=== PATIENT | male | born 1935 | race Caucasian/White ===

== ENCOUNTER 2018-11-30 14:11 | Inpatient (IN) | payer MEDICAID, MEDICARE ==
[~2018-11-30] VITALS: Ht 170.2 cm; Wt 89.4 kg
--- NOTE | 2018-11-30 14:19 | NUR ---
Patient ambulated to bed 4
[2018-11-30 14:20] VITALS: BP 156/69
[2018-11-30] MEDS ORDERED: MORPHINE SULFATE 4 MG/ML SYR IVP ONE (14:30)
[2018-11-30] MEDS ORDERED: ASPIRIN 325 MG TAB PO ONE (14:30)
--- NOTE | 2018-11-30 14:30 | NUR ---
BIB FAMILY MEMBERS C/O PRESSURE-LIKE CP RADIATING TO THE BACK, SOB, X2 WEEKS, WORSENING SINCE 399; EXACERBATED BY DEEP INSPIRATION. ALSO C/O PRODUCTIVE COUGH W/ YELLOWISH/WHITE PHLEGM X2 MONTHS. SPO2 95% ON 3L NC. PATIENT STATES PAIN OF 10/10 AT THIS TIME; VSS; PATIENT POSITIONED FOR COMFORT; HOB ELEVATED; BEDRAILS UP X2; BED DOWN. ER MD MADE AWARE OF PT STATUS. FAMILY MEMBER IS AT BEDSIDE.
--- NOTE | 2018-11-30 15:00 | NUR ---
PT STATES FEELING BETTER AND THE CP HAS BEEN IMPROVED TO 8/10 AT THIS TIME.
[2018-11-30] MEDS ORDERED: ALBUTEROL SULFATE/IPRATROPIU 3 ML SOL IH ONE (15:10)
[2018-11-30 15:11] LABS: BASOPHILS # (AUTO) 0.1 K/uL (0.00-0.22); BASOPHILS % (AUTO) 0.7 % (0.0-2.0); EOSINOPHILS # (AUTO) 0.3 K/uL (0-0.4); HEMATOCRIT 37.5 % (36-52); HEMOGLOBIN 12.5 g/dL (12.0-18.0); LYMPHOCYTES # (AUTO) 1.5 K/uL (2.0-11.5); LYMPHOCYTES % (AUTO) 17.6 % (20.5-51.1); MEAN CORPUSCULAR HEMOGLOBIN 29 pg (27-31); MEAN CORPUSCULAR HGB CONC 33 g/dL (33-37); MEAN CORPUSCULAR VOLUME 88.2 fL (80-94); MONOCYTES # (AUTO) 0.6 K/uL (0.8-1.0); MONOCYTES % (AUTO) 6.5 % (1.7-9.3); NEUTROPHILS # (AUTO) 6.2 K/uL (1.8-7.7); NEUTROPHILS % (AUTO) 72.2 % (42.2-75.2); PLATELET COUNT (AUTO) 210 K/uL (140-450); RED BLOOD CELL COUNT(AUTO) 4.25 MIL/uL (4.20-6.10); RED CELL DISTRIBUTION WIDTH 13.6 % (11.6-13.7); WHITE BLOOD COUNT (AUTO) 8.6 K/uL (4.8-10.8)
--- NOTE | 2018-11-30 15:40 | NUR ---
[place] [facility] - 11/30/18 at 1624 by VIMAL RT IS AT BEDSIDE AND IMPLEMENTING BREATHING TREATMENT.
--- NOTE | 2018-11-30 15:40 | NUR ---
CALLED RT FOR PT'S BREATHING TREATMENT.
--- NOTE | 2018-11-30 15:43 | NUR ---
RT IS AT BEDSIDE AND IMPLEMENTING BREATHING TREATMENT.
[2018-11-30 16:03] LABS: ALBUMIN 4.2 g/dL (3.4-5.0); ANION GAP 13.6 (8-16); ASPARTATE AMINOTRANSFERASE 21 U/L (15-37); CARBON DIOXIDE 32.9 mmol/L (21-32); CHLORIDE 101 mmol/L (98-107); CREATININE 1.6 mg/dL (0.7-1.3); GLUCOSE 139 mg/dL (74-106); POTASSIUM 3.5 mmol/L (3.5-5.1); SODIUM SERUM 144 mmol/L (136-145); TOTAL BILIRUBIN 0.4 mg/dL (0.0-1.0); UREA NITROGEN, BLOOD 47 mg/dL (7-18)
[2018-11-30] MEDS ORDERED: NACL 0.9% 1,000 ML IV ONE (16:20)
[2018-11-30] MEDS ORDERED: TORS20TA3 PO (16:25)
[2018-11-30] MEDS ORDERED: HYDROcodone/APAP 5/325 MG 1 TAB TAB PO PRN (16:25)
[2018-11-30] MEDS ORDERED: ACETAMINOPHEN 325 MG TAB PO PRN (16:25)
[2018-11-30] MEDS ORDERED: MECL-322 PO (16:25)
[2018-11-30] MEDS ORDERED: ALBU-118 IH (16:25)
[2018-11-30] MEDS ORDERED: ISOS5TAB10 PO (16:25)
[2018-11-30] MEDS ORDERED: ONDANSETRON 4 MG/2 ML VIAL IM/IVP PRN (16:25)
[2018-11-30] MEDS ORDERED: HYDR1TAB73 PO (16:25)
[2018-11-30 16:26] LABS: APPEARANCE,URINE CLEAR (CLEAR); BILIRUBIN,URINE NEGATIVE (NEGATIVE); BLOOD, URINE NEGATIVE (NEGATIVE); COLOR,URINE YELLOW (YELLOW); LEUKOCYTE ESTERASE ,URINE NEGATIVE (NEGATIVE); NITRITE, URINE NEGATIVE (NEGATIVE); PH,URINE 5.5 (5.0-9.0); UGLUCOSE NEGATIVE (NEGATIVE)
--- NOTE | 2018-11-30 16:45 | NUR ---
PT IS ON TELE HOLD AT THIS TIME. PT WILL BE TRANSFERRED TO TELE CHANGE OF SHIFT. SAFETY EQUIPMENT TESTER HERON MARTINEZ ALONG WITH CHARGE NURSE BOBBY MARTINEZ.
--- NOTE | 2018-11-30 16:53 | NUR ---
FROM THE FLOOR IS EVALUATING PT AT BEDSIDE AT THIS TIME.
[2018-11-30] MEDS ORDERED: NACL 0.9% 1,000 ML IV SCH (17:14)
[2018-11-30] MEDS ORDERED: NITROGLYCERIN 0.4 MG TAB SL PRN (17:15)
[2018-11-30] MEDS ORDERED: HEPARIN PER PHARMACY MC PRN (17:15)
[2018-11-30] MEDS ORDERED: MECLIZINE 25 MG TAB PO PRN (17:25)
--- NOTE | 2018-11-30 17:38 | NUR ---
PT IS EATING CARDIC DIET WITH ASSISTANCE OF HIS SON AT BEDSIDE AT THIS TIME.
[2018-11-30] MEDS: NACL 0.9% 1,000 ML IV SCH (17:41)
[2018-11-30 18:16] LABS: PROTHROMBIN TIME 10.3 secs (10.8-13.4)
[2018-11-30] MEDS ORDERED: ALBUTEROL SULFATE/IPRATROPIU 3 ML SOL IH PRN ×2 (18:25)
--- NOTE | 2018-11-30 18:51 | NUR ---
GETTING READY TO ADMIT PT TO TELEMETRY. PATIENT EDUCATION PROVIDED TO SON.
--- NOTE | 2018-11-30 18:54 | NUR ---
PT TAKEN TO TELE. PER HERON PATIENT CAN BE TRANSFERRED NOW TO THE FLOOR.
--- NOTE | 2018-11-30 19:09 | NUR ---
Patient will be admitted to care of elevated Troponin 0.191 and NON-ESTEMI. Admited to telemetry. Will go to room 124B. Belongings list completed. Report to ANNA Harris.
[2018-11-30 19:10] VITALS: BP 144/58
--- NOTE | 2018-11-30 19:10 | NUR ---
RECEIVED BEDSIDE REPORT FROM YOLI CASTILLO. PT IS AAOX4. NC 3L O2 ORDER MAINTAIN O2>90%. PT SPEAKS LUXEMBOURGISH SON AT BEDSIDE SPEAKS INDONESIAN. C/C CP. STATES PAIN 3/10 WILL MEDICATE. IV ON RAC 20G NS AT 60M/H. PT DX NSTEMI. TROP PER RN IS 0.191 NEXT DRAW IS AT 2300. SKIN INTACT. PT DENIES O2 USE AT HOME. LIVES WITH SON. USES CANE AT HOME. WILL PUT ON FALL PRECAUTIONS. MRSA SWAB OBTAINED. ADMIT VS: 144/58 HR 57 95% 3L, 18 97.7 3/10 EPIGASTRIC PAIN. POC DISCUSSED WITH PT AND SON. ALL QUESTIONS AND CONCERNS ANSWERED. ORIENTED PT TO ROOM,STAFF,VISITING HOURS, AND CALL LIGHT. WILL CONTINUE TO MONITOR.
[2018-11-30 19:45] LABS: MAGNESIUM 2.4 mg/dL (1.8-2.4); PHOSPHORUS 2.9 mg/dL (2.5-4.9); THYROID STIMULATING HORMONE 1.68 uIU/mL (0.34-3.74)
[2018-11-30] MEDS: SIMVASTATIN 20 MG TAB PO SCH (20:10)
[2018-11-30] MEDS: ISOSORBIDE DINITRATE 10 MG TAB PO SCH (20:10)
--- NOTE | 2018-11-30 20:15 | NUR ---
HEPARIN ALEXIA GIVEN 4500U AND HEPARIN DRIP AT 900U/H PTS PTT 25.6 PLT 210. PTT ORDER FOR 0215. [facility] MEDICATIONS GIVEN. EDUCATED PT ON REASON AND S/E OF MEDICATIONS. ALL NEEDS MET. WILL CONTINUE TO MONITOR.
[2018-11-30] MEDS: hePARIN / DEXT 5% PREMIX 250 ML IV SCH (20:17)
--- NOTE | 2018-11-30 22:00 | NUR ---
PATIENT LAYING COMFORTABLY IN BED WATCHING TV. DENIES ANY PAIN. ALL NEEDS MET AT THIS TIME. CALL LIGHT IS WITHIN REACH. WILL CONTINUE TO MONITOR.
--- NOTE | 2018-11-30 23:00 | NUR ---
TROPONIN WAS DRAWN AT THIS TIME. ASSISTED PT TO BATHROOM PT WITH STEADY GAIT SOB WITH ACTIVITY. ASSISTED PT BACK TO BED REAPPLIED NC AT 2L O2. PT TOLERATED WELL. ALL NEEDS MET. CALL LIGHT IS WITHIN REACH. WILL CONTINUE TO MONITOR.
--- NOTE | 2018-11-30 23:50 | NUR ---
PAGED DOCTOR REGARDING PTS FIRST TROP- 0.191 AND SECOND WAS DRAWN AT 2300 IS NEGATIVE PER DOCTOR HE SPOKE WITH DR BARRON DISASTER OR DAMAGE CONTROL SPECIALIST ON THE CASE TO CONTINUE CURRENT TREATMENT. WILL CONTINUE PATIENT ON HEPARIN DRIP AND F/U AFTER THE THIRD TROPONIN 12/01 AT 0700. WILL CONTINUE TO MONITOR.
[2018-12-01] VITALS: BP 129/63
--- NOTE | 2018-12-01 00:07 | NUR ---
VITAL SIGNS ARE WITHIN NORMAL LIMITS. DENIES ANY PAIN. ALL NEEDS MET AT THIS TIME. CALL LIGHT IS WITHIN REACH. WILL CONTINUE TO MONITOR.
--- NOTE | 2018-12-01 02:10 | NUR ---
PATIENT IS SLEEPING COMFORTABLY IN BED. CHEST RISE AND FALL. SAFETY MEASURES ARE IN PLACE. CALL LIGHT IS WITHIN REACH.
--- NOTE | 2018-12-01 03:33 | NUR ---
PTT CAME BACK 44.1 PER PHARMACY PROTOCOL ADMINISTERED 2300U BOLUS AND INCREASE DRIP 150U/H RATE NOW IS 1050U/H. PT TOLERATED WELL. WILL ORDER PTT FOR 929. ALL NEEDS MET AT THIS TIME. WILL CONTINUE TO MONITOR.
[2018-12-01] MEDS: hePARIN / DEXT 5% PREMIX 250 ML IV SCH ×2 (03:35→10:50)
[2018-12-01 04:00] VITALS: BP 100/61
--- NOTE | 2018-12-01 05:00 | NUR ---
PT IS RESTING COMFORTABLY IN BED. CALL LIGHT IS WITHIN REACH. WILL CONTINUE TO MONITOR
[2018-12-01] MEDS ORDERED: ALBUTEROL SULFATE/IPRATROPIU 3 ML SOL IH SCH ×2 (06:00→19:00)
[2018-12-01] MEDS: ALBUTEROL SULFATE/IPRATROPIU 3 ML SOL IH SCH ×3 (06:33→19:41)
--- NOTE | 2018-12-01 07:13 | NUR ---
GAVE BEDSIDE REPORT. PT ENDORSED IN STABLE CONDITION.
--- NOTE | 2018-12-01 07:15 | NUR ---
RECEIVED REPORT FROM MEDICAL DRIVER NURSE. PT IS ABLE TO MAKE NEEDS KNOWN, AAOX4, NO C/O PAIN AT THIS TIME. RESPIRATIONS EVEN AND UNLABORED ON O2 2L VIA N/C, AUDIBLE CRACKLES THROUGHOUT UPON AUSCULTATION. PT HAS INTERMITTENT PRODUCTIVE COUGH WITH SMALL AMOUNT. +1 PITTING EDEMA TO BLE. IV ON RT AC 20 GA RUNNING IVF PER ORDER. LBM 11/30, ACTIVE BS, SOFT ABD. SKIN IS INTACT, WARM TO TOUCH. PT IS ON FALL RISK PRECAUTIONS, SAFETY MEASURES IN PLACE, CALL LIGHT WITHIN REACH. REVIEWED POC WITH PT, PT VERBALIZED UNDERSTANDING.
[2018-12-01 07:27] LABS: BASOPHILS # (AUTO) 0.1 K/uL (0.00-0.22); BASOPHILS % (AUTO) 0.7 % (0.0-2.0); EOSINOPHILS # (AUTO) 0.3 K/uL (0-0.4); EOSINOPHILS % (AUTO) 3.6 % (0.0-4.0); HEMATOCRIT 34.6 % (36-52); HEMOGLOBIN 11.7 g/dL (12.0-18.0); LYMPHOCYTES # (AUTO) 2.1 K/uL (2.0-11.5); LYMPHOCYTES % (AUTO) 26.7 % (20.5-51.1); MEAN CORPUSCULAR HEMOGLOBIN 30 pg (27-31); MEAN CORPUSCULAR HGB CONC 34 g/dL (33-37); MEAN CORPUSCULAR VOLUME 89.7 fL (80-94); MONOCYTES # (AUTO) 0.6 K/uL (0.8-1.0); MONOCYTES % (AUTO) 8.2 % (1.7-9.3); NEUTROPHILS # (AUTO) 4.8 K/uL (1.8-7.7); NEUTROPHILS % (AUTO) 60.8 % (42.2-75.2); PLATELET COUNT (AUTO) 180 K/uL (140-450); RED BLOOD CELL COUNT(AUTO) 3.86 MIL/uL (4.20-6.10); RED CELL DISTRIBUTION WIDTH 13.7 % (11.6-13.7)
[2018-12-01 07:51] LABS: ANION GAP 9.8 (8-16); CARBON DIOXIDE 33.3 mmol/L (21-32); CHLORIDE 107 mmol/L (98-107); CREATININE 1.3 mg/dL (0.7-1.3); GLUCOSE 108 mg/dL (74-106); POTASSIUM 4.1 mmol/L (3.5-5.1); SODIUM SERUM 146 mmol/L (136-145); UREA NITROGEN, BLOOD 40 mg/dL (7-18)
[2018-12-01 07:53] LABS: MAGNESIUM 2.4 mg/dL (1.8-2.4); PHOSPHORUS 3.4 mg/dL (2.5-4.9)
[2018-12-01 08:00] VITALS: BP 133/69
[2018-12-01 08:10] LABS: CHOL/HDL RATIO 6.4 (1-4.5)
[2018-12-01] MEDS: ISOSORBIDE DINITRATE 10 MG TAB PO SCH ×2 (08:23→20:22)
--- NOTE | 2018-12-01 08:23 | NUR ---
BLUEPHONE/DAMAGE APPRAISER HECTOR #[id number] EXPLAINED INDICATIONS AND POTENTIAL SIDE EFFECTS OF MEDICATIONS, PT'S QUESTIONS ANSWERED. PT IS REQUESTING TO CONTACT SON, WILL FOLLOW-UP. O2 TITRATED TO 3L VIA N/C D/T DIFFICULTY BREATHING.
[2018-12-01] MEDS: VALSARTAN 80 MG TAB PO SCH (08:24)
[2018-12-01] MEDS: HYDROCHLOROTHIAZIDE 25 MG TAB PO SCH (08:24)
[2018-12-01] MEDS: FUROSEMIDE 40 MG TAB PO SCH (08:24)
[2018-12-01] MEDS: ASPIRIN 81 MG TAB.CHEW PO SCH (08:24)
--- NOTE | 2018-12-01 08:35 | NUR ---
SON/LEESA AT BEDSIDE, EXPLAINED THAT FATHER IS MI'KMAQ. PT IS TEARFUL. STATES HE WILL BE FED BREAKFAST BY SON AT THIS TIME.
--- NOTE | 2018-12-01 09:11 | NUR ---
PATIENT HAS BEEN SCREENED AND CATEGORIZED MODERATE NUTRITION RISK. PATIENT WILL BE SEEN WITHIN 3-5 DAYS OF ADMISSION. 12/04/18-12/06/[address]
[2018-12-01] MEDS: NACL 0.9% 1,000 ML IV SCH (10:25)
[2018-12-01] MEDS: PIPERACILLIN/TAZOBACTAM 3.375 GM in DEXTROSE 5% 50 ML IV SCH ×2 (10:29→17:28)
[2018-12-01] MEDS ORDERED: ACETYLCYSTEINE 10% (100 MG/ML) 100 MG/ML VIAL INH SCH ×2 (11:00→19:00)
[2018-12-01 12:00] VITALS: BP 119/54
--- NOTE | 2018-12-01 13:46 | NUR ---
TALKED TO DR LUIS MANUEL MAY NEEDS SCHEDULE CORRECTION
--- NOTE | 2018-12-01 15:10 | NUR ---
SON AT BEDSIDE. PER LUCY/SON, STAFF MAY CONTACT HIM AT OR LEESA/SON WHENEVER PT NEEDS SOMETHING DURING VISITING HOURS.
[2018-12-01 16:00] VITALS: BP 126/46
--- NOTE | 2018-12-01 17:40 | NUR ---
SON/LEESA GIVEN UPDATE REGARDING PT'S CONDITION, ALL QUESTIONS ANSWERED.
--- NOTE | 2018-12-01 19:10 | NUR ---
ENDORSED PT TO RADAR TECHNICIAN NURSE. PT HAS NO SIGNS OF DISTRESS AT THIS TIME.
--- NOTE | 2018-12-01 19:11 | NUR ---
RECEIVED BEDSIDE REPORT FROM DAY RN. PT IS AAOX4 ON NC 4L O2. HAS BREATHING TREATMENT WILL SPEAK WITH RT TO KUSUM DOWN O2. PT IS SAMI SPEAKING ONLY. SON AND ARE AT BEDSIDE. SON SPEAKS GUAMANIAN. SKIN IS INTACT. IV ON RAC 20G NS INFUSING AT 60M/H. PER DR BARRON PT CLEARED TROP NEG X2 HEPARIN DRIP D/C. PT CURRENTLY ON ZOSYN Q8/H. SON ASKING IF PT WILL BE D/C WILL F/U WITH DOCTOR. POC DISCUSSED WITH FAMILY. CALL LIGHT IS WITHIN REACH. WILL CONTINUE TO MONITOR.
--- NOTE | 2018-12-01 19:30 | NUR ---
RT IS AT BEDSIDE. SPOKE WITH DOCTOR NO ORDER TO D/C TONIGHT EXPLAINED TO FAMILY THEY ARE AGREEABLE. NO FURTHER QUESTIONS OR CONCERNS AT THIS TIME. CALL LIGHT IS WITHIN REACH.
[2018-12-01] MEDS: ACETYLCYSTEINE 10% (100 MG/ML) 100 MG/ML VIAL INH SCH (19:42)
[2018-12-01 20:00] VITALS: BP 100/55
[2018-12-01] MEDS: SIMVASTATIN 20 MG TAB PO SCH (20:22)
--- NOTE | 2018-12-01 20:22 | NUR ---
VITAL SIGNS ARE WITHIN NORMAL LIMITS. HEENA MEDICATIONS GIVEN. PT TOLERATED WELL. CALL LIGHT IS WITHIN REACH. ALL NEEDS MET AT THIS TIME.
--- NOTE | 2018-12-01 22:15 | NUR ---
PT IS AWAKE CURRENTLY LAYING COMFORTABLY IN BED. CALL LIGHT IS WITHIN REACH. WILL CONTINUE TO MONITOR.
[2018-12-02] VITALS: BP 148/55
[2018-12-02] MEDS: PIPERACILLIN/TAZOBACTAM 3.375 GM in DEXTROSE 5% 50 ML IV SCH ×3 (00:41→17:15)
--- NOTE | 2018-12-02 00:53 | NUR ---
VITAL SIGNS ARE WITHIN NORMAL LIMITS. ZOSYN NOW INFUSING PER ORDERS. ALL NEEDS MET AT THIS TIME. CALL LIGHT IS WITHIN REACH.
[2018-12-02] MEDS: ACETYLCYSTEINE 10% (100 MG/ML) 100 MG/ML VIAL INH SCH ×4 (01:06→19:09)
[2018-12-02] MEDS: ALBUTEROL SULFATE/IPRATROPIU 3 ML SOL IH SCH ×4 (01:06→19:09)
[2018-12-02] MEDS: NACL 0.9% 1,000 ML IV SCH ×2 (01:24→18:33)
--- NOTE | 2018-12-02 02:05 | NUR ---
PATIENT IS SLEEPING COMFORTABLY IN BED. CHEST RISE AND FALL. ALL NEEDS MET AT THIS TIME. CALL LIGHT IS WITHIN REACH.
[2018-12-02 04:00] VITALS: BP 104/62
--- NOTE | 2018-12-02 04:00 | NUR ---
VITAL SIGNS ARE WITHIN NORMAL LIMITS. PT DENIES ANY PAIN AT THIS TIME. SAFETY MEASURES ARE IN PLACE.
[2018-12-02 06:03] LABS: BASOPHILS # (AUTO) 0.1 K/uL (0.00-0.22); BASOPHILS % (AUTO) 0.8 % (0.0-2.0); EOSINOPHILS # (AUTO) 0.2 K/uL (0-0.4); EOSINOPHILS % (AUTO) 2.9 % (0.0-4.0); HEMATOCRIT 34.5 % (36-52); HEMOGLOBIN 11.5 g/dL (12.0-18.0); LYMPHOCYTES # (AUTO) 1.3 K/uL (2.0-11.5); LYMPHOCYTES % (AUTO) 15.3 % (20.5-51.1); MEAN CORPUSCULAR HEMOGLOBIN 30 pg (27-31); MEAN CORPUSCULAR HGB CONC 33 g/dL (33-37); MONOCYTES # (AUTO) 0.6 K/uL (0.8-1.0); MONOCYTES % (AUTO) 7.3 % (1.7-9.3); NEUTROPHILS # (AUTO) 6.3 K/uL (1.8-7.7); NEUTROPHILS % (AUTO) 73.7 % (42.2-75.2); PLATELET COUNT (AUTO) 189 K/uL (140-450); RED BLOOD CELL COUNT(AUTO) 3.87 MIL/uL (4.20-6.10); RED CELL DISTRIBUTION WIDTH 13.8 % (11.6-13.7); WHITE BLOOD COUNT (AUTO) 8.5 K/uL (4.8-10.8)
[2018-12-02 06:33] LABS: ANION GAP 12.2 (8-16); CARBON DIOXIDE 30.3 mmol/L (21-32); CHLORIDE 108 mmol/L (98-107); CREATININE 1.4 mg/dL (0.7-1.3); GLUCOSE 97 mg/dL (74-106); POTASSIUM 3.5 mmol/L (3.5-5.1); SODIUM SERUM 147 mmol/L (136-145); UREA NITROGEN, BLOOD 33 mg/dL (7-18)
[2018-12-02 06:40] LABS: MAGNESIUM 2.1 mg/dL (1.8-2.4); PHOSPHORUS 3.5 mg/dL (2.5-4.9)
--- NOTE | 2018-12-02 07:23 | NUR ---
GAVE BEDSIDE REPORT TO DAY RN. PT ENDORSED IN STABLE CONDITION.
--- NOTE | 2018-12-02 07:24 | NUR ---
RECEIVED BEDSIDE REPORT FROM SHOELACE TIPPING MACHINE OPERATOR NURSE. PATIENT IS AWAKE, ALERT AND ORIENTEDX4. PERSIAN SPEAKER. SKIN IS INTACT, FALL RISK PROTOCOL IN PLACE. AMBULATES W CANE. CONTINENT. NO SIGNS OF DISTRESS ON 2L NC. R AC 20G SL. L AC 20G INFUSING NS AT 60. CLEAN, DRY AND INTACT. BED IN LOW POSITION. CALL LIGHT WITHIN REACH. WILL CONTINUE TO MONITOR THE PATIENT. TELE IN PLACE
[2018-12-02 08:00] VITALS: BP 152/66
[2018-12-02] MEDS: ASPIRIN 81 MG TAB.CHEW PO SCH (08:52)
[2018-12-02] MEDS: ISOSORBIDE DINITRATE 10 MG TAB PO SCH ×2 (08:52→21:27)
[2018-12-02] MEDS: FUROSEMIDE 40 MG TAB PO SCH (08:53)
[2018-12-02] MEDS: VALSARTAN 80 MG TAB PO SCH (08:54)
[2018-12-02] MEDS: HYDROCHLOROTHIAZIDE 25 MG TAB PO SCH (08:55)
--- NOTE | 2018-12-02 09:04 | NUR ---
SON AT PT'S BEDSIDE, HE INSTRUCTED PT ON THE IMPORTANCE OF COUGHING TO GET SPUTUM OUT.
--- NOTE | 2018-12-02 09:11 | NUR ---
ADMINISTERED MEDS. SON AT BEDSIDE. EXPLAINED ALL THE SIDE EFFECTS. PATIENT TOLERATED WELL. WILL CONTINUE TO MONITOR
--- NOTE | 2018-12-02 10:41 | NUR ---
SON AT BEDSIDE. PATIENT HAS NO SIGNS OF DISTRESS. WILL CONTINUE TO MONITOR
[2018-12-02 12:00] VITALS: BP 127/82
--- NOTE | 2018-12-02 12:51 | NUR ---
*S.T. Bedside swallow eval completed* Pt presents with moderate-severe pharyngeal phase dysphagia c/b consistent wet voice and intermittent coughing after swallows of thin and nectar thick liquids. Pt w/ poor endurance for mastication of solids due to SOB. Pt benefitted from sitting fully upright w/ back support from son. Recommend: 1) Downgrade diet textures to mechanical soft ground, HONEY THICK LIQUIDS ONLY; No straws; cup or spoon sips only 2) Pt to sit fully upright at 90 degree angle, ideally in chair. Nsg to assist transfer to chair. 3) P.O. meds crushed and mixed w/ puree. 4) S.T. to f/u 2x/1 week to ensure tolerance of recommended diet and possibly advance diet if pt's swallow ability improves. 5) 1:1 feeder w/ aspiration precautions. Pt and son educated re: results/recommendations. Endorsed to ANNA Walsh. Time [id number]
--- NOTE | 2018-12-02 13:38 | NUR ---
PATIENT IN NO DISTRESS. WILL CONTINUE TO MONITOR THE PATIENT
--- NOTE | 2018-12-02 14:28 | NUR ---
PATIENT IS SLEEPING. NO SIGNS OF DISTRESS. WILL CONTINUE TO MONITOR THE PATIENT
[2018-12-02 16:00] VITALS: BP 153/61
--- NOTE | 2018-12-02 16:00 | NUR ---
PATIENT SITTING IN BED. NO DISTRESS
--- NOTE | 2018-12-02 18:45 | NUR ---
PATIENT PICKED UP BY RADIOLOGIST
--- NOTE | 2018-12-02 19:05 | NUR ---
RECIEVED PT AAOX4 , NID - O2 SAT 96% , ON BREATING TREATMENT , PT'S SON ON BEDSIDE .ON CORE CUTTER AND REAMER , USES URINAL -URINAL AT BEDSIDE PROVIDED , ON SAFETY / FALL PREACAUTION PROTOCOL - USES CANE - BED ALARM ON - REMINDS PT USE CALL LIGHT FOR ASSISTANCE -FALL RISK PRECAUTION -CALL LIGHT WITH REACH , PLAN OF CARE DISCUSSED BUT POOR UNDERSTANDING DUE TO LANGUAGE BARRIERS . PT REQUESTING SLEEPING PILL - HIS REQUEST TRANSLATED BY HIS SON ( HIS HUMAN RESOURCES COORDINATOR ) WILL CONT. TO MONITOR AND WILL REFER TO TAMIE REGARDING PT'S REQUEST.
--- NOTE | 2018-12-02 19:05 | NUR ---
GAVE BEDSIDE REPORT TO LUMBER DRIVER NURSE. PATIENT ENDORSED IN STABLE CONDITION
[2018-12-02 20:00] VITALS: BP 157/67
[2018-12-02] MEDS ORDERED: MELATONIN 3 MG TAB PO PRN (21:20)
[2018-12-02] MEDS ORDERED: MELATONIN 3 MG TAB ONE (21:24)
[2018-12-02] MEDS: SIMVASTATIN 20 MG TAB PO SCH (21:26)
--- NOTE | 2018-12-02 22:00 | NUR ---
MADE ROUNDS , RESP. EVEN AND UNLABORED , O2 SAT 95% , NO COMPLAIN AT THIS TIME , CALL LIGHT WITHIN REACH ,BED ALARM ON .
[2018-12-03] VITALS: BP 152/57
--- NOTE | 2018-12-03 | NUR ---
MADE ROUNDS, NO SIGNS OF DISTRESS NOTED.
[2018-12-03] MEDS: ACETYLCYSTEINE 10% (100 MG/ML) 100 MG/ML VIAL INH SCH ×3 (01:27→19:41)
[2018-12-03] MEDS: ALBUTEROL SULFATE/IPRATROPIU 3 ML SOL IH SCH ×4 (01:27→19:41)
[2018-12-03] MEDS: PIPERACILLIN/TAZOBACTAM 3.375 GM in DEXTROSE 5% 50 ML IV SCH ×3 (02:09→17:10)
[2018-12-03 04:00] VITALS: BP 150/79
--- NOTE | 2018-12-03 06:00 | NUR ---
MADE ROUNDS NO SIGNS OF DISTRESS NOTED.
--- NOTE | 2018-12-03 07:20 | NUR ---
ENDORSED TO AM SHIFT WITH STABLE CONDITION , NO C/O CHEST PAIN FOR THE WHOLE SHIFT.
--- NOTE | 2018-12-03 07:21 | NUR ---
RECEIVED BEDSIDE REPORT FROM POST COMMANDER NURSE. PATIENT IS AWAKE, ALERT AND ORIENTEDX4. PORTUGUESE SPEAKER. SKIN IS INTACT. NO SIGNS OF DISTRESS ON 2L NC. IV ON R AC 20G. CLEAN, DRY AND INTACT. TELE MONITOR IN PLACE. AMBULATE W ASSIST AND CANE, FALL RISK PROTOCOL IN PLACE. CONTINENT. BED IN LOW POSITION. CALL LIGHT WITHIN REACH. WILL CONTINUE TO MONITOR THE PATIENT
[2018-12-03 08:00] VITALS: BP 159/51
[2018-12-03] MEDS ORDERED: BUDESONIDE 0.5 MG/2 ML NEBU INH SCH (08:09)
[2018-12-03] MEDS ORDERED: ALBUTEROL SULFATE/IPRATROPIU 3 ML SOL IH PRN (08:10)
--- NOTE | 2018-12-03 09:00 | NUR ---
PATIENT IN NO DISTRESS. WILL CONTINUE TO MONITOR THE PATIENT.
[2018-12-03 09:56] LABS: BASOPHILS % (AUTO) 0.4 % (0.0-2.0); EOSINOPHILS # (AUTO) 0.2 K/uL (0-0.4); EOSINOPHILS % (AUTO) 2.9 % (0.0-4.0); HEMATOCRIT 35.4 % (36-52); HEMOGLOBIN 11.6 g/dL (12.0-18.0); LYMPHOCYTES # (AUTO) 1.4 K/uL (2.0-11.5); LYMPHOCYTES % (AUTO) 17.4 % (20.5-51.1); MEAN CORPUSCULAR HEMOGLOBIN 30 pg (27-31); MEAN CORPUSCULAR HGB CONC 33 g/dL (33-37); MEAN CORPUSCULAR VOLUME 89.8 fL (80-94); MONOCYTES # (AUTO) 0.4 K/uL (0.8-1.0); MONOCYTES % (AUTO) 5.6 % (1.7-9.3); NEUTROPHILS # (AUTO) 5.9 K/uL (1.8-7.7); NEUTROPHILS % (AUTO) 73.7 % (42.2-75.2); PLATELET COUNT (AUTO) 201 K/uL (140-450); RED BLOOD CELL COUNT(AUTO) 3.94 MIL/uL (4.20-6.10); RED CELL DISTRIBUTION WIDTH 13.6 % (11.6-13.7); WHITE BLOOD COUNT (AUTO) 8.1 K/uL (4.8-10.8)
[2018-12-03] MEDS: HYDROCHLOROTHIAZIDE 25 MG TAB PO SCH (10:24)
[2018-12-03] MEDS: VALSARTAN 80 MG TAB PO SCH (10:25)
[2018-12-03] MEDS: FUROSEMIDE 40 MG TAB PO SCH (10:25)
[2018-12-03] MEDS: ASPIRIN 81 MG TAB.CHEW PO SCH (10:25)
[2018-12-03] MEDS: ISOSORBIDE DINITRATE 10 MG TAB PO SCH ×2 (10:27→20:31)
[2018-12-03] MEDS: methylPREDNISolone SS 40 MG/ML VIAL IVP SCH ×2 (10:28→20:31)
[2018-12-03] MEDS: MORPHINE SULFATE 2 MG/ML SYR IVP PRN (10:46)
[2018-12-03] MEDS: DEXT 5% / NACL 0.45% 1,000 ML IV SCH (10:46)
--- NOTE | 2018-12-03 11:03 | NUR ---
PATIENT BEING CHANGED BY FAMILY. WILL CONTINUE TO MONITOR
[2018-12-03] MEDS ORDERED: DOCUSATE SODIUM 100 MG GELCAP PO SCH (11:20)
[2018-12-03 12:00] VITALS: BP 134/61
[2018-12-03 12:04] LABS: CARBON DIOXIDE 34.7 mmol/L (21-32); CHLORIDE 107 mmol/L (98-107); CREATININE 1.4 mg/dL (0.7-1.3); GLUCOSE 183 mg/dL (74-106); POTASSIUM 3.7 mmol/L (3.5-5.1); SODIUM SERUM 148 mmol/L (136-145); UREA NITROGEN, BLOOD 25 mg/dL (7-18)
--- NOTE | 2018-12-03 13:48 | NUR ---
PATIENT IN NO DISTRESS. BED IN LOW POSITION. CALL LIGHT WITHIN REACH. WILL CONTINUE TO MONITOR
--- NOTE | 2018-12-03 14:50 | NUR ---
PATIENT IS SLEEPING. WILL CONTINUE TO MONITOR
--- NOTE | 2018-12-03 15:54 | NUR ---
PATIENT IS AWAKE, NO SIGNS OF DISTRESS. WILL CONTINUE TO MONITOR THE PATIENT
[2018-12-03 16:00] VITALS: BP 107/62
--- NOTE | 2018-12-03 16:00 | NUR ---
Medical Instrument Technician Note: Assessment/Discharge Plan: I called and spoke with patient's son Nasim Rhodes to conduct assessment. Patient lives at home with his son Venancio Rhoeds. Patient and patient's family does not want patient to be transfer to snf (short term) if recommended by MD. Venancio assist patient with ADLs. Patient does not use any DME at home. Patient's pcp is Brady Stoner. Nasim takes patient to pcp's appointment. Prior to hospital admission patient was not receiving home health services. Nasim is in agreement with home health for physical therapy if recommended by MD. Patient is not receiving [facility]. I offered to provide Nasim with information on community resources for home care, including [facility]. I explained to him I will leave resources and my contact information in patient's room. Nasim stated he is planning to visit patient tomorrow morning and would like to meet with me. I requested Nasim to contact me once he arrives. He verbalized understanding. I left resources and my contact information in patient's room.
--- NOTE | 2018-12-03 17:17 | NUR ---
ADMINISTERED MEDS. PATIENT TOLERATED WELL. WILL CONTINUE TO MONITOR
--- NOTE | 2018-12-03 18:54 | NUR ---
FAMILY AT BEDSIDE. PATIENT IN NO DISTRESS
--- NOTE | 2018-12-03 19:02 | NUR ---
GAVE BEDSIDE REPORT TO MOTORCYCLE BUILDER NURSE. PATIENT ENDORSED IN STABLE CONDITION
--- NOTE | 2018-12-03 19:05 | NUR ---
RECEIVED PT ON BED, AAOX4, FAROESE SPEAKING, VITAL SIGNS TAKEN, BP SLIGHTLY ELEVATED, ASYMPTOMATIC, O2 SAT AT 90% ON 1L NC O2, INCREASED O2 AT 2L, NO SOB NOTED, IVF INFUSING WELL, PLAN OF CARE DISCUSSED WITH PT AND FAMILY MEMBERS AT BEDSIDE, SAFETY MEASURES IN PLACE, PT ABLE TO SUCTION HIMSELF WITH SAAD, CALL LIGHT WITHIN REACH.
[2018-12-03] MEDS: BUDESONIDE 0.5 MG/2 ML NEBU INH SCH (19:41)
[2018-12-03 20:00] VITALS: BP 159/63
[2018-12-03] MEDS: SIMVASTATIN 20 MG TAB PO SCH (20:31)
--- NOTE | 2018-12-03 20:40 | NUR ---
DUE MEDS ADMINISTERED, ENCOURAGE TO USE CALL LIGHT FOR ASSISTANCE, CALL LIGHT WITHIN REACH.
--- NOTE | 2018-12-03 22:35 | NUR ---
ALARM TRIGGERED, PT SEEN SITTING ON SIDE OF BED TO USE URINAL, VOIDED FREELY WITH CLEAR YELLOW OUTPUT, PT ENCOURAGE TO USE CALL LIGHT FOR ASSISTANCE, FREQUENT ROUNDS MADE.
--- NOTE | 2018-12-03 23:40 | NUR ---
PT SLEEPING, EASILY AROUSABLE, VITAL SIGNS TAKEN, BP SLIGHTLY ELEVATED, ASYMPTOMATIC, SAT-96% ON O2 2L, IVF INFUSING WELL, CONTINUE TO MONITOR CLOSELY.
[2018-12-04] VITALS: BP 145/55
[2018-12-04] MEDS: PIPERACILLIN/TAZOBACTAM 3.375 GM in DEXTROSE 5% 50 ML IV SCH ×3 (01:18→16:29)
[2018-12-04] MEDS: ALBUTEROL SULFATE/IPRATROPIU 3 ML SOL IH SCH ×4 (01:21→19:59)
[2018-12-04] MEDS: ACETYLCYSTEINE 10% (100 MG/ML) 100 MG/ML VIAL INH SCH ×2 (01:21→07:47)
[2018-12-04] MEDS: DEXT 5% / NACL 0.45% 1,000 ML IV SCH ×3 (01:22→17:00)
[2018-12-04 04:00] VITALS: BP 162/69
[2018-12-04] MEDS: MORPHINE SULFATE 2 MG/ML SYR IVP PRN (04:24)
--- NOTE | 2018-12-04 04:25 | NUR ---
PT EASILY AROUSABLE, VITAL SIGNS TAKEN, SAT-87-88% ON O2 AT 2L, SOB NOTED, PUT ON HIGH FOWLERS POSITION AND O2 INCREASED TO 4L, RT MICHAEL PAGED FOR BREATHING TX, PT VERBALIZING IN ROMANIAN, [employer] PHONE USED WITH KAROLINAWinnie ID#[id number] SUPERVISOR [employer], PT STATED THAT HE IS HAVING THROAT AND CHEST PAIN, PT UNABLE TO EXPECTORATE SECRETIONS FROM HIS THROAT, MORPHINE IVP GIVEN PRN, AWAITING MICHAEL RT FOR DEEP SUCTIONING, MONITORED CLOSELY.
--- NOTE | 2018-12-04 04:45 | NUR ---
RT MICHAEL GAVE BREATHING TX, TOLERATED WELL, PT WITH GURGLING SOUND FROM THE THROAT, RT TRIED TO DO DEEP NASAL SUCTIONING BUT TUBING JUST WENT FROM THE MOUTH, NOTED THICK CREAMY SECRETION, SAT WENT UP TO 93-95%, STILL WITH GURGLING SOUNDS, MAINTAINED ON HIGH FOWLERS POSITION.
--- NOTE | 2018-12-04 05:00 | NUR ---
RT MICHAEL USED A NASOPHARYNGEAL AND OROPHARYNGEAL AIRWAY TO DO DEEP SUCTION, PT TOLERATED WELL, SAT AT 93-96%, LESS GURGLING SOUND NOTED, PER RT MAINTAINED ON O2 AT 4 L FOR NOW, PT APPEARS COMFORTABLE, NO SOB NOTED, MONITORED CLOSELY.
[2018-12-04 06:00] VITALS: BP 147/61
--- NOTE | 2018-12-04 06:00 | NUR ---
[place] SLEEPING, EASILY AROUSABLE, VITAL SIGNS RECHECKED:BP-147/61, HR-60, RR-20, SAT-94%, STILL WITH GURGLING SOUND ON THE THROAT, NO SOB NOTED, BED ALARM ON.
--- NOTE | 2018-12-04 06:20 | NUR ---
DR LINDSAY HERE AND SEEN THE PT, MADE AWARE OF PT'S GURGLING THROAT SOUND, NO NEW ORDER.
[2018-12-04 06:47] LABS: BASOPHILS % (AUTO) 0.1 % (0.0-2.0); EOSINOPHILS % (AUTO) 0.1 % (0.0-4.0); HEMATOCRIT 33.7 % (36-52); HEMOGLOBIN 11.4 g/dL (12.0-18.0); LYMPHOCYTES # (AUTO) 1.5 K/uL (2.0-11.5); LYMPHOCYTES % (AUTO) 14.4 % (20.5-51.1); MEAN CORPUSCULAR HEMOGLOBIN 30 pg (27-31); MEAN CORPUSCULAR HGB CONC 34 g/dL (33-37); MEAN CORPUSCULAR VOLUME 89.1 fL (80-94); MONOCYTES # (AUTO) 0.4 K/uL (0.8-1.0); MONOCYTES % (AUTO) 4.3 % (1.7-9.3); NEUTROPHILS # (AUTO) 8.3 K/uL (1.8-7.7); NEUTROPHILS % (AUTO) 81.1 % (42.2-75.2); PLATELET COUNT (AUTO) 219 K/uL (140-450); RED BLOOD CELL COUNT(AUTO) 3.78 MIL/uL (4.20-6.10); RED CELL DISTRIBUTION WIDTH 13.6 % (11.6-13.7); WHITE BLOOD COUNT (AUTO) 10.3 K/uL (4.8-10.8)
--- NOTE | 2018-12-04 07:19 | NUR ---
PT AWAKE, STILL WITH GURGLING SOUND, ON FOWLERS POSITION, BEDSIDE REPORT GIVEN TO ANNA AREVALO FOR CONTINUITY OF CARE.
--- NOTE | 2018-12-04 07:39 | NUR ---
RECEIVED PT FROM NIGHT NURSE. AAOX4. PATIENT IN BED IN LOW POSITION. ON 4L NC O2, NO SOB NOTED, IVF IN PLACE R AC 20G. PLAN OF CARE REVIEWED WITH PT. PATIENT ABLE TO SUCTION HIMSELF WITH YAUNKER. SAFETY MEASURES IN PLACE. CALL LIGHT WITHIN REACH. WILL CONTINUE TO MONITOR.
[2018-12-04] MEDS: BUDESONIDE 0.5 MG/2 ML NEBU INH SCH ×2 (07:47→19:59)
--- NOTE | 2018-12-04 07:47 | NUR ---
SATURATION 98% ON SUPPLEMENTAL OXYGEN AT 5 LPM VIA NC POST [facility] THERAPY TITRATED FIO2 TO 3 LPM IRINA/ANNA NOTIFIED
[2018-12-04 07:58] LABS: MAGNESIUM 2.3 mg/dL (1.8-2.4); PHOSPHORUS 2.8 mg/dL (2.5-4.9)
[2018-12-04 08:10] LABS: ANION GAP 12.4 (8-16); CARBON DIOXIDE 31.8 mmol/L (21-32); CHLORIDE 107 mmol/L (98-107); GLUCOSE 174 mg/dL (74-106); POTASSIUM 4.2 mmol/L (3.5-5.1); SODIUM SERUM 147 mmol/L (136-145); UREA NITROGEN, BLOOD 33 mg/dL (7-18)
[2018-12-04 08:11] LABS: CREATININE 1.6 mg/dL (0.7-1.3)
[2018-12-04] MEDS: ISOSORBIDE DINITRATE 10 MG TAB PO SCH ×2 (08:28→21:09)
[2018-12-04] MEDS: HYDROCHLOROTHIAZIDE 25 MG TAB PO SCH (08:29)
[2018-12-04] MEDS: ASPIRIN 81 MG TAB.CHEW PO SCH (08:29)
[2018-12-04] MEDS: FUROSEMIDE 40 MG TAB PO SCH (08:29)
[2018-12-04] MEDS: VALSARTAN 80 MG TAB PO SCH (08:30)
[2018-12-04] MEDS: methylPREDNISolone SS 40 MG/ML VIAL IVP SCH ×2 (08:38→21:09)
--- NOTE | 2018-12-04 09:00 | NUR ---
MEDICATIONS ADMINISTERED PER ORDER. PATIENT TOLERATED WELL. WILL CONTINUE TO MONITOR.
[2018-12-04] MEDS: DOCUSATE SODIUM 100 MG GELCAP PO SCH (09:28)
--- NOTE | 2018-12-04 10:20 | NUR ---
IRINA/RN NOTIFIED OF EDUCATION PROVIDED TO LEESA/SON ON BILATERAL CHEST PHYSIOTHERAPY
[2018-12-04] MEDS ORDERED: LORazepam 2 MG/ML VIAL IM/IVP PRN (11:05)
--- NOTE | 2018-12-04 11:38 | NUR ---
PT IN BED, PAYNE POSITION IN COMPANY OF FAMILY. NO DIFFICULTY BREATHING NOTED. SAFETY MEASURES IN PLACE. WILL CONTINUE TO MONITOR.
[2018-12-04 12:00] VITALS: BP 127/57
--- NOTE | 2018-12-04 12:08 | NUR ---
CONTACTED CONRAD JACOBS OF [facility] AT [phone] REGARDING HOME O2 ORDER. HE STATED TO FAX ORDER TO [phone]. HE ALSO STATED THAT PATIENT NEED TO HAVE A CURRENT ABG. DR. LINDSAY MADE AWARE.
--- NOTE | 2018-12-04 12:15 | NUR ---
CALLED DR. SHAHAB LINDSAY [phone] TO REVIEW ABG ORDER OBTAIN SAMPLE ON ROOM AIR STATUS ROUTINE
[2018-12-04] MEDS ORDERED: LORATADINE 10 MG TAB PO SCH (12:54)
[2018-12-04] MEDS ORDERED: LIDOCAINE VISCOUS 2% 20 ML UDC PO SCH (13:00)
[2018-12-04] MEDS ORDERED: ALUMINUM HYD/MAG/SIMETHICONE 30 ML UDC PO SCH (13:00)
[2018-12-04] MEDS ORDERED: DICYCLOMINE HCL LIQUID 10 MG/5 ML UDC PO SCH (13:00)
--- NOTE | 2018-12-04 13:30 | NUR ---
REMOVED 3L O2 VIA NC, PATIENT DESATURATED TO 86% WHILE SITTING IN BED AT REST. WILL CONTINUE TO MONITOR.
--- NOTE | 2018-12-04 13:40 | NUR ---
12/04/18 RD INITIAL ASSESSMENT COMPLETED PLEASE REFER TO NUTRITION ASSESSMENT UNDER CARE ACTIVITY FOR ESTIMATED NUTRITIONAL NEEDS. 1. CONTINUE CARDIAC MECHANICAL SOFT DIET WITH HONEY THICK LIQUIDS TOLERATED 2. PROVIDE FEEDING ASSISTANCE FOR MEALS 3. RD TO FOLLOW-UP 3-5 DAYS, MODERATE RISK ASHWIN ALBERTO RD
--- NOTE | 2018-12-04 14:03 | NUR ---
OFF SUPPLEMENTAL OXYGEN AT THIS TIME FOR ABG ON ROOM AIR PORTABLE PULSE OXIMETER ON RIGHT INDEX FINGER DIRECT CARE STAFFER TO MONITOR SATURATION
--- NOTE | 2018-12-04 14:18 | NUR ---
ABG PUNCTURE COMPLETED TOLERATED WELL WITHOUT ADVERSE REACTIONS NOTED POST PUNCTURE PLACED ON SUPPLEMENTAL OXYGENT AT 3 LPM VIA NC FOLLOWED BY [facility] THERAPY
--- NOTE | 2018-12-04 14:30 | NUR ---
CALLED DR. SHAHAB LINDSAY [phone] TO REVIEW ABG SAMPLE REPORT NO ANSWER CHEMICAL APPLICATOR TO ATTEMPT INTERMITTENT PHONE CALLS FOR FOREMENTIONED
--- NOTE | 2018-12-04 14:38 | NUR ---
CALLED DR. SHAHAB LINDSAY [phone] TO REVIEW ABG SAMPLE REPORT MD WINTER IN AREA GAVE RESULTS TO DR. EDDA LIZAMA
[2018-12-04] MEDS ORDERED: POTASSIUM CHLORIDE 10 MEQ TABER PO ONE (14:40)
--- NOTE | 2018-12-04 14:53 | NUR ---
PATIENT RESTING PER MEDICAL REQUEST. NO SIGNS OF DISTRESS OR ANXIETY. SAFETY MEASURES IN PLACE. WILL CONTINUE TO MONITOR.
[2018-12-04] MEDS ORDERED: MAGNESIUM OXIDE 400 MG TAB PO SCH (15:00)
--- NOTE | 2018-12-04 15:57 | NUR ---
CALL MADE TO [employer] SPOKE WITH LAURO REGARDING THE HOME O2 PER LAURO , JAZZMINE IS ASSIGNED WITH THE CASE AND SHE WILL CALL US BACK . CM TO FOLLOW
--- NOTE | 2018-12-04 16:36 | NUR ---
MEDICATION ADMINISTERED PER ORDER. PATIENT TOLERATED WELL. NO SIGNS OF DISTRESS. SAFETY MEASURES IN PLACE. WILL CONTINUE TO MONITOR.
--- NOTE | 2018-12-04 17:03 | NUR ---
STILL WAITING FOR [facility] [phone] LEFT A MESSAGE FOR JAZZMINE
--- NOTE | 2018-12-04 17:07 | NUR ---
SPOKE WITH THE AFTER HR CARE WAS TOLD TO CALL [facility] [phone] NOTIFIED OLVIN CHARGE NURSE TO FOLLOW
--- NOTE | 2018-12-04 18:00 | NUR ---
VICKY FROM [employer] CALLED AND REQUESTS OXYGEN QUALIFIER. FAXED OVER THE OXYGEN ORDER FROM AND ABG RESULTS TO VICKY AT [phone].
--- NOTE | 2018-12-04 18:38 | NUR ---
* ST NOTE * Pt seen sitting up at EOB during dinner meal w/son present. Pt consenting to son being present during session. Pt alert, cooperative and engaged throughout session, reporting no c/o pain at this time. Pt tolerating 5/5 alternating PO trials of mechanical soft ground dinner meal as well as 4/4 alternating PO trials of honey-thickened milk via a cup, all w/o s/s of aspiration. Pt also reporting no difficulty masticating or swallowing current PO diet consistency. As per RT's reports, pt requiring deep suctioning as well as exhibiting gargly respirations at times. Thus, it appears pt is stable on current PO diet consistency at this time. Recommendations: - continue on mechanical soft-ground textures w/honey thickened liquids for all meals - maintain aspiration precautions during pt's PO intake - NO use of straws during PO intake of thickened liquids - NO PO intake of thin liquids at this time Pt may benefit from a diet upgrade to nectar-thickened liquids or mechanical soft-chopped textures. Thus ST ff 2x/week for 1 more week recommended at this time. NOMS Level 4
--- NOTE | 2018-12-04 19:15 | NUR ---
RECEIVED BEDSIDE REPORT FROM DAY SHIFT NURSE. PATIENT IS AWAKE, ALERT, AND COOPERATIVE. RESPIRATION EVEN UNLABORED ON 2L NC O2. NO DISTRESS NOTED. SKINIS WARM AND DRY. IV PATENT AND INTACT. DENIES PAIN. FAMILY MEMBER AT BEDSIDE. PLAN OF CARE WAS DISCUSSED. ALL SAFETY MEASURES IN PLACE. BED IS AT LOW POSITION. CALL LIGHT WITHIN REACH. WILL CONTINUE TO MONITOR.
--- NOTE | 2018-12-04 19:16 | NUR ---
BEDSIDE REPORT GIVEN TO NIGHT NURSE FOR CONTINUITY OF CARE. PT IN NO DISTRESS.
--- NOTE | 2018-12-04 20:00 | NUR ---
I RE FAXED ABG RESULT TO JAZZMINE FAX #[phone] AND CALLED HER TELE.#[phone] TO LET HER KNOW THAT I DID NOT RECEIVE MEDICAL NECESSITY FORM FOR OXYGEN.DIDN'T ANSWER .LEFT MESSAGE.
--- NOTE | 2018-12-04 20:00 | NUR ---
INITIAL ASSESSMENT DONE. VITALS WERE TAKEN. PATIENT IN STABLE CONDITION. WILL CONTINUE TO MONITOR.
--- NOTE | 2018-12-04 21:00 | NUR ---
ALL SCHEDULED MEDS GIVEN PER ORDER. NO ASE NOTED. WILL CONTINUE TO MONITOR.
[2018-12-04] MEDS: SIMVASTATIN 20 MG TAB PO SCH (21:09)
[2018-12-04] MEDS ORDERED: MELATONIN 3 MG TAB PO SCH (21:45)
--- NOTE | 2018-12-04 22:23 | NUR ---
MELATONIN NOT GIVEN DUE TO PATIENT IS SLEEPING. WILL CONTINUE TO MONITOR.
--- NOTE | 2018-12-04 22:45 | NUR ---
ENDORSE PATIENT TO PAUL HAYDEN FOR CONTINUITY OF CARE. PATIENT IN STABLE CONDITION.
--- NOTE | 2018-12-04 22:46 | NUR ---
RECD. RESTING IN BED, AWAKE, A/OX4. RESPIRATION EVEN AND UNLABORED. ON 02 AT 4 LITERS N/C, 02 SAT -95%. WITH OCCASIONAL COUGHING NOTED BUT UNABLE TO COUGH OUT ENOUGH AMOUNT FOR SPUTUM TEST. IV OF D5 1/2 NS AT 60 ML/HR INFUSING RIGHT AC G20. USES THE URINAL. SAFETY MEASURES ENFORCED, BED ON LOWEST POSITION. CALL LIGHT IN REACH. INSTRUCTED TO CALL NURSE WHEN NEEDING HELP, VERBALIZED UNDERSTANDING. DENIES PAIN 0/10.
--- NOTE | 2018-12-04 23:30 | NUR ---
TAKEN TO RADIOLOGY VIA W/C ACCOMPANIED BY X-RAY TECH FOR CT OF CHEST WITHOUT CONTRAST.
--- NOTE | 2018-12-04 23:55 | NUR ---
BACK TO BED FROM RADIOLOGY. MADE COMFORTABLE IN BED WITH PILLOWS.
[2018-12-05] VITALS: BP 139/64
--- NOTE | 2018-12-05 01:00 | NUR ---
SLEEPING COMFORTABLY IN BED.
--- NOTE | 2018-12-05 01:00 | NUR ---
Patient's Plan of Care was discussed and reviewed with [employer] MECHANIC: CATRACHO MILLER
[2018-12-05] MEDS: PIPERACILLIN/TAZOBACTAM 3.375 GM in DEXTROSE 5% 50 ML IV SCH ×2 (01:33→08:48)
[2018-12-05] MEDS: ALBUTEROL SULFATE/IPRATROPIU 3 ML SOL IH SCH ×3 (01:38→13:43)
--- NOTE | 2018-12-05 04:00 | NUR ---
AWAKE IN BED, REQUESTED FOR WATER, PUT SOME THICKENER, NO /S OF ASPIRATION NOTED.
--- NOTE | 2018-12-05 06:17 | NUR ---
RESPIRATORY STATUS REMAIN STABLE. WILL ENDORSE TO AM NURSE FOR CONTINUITY OF CARE.
--- NOTE | 2018-12-05 07:10 | NUR ---
ENDORSED TO AM SHIFT NURSE FOR CONTINUITY OF CARE.
--- NOTE | 2018-12-05 07:15 | NUR ---
RECEIVED PT FROM [employer]PER[employer] NURSE, Juan HAYDEN[T IS AWAKE AND UP ON THE BED, ASSISTED TO THE BATHROOM AND BACK TO BED, IV LINE ON THE RT AC G. 20 WITH D51/2 NS INFUSING AT 60ML/HR, PT DENIES PAIN, ON O2 2L NC, RESPIRATION IS EVEN AND NO SIGN OF DISTRESS NOTED. WILL MONITOR PT.
[2018-12-05] MEDS: BUDESONIDE 0.5 MG/2 ML NEBU INH SCH (07:24)
--- NOTE | 2018-12-05 07:31 | NUR ---
RT GIVING TREATMENT TO PT NOW.
[2018-12-05 08:00] VITALS: BP 140/56
[2018-12-05] MEDS: methylPREDNISolone SS 40 MG/ML VIAL IVP SCH (08:46)
[2018-12-05] MEDS: HYDROCHLOROTHIAZIDE 25 MG TAB PO SCH (08:47)
[2018-12-05] MEDS: DOCUSATE SODIUM 100 MG GELCAP PO SCH (08:47)
[2018-12-05] MEDS: ASPIRIN 81 MG TAB.CHEW PO SCH (08:47)
[2018-12-05] MEDS: ISOSORBIDE DINITRATE 10 MG TAB PO SCH (08:48)
--- NOTE | 2018-12-05 08:48 | NUR ---
PT IS AWAKE AND PARAMETER CHECKED, ORAL, IV PUSH AND IVPB MEDICATIONS WERE GIVEN TO PT NOW AND TOLERATED IT. WILL MONITOR PT.
[2018-12-05] MEDS ORDERED: LORATADINE 10 MG TAB PO SCH (09:00)
[2018-12-05] MEDS: VALSARTAN 80 MG TAB PO SCH (09:06)
[2018-12-05] MEDS: DEXT 5% / NACL 0.45% 1,000 ML IV SCH (09:20)
--- NOTE | 2018-12-05 09:23 | NUR ---
O2 TANK WAS DELIVERED NOW AND SON RECEIVED IT NOW AND INSTRUCTIONS WAS BEING GIVEN TO SON ON HOW TO OPERATE THE O2 TANK BY THE BOWLING ALLEY MANAGER FROM [facility] AND SON VERBALIZED UNDERSTANDING, O2 TANK WAS ON THE PT'S BEDSIDE NOW
[2018-12-05] MEDS ORDERED: LORA10TA19 PO (10:12)
[2018-12-05] MEDS ORDERED: METH4TAB3 PO (10:12)
[2018-12-05 11:15] LABS: BASOPHILS % (AUTO) 0.4 % (0.0-2.0); EOSINOPHILS % (AUTO) 0.2 % (0.0-4.0); HEMATOCRIT 33.3 % (36-52); HEMOGLOBIN 10.8 g/dL (12.0-18.0); LYMPHOCYTES # (AUTO) 1.1 K/uL (2.0-11.5); LYMPHOCYTES % (AUTO) 11.5 % (20.5-51.1); MEAN CORPUSCULAR HEMOGLOBIN 29 pg (27-31); MEAN CORPUSCULAR HGB CONC 32 g/dL (33-37); MONOCYTES # (AUTO) 0.4 K/uL (0.8-1.0); MONOCYTES % (AUTO) 4.2 % (1.7-9.3); NEUTROPHILS % (AUTO) 83.7 % (42.2-75.2); PLATELET COUNT (AUTO) 228 K/uL (140-450); RED BLOOD CELL COUNT(AUTO) 3.66 MIL/uL (4.20-6.10); RED CELL DISTRIBUTION WIDTH 13.6 % (11.6-13.7); WHITE BLOOD COUNT (AUTO) 9.6 K/uL (4.8-10.8)
[2018-12-05 11:24] LABS: CARBON DIOXIDE 34.1 mmol/L (21-32); CHLORIDE 105 mmol/L (98-107); CREATININE 1.5 mg/dL (0.7-1.3); GLUCOSE 167 mg/dL (74-106); POTASSIUM 4.1 mmol/L (3.5-5.1); SODIUM SERUM 147 mmol/L (136-145); UREA NITROGEN, BLOOD 38 mg/dL (7-18)
[2018-12-05] MEDS ORDERED: ORE25 PO (11:28)
[2018-12-05] MEDS ORDERED: LOSA100T1 PO (11:28)
--- NOTE | 2018-12-05 13:27 | NUR ---
Records Coordinator Note: Per patient's son Nasim Rhodes , he is in agreement with home health services for physical therapy, he does not have a home health company preference.
--- NOTE | 2018-12-05 13:31 | NUR ---
Medical Or Surgical Instrument Maker Note: I faxed inquiry to [facility]. Per Debo from [facility] , they will send a nurse to patient's home tomorrow or Sunday12/07/18.
--- NOTE | 2018-12-05 14:05 | NUR ---
DISCHARGED PT TO HOME WITH [facility], DISCHARGED INSTRUCTIONS GIVEN TO PT VIA MARKING CLERK #[id number], WITH SON ON THE BEDSIDE AND VERBALIZED UNDERSTANDING, IV LINE AND ARM BAND REMOVED, PT IS STABLE AT THIS TIME.
== END 2018-12-05 14:05 | disposition home health service (06) | DRG 347 ==
LOC: MED 14:11 → MTU 16:29
PROVIDERS: ADMIT General Practice; ATTEND General Practice
DX: M50.10 Cervical disc disorder with radiculopathy, unspecified cervical region (principal); J69.0 Pneumonitis due to inhalation of food and vomit; N17.0 Acute kidney failure with tubular necrosis; E87.0 Hyperosmolality and hypernatremia; E66.9 Obesity, unspecified; Z68.30 Body mass index [BMI] 30.0-30.9, adult; E87.8 Other disorders of electrolyte and fluid balance, not elsewhere classified; M19.90 Unspecified osteoarthritis, unspecified site; I11.9 Hypertensive heart disease without heart failure; E78.5 Hyperlipidemia, unspecified; J45.909 Unspecified asthma, uncomplicated; F41.1 Generalized anxiety disorder; G47.00 Insomnia, unspecified; Z79.899 Other long term (current) drug therapy
CPT/HCPCS: 36415; 36600; 71045; 71250; 72050; 80048; 80053; 81003; 82150; 82803; 83036; 83605; 83690; 83735; 83880; 84100; 84443; 84484; 85025; 85610; 85730; 87040; 87081; 87086; 87205; 89220; 92526; 92610; 93005; 93970; 94640; 96361; 96374; 97110; 97116; 97161-GP; 97530; 99285; J1644; J2270; J2543; J2920; J7030; J7060; J7620; J7626; Q0092

== ENCOUNTER 2018-12-16 10:21 | Emergency (ER) | payer MEDICARE, MEDICAID ==
[~2018-12-16] VITALS: Ht 170.2 cm; Wt 113.4 kg
[~2018-12-16 10:21] MED LIST: ALBU-118 IH; ISOS5TAB10 PO; LORA10TA19 PO; LOSA100T1 PO; MECL-322 PO; METH4TAB3 PO; ORE25 PO
[2018-12-16 10:40] VITALS: BP 173/77
[2018-12-16] MEDS ORDERED: KETOROLAC 60 MG/2 ML VIAL IM ONE (11:20)
[2018-12-16] MEDS ORDERED: HYDROcodone/APAP 5/325 MG 1 TAB TAB PO ONE (11:20)
[2018-12-16] MEDS ORDERED: LOSA100T1 PO (11:35)
[2018-12-16] MEDS ORDERED: TAMS0.4C96 PO (11:35)
[2018-12-16] MEDS ORDERED: ESOM40EC PO (11:35)
[2018-12-16] MEDS ORDERED: FURO-572 PO (11:35)
[2018-12-16] MEDS ORDERED: KETOROLAC 30 MG/ML VIAL IM ONE (11:45)
[2018-12-16] MEDS ORDERED: KETOROLAC 30 MG/ML VIAL ONE (11:46)
[2018-12-16 12:46] VITALS: BP 173/77
== END 2018-12-16 12:47 | disposition home or self-care (01) ==
LOC: MED 10:21
DX: M10.062 Idiopathic gout, left knee (principal); J44.9 Chronic obstructive pulmonary disease, unspecified; I10 Essential (primary) hypertension; Z79.899 Other long term (current) drug therapy
CPT/HCPCS: 29505; 73562; 96372; 99283; J1885

== ENCOUNTER 2018-12-27 08:21 | Inpatient (IN) | payer OTHER, MEDICARE ==
[~2018-12-27] VITALS: Ht 162.6 cm; Wt 81.2 kg
[~2018-12-27 08:21] MED LIST changes: -ALBU-118 IH; +ESOM40EC PO; +FURO-572 PO; -METH4TAB3 PO; -ORE25 PO; +TAMS0.4C96 PO
--- NOTE | 2018-12-27 08:25 | NUR ---
PATIENT AMBULATED WITH ASSISTANCE TO BED 7.
[2018-12-27] MEDS ORDERED: NACL 0.9% 500 ML IV SCH (08:27)
[2018-12-27 08:28] VITALS: BP 162/71
--- NOTE | 2018-12-27 08:41 | NUR ---
PT ARRIVED TO ED C/O CHEST PAIN AND SOB X 4-5 DAYS. PTS SON SATES, "HES BEEN GETTING WORSE THESE PAST FEW DAYS." LUNG SOUNDS ARE WHEEZING, RONCHI HANSONOUT WITH A MOIST, PRODUCTIVE COUGH. PT VS STABLE. NKA. Addendum: 12/27/18 at 0927 by [facility] PATIENT POSITIONED FOR COMFORT; HOB ELEVATED; BEDRAILS UP X2; BED DOWN. ER MADE AWARE OF PT STATUS.
--- NOTE | 2018-12-27 08:45 | NUR ---
DRAWED UP LABS AND BLOOD CULTURE
[2018-12-27 09:03] LABS: BASOPHILS # (AUTO) 0.1 K/uL (0.00-0.22); BASOPHILS % (AUTO) 0.9 % (0.0-2.0); EOSINOPHILS # (AUTO) 0.1 K/uL (0-0.4); EOSINOPHILS % (AUTO) 2.1 % (0.0-4.0); HEMATOCRIT 34.3 % (36-52); HEMOGLOBIN 11.4 g/dL (12.0-18.0); LYMPHOCYTES # (AUTO) 1.1 K/uL (2.0-11.5); LYMPHOCYTES % (AUTO) 16.7 % (20.5-51.1); MEAN CORPUSCULAR HEMOGLOBIN 29 pg (27-31); MEAN CORPUSCULAR HGB CONC 33 g/dL (33-37); MEAN CORPUSCULAR VOLUME 88.3 fL (80-94); MONOCYTES # (AUTO) 0.5 K/uL (0.8-1.0); MONOCYTES % (AUTO) 8.2 % (1.7-9.3); NEUTROPHILS # (AUTO) 4.8 K/uL (1.8-7.7); NEUTROPHILS % (AUTO) 72.1 % (42.2-75.2); PLATELET COUNT (AUTO) 257 K/uL (140-450); RED BLOOD CELL COUNT(AUTO) 3.89 MIL/uL (4.20-6.10); RED CELL DISTRIBUTION WIDTH 14.2 % (11.6-13.7); WHITE BLOOD COUNT (AUTO) 6.6 K/uL (4.8-10.8)
[2018-12-27] MEDS ORDERED: NITROGLYCERIN 2% 1 GM PKT TP ONE (09:05)
[2018-12-27 09:19] LABS: ANION GAP 11.7 (8-16); CARBON DIOXIDE 29.8 mmol/L (21-32); CHLORIDE 106 mmol/L (98-107); CREATININE 1.3 mg/dL (0.7-1.3); GLUCOSE 117 mg/dL (74-106); POTASSIUM 3.5 mmol/L (3.5-5.1); SODIUM SERUM 144 mmol/L (136-145); UREA NITROGEN, BLOOD 20 mg/dL (7-18)
[2018-12-27 09:22] LABS: PROTHROMBIN TIME 10.8 secs (10.8-13.4)
[2018-12-27 09:25] LABS: ALBUMIN 3.5 g/dL (3.4-5.0); ASPARTATE AMINOTRANSFERASE 23 U/L (15-37); TOTAL BILIRUBIN 0.5 mg/dL (0.0-1.0)
[2018-12-27 09:27] LABS: APPEARANCE,URINE CLEAR (CLEAR); BILIRUBIN,URINE NEGATIVE (NEGATIVE); BLOOD, URINE TRACE-I (NEGATIVE); COLOR,URINE YELLOW (YELLOW); LEUKOCYTE ESTERASE ,URINE NEGATIVE (NEGATIVE); NITRITE, URINE NEGATIVE (NEGATIVE); UGLUCOSE NEGATIVE (NEGATIVE)
--- NOTE | 2018-12-27 09:30 | NUR ---
RT AT BEDSIDE FOR SPUTUM CULTURE. PT A &O X4. SON AT BEDSIDE.
[2018-12-27 09:36] LABS: TRICHOMONAS,URINE None Seen /HPF (None Seen); WBC,URINE 0 /HPF (0-5); YEAST,URINE None Seen /HPF (None Seen)
[2018-12-27 09:37] LABS: HYALINE CASTS, URINE 0-10 /LPF (None Seen)
[2018-12-27] MEDS ORDERED: FUROSEMIDE 40 MG/4 ML VIAL IVP ONE (09:55)
[2018-12-27] MEDS ORDERED: ASPIRIN 81 MG TAB.CHEW PO ONE (09:55)
--- NOTE | 2018-12-27 09:56 | NUR ---
Patient being reevaluated by DR RANGEL at bedside.
--- NOTE | 2018-12-27 11:08 | NUR ---
PT SON AT [facility]. PT IS RELAXING AND RESTING. VS STABLE.
[2018-12-27 11:30] VITALS: BP 126/83
--- NOTE | 2018-12-27 11:30 | NUR ---
RECEIVED REPORT FROM ED NURSES TASHA AND WALKER. PT AAOX4, NO C/O PAIN AT THIS TIME. ON O2 4L VIA N/C, RESPIRATIONS EVEN AND UNLABORED. ON ADMINISTRATIVE ASSISTANT RECEPTIONIST, VSS. ABD SOFT, ACTIVE BS. SKIN IS INTACT, WARM TO TOUCH. REVIEWED POC WITH PT AND SON/LEESA, VERBALIZED UNDERSTANDING.
--- NOTE | 2018-12-27 11:36 | NUR ---
Patient will be admitted to care of DR. GIL . Admited to TELE . Will go to [facility]. Belongings list completed. Report to ANNA OLEARY.
--- NOTE | 2018-12-27 13:50 | NUR ---
DR. MCFARLANE AT BEDSIDE. PT AND SON'S QUESTIONS ANSWERED AND CLARIFIED.
[2018-12-27] MEDS ORDERED: ACETAMINOPHEN 650 MG SUPP RC PRN (14:00)
[2018-12-27] MEDS ORDERED: diphenhydrAMINE 50 MG/ML VIAL IVP PRN (14:00)
[2018-12-27] MEDS ORDERED: MAGNESIUM OXIDE 400 MG TAB PO PRN (14:00)
[2018-12-27] MEDS ORDERED: POTASSIUM CHLORIDE 10 MEQ TABER PO PRN (14:00)
[2018-12-27] MEDS ORDERED: SODIUM PHOSPHATE 118 ML ENEM RC PRN (14:00)
[2018-12-27] MEDS ORDERED: cloNIDine 0.1 MG TAB PO PRN (14:00)
[2018-12-27] MEDS ORDERED: ONDANSETRON 4 MG/2 ML VIAL IVP PRN (14:00)
[2018-12-27] MEDS ORDERED: HYDROcodone/APAP 5/325 MG 1 TAB TAB PO PRN (14:00)
[2018-12-27] MEDS ORDERED: MAG SULF 2000 MG/WATER PREMIX 50 ML IV PRN (14:00)
[2018-12-27] MEDS ORDERED: ALBUTEROL SULFATE/IPRATROPIU 3 ML SOL IH SCH (14:30)
--- NOTE | 2018-12-27 15:45 | NUR ---
PATIENT HAS BEEN SCREENED AND CATEGORIZED MODERATE NUTRITION RISK. PATIENT WILL BE SEEN WITHIN 3-5 DAYS OF ADMISSION. 12/29/18 12/31/[address]
[2018-12-27 16:00] VITALS: BP 150/68
--- NOTE | 2018-12-27 17:30 | NUR ---
ASSISTED PT WITH VOIDING IN URINAL. VOIDED 300 ML, YELLOW AND CLEAR URINE.
--- NOTE | 2018-12-27 19:10 | NUR ---
RECEIVED REPORT FROM ANIRUDH RN DAYSHIFT NURSE AT BEDSIDE FOR CONTINUITY OF CARE, PT IN STABLE CONDITION.
--- NOTE | 2018-12-27 19:10 | NUR ---
ENDORSED PT TO SENIOR DIRECTOR CREATIVE SERVICES NURSE. PT HAS NO SIGNS OF DISTRESS AT THIS TIME.
[2018-12-27] MEDS: ALBUTEROL SULFATE/IPRATROPIU 3 ML SOL IH SCH (19:37)
[2018-12-27 20:00] VITALS: BP 159/66
--- NOTE | 2018-12-27 20:00 | NUR ---
PT IN BED ALL FALLS PRECAUTIONS IN PLACE PT IS SLEEPING BUT AROUSABLE TO NAME AND LIGHT TOUCH. V/S FOLLOWS T T 97.8 P 70 R 18 B/P 159/66 02 95 WITH 4 LITERS VIA N/C. CALL KUNZ IN REACH AND TRAY TABLE AT BEDSIDE. LUNG SOUNS DIMINISHED WITH RHONCI.
--- NOTE | 2018-12-27 21:00 | NUR ---
[facility] ERP PROGRAMMER SERVICE USED, PT IS AOX2, HE IS AWARE THAT HE IS IN A HOSPITAL, BUT IS NOT AWARE OF THE LOCATION DATE ECT. PT IS COOPERATIVE . MEDICATIONS EXPLAINED THRU ERP PROGRAMMER, PT UNABLE TO VERBALIZE UNDERSTANDING. PT GIVEN LASIX, AND FLOMAX WELL ISORDIL. WILL MONITOR FOR EFFECT.
[2018-12-28] VITALS: BP 146/69
--- NOTE | 2018-12-28 | NUR ---
PT IN BED NO S/S OF PAIN OR DISTRESS NOTED. V/S FOLLOWS T 97.3 P 71 R 18 B/P 146/69 02 93% WITH 4 LITERS VIA N/C. ALL NEEDS ATTENDED BY STAFF CALL JOAQUINA IN REACH AND ALL FALLS PRECAUTIONS IN PLACE.
[2018-12-28] MEDS: FUROSEMIDE 20 MG/2 ML VIAL IVP SCH ×3 (00:01→22:26)
[2018-12-28] MEDS: TAMSULOSIN 0.4 MG CAP PO SCH ×2 (00:02→22:27)
[2018-12-28] MEDS: ISOSORBIDE DINITRATE 10 MG TAB PO SCH ×3 (00:03→22:29)
[2018-12-28] MEDS: ALBUTEROL SULFATE/IPRATROPIU 3 ML SOL IH SCH ×4 (01:34→20:08)
[2018-12-28 04:00] VITALS: BP 160/77
[2018-12-28 04:37] LABS: BASOPHILS # (AUTO) 0.1 K/uL (0.00-0.22); BASOPHILS % (AUTO) 0.8 % (0.0-2.0); EOSINOPHILS # (AUTO) 0.1 K/uL (0-0.4); EOSINOPHILS % (AUTO) 2.2 % (0.0-4.0); HEMOGLOBIN 11.6 g/dL (12.0-18.0); LYMPHOCYTES # (AUTO) 1.5 K/uL (2.0-11.5); LYMPHOCYTES % (AUTO) 22.3 % (20.5-51.1); MEAN CORPUSCULAR HEMOGLOBIN 29 pg (27-31); MEAN CORPUSCULAR HGB CONC 32 g/dL (33-37); MEAN CORPUSCULAR VOLUME 89.1 fL (80-94); MONOCYTES # (AUTO) 0.5 K/uL (0.8-1.0); MONOCYTES % (AUTO) 7.7 % (1.7-9.3); NEUTROPHILS # (AUTO) 4.4 K/uL (1.8-7.7); PLATELET COUNT (AUTO) 271 K/uL (140-450); RED BLOOD CELL COUNT(AUTO) 4.04 MIL/uL (4.20-6.10); RED CELL DISTRIBUTION WIDTH 14.2 % (11.6-13.7); WHITE BLOOD COUNT (AUTO) 6.5 K/uL (4.8-10.8)
[2018-12-28 04:49] LABS: ANION GAP 8.8 (8-16); CARBON DIOXIDE 36.4 mmol/L (21-32); CHLORIDE 105 mmol/L (98-107); CREATININE 1.4 mg/dL (0.7-1.3); GLUCOSE 115 mg/dL (74-106); POTASSIUM 3.2 mmol/L (3.5-5.1); SODIUM SERUM 147 mmol/L (136-145); UREA NITROGEN, BLOOD 22 mg/dL (7-18)
--- NOTE | 2018-12-28 05:15 | NUR ---
CRITICAL LAB REPORTED TROPONIN 0.934. SPICE CLEANER SERVE CALLED TO REPORT TO SPICE CLEANER MD.
--- NOTE | 2018-12-28 05:45 | NUR ---
MD. ALEXANDER POULTRY HATCHERY LABORER PHYSICIAN MADE AWARE OF CRITICAL LAB, TROPONIN. NO NEW ORDERS NOTED.
--- NOTE | 2018-12-28 07:15 | NUR ---
RECEIVED REPORT FROM TIRE SERVICER NURSE AT BEDSIDE FOR CONTINUITY OF CARE. PATIENT AWAKE AND ALERT, TAJIK SPEAKING. RESPIRATIONS EVEN AND UNLABORED ON O2 VIA NC. IV SITE INTACT, ASYMPTOMATIC, SL. UPDATED BOARD. FLACC-0. SAFETY PRECAUTIONS IN PLACE, CALL LIGHT WITHIN REACH, WILL CONTINUE TO MONITOR PATIENT.
[2018-12-28 08:00] VITALS: BP 153/58
[2018-12-28] MEDS: PANTOPRAZOLE 40 MG TABEC PO SCH (09:21)
[2018-12-28] MEDS: LOSARTAN 50 MG TAB PO SCH (09:21)
--- NOTE | 2018-12-28 09:22 | NUR ---
ORDERED MEDICATIONS GIVEN. PATIENT TOLERATED IT WELL. SON LEESA AT BEDSIDE. UPDATED HIM ON PATIENT'S STATUS AND CONDITION. HE VERBALIZED UNDERSTANDING. WILL CONTINUE TO MONITOR PATIENT.
[2018-12-28] MEDS: ENOXAPARIN 40 MG/0.4 ML SYR SUBQ SCH (09:26)
[2018-12-28 12:00] VITALS: BP 139/63
--- NOTE | 2018-12-28 13:28 | NUR ---
INFORMED PATIENT AND FAMILY MEMBERS ABOUT PRN LAURENSEN. PATIENT AGREED TO TRY MEDICATION FOR COUGH. PRN MED GIVEN. PATIENT TOLERATED IT. FAMILY MEMBERS AT BEDSIDE. SAFETY PRECAUTIONS IN PLACE, CALL LIGHT WITHIN REACH, WILL CONTINUE TO MONITOR PATIENT.
[2018-12-28] MEDS: guaiFENesin DM 200/20 MG-10 ML 10 ML UDC PO PRN ×3 (13:29→22:35)
[2018-12-28 16:00] VITALS: BP 160/73
--- NOTE | 2018-12-28 17:17 | NUR ---
CRITICAL LAB TROPONIN 0.559. DR. BARRON ON FLOOR AND AWARE. NO NEW ORDERS AT THIS TIME. WILL CONTINUE TO MONITOR PATIENT.
--- NOTE | 2018-12-28 17:48 | NUR ---
PRN COUGH MEDICATION GIVEN PER PATIENT'S REQUEST. PATIENT TOLERATED IT. FAMILY MEMBERS AT BEDSIDE. SAFETY PRECAUTIONS IN PLACE, CALL LIGHT WITHIN REACH, WILL CONTINUE TO MONITOR PATIENT.
--- NOTE | 2018-12-28 19:24 | NUR ---
REPORT GIVEN TO OIL PRODUCER NURSE AT BEDSIDE FOR CONTINUITY OF CARE. PATIENT IN STABLE CONDITION.
--- NOTE | 2018-12-28 19:24 | NUR ---
RECEIVED REPORT FORM [place] RN DAYSHIFT NURSE AT BEDSIDE FOR CONTINUITY OF CARE, PT IN STABLE CONDITION.
[2018-12-28 20:00] VITALS: BP 167/75
--- NOTE | 2018-12-28 20:00 | NUR ---
PT IN BED ALL FALLS PRECAUTIONS IN PLACE AND CALL KUNZ IN REACH. PT IS RESTING WITH EYES CLOSED BUT AROUSABLE TO NAME AND LIGHT TOUCH. IV SITE ON 20G ON RAC INTACT AND FLUSHED PATENT. PT HAS 4 LITERS VIA N/C . PT STATING 02 AT 95%. HE DENIES ANY PAIN AND OTHER EDIS SIGNS FOLLOWS T 97.1 P 71 R 20 B/P 167/75. WILL MEDICATE PRN FOR HTN.
--- NOTE | 2018-12-28 22:30 | NUR ---
PT GIVEN ALL DUE MEDS OF LASIX, FLOMAX AND ISORDIL. SON LEESA CALLED TO TRANSLATE TO DAD THE MEDICATION HE IS RECEIVING AND WHAT THE MEDICATION IS FOR. PT ALSO GIVEN PRN COLACE FOR CONSTIPATION (NO BMX2 DAYS), WELL PRN ROBITUSSIN FOR COUGH. PT GIVEN PRN CATAPRES FOR HTN. RT CALLED FOR PT BECAUSE HE REQUEST A NEBULIZER TREATMENT. WILL MONITOR FOR EFFECT OF PRN MEDICATION WELL SAFETY AND PAIN. ALL FALLS PRECAUTIONS IN PLACE AND TRAY TABLE AND CALL KUNZ IN REACH.
[2018-12-28] MEDS: DOCUSATE SODIUM 250 MG GELCAP PO PRN (22:32)
[2018-12-28] MEDS: ALBUTEROL 0.083% 2.5 MG/3 ML NEBU INH PRN (22:49)
[2018-12-29] VITALS: BP 161/77
--- NOTE | 2018-12-29 00:30 | NUR ---
PT ASSISTED TO TOILET AND BACK. IV SITE ON RIGHT AC INTACT , PT HAS 4 LITERS SUPPLEMENTAL 02 RUNNING AT 4 LITERS. V/S FOLLOWS T 97.0 P 73 R 18 B/P 161/77 02 95% WITH 4 LITERS N/C. NO S/S OF PAIN OR DISTRESS NOTED AND ALL FALLS PRECAUTIONS IN PLACE.
[2018-12-29] MEDS: ALBUTEROL SULFATE/IPRATROPIU 3 ML SOL IH SCH ×4 (00:54→20:05)
[2018-12-29 04:00] VITALS: BP 139/67
--- NOTE | 2018-12-29 04:00 | NUR ---
PT IN BED ASLEEP NO S/S OF PAIN OR DISTRESS NOTED. PT CONTINUES ON 4 LITERS VIA N/C V/S FOLLOWS T 98.1 P 63 R 18 B/P 139/62 02 95%. ALL FALLS PRECAUTIONS IN PLACE.
[2018-12-29 06:57] LABS: HEMATOCRIT 35.8 % (36-52); HEMOGLOBIN 11.4 g/dL (12.0-18.0); MEAN CORPUSCULAR HEMOGLOBIN 29 pg (27-31); MEAN CORPUSCULAR HGB CONC 32 g/dL (33-37); PLATELET COUNT (AUTO) 310 K/uL (140-450); RED BLOOD CELL COUNT(AUTO) 4.02 MIL/uL (4.20-6.10); RED CELL DISTRIBUTION WIDTH 14.3 % (11.6-13.7)
--- NOTE | 2018-12-29 07:10 | NUR ---
REPORT RECEIVED FROM SUPERVISOR GAS METER REPAIR NURSE AT BEDSIDE FOR CONTINUITY OF CARE. PATIENT ASLEEP, RESPIRATIONS EVEN AND UNLABORED ON O2 VIA NC. FLACC-0. IV INTACT ASYMPTOMATIC, SALINE LOCKED. UPDATED BOARD. SAFETY PRECAUTIONS IN PLACE, CALL LIGHT WITHIN REACH, WILL CONTINUE TO MONITOR PATIENT.
[2018-12-29 07:20] LABS: MAGNESIUM 1.8 mg/dL (1.8-2.4); PHOSPHORUS 3.3 mg/dL (2.5-4.9)
[2018-12-29 08:00] VITALS: BP 138/65
--- NOTE | 2018-12-29 08:05 | NUR ---
PATIENT SITTING UP IN BED EATING BREAKFAST, EMAIL SPECIALIST ASSISTING. NO COMPLAINTS AT THIS TIME. SAFETY PRECAUTIONS IN PLACE, CALL LIGHT WITHIN REACH, WILL CONTINUE TO MONITOR PATIENT.
[2018-12-29 08:17] LABS: BASOPHILS % (MANUAL) 0 % (0-2); EOSINOPHILS % (MANUAL) 1 % (0-4); LYMPHOCYTES % (MANUAL) 21 % (20-46); MONOCYTES % (MANUAL) 10 % (5-12)
[2018-12-29] MEDS: PANTOPRAZOLE 40 MG TABEC PO SCH (09:36)
[2018-12-29] MEDS: ISOSORBIDE DINITRATE 10 MG TAB PO SCH ×2 (09:38→20:23)
[2018-12-29] MEDS: LOSARTAN 50 MG TAB PO SCH (09:39)
[2018-12-29] MEDS: guaiFENesin DM 200/20 MG-10 ML 10 ML UDC PO PRN (09:40)
[2018-12-29] MEDS: FUROSEMIDE 20 MG/2 ML VIAL IVP SCH ×2 (09:42→20:22)
--- NOTE | 2018-12-29 09:50 | NUR ---
ORDERED MEDICATIONS GIVEN. PRN ROBITUSSIN GIVEN PER PATIENT'S REQUEST FOR COUGH. SON LEESA AT BEDSIDE. NO COMPLAINTS AT THIS TIME. SAFETY PRECAUTION IN PLACE, CALL LIGHT WITHIN REACH, WILL CONTINUE TO MONITOR PATIENT.
[2018-12-29] MEDS: ENOXAPARIN 40 MG/0.4 ML SYR SUBQ SCH (09:54)
[2018-12-29 10:30] LABS: ANION GAP 13.1 (8-16); CARBON DIOXIDE 33.4 mmol/L (21-32); CHLORIDE 105 mmol/L (98-107); CREATININE 1.3 mg/dL (0.7-1.3); GLUCOSE 112 mg/dL (74-106); POTASSIUM 3.5 mmol/L (3.5-5.1); SODIUM SERUM 148 mmol/L (136-145); UREA NITROGEN, BLOOD 26 mg/dL (7-18)
[2018-12-29] MEDS ORDERED: acetaZOLAMIDE 250 MG TAB PO SCH (11:11)
[2018-12-29] MEDS ORDERED: POTASSIUM CHLORIDE 10 MEQ TABER PO SCH (11:12)
[2018-12-29] MEDS ORDERED: MAG SULF 2000 MG/WATER PREMIX 50 ML IV SCH (11:30)
--- NOTE | 2018-12-29 11:45 | NUR ---
ORDERED MEDICATIONS GIVEN. CALLED PATIENT'S SON LEESA AND UPDATED HIM ON MEDICATIONS, LEESA INFORMED PATIENT ABOUT NEW MEDICATIONS. PATIENT TOLERATED THEM WELL. NO COMPLAINTS AT THIS TIME. SAFETY PRECAUTIONS IN PLACE, CALL LIGHT WITHIN REACH, WILL CONTINUE TO MONITOR PATIENT.
[2018-12-29 12:00] VITALS: BP 143/71
--- NOTE | 2018-12-29 15:50 | NUR ---
SON AND AT BEDSIDE. UPDATED THEM ON PLAN OF CARE. THEY VERBALIZED UNDERSTANDING. PATIENT RESTING COMFORTABLY IN BED, RESPIRATIONS EVEN AND UNLABORED ON O2 VIA NC. WILL CONTINUE TO MONITOR PATIENT.
[2018-12-29 16:15] VITALS: BP 133/52
--- NOTE | 2018-12-29 16:20 | NUR ---
called to pts room by floridalma due to pt having low o2 sat of 85% placed pt on 7l oxymizer and pts o2 came up to 92% pt is was lethargic and abg was drawn and pt was then placed on bipap with settings of 14/5 rr 14 fio2 50% was called and given results and said to order abg in one hour and keep o2 sat 88%-and above sade celestin notified of all changes made
--- NOTE | 2018-12-29 16:20 | NUR ---
PATIENT ALOC. BP 133/52 HR 76 O2 88% ON 3L O2 VIA NC, RR 16. CALLED RT JEFFERY.
--- NOTE | 2018-12-29 16:30 | NUR ---
PAGED DR. MONTESINOS TO UPDATED HIM ABOUT PATIENT'S CONDITION. DR. MONTESINOS CALLED BACK. NEW ORDERS IN FOR STAT ABG AND TO START ZOSYN 3.375 GM Q8HR. ORDERS NOTED AND WILL BE CARRIED OUT.
--- NOTE | 2018-12-29 17:05 | NUR ---
ABG RESULTS CAME BACK. CALLED DR. MONTESINOS TO UPDATED HIM WITH INFORMATION. DR. SHAVER LAWN CARE PROFESSIONAL. DR. SHAVER CALLED BACK. RT JEFFERY UPDATED DR. SHAVER WITH PATIENT'S CONDITION AND RECEIVED ORDERS FOR BIBAP. ORDERS NOTED AND WILL BE CARRIED OUT.
--- NOTE | 2018-12-29 17:18 | NUR ---
DR MONTESINOS CALLED. UPDATED HIM ON PATIENT'S CONDITION AND BIBAP STATUS. RT JEFFERY ALSO SPOKE TO DR. MONTESINOS. WILL CONTINUE TO MONITOR PATIENT.
[2018-12-29] MEDS ORDERED: PIPERACILLIN/TAZOBACTAM 3.375 GM VIAL IV ONE (17:47)
[2018-12-29] MEDS ORDERED: PIPERACILLIN/TAZOBACTAM 3.375 GM in DEXTROSE 5% 50 ML IV SCH (18:00)
--- NOTE | 2018-12-29 18:13 | NUR ---
PATIENT STATED HE WANTED TO GO TO BATHROOM. BSC PROVIDED. PATIENT NOW BACK IN BED. ORDERED ANTIBIOTICS GIVEN TO PATIENT. NO S/S OF REACTION NOTED. FAMILY MEMBERS AT BEDSIDE. PATIENT TOLERATING IT WELL.
--- NOTE | 2018-12-29 19:00 | NUR ---
RECEIVED REPORT FORM [place] RN DAYSHIFT NURSE AT BEDSIDE FOR CONTINUITY OF CARE, PT IN STABLE CONDITION.
--- NOTE | 2018-12-29 19:00 | NUR ---
REPORT GIVEN TO PREMIX OPERATOR CONCENTRATE NURSE AT BEDSIDE FOR CONTINUITY OF CARE. PATIENT IN STABLE CONDITION, FAMILY AT BEDSIDE.
--- NOTE | 2018-12-29 19:30 | NUR ---
PT IN BED ALL FALLS PRECAUTIONS IN PLACE PT AOX2-3 HE HAS A BIPAP MASK ON AT THIS TIME AND FAMILY AT BEDSIDE. V/S FOLLOWS T 97.8 P 91 R 24 B/P 139/67 02 98% ON BIPAP. PT SAID THAT HE WAS HUNGRY AND C/O MODERATE HEAD ACHE. WILL MEDICATE WITH PRN PAIN MEDS. SPOKE WITH RT ABG TO BE DRAWN FIRST, IF NOT A CRITICAL LEVEL, RT OK WITH PLACING PT ON OXYMIZER TO CONSUME A MEAL AND TAKE MEDS. FAMILY MADE AWARE.
[2018-12-29 20:00] VITALS: BP 139/67
--- NOTE | 2018-12-29 20:09 | NUR ---
PATIENTS FAMILY IN ROOM, REQUESTED TO ALLOW PATIENT TO EAT WITH THEIR ASSISTANCE. HELD OFF ON TREATMENT AND CPT PATIENT HAS BEEN ON BIPAP FOR SEVERAL HOURS AND FAMILY IS AVAILABLE TO ASSIST. PATIENT IS AWAKE, ALERT AND SHOWS NO SOB OR DISTRESS.
[2018-12-29] MEDS: acetaZOLAMIDE 250 MG TAB PO SCH (20:22)
[2018-12-29] MEDS: TAMSULOSIN 0.4 MG CAP PO SCH (20:22)
[2018-12-29] MEDS: HYDROcodone/APAP 5/325 MG 1 TAB TAB PO PRN (20:24)
--- NOTE | 2018-12-29 21:46 | NUR ---
RECEIVED PATIENT ON BIPAP STABLE ALERT NO RESP DISTRESS. ABG DONE ON PATIENT 1937 HOURS. PATIENT WANTED TO EAT AND FAMILY WANTED PATIENT TAKEN OFF BIPAP TO EAT. PATIENT WAS PLACED ON OXYMIZER 9L AND TAKEN OFF BIPAP FOR ONE HOUR TO EAT. PATIENT WAS STABLE AND NO RESP DISTRESS NOTED. PATIENT SPO2 98 HEART RATE 86. PATIENT WAS THEN PLACED BACK ON BIPAP WHILE THEY WERE SLEEPING. NO CHANGE IN RESP STATUS AT THIS TIME.
--- NOTE | 2018-12-29 21:50 | NUR ---
PT OFF BIPAP MACHINE , MEAL HEATED AND PT BEING FEED AT BEDSIDE WITH 9 LITERS VIA OXYMIZER. PT GIVEN 1 TAB NORCO FOR MODERATE PAIN WELL LASIX THRU RAC 20GUAGE WHICH IS RUNNING AT 5MLS/HR TO KVO. PT ALSO RECEIVED ORDERED MEDICATION OF DIAMOX, FLOMAX AND ISORDIL, MEDICATION EDUCATION WELL EDUCATION REGARDING DX OF CHF TO FAMILY AND PT AT BEDSIDE. FAMILY VERBALIZED UNDERSTANDING AND TRANSLATED IT TO PT.
--- NOTE | 2018-12-29 22:00 | NUR ---
PT TAKING OF MASK AND FAMILY WAS ASSISTING TO BEDSIDE COMMODE. FAMILY REMINDED THAT PT NEEDS TO KEEP BIPAP MASK ON WHICH IS WHY PT HAS URINALS AND BEDSIDE COMMODE IN REACH.ALL REQUESTED NEEDS ATTENDED AND ALL FALLS PRECAUTIONS IN PLACE. PT ATE ABOUT 50% OF DINNER. MASK REPOSITIONED AD RT ALERTED TO DOUBLE CHECK PLACEMENT OF BIPAP MASK.
[2018-12-30] VITALS (11 sets, daily range): BP systolic 109–157; BP diastolic 42–72
--- NOTE | 2018-12-30 | NUR ---
PT IN BED MASK INTACT AND ON PT NO S/S OF RESPIRATORY DISTRESS NOTED AND PT DENIES PAIN. V/S FOLLOWS T 97.7 P 73 R 22 B/P 131/72 02 99% WITH ALL CURRENT BIPAP SETTINGS. FAMILY AT BEDSIDE.
[2018-12-30] MEDS ORDERED: PIPERACILLIN/TAZOBACTAM 2.25 GM VIAL IV ONE (01:38)
[2018-12-30] MEDS: ALBUTEROL SULFATE/IPRATROPIU 3 ML SOL IH SCH ×4 (01:42→19:17)
--- NOTE | 2018-12-30 02:00 | NUR ---
IV SITE ON RAC INTACT AND RUNNING 5MLS/HR. ZOSYN HUNG AND RUNNING AT 100MLS/HR ORDERED.
[2018-12-30] MEDS: PIPERACILLIN/TAZOBACTAM 2.25 GM in DEXTROSE 5% 50 ML IV SCH ×3 (02:40→18:09)
--- NOTE | 2018-12-30 04:00 | NUR ---
PT IN BED ALL FALLS PRECAUTIONS IN PLACE AND V/SS FOLLOWS : T 97 P 77 R 20 B/P /
--- NOTE | 2018-12-30 04:28 | NUR ---
TRANSPORTED PATIENT FROM ROOM 111 TO 105 ON OXYMIZER 7L/M WITH NO INCIDENT. PATIENT WAS ON BIPAP BEFORE ROOM CHANGE, AND IS NOW ON OXYMIZER AT 7L/M. PATIENT IS AWAKE AND ALERT COMMUNICATING WITH SON AT BEDSIDE. SPO2 94 HEART RATE 90.
--- NOTE | 2018-12-30 06:35 | NUR ---
CHEST X RAY AT BEDSIDE.
--- NOTE | 2018-12-30 06:50 | NUR ---
NEB TREATMENT AT BEDSIDE
--- NOTE | 2018-12-30 07:15 | NUR ---
RECEIVED BEDSIDE REPORT FROM SUPERVISOR BACKFILLING NURSE FOR CONTINUITY OF CARE. PATIENT IS AWAKE AND TALKING TO SON BY BEDSIDE. PATIENT SPEAKS PERSIAN ONLY AND UNDERSTAND MINIMAL LUXEMBOURGISH. RESPIRATION EVEN AND UNLABORED ON 7LPM VIA OXYMIZER, SPO2 MONITOR BY BEDSIDE, SPO2 AT 97% AT THIS TIME. DENIED PAIN, SOB, AND DIZZINESS. NO SIGNS OF DISTRESS NOTED. IV ON RAC #20G, CLEAN AND INTACT. PATIENT IS CONTINENT AND BEDSIDE COMMODE IN PLACE. FALL RISK PROTOCOL IN PLACE. INSTRUCTED AND DEMONSTRATED TO PATIENT AND SON ON HOW TO USE THE CALL LIGHT FOR ASSISTANCE AND BOTH ARE AWARE. TELE MONITOR IN PLACE. BED IN LOW POSITION AND CALL LIGHT WITHIN REACH.
[2018-12-30] MEDS ORDERED: CHLORHEXADINE GLUC 2% CLOTH TP SCH (09:00)
[2018-12-30] MEDS ORDERED: MUPIROCIN CA NASAL 2% 1GM TUBE NS SCH (09:00)
[2018-12-30] MEDS: FUROSEMIDE 20 MG/2 ML VIAL IVP SCH (09:26)
[2018-12-30] MEDS: ISOSORBIDE DINITRATE 10 MG TAB PO SCH ×2 (09:27→20:41)
[2018-12-30] MEDS: LOSARTAN 50 MG TAB PO SCH (09:27)
[2018-12-30] MEDS: acetaZOLAMIDE 250 MG TAB PO SCH ×2 (09:29→20:46)
[2018-12-30] MEDS: PANTOPRAZOLE 40 MG TABEC PO SCH (09:30)
[2018-12-30] MEDS: ENOXAPARIN 40 MG/0.4 ML SYR SUBQ SCH (09:33)
--- NOTE | 2018-12-30 09:35 | NUR ---
USED Kormeli PLY[employer]OD FACTORY WORKER SERVICE AWACEL #[id number] FOR MEDS ADMINISTRATION. ADMINISTERED MEDS PER MD ORDER, EDUCATED PATIENT AND PATIENT'S SON REYMUNDO AT BEDSIDE. REYMUNDO VERBALIZED UNDERSTANDING AND DUE TO PATIENT'S MENTAL STATUS AT THIS TIME, PATIENT IS AAOX2, REINFORCEMENT NEEDED. HOLD MUPIROCIN OINTMENT AND CHLOXIDINE CLOTH DUE TO MASA NEGATIVE. PATIENT IS ABLE TO SWALLOW MEDS WELL. SPO2 IS AT 93% ON 7LPM VIA OXIMIZER. NO SIGNS OF DISTRESS NOTED. SAFETY MEASURES IN PLACE. BED IN LOW POSITION AND CALL LIGHT WITHIN REACH. BED ALARM ACTIVATED. INSTRUCTED PATIENT AND SON REYMUNDO TO USE THE CALL LIGHT FOR ANY ASSISTANCE AND BOTH ARE AWARE.
--- NOTE | 2018-12-30 10:17 | NUR ---
ADMINISTERED ZOSYN VIA IVPB PER MD ORDER, PATIENT TOLERATED WELL. MED EDUCATION PROVIDED TO FAVIOLA SANDERS AT BEDSIDE. RT CHANGED PATIENT FROM OXYMIZER TO BIPAP DUE TO DESATURATING. SPO2 AT 96% WITH BIPAP AT THIS TIME. NO SIGNS OF DISTRESS NOTED. TELE MONITOR ATTACHED. SAFETY MEASURES IN PLACE. BED IN LOW POSITION AND CALL LIGHT WITHIN REACH. BED ALARM ACTIVATED. INSTRUCTED PATIENT AND MARILYN TO USE THE CALL LIGHT FOR ANY ASSISTANCE AND BOTH WAS AWARE.
[2018-12-30 10:37] LABS: HEMATOCRIT 40.3 % (36-52); HEMOGLOBIN 12.7 g/dL (12.0-18.0); MEAN CORPUSCULAR HEMOGLOBIN 29 pg (27-31); MEAN CORPUSCULAR HGB CONC 32 g/dL (33-37); MEAN CORPUSCULAR VOLUME 90.6 fL (80-94); PLATELET COUNT (AUTO) 359 K/uL (140-450); RED BLOOD CELL COUNT(AUTO) 4.45 MIL/uL (4.20-6.10); RED CELL DISTRIBUTION WIDTH 14.8 % (11.6-13.7); WHITE BLOOD COUNT (AUTO) 6.8 K/uL (4.8-10.8)
[2018-12-30 10:54] LABS: LYMPHOCYTES % (MANUAL) 15 % (20-46); MONOCYTES % (MANUAL) 7 % (5-12)
[2018-12-30 10:55] LABS: EOSINOPHILS % (MANUAL) 3 % (0-4)
[2018-12-30 11:01] LABS: ANION GAP 9.9 (8-16); CARBON DIOXIDE 36.5 mmol/L (21-32); CHLORIDE 104 mmol/L (98-107); CREATININE 1.8 mg/dL (0.7-1.3); GLUCOSE 130 mg/dL (74-106); POTASSIUM 4.4 mmol/L (3.5-5.1); SODIUM SERUM 146 mmol/L (136-145); UREA NITROGEN, BLOOD 33 mg/dL (7-18)
[2018-12-30 11:11] LABS: MAGNESIUM 2.6 mg/dL (1.8-2.4); PHOSPHORUS 4.3 mg/dL (2.5-4.9)
--- NOTE | 2018-12-30 11:26 | NUR ---
BED ALARM WENT OFF. STOCK AND STATION AGENT FOUND THAT PATIENT ATTEMPTED TO GET OUT OF BED AND PULLED OUT BIPAP. ARRIVED AT BEDSIDE, POSITIONED PATIENT ON BED WITH HELP FROM HOME HEALTH CAREGIVER AND CONNECTED PATIENT ON BIPAP AND SPO2 AT 95%. EDUCATED PATIENT AND SON JAYCE THAT DUE TO PATIENT'S CONDITION, HE HAS TO BE REMAIN ON BED FOR SAFETY AND BE ON BIPAP FOR ADEQUATE OXYGEN, VISHAL EDUARDO WAS AWARE AND EXPLAINED TO PATIENT IN THEIR LANGUAGE. RT AT BEDSIDE AND ADJUSTING BIPAP. TELE MONITOR ATTACHED. BED IN LOW POSITION AND CALL LIGHT WITHIN REACH. BED ALARM ACTIVATED. INSTRUCTED PATIENT AND VISHAL EDUARDO TO USE THE CALL LIGHT FOR ANY ASSISTANCE AND BOTH ARE AWARE.
--- NOTE | 2018-12-30 11:55 | NUR ---
PT IS WORKING WITH PATIENT AT THIS TIME. PATIENT'S , SON JAYCE AND SON MILLY ARE BY BEDSIDE. EXPLAINED TO FAMILY MEMBERS THAT PATIENT IS DESATURATING ON OXIMIZER THIS AM, AND RT CHANGED PATIENT INTO BIPAP TO HELP PATIENT BREATHS BETTER AND MAINTAINS ADEQUATE SPO2, ALL VERBALIZED UNDERSTANDING. SAFETY MEASURES IN PLACE. BED IN LOW POSITION AND CALL LIGHT WITHIN REACH. BED ALARM ACTIVATED. TELE MONITOR ATTACHED.
--- NOTE | 2018-12-30 13:40 | NUR ---
PATIENT PULLED OUT HIS IV. CHECKED CANNULA INTACT AND COMPLETED. MINIMAL BLEEDING ON IV SITE. EDUCATED PATIENT AND PATIENT'S SON MILLY AT BEDSIDE THE IMPORTANCE OF HAVING IV ACCESS DURING THE STAY IN THE HOSPITAL MILLY VERBALIZED UNDERSTANDING. WILL ESTABLISH IV ACCESS SHORTLY. PATIENT IS AWAKE AND RESTING ON BED. NO SIGNS OF DISTRESS NOTED. SAFETY MEASURES IN PLACE. TELE MONITOR ATTACHED. BED IN LOW POSITION AND CALL LIGHT WITHIN REACH. BED ALARM ACTIVATED.
--- NOTE | 2018-12-30 13:50 | NUR ---
DR TOMPKINS IS TALKING TO PATIENT AND PATIENT'S SON MILLY AT BEDSIDE. TELE MONITOR ATTACHED. SAFETY MEASURES IN PLACE.
--- NOTE | 2018-12-30 14:30 | NUR ---
TRANSFERRED PATIENT TO ICU ACCOMPANIED BY VISHAL CRISTINACY. FULL REPORT PROVIDED TO RN IN ICU FOR CONTINUITY OF CARE. PATIENT IS IN STABLE CONDITION.
--- NOTE | 2018-12-30 14:30 | NUR ---
RECEIVED PATIENT FROM [facility] VIA BED. RECEIVED REPORT FROM ANNA SWANSON. PATIENT IS AAOX2, ABLE TO FOLLOW SIMPLE COMMANDS AND MAKE SOME NEEDS KNOWN. PATIENT SKIN IS WARM, DRY, INTACT. HE IS ON BIPAP, BREATHING IS EVEN AND UNLABORED, VITALS STABLE, DENIES PAIN. PATIENT HAS PERIPHERAL IV SITE TO LEFT HAND, 22 GAUGE. HOB IS 35 DEGREES, SIDE RAILS UP 3X, BED LOCKED IN LOW POSITION. NO SIGNS OF DISTRESS NOTED. WILL CONTINUE TO MONITOR
--- NOTE | 2018-12-30 15:13 | NUR ---
PATIENT FAMILY AT BEDSIDE, OFFERED PATIENT WATER, PATIENT TOLERATED 75MLS.
--- NOTE | 2018-12-30 16:00 | NUR ---
CALLED DR. MONTESINOS REGARDING ORDER FOR VQ SCAN AND CT OF CHEST, STATES OK TO BE PUT ON HOLD UNTIL PATIENT IS MORE STABLE.
--- NOTE | 2018-12-30 19:07 | NUR ---
RECEIVED PATIENT ON BIPAP SETTINGS: 30/07 RATE 14 FIO2 35%. PATIENTS MASK WOULD STAY IN PROPER PLACEMENT, CHANGED THE STRAPS FROM LARGE TO MEDIUM WITH NO INCIDENT. CURAPLEX IN PLACE TO PROTECT FROM SKIN BREAKDOWN. TREATMENT GIVEN INLINE AND TOLERATED WELL. NO CPT PERFORMED PATIENT IS VERY IRRITABLE AND TRYING TO PULL THINGS OUT. WILL CONTINUE TO MONITOR. SPO2 92 HEART RATE 74 RR 15.
--- NOTE | 2018-12-30 19:18 | NUR ---
ENDORSED CONTINUITY OF CARE TO KRISTAN BOTTLE AND GLASS INSPECTOR ANNA.
--- NOTE | 2018-12-30 19:30 | NUR ---
ASSUMED CARE OF PT.INITIAL ASSESSMENT COMPLETED.PT AWAKE, SPEAKS DIVEHI.SR ON MONITOR.ON BIPAP 14/ RATE 14 FIO2 35%.SATURATING ABOVE 90%.W/PERIPHERAL IV TO LT HAND G22 INTACT.SALINE LOCK.PT ON CARDIAC DIET.ABLE TO VOID FREELY.MOVES ALL EXTREMITIES .DENIES PAIN.SKIN INTACT.
--- NOTE | 2018-12-30 20:30 | NUR ---
INTERMITTENT COUGHING NOTED.EDUCATED PT ON HOW TO USE SUCTION.PT ABLE TO FOLLOW COMMANDS. ORAL CARE DONE.ABLE TO SUCTION SMALL AMT OF CREAMY SECRETIONS.WILL CONTINUE TO MONITOR PT
[2018-12-30] MEDS ORDERED: acetaZOLAMIDE 250 MG TAB ONE (20:40)
[2018-12-30] MEDS: TAMSULOSIN 0.4 MG CAP PO SCH (20:41)
--- NOTE | 2018-12-30 21:00 | NUR ---
SEEN AND EXAMINED BY DR SHARMA, DRAFTSPERSON.UPDATED ON PTS PRESENT CONDITION.QUESTIONS ANSWERED. MD SPOKE WITH PTS SON EVA WHO IS ALSO AT BEDSIDE
--- NOTE | 2018-12-30 21:10 | NUR ---
PATIENT PLACED ON 5 L/M OXYMIZER TO ALLOW FAMILY TO FEED HIM PER FAMILIES REQUEST AND RNKRISTAN AT BEDSIDE. PATIENT IS RESPONDING TO COMMUNICATIONS. SPO2 IS MAINTAINING 90-92. HEART RATE 81. PATIENT GIVEN YANKEUR TO SUCTION THE BACK OF THROAT HE HAS A STRONG COUGH.
--- NOTE | 2018-12-30 21:49 | NUR ---
FAMILY AT BEDSIDE.UPDATED ON PTS PRESENT CONDITION.QUESTIONS ANSWERED. PT STILL ON OXYMIZER.02SAT 92%.STILL WITH INTERMITTENT PRODUCTIVE COUGHING NOTED.PT SUCTIONED SELF.DENIES PAIN
--- NOTE | 2018-12-30 22:30 | NUR ---
PATIENT PLACED BACK ONTO BIPAP BY RNKRISTAN.
[2018-12-31] VITALS (83 sets, daily range): BP systolic 72–150; BP diastolic 31–87
--- NOTE | 2018-12-31 00:25 | NUR ---
PTS EYES CLOSED.SR ON MONITOR.ON BIPAP FIO2 35%.
[2018-12-31] MEDS: PIPERACILLIN/TAZOBACTAM 2.25 GM in DEXTROSE 5% 50 ML IV SCH ×3 (01:26→18:54)
[2018-12-31] MEDS: ALBUTEROL SULFATE/IPRATROPIU 3 ML SOL IH SCH ×4 (01:27→19:00)
--- NOTE | 2018-12-31 01:39 | NUR ---
INCREASED FIO2 FROM 35% TO 40% POST HHN TREATMENT TO MAINTAIN SPO2 FROM 88-92%
--- NOTE | 2018-12-31 03:03 | NUR ---
PTS CONDITION REMAINS UNCHANGED; STILL ON BIPAP FIO2 40%.REPOSITIONED.NO S/SX OF PAIN NOTED.
--- NOTE | 2018-12-31 03:15 | NUR ---
ROUTINE BIPAP CHECK. PATIENT SLEEPING AND APPEARS COMFORTABLE WITH NO DISTRESS OR SOB. OBSERVED NO SKIN BREAKDOWN FROM MASK.
--- NOTE | 2018-12-31 04:42 | NUR ---
PTS EYES CLOSED.EASILY AROUSABLE.FOLLOWS COMMANDS.DENIES PAIN.
--- NOTE | 2018-12-31 05:25 | NUR ---
NOTED V TACH ON MONITOR; PHONE CALL TO DR ANDERSON KingDRYWALL SANDER; ORDERED AMIODARONE DRIP
--- NOTE | 2018-12-31 05:30 | NUR ---
MORNING CARE DONE; PT APPEARS NON RESPONSIVE AND DIAPHORETIC. BS CHECKED 287
[2018-12-31] MEDS ORDERED: AMIODARONE 150 MG/3 ML VIAL IV ONE (05:39)
[2018-12-31] MEDS ORDERED: AMIODARONE 450 MG/9 ML VIAL IV ONE (05:40)
[2018-12-31] MEDS ORDERED: AMIODARONE 150 MG in DEXTROSE 5% 100 ML IV SCH (05:40)
[2018-12-31] MEDS: AMIODARONE 450 MG in DEXTROSE 5% 250 ML IV SCH ×2 (05:53→16:54)
--- NOTE | 2018-12-31 06:25 | NUR ---
PT TINTUBATED BY DR JUNG SIZE 7.5 ETT SECURED AT 21 CM CXR ORDERED
[2018-12-31 06:31] LABS: BASOPHILS % (AUTO) 0.4 % (0.0-2.0); EOSINOPHILS % (AUTO) 0.5 % (0.0-4.0); HEMATOCRIT 38.3 % (36-52); HEMOGLOBIN 11.8 g/dL (12.0-18.0); LYMPHOCYTES # (AUTO) 0.7 K/uL (2.0-11.5); LYMPHOCYTES % (AUTO) 11.9 % (20.5-51.1); MEAN CORPUSCULAR HEMOGLOBIN 28 pg (27-31); MEAN CORPUSCULAR HGB CONC 31 g/dL (33-37); MEAN CORPUSCULAR VOLUME 92.4 fL (80-94); MONOCYTES # (AUTO) 0.5 K/uL (0.8-1.0); NEUTROPHILS % (AUTO) 79.2 % (42.2-75.2); PLATELET COUNT (AUTO) 371 K/uL (140-450); RED BLOOD CELL COUNT(AUTO) 4.15 MIL/uL (4.20-6.10); WHITE BLOOD COUNT (AUTO) 6.3 K/uL (4.8-10.8)
[2018-12-31] MEDS ORDERED: SUCCINYLCHOLINE CHLORIDE 200 MG/10 ML VIAL IVP ONE ×3 (06:35→07:08)
[2018-12-31] MEDS ORDERED: ETOMIDATE 20 MG/10 ML VIAL IVP ONE ×2 (06:35→07:05)
--- NOTE | 2018-12-31 06:35 | NUR ---
PT PLACED ON CARESCAPE ON DOCUMENTED SETTINGS, ALARMS ARE ON AND AUDIBLE, PTS ETT IS SECURE 21 CM ANCH[address] FAST IN PLACE, BS INSP WHEEZING , HHN GVIEN I\L WITH 3 MG DUONEB, PT IN HF QUIET, BMV HOB, VENT PLUGGED INTO RED OUTLET
[2018-12-31 06:36] LABS: ANION GAP 9.4 (8-16); CARBON DIOXIDE 35.7 mmol/L (21-32); CHLORIDE 103 mmol/L (98-107); CREATININE 1.9 mg/dL (0.7-1.3); GLUCOSE 196 mg/dL (74-106); POTASSIUM 4.1 mmol/L (3.5-5.1); SODIUM SERUM 144 mmol/L (136-145); UREA NITROGEN, BLOOD 38 mg/dL (7-18)
[2018-12-31 06:47] LABS: MAGNESIUM 2.6 mg/dL (1.8-2.4); PHOSPHORUS 5.5 mg/dL (2.5-4.9)
[2018-12-31] MEDS ORDERED: MIDAZOLAM 2 MG/2 ML VIAL ONE (07:08)
--- NOTE | 2018-12-31 07:11 | NUR ---
PT REINTUBATED WITH 7.[address] JACOBSEN CXR ORDERED
--- NOTE | 2018-12-31 07:15 | NUR ---
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
--- NOTE | 2018-12-31 07:25 | NUR ---
RECEIVED CHANGE OF SHIFT REPORT FROM PM NURSE AT PATIENT'S BEDSIDE. PATIENT'S DRY WEIGHT IS 81.2 KG. PATIENT IS DROWSY AND VENTILATED. ETT 7.5 (24 AT LIP) TO VENT WITH SETTINGS ACVC: AC 18, FI02: 35%, VT 350, FLOW 80, AND PEEP 5. FLACC 0. LUNG SOUNDS AUSCULTATED AND HAVE FINE CRACKLES THROUGHOUT ALL LUNG MEDINA. S1S2 AUSCULTATED WITH AFIB ON REGIONAL PROJECT MANAGER. BILATERAL UPPER AND LOWER EXTREMITIES 2+ IN STRENGTH. SKIN IS WARM, DRY AND INTACT WITH NO EDEMA. ABDOMEN IS FIRM ROUND AND NONTENDER. PATIENT HAS NOT URINATED AT THIS TIME AND DOES NOT HAVE A FIERRO INSERTED YET. NO BOWEL MOVEMENT AT THIS TIME, BUT ACTIVE BOWEL SOUNDS AUSCULTATED IN ALL QUADRANTS. LEFT HAND 22 GAUGE PATENT PERIPHERAL IV - DRESSING/SITE DRY AND INTACT AND SALINE LOCKED. RIGHT AC 20 GAUGE PATENT PERIPHERAL IV - DRESSING/SITE DRY AND INTACT AND INFUSING 1 MG/MIN AMIODARONE. SIDERAILS UP, BED IN LOW POSITION. WILL CONTINUE TO MONITOR.
--- NOTE | 2018-12-31 07:30 | NUR ---
REPORT GIVEN TO ESTRELLA RN AND KRISTEN RN; PT ORALLY INTUBATED.A FIB NOTED ON MONITOR.ORALLY INTUBATED FIO2 100% TV 500 AC 20 PEEP 5.AMIODARONE DRIP AT 1MG/MIN PER PROTOCOL
--- NOTE | 2018-12-31 07:44 | NUR ---
FAMILY AT BEDSIDE; UPDATED ON PTS PRESENT CONDITION.QUESTIONS ANSWERED
--- NOTE | 2018-12-31 08:15 | NUR ---
CXR AT [facility] TO CONFIRM ETT TUBE PLACEMENT.
--- NOTE | 2018-12-31 08:30 | NUR ---
OGT HAS BEEN ORDERED. ATTEMPTED OGT AND NGT INSERTION WITH NURSE ESTRELLA, HOWEVER WE WERE BOTH UNABLE TO ACCOMPLISH INSERTION AT THIS TIME DUE TO ENCOUNTERED RESISTANCE IN THE THROAT. WILL ATTEMPT LATER WHEN POSSIBLE SWELLING FROM INTUBATION HAS SUBSIDED
[2018-12-31] MEDS ORDERED: FUROSEMIDE 20 MG/2 ML VIAL IVP SCH (09:00)
[2018-12-31] MEDS: ISOSORBIDE DINITRATE 10 MG TAB PO SCH ×2 (09:00→20:30)
[2018-12-31] MEDS: LOSARTAN 50 MG TAB PO SCH (09:00)
--- NOTE | 2018-12-31 09:00 | NUR ---
FIERRO CATHETER INSERTED PER ORDERS. PATIENT TOLERATED PROCEDURE WELL. WILL CONTINUE TO MONITOR.
--- NOTE | 2018-12-31 09:23 | NUR ---
INCREASE VT TO 550
--- NOTE | 2018-12-31 09:25 | NUR ---
DR. MONTESINOS MADE AWARE OF PT'S S/P INTUBATION VENT SETTINGS, ABG RESULTS AND UPDATED ON PT'S CONDITION. ORDERS RECEIVED.
[2018-12-31] MEDS ORDERED: PANTOPRAZOLE 40 MG INJ VIAL IVP SCH (09:29)
[2018-12-31] MEDS: ENOXAPARIN 40 MG/0.4 ML SYR SUBQ SCH (09:39)
--- NOTE | 2018-12-31 10:00 | NUR ---
PATIENT PULLED OUT LEFT HAND 22 GAUGE. CATHETER IS INTACT AND THERE IS NO TRAUMA AT SITE. SITE WAS CLEANED, AND NEW IV SITE STARTED IN RIGHT UPPER ARM 22 GAUGE. PATIENT TOLERATED PROCEDURE WELL. WILL CONTINUE TO MONITOR.
[2018-12-31] MEDS: PROPOFOL 1000 MG/100 ML PREMIX 100 ML IV PRN (10:16)
--- NOTE | 2018-12-31 10:16 | NUR ---
PATIENT STARTED ON PROPOFOL PER ORDERS. PRESCRIBED RASS OF -1 AND DRY WEIGHT IS 81.2 KG. WILL CONTINUE TO MONITOR AND TITRATE PER PROTOCOLS.
[2018-12-31] MEDS: MORPHINE SULFATE 2 MG/ML SYR IVP PRN (10:23)
--- NOTE | 2018-12-31 10:30 | NUR ---
OGT HAS BEEN INSERTED SUCCESSFULLY, AND AUSCULTATED/ASPIRATED FOR POSITIVE PLACEMENT. PATIENT WAS GIVEN MORPHINE PRN BEFORE PROCEDURE. PATIENT TOLERATED PROCEDURE WELL. WILL CONTINUE TO MONITOR
--- NOTE | 2018-12-31 10:50 | NUR ---
PICC LINE NURSE NOTIFIED OF NEED FOR PICC LINE.
--- NOTE | 2018-12-31 11:00 | NUR ---
VAP ORAL CARE PERFORMED PER PROTOCOL. PATIENT TOLERATED CARE WELL. WILL CONTINUE TO MONITOR.
[2018-12-31] MEDS ORDERED: INFLUENZA VACCINE QUAD 0.5 ML SYR IMVAC PRN (11:05)
[2018-12-31] MEDS ORDERED: PNEUMOCOCCAL VACCINE 23 MCG/0.5 ML VIAL IMVAC SCH (11:05)
--- NOTE | 2018-12-31 11:09 | NUR ---
12/31/18 RD INITIAL ASSESSMENT COMPLETED PLEASE REFER TO NUTRITION ASSESSMENT UNDER CARE ACTIVITY FOR ESTIMATED NUTRITIONAL NEEDS. 1. RECOMMEND TUBE FEEDING WITH TWO VIKTORIYA HN @ 40 ML/HR X 24 HR WITH PROSOURCE BID -THIS WILL PROVIDE 2040 KCAL AND 110 GM OF PROTEIN WHICH MEETS 100% OF ESTIMATED NEEDS 2. RECOMMEND FREE WATER FLUSH OF [address] TO FOLLOW-UP 2-3 DAYS, HIGH RISK ASHWIN ALBERTO RD
[2018-12-31] MEDS: acetaZOLAMIDE 250 MG TAB PO SCH (11:18)
--- NOTE | 2018-12-31 12:00 | NUR ---
DR. BARRON AT BEDSIDE.
--- NOTE | 2018-12-31 12:45 | NUR ---
CT CAME TO CHECK IF PATIENT IS STABLE ENOUGH TO GET A CT IN THE OUTSIDE TRAILER. I INFORMED THEM TO HOLD OFF ON AN HOUR OR SO DUE TO LOW BP 15 MINUTES AGO.
--- NOTE | 2018-12-31 13:35 | NUR ---
CALLED DR. MONTESINOS, DUE TO PATIENTS INTERMITTENT LOW SBP BELOW 90. EXPOSURE MACHINE OPERATOR SAID SHE WILL PAGE HIM.
--- NOTE | 2018-12-31 13:40 | NUR ---
DR. MONTESINOS CALLED BACK AND GAVE ORDERS FOR DOPAMINE TO KEEP SBP ABOVE 90. WILL CARRY OUT ORDERS PRESCRIBED.
[2018-12-31] MEDS ORDERED: DOPamine 400 MG/D5W PREMIX 250 ML IV PRN (13:45)
--- NOTE | 2018-12-31 14:15 | NUR ---
RECEIVED CALL FROM [facility], PICC LINE NURSE. INFO ON PT'S PERTINENT MEDICAL HX GIVEN. PER [facility], NO ETA YET AND WILL CALL BACK.
--- NOTE | 2018-12-31 14:20 | NUR ---
1455 PT TAKEN TO AND FROM [facility] WITHOUT INCIDENT
--- NOTE | 2018-12-31 14:20 | NUR ---
PATIENT TAKEN TO CT SCAN PER ORDERS.
--- NOTE | 2018-12-31 14:55 | NUR ---
PATIENT RETURNED FROM CT SCAN AND TOLERATED PROCEDURE WELL. TRANSFERED BACK TO ICU BED, WITH EVERYTHING HOOKED BACK UP. WILL CONTINUE TO MONITOR.
--- NOTE | 2018-12-31 15:00 | NUR ---
DR. WEATHERS AT BEDSIDE. NOTIFIED US TO HOLD LASIX, LOSARTAN, AND DIAMOX. i NOTIFIED DR. WEATHERS THAT PATIENT HAS HAD NO URINE OUTPUT FOR AN EXTENDED PERIOD AFTER FIERRO CATHETER INSERTION. HE INSTRUCTED ME AND NURSE ESTRELLA TO CHECK FOR CATHETER MALPOSITION, AND REPOSITION IF NECESSARY. CATHETER WAS INSPECTED AND BLOODY DISCHARGE NOTED FROM URETHRA. CATHETER BALLOON WAS DEFLATED, REPOSITIONED AND REINFLATED. PATIENT CLEANED AND CLEAR CAT URINE IS NOW FLOWING FREELY. CATHETER WAS ALSO FLUSHED WITH 20ML OF NS. PATIENT TOLERATED PROCEDURE WELL. WILL CONTINUE TO MONITOR.
--- NOTE | 2018-12-31 15:15 | NUR ---
VAP ORAL CARE PERFORMED PER PROTOCOL. PATIENT TOLERATED CARE WELL. PATIENT WAS ALSO CLEANED AND LINENS WERE CHANGED. WILL CONTINUE TO MONITOR.
--- NOTE | 2018-12-31 17:24 | NUR ---
CALLED DR. WEATHERS AND HE GAVE CLEARANCE FOR THE PICC LINE NURSE TO INSERT A PICC LINE DESPITE PATIENTS CURRENT ELEVATED BUN AND CREATININE. I CALLED SHALOM THE PICC LINE NURSE OF THE CLEARANCE, AND NOTIFIED HIM THAT HE WILL BE CALLED TO COME ONCE THE PATIENT FINISHES THE VQ PROCEDURE..
--- NOTE | 2018-12-31 18:00 | NUR ---
NM PULMONARY VQ SCAN BEING PERFORMED AT BEDSIDE NOW
[2018-12-31] MEDS: IPRATROPIUM 0.02% 0.5 MG/2.5 ML NEBU INH PRN (19:18)
[2018-12-31] MEDS: ALBUTEROL 0.083% 2.5 MG/3 ML NEBU INH PRN (19:18)
--- NOTE | 2018-12-31 19:25 | NUR ---
RECEIVED REPORT FROM AM NURSE, PT AT BED EYES CLOSED, PERRL 3MM, BRISK, SEDATED AT RASS -1, BREATHING REGULARLY, ETT TO VENT, SIZE 7.5, TAPED 24 AT THE LIP, AC VC FIO2 35%, TV 550, RR 20, PEEP 5, LUNG SOUNDS, SLIGHT CRACKLES, ON BILATERAL UPPER LOBES, DIMINISHED AT BASES. HEART RATE REGULAR S1S2 PRESENT, CAP REFILL <3S, PULSES 2+ BILATERAL UPPER AND LOWER EXTREMITIES, ABDOMEN, SOFT, ROUND, NONDISTENDED, NONTENDER, PT HAS OGT IN PLACE, RUNNING OSMOLITE 1.5 AT 10 ML/HR, WATER FLUSH AT 60 ML/HR, Q4H. ABDOMEN, SOFT, ROUND, NONDISTENDED, NONTENDER, FC IN PLACE, DRAINING CLEAR, YELLOW URINE, PT HAS RIGHT UPPER ARM PICC LINE, RUNNING, NS AT 5 ML/HR, AMIODARONE AT 0.5 MG/MIN, PROPOFOL AT 5 MCG/KG/MIN. HOB 30 DEGREES, SIDE RAILS UP X2, BED AT LOWEST POSITION. Addendum: 01/01/19 at 0158 by Sherman Lozada RN DRY WEIGHT 81.2 KG
--- NOTE | 2018-12-31 20:00 | NUR ---
OGT IN PLACE VERIFIED WITH RN JEANETH.OGT FEEDING STARTED AT 10ML/HR WITH WATER FLUSH ORDERED
[2018-12-31] MEDS: TAMSULOSIN 0.4 MG CAP PO SCH (20:29)
--- NOTE | 2018-12-31 21:14 | NUR ---
PHONE CALL TO DR ANDERSON Hanley, TO ADMINISTER AMIODARONE P.O/OGT ONE HOUR PRIOR TO STOPPING AMIODARONE DRIP AT 0600
--- NOTE | 2018-12-31 23:00 | NUR ---
OGT FEEDING TOLERATED AT 10ML/HR; NO RESIDUALS NOTED.FEEDING INCREASED TO 20ML AT THIS TIME.WILL RECHECK FOR RESIDUALS. PT SEDATED ON PROPOFOL DRIP RASS -1; ETT TO VENT FIO2 STILL AT 35%.SECRETIONS SUCTIONED ORDERED,STILL WITH MODERATE AMT OF CLEAR SECRETIONS NOTED.FLACC 0
[2019-01-01] VITALS (104 sets, daily range): BP systolic 89–134; BP diastolic 50–91
--- NOTE | 2019-01-01 | NUR ---
FIERRO CATHETER IRRIGATED ORDERED BY DR MONTESINOS DUE TO CLOTS; SLIGHT PINKISH OUTPUT NOTED; NO CLOTS.NO RESISTANCE.
--- NOTE | 2019-01-01 00:30 | NUR ---
FAMILY AT BEDSIDE,UPDATE GIVEN.QUESTIONS ANSWERED
--- NOTE | 2019-01-01 00:46 | NUR ---
ORAL CARE USING VAP KIT RENDERED.SECRETIONS SUCTIONED.REPOSITIONED.FLACC 0
[2019-01-01] MEDS: PIPERACILLIN/TAZOBACTAM 2.25 GM in DEXTROSE 5% 50 ML IV SCH ×3 (01:40→17:21)
--- NOTE | 2019-01-01 01:57 | NUR ---
SPUTUM SPECIMEN SENT TO LAB BY RT ANGELA
[2019-01-01] MEDS: ALBUTEROL SULFATE/IPRATROPIU 3 ML SOL IH SCH ×4 (02:05→18:41)
--- NOTE | 2019-01-01 02:13 | NUR ---
0157 SXNED PATIENT FOR 2ND SPUTUM SAMPLE AND SENT TO LAB
--- NOTE | 2019-01-01 04:00 | NUR ---
pt tolerating ogt feeding at this time; no residuals noted; feeding increased to 30ml/hr.will continue to monitor. vap oral care given.
[2019-01-01] MEDS ORDERED: AMIODARONE 200 MG TAB GT SCH (05:00)
--- NOTE | 2019-01-01 05:00 | NUR ---
amiodarone tablet given as ordered one hour prior to stopping the amiodarone drip. pt sedated with propofol, RASS -1; sr on monitor ,orally intubated to vent fio2 35%.repositioned.flacc 0
--- NOTE | 2019-01-01 06:00 | NUR ---
amiodarone drip dc'd as per dr Mcneal rn.sr on monitor.still orally intubated fio2 35%.
--- NOTE | 2019-01-01 06:40 | NUR ---
RECIVED PT ON VENT WITH SETTINGS CHARTED BREATH SOUNDS PRESENT BILAT CLEAR SXN PT WITH MIN AMT OFF WHITE SECS ETT SECURE AMBU BAG AT BEDSIDE VENT PLUGGED INTO RED OUTLET WILL CONTINUE TO MONITOR PT ON VENT
[2019-01-01 06:49] LABS: BASOPHILS % (AUTO) 0.5 % (0.0-2.0); EOSINOPHILS # (AUTO) 0.1 K/uL (0-0.4); EOSINOPHILS % (AUTO) 0.7 % (0.0-4.0); HEMATOCRIT 34.4 % (36-52); LYMPHOCYTES # (AUTO) 1.4 K/uL (2.0-11.5); LYMPHOCYTES % (AUTO) 15.4 % (20.5-51.1); MEAN CORPUSCULAR HEMOGLOBIN 29 pg (27-31); MEAN CORPUSCULAR HGB CONC 32 g/dL (33-37); MEAN CORPUSCULAR VOLUME 88.8 fL (80-94); MONOCYTES # (AUTO) 0.9 K/uL (0.8-1.0); MONOCYTES % (AUTO) 9.8 % (1.7-9.3); NEUTROPHILS # (AUTO) 6.5 K/uL (1.8-7.7); NEUTROPHILS % (AUTO) 73.6 % (42.2-75.2); PLATELET COUNT (AUTO) 318 K/uL (140-450); RED BLOOD CELL COUNT(AUTO) 3.87 MIL/uL (4.20-6.10); RED CELL DISTRIBUTION WIDTH 14.8 % (11.6-13.7); WHITE BLOOD COUNT (AUTO) 8.8 K/uL (4.8-10.8)
[2019-01-01 06:50] LABS: ANION GAP 13.3 (8-16); CARBON DIOXIDE 30.1 mmol/L (21-32); CHLORIDE 102 mmol/L (98-107); CREATININE 2.9 mg/dL (0.7-1.3); GLUCOSE 127 mg/dL (74-106); POTASSIUM 3.4 mmol/L (3.5-5.1); SODIUM SERUM 142 mmol/L (136-145); UREA NITROGEN, BLOOD 58 mg/dL (7-18)
--- NOTE | 2019-01-01 07:10 | NUR ---
RECEIVED REPORT FROM NIGHT RN KRISTAN. PT IN BED, OPENS EYES TO VOICE, PERRL 3MM, BRISK, SEDATED AT RASS -1. NO RESPIRATORY DISTRESS, ETT TO VENT, SIZE 7.5, TEETH 24CM. LUNG SOUNDS CLEAR, BREATHING EVEN AND UNLABORED. AC/VC FIO2 35%, TV 550, RR 20, PEEP 5. HEART RATE SR. S1S2 PRESENT. CAP REFILL <3S, PULSES 2+ BILATERAL UPPER AND LOWER EXTREMITIES. ABDOMEN, SOFT, ROUND, NONDISTENDED, OGT RUNNING OSMOLITE 40 ML/HR, WATER FLUSH AT 60 ML/HR, Q4H. FIERRO CATH IN PLACE, DRAINING CLEAR, YELLOW URINE WITH VERY SMALL CLOTS. RIGHT UPPER ARM PICC LINE RUNNING PROPOFOL AT 5 MCG/KG/MIN. DRY WEIGHT 81.2KG. HOB 30 DEGREES, SIDE RAILS UP X2, BED AT LOWEST POSITION.
--- NOTE | 2019-01-01 07:50 | NUR ---
CALLED DR BARRON FOR CRITICAL VALUE.
--- NOTE | 2019-01-01 07:55 | NUR ---
DR ANDERSON VIDES SOLAR SYSTEMS DESIGNER CALLED BACK, REPORTED TROP 2.043, WAS 0.[address] BARRON ORDER STOP LOVENOX AND START HEPARIN DRIP PER PHARMACY. COREG 6.25MG BID ORDERED.
[2019-01-01] MEDS ORDERED: HEPARIN PER PHARMACY MC PRN (08:00)
[2019-01-01] MEDS: ISOSORBIDE DINITRATE 10 MG TAB PO SCH ×2 (08:18→21:08)
[2019-01-01] MEDS: CARVEDILOL 6.25 MG TAB PO SCH ×2 (08:18→20:40)
[2019-01-01] MEDS: PANTOPRAZOLE 40 MG INJ VIAL IVP SCH (08:18)
--- NOTE | 2019-01-01 08:25 | NUR ---
ORAL CARE DONE, FIERRO CARE DONE. PT WAS CLEANED, NO BM, SKIN INTACT. Addendum: 01/01/19 at 1512 by López Loomis RN SOME DRY BLOOD NOTED ON TIP OF THE PENIS.
[2019-01-01 08:38] LABS: PROTHROMBIN TIME 11.8 secs (10.8-13.4)
--- NOTE | 2019-01-01 08:55 | NUR ---
SCREEN FOR LOW ZOE SCALE AT RISK, CONTINUE TO FOLLOW PRESSURE ULCER PREVENTION INTERVENTIONS. -TURN AND REPOSITION PATIENT Q 2H -ASSESS AND MONITOR SKIN CONDITION DURING POSITION CHANGE -OFFLOAD BILATERAL HEELS BY PLACING PILLOWS UNDER CALVES AT ALL TIMES, UNLESS OTHERWISE CONTRAINDICATED -PRESSURE REDISTRIBUTION BY PLACING PILLOWS AND OFFLOADING SACRALCOCCYX -KEEP SKIN CLEAN AND DRY AT ALL TIMES.
--- NOTE | 2019-01-01 09:25 | NUR ---
decreased rr to 16 and decreased vt to [address] quinones rn aware
[2019-01-01] MEDS: hePARIN / DEXT 5% PREMIX 250 ML IV SCH (09:44)
[2019-01-01] MEDS ORDERED: POTASSIUM CHLORIDE 20% 40 MEQ/15 ML UDC GT ONE (10:10)
[2019-01-01] MEDS ORDERED: POTASSIUM CHLORIDE 20% 40 MEQ/15 ML UDC GT SCH (10:30)
[2019-01-01] MEDS: DOCUSATE SODIUM 250 MG GELCAP PO PRN (11:00)
[2019-01-01 11:05] LABS: MAGNESIUM 2.6 mg/dL (1.8-2.4); PHOSPHORUS 1.8 mg/dL (2.5-4.9)
[2019-01-01] MEDS: PROPOFOL 1000 MG/100 ML PREMIX 100 ML IV PRN (11:09)
--- NOTE | 2019-01-01 12:30 | NUR ---
DR FARIAS SEQUINS STRINGER CAME AND EVALUATED PT. DR FARIAS ORDERED UA, RAMDOM SODIUM AND LASIX 40MG IVP ONCE
--- NOTE | 2019-01-01 13:04 | NUR ---
RECEIVED REPORT FROM NIGHT ANNA RUSHING. PT IN BED, OPENS EYES TO VOICE, PERRL 3MM, BRISK, SEDATED AT RASS -1. NO RESPIRATORY DISTRESS, ETT TO VENT, SIZE 7.5, TEETH 24CM. LUNG SOUNDS CLEAR, BREATHING EVEN AND UNLABORED. AC/VC FIO2 35%, TV 550, RR 20, PEEP 5. HEART RATE SR. S1S2 PRESENT. CAP REFILL <3S, PULSES 2+ BILATERAL UPPER AND LOWER EXTREMITIES. ABDOMEN, SOFT, ROUND, NONDISTENDED, OGT RUNNING OSMOLITE 40 ML/HR, WATER FLUSH AT 60 ML/HR, Q4H. FIERRO CATH IN PLACE, DRAINING CLEAR, YELLOW URINE WITH VERY SMALL CLOTS. RIGHT UPPER ARM PICC LINE RUNNING PROPOFOL AT 5 MCG/KG/MIN. DRY WEIGHT 81.2KG. HOB 30 DEGREES, SIDE RAILS UP X2, BED AT LOWEST POSITION. Addendum: 01/01/19 at 1328 by López Loomis RN PLEASE DISCARD, WRONG TIME.
[2019-01-01] MEDS ORDERED: FUROSEMIDE 40 MG/4 ML VIAL IVP SCH (13:15)
[2019-01-01 14:21] LABS: APPEARANCE,URINE CLEAR (CLEAR); BILIRUBIN,URINE NEGATIVE (NEGATIVE); BLOOD, URINE 3+ (NEGATIVE); COLOR,URINE YELLOW (YELLOW); LEUKOCYTE ESTERASE ,URINE NEGATIVE (NEGATIVE); NITRITE, URINE NEGATIVE (NEGATIVE); UGLUCOSE NEGATIVE (NEGATIVE)
[2019-01-01 14:40] LABS: RBC,URINE 20-50 /HPF (0-5); WBC,URINE 0-5 /HPF (0-5)
--- NOTE | 2019-01-01 14:58 | NUR ---
RD RECOMMENDATIONS FOR TUBE FEEDING WERE GIVEN TO NURSE. TUBE FEEDING RECOMMENDATIONS WERE NEPRO @ 35 ML/HR X 24 HR WHICH PROVIDES 840 ML OF VOLUME, 1512 KCAL, AND 68 GM OF PROTEIN PER DAY.
--- NOTE | 2019-01-01 15:12 | NUR ---
DR MONTESINOS CAME AND SEEN PT. MADE YAMEL AWARE OF URINE OUTPUT AND DRY BLOOD NOTED ON TIP OF THE PENIS, POSSIBLY FROM INSERTION TRAUMA.
--- NOTE | 2019-01-01 16:00 | NUR ---
PTT 46.2, NO CHANGE TO HEPARIN DRIP, STILL RUNNING AT 1000UNITS/HR
--- NOTE | 2019-01-01 17:30 | NUR ---
FAMILY IS HERE TO VISIT, TALKING TO PT. PT C/O EPIGASTRIC PAIN, FLACC 06/26, NORCO WILL GIVEN.
[2019-01-01] MEDS: HYDROcodone/APAP 5/325 MG 1 TAB TAB PO PRN (17:31)
--- NOTE | 2019-01-01 18:30 | NUR ---
PT RESTING IN BED, EYES CLOSED. NO S/S OF DISTRESS AND NO FACIAL GRIMACING.
[2019-01-01] MEDS ORDERED: DOPamine 400 MG/D5W PREMIX 250 ML IV PRN (18:31)
--- NOTE | 2019-01-01 19:15 | NUR ---
REPORT GIVEN BY JAVIER CASTILLO AM SHIFT. PT ON ETT TO VENT WITH VENT SETTING AC RATE 16,FIO2 35%,TIDAL VOLUME 500 AND PEEP 5 TOLERATED WELL. BILATERAL LUING SOUND CAMPOS, PT NOTED INTERMITTENT COUGH WITH CLEAR SMALL SECRETION. SR ON CARDIAC MONITORING. PT IS ON SEDATION PROPOFOL AT 5 MCG/HR TO KEPT RASS -1. IV LINE TO PICC LINE RIGHT UPPER ARM DOUBLE LUMENS.LFA PERIPHERAL NO 22 GAUGE. CONT ON HEPARIN DRIPS AT 1000 UNITS/HR ,NO S/S OF ACTIVE BLEEDING NOTED.NS AT TKO.. OGT IN PLACE ,PLACEMENT CONFIRM, 20 CC RESIDUAL NOTED. SKIN WARM TO TOUCH. ABD SOFT NON DISTENDED, BUE WITH MULTIPLE DISCOLORATIONS, RIGHT KNEE REDNESS NOTED.F/C IN PLACE WITH YELLOW WITH SMALL BLOOD TINGE AND SEDIMENT NOTED.REPOSITION FOR COMFORT. KEPT CLEAN AND DRY.CALL LIGHT IN REACH. Addendum: 01/01/19 at 2330 by Oliva Correa RN DRY WEIGHT 81.2KG
--- NOTE | 2019-01-01 19:29 | NUR ---
PT SEDATED ON VENT IN NO APPARENT RESPIRATORY DISTRESS. ETT SECURED, VENT ALARMS AND PARAMETERS VERIFIED AND CHANGED NEEDED. AMBU BAG AND MASK BEDSIDE. WHEELS ON VENT LOCKED, VENT PLUGGED INTO RED OUTLET. WILL CONTINUE TO MONITOR.
[2019-01-01] MEDS: TAMSULOSIN 0.4 MG CAP PO SCH (20:40)
[2019-01-01] MEDS: BISACODYL 10 MG SUPP RC PRN (20:43)
--- NOTE | 2019-01-01 20:45 | NUR ---
NIGHT MEDS GIVEN , DULCOLAX SUPP GIVEN D/T TO DAY 3RD DAY NO BM. REPOSITION PT FOR COMFORT.
[2019-01-01] MEDS: AMIODARONE 200 MG TAB GT SCH (21:08)
--- NOTE | 2019-01-01 21:30 | NUR ---
LAB TROPONIN RESULT 1.049 TRENDING DOWN AND APTT 42.8, NO NEED TO CHANGE OF HEPARIN DOSE PER ORDER/PROTOCOL. CONTINUE TO MONITOR.
--- NOTE | 2019-01-01 21:45 | NUR ---
PT HAS EPISODE PULLING TUBES AND AGGRESSIVE RASS +3. PROPOFOL DRIPS WAS INCREASING FROM 5 MCG TO 10 MCG AND THEN 15 MCG AND PT RASS -1 WITH 15 MCG/MIN. CONT TO MONITOR PT CLOSELY.
--- NOTE | 2019-01-01 22:00 | NUR ---
PT SLEEP RASS -1
[2019-01-02] VITALS (107 sets, daily range): BP systolic 86–129; BP diastolic 15–100
--- NOTE | 2019-01-02 | NUR ---
PT SLEEP WELL, REPOSITION FOR COMFORT.
[2019-01-02] MEDS: ALBUTEROL SULFATE/IPRATROPIU 3 ML SOL IH SCH ×4 (00:49→19:38)
[2019-01-02] MEDS: PIPERACILLIN/TAZOBACTAM 2.25 GM in DEXTROSE 5% 50 ML IV SCH ×3 (02:06→17:21)
[2019-01-02] MEDS: PROPOFOL 1000 MG/100 ML PREMIX 100 ML IV PRN ×2 (03:33→17:21)
--- NOTE | 2019-01-02 04:00 | NUR ---
RASS -3 DECREASE PROPOFOL DRIPS TO 10 MCG/MIN AND TOLERATED WELL RASS -1
--- NOTE | 2019-01-02 05:00 | NUR ---
AM CARE ,SPONGE BATH ,F/C CARE AND ORAL CARE GIVEN IQRA WELL.
[2019-01-02 06:15] LABS: BASOPHILS # (AUTO) 0.1 K/uL (0.00-0.22); BASOPHILS % (AUTO) 0.7 % (0.0-2.0); EOSINOPHILS # (AUTO) 0.1 K/uL (0-0.4); EOSINOPHILS % (AUTO) 1.3 % (0.0-4.0); HEMATOCRIT 33.6 % (36-52); HEMOGLOBIN 10.9 g/dL (12.0-18.0); LYMPHOCYTES % (AUTO) 11.5 % (20.5-51.1); MEAN CORPUSCULAR HEMOGLOBIN 28 pg (27-31); MEAN CORPUSCULAR HGB CONC 32 g/dL (33-37); MEAN CORPUSCULAR VOLUME 87.7 fL (80-94); MONOCYTES # (AUTO) 0.8 K/uL (0.8-1.0); MONOCYTES % (AUTO) 8.7 % (1.7-9.3); NEUTROPHILS # (AUTO) 6.9 K/uL (1.8-7.7); NEUTROPHILS % (AUTO) 77.8 % (42.2-75.2); PLATELET COUNT (AUTO) 318 K/uL (140-450); RED BLOOD CELL COUNT(AUTO) 3.83 MIL/uL (4.20-6.10); RED CELL DISTRIBUTION WIDTH 14.9 % (11.6-13.7); WHITE BLOOD COUNT (AUTO) 8.9 K/uL (4.8-10.8)
[2019-01-02 06:39] LABS: ANION GAP 13.2 (8-16); CHLORIDE 102 mmol/L (98-107); CREATININE 3.1 mg/dL (0.7-1.3); GLUCOSE 138 mg/dL (74-106); POTASSIUM 3.2 mmol/L (3.5-5.1); SODIUM SERUM 142 mmol/L (136-145)
[2019-01-02 06:40] LABS: MAGNESIUM 2.6 mg/dL (1.8-2.4); PHOSPHORUS 3.5 mg/dL (2.5-4.9)
[2019-01-02 06:45] LABS: UREA NITROGEN, BLOOD 77 mg/dL (7-18)
--- NOTE | 2019-01-02 06:46 | NUR ---
PT HAS X1 MEDIUM BM ,LOOSE FROM DULCOLAX SUPP.GOOD PERINEAL CARE GIVEN.
--- NOTE | 2019-01-02 07:10 | NUR ---
PAGED DR JARRETT EARLY TO REPORT CRITICAL BUN 77 , CREAT 3.1 AND POTASSIUM 3.2 NO CALL BACK YET.
--- NOTE | 2019-01-02 07:15 | NUR ---
RECEIVED CHANGE OF SHIFT REPORT FROM PM NURSE AT PATIENT'S BEDSIDE. PATIENT'S DRY WEIGHT IS 81.2 KG. PATIENT IS SEDATED AND VENTILATED WITH RASS OF -1. ETT 7.5 (24 AT LIP) TO VENT WITH SETTINGS ACVC: AC 16, FI02: 35%, VT 500, FLOW 60, AND PEEP 5. FLACC 0. LUNG SOUNDS AUSCULTATED AND ARE CLEAR THROUGHOUT ALL LUNG MEDINA. S1S2 AUSCULTATED WITH NSR ON BALL TRUING MACHINE OPERATOR. BILATERAL UPPER AND LOWER EXTREMITIES 2+ IN STRENGTH. SKIN IS WARM, DRY AND INTACT WITH 1+ PITTING EDEMA ONLY BILATERALY IN THE LOWER EXTREMITIES. ABDOMEN IS FIRM ROUND AND NONTENDER. PATIENT HAS FIERRO AT THIS TIME WITH DARK YELLOW CLEAR URINE. NO BOWEL MOVEMENT AT THIS TIME, BUT HYPERACTIVE BOWEL SOUNDS AUSCULTATED IN ALL QUADRANTS. LEFT FOREARM 22 GAUGE PATENT PERIPHERAL IV - DRESSING/SITE DRY AND INTACT. LEFT UPPER ARM PATENT DOUBLE LUMEN PICC LINE - DRESSING/SITE DRY AND INTACT. PROPOFOL INFUSING 10 MCG/KG/MIN, HEPARIN INFUSING 1000 UNIT/H, AND NS KVO INFUSING AT 5 ML/H. BED IN LOW POSITION. WILL CONTINUE TO MONITOR. Addendum: 01/02/19 at 0806 by Roman Reyna RN PERRL PRESENT WITH PUPILS 2MM BILATERAL. 15 ML GASTRIC RESIDUALS ASPIRATED, AND POSITIVE PLACEMENT OF OGT TUBE. OGT TUBE FEEDING NEPHRO RUNNING AT 35ML/H WITH 60ML WATER FLUSH Q4H.
--- NOTE | 2019-01-02 07:26 | NUR ---
REPORT GIVEN TO ESTRELAL RN AND KRISTEN RN. MADE AWARE PT HAS CRITICAL LAB BUN 77 AND CREAT 3.1, K 2,3. MADE AWARE THAT DR.SAREANI EARLY PAGED THE ONCALL DR.SALOMON LACY STILL WAITING FOR CALL BACK.
[2019-01-02 07:34] LABS: PROTHROMBIN TIME 11.5 secs (10.8-13.4)
--- NOTE | 2019-01-02 08:00 | NUR ---
VAP ORAL CARE PERFORMED PER PROTOCOL. ADJUSTED PATIENT'S PILLOW. PATIENT TOLERATED CARE WELL. WILL CONTINUE TO MONITOR.
--- NOTE | 2019-01-02 08:55 | NUR ---
DR. MONTESINOS IN TO SEE AND EXAMINE PT, AWARE OF BUN 77, CR 3.1. PER DR. MONTESINOS, IT USUALLY TAKES 7-10 DAYS FOR KIDNEYS TO RECOVER FROM BERNIE. NO NEW ORDER AT THIS TIME.
[2019-01-02] MEDS: PANTOPRAZOLE 40 MG INJ VIAL IVP SCH (09:18)
[2019-01-02] MEDS: CARVEDILOL 6.25 MG TAB PO SCH ×2 (09:18→21:19)
[2019-01-02] MEDS: AMIODARONE 200 MG TAB GT SCH ×2 (09:18→20:53)
[2019-01-02] MEDS: ISOSORBIDE DINITRATE 10 MG TAB PO SCH ×2 (09:19→21:19)
--- NOTE | 2019-01-02 09:30 | NUR ---
PT SEEN AND EXAMINED BY DR. BARRON. NO NEW ORDER RECEIVED AT THIS TIME.
--- NOTE | 2019-01-02 10:10 | NUR ---
DR. MONTESINOS MADE AWARE OF ABG RESULTS AND CURRENT VENT SETTINGS. NO NEW ORDER AT THIS TIME.
[2019-01-02] MEDS: POTASSIUM CHLORIDE 20% 40 MEQ/15 ML UDC GT PRN (10:19)
[2019-01-02] MEDS: hePARIN / DEXT 5% PREMIX 250 ML IV SCH (11:03)
--- NOTE | 2019-01-02 12:00 | NUR ---
VAP ORAL CARE PERFORMED PER PROTOCOL. PATIENT TOLERATED CARE WELL. WILL CONTINUE TO MONITOR.
--- NOTE | 2019-01-02 12:35 | NUR ---
CPAP WEANING ENDED AT 1235 AND VENTILATOR AUTOMATICALLY SWITCHED BACK TO ACVC MODE. PATIENT TOLERATED WEANING WELL. WILL CONTINUE TO MONITOR. PROPOFOL RESTARTED AT PREVIOUS RATE OF 25MCH/KG/MIN. Addendum: 01/02/19 at 1246 by Roman Reyna RN WRONG PATIENT. DISREGARD NOTE
--- NOTE | 2019-01-02 13:25 | NUR ---
RT AT BEDSIDE SUCTIONING AND PERFORMING SCHEDULED BREATHING TREATMENTS. PATIENT'S RASS IS 1+. PROPOFOL INCREASED TO 15 MCG/KG/MIN.
--- NOTE | 2019-01-02 16:00 | NUR ---
THERE IS CLARIFICATION OF CHARTING ON PROBLEM: RESTRAINTS.
--- NOTE | 2019-01-02 16:15 | NUR ---
DR. FARIAS AT BEDSIDE AND SPOKE WITH FAMILY FOR 45 MINUTES ABOUT PATIENT'S CURRENT STATUS AND FUTURE PLAN OF CARE. WILL CONTINUE TO MONITOR PATIENT'S CONDITION.
--- NOTE | 2019-01-02 17:58 | NUR ---
THERE IS CLARIFICATION OF CHARTING ON PROBLEM: RESTRAINTS.
--- NOTE | 2019-01-02 18:00 | NUR ---
CLEANED PATIENT, PERFORMED ORAL CARE, AND CHANGED PATIENT'S LINENS. PATIENT TOLERATED CARE WELL. WILL CONTINUE TO MONITOR.
--- NOTE | 2019-01-02 19:20 | NUR ---
CHANGE OF SHIFT REPORT GIVEN BY DAY NURSE KRISTEN/ESTRELLA AT BEDSIDE. PATIENT SEDATED. RASS -1. DRY WEIGHT 81.2 KG. ETT TO VENT AC V/C. FIO2 [id number] 60-PEEP 5. 7.5 SIZE ET TUBE 24 AT LIP. TEMP [id number]%-[id number]/57. OG TUBE TO TUBE FEEDING NEPRO 35ML WITH 60ML Q4H. PICC LINE RIGHT UPPER ARM PATENT, ASYMP OF INFECTION, NO SWELLING OR BRUISING NOTED. OLD BRUISE BELOW PICC LINE NOTED. PICC LINE DOUBLE LUMEN RUNNING HEPARIN 1200 UNITS/HOUR (12ML/HR) AND PROPOFOL 10 MCG (4.87 ML/HR). PERIPHERAL LEFT FA 22G NOTED WHICH IS ASYMPT. NO SWELLING AND FREE OF INFECTION NOTED. BREATH SOUNDS CLEAR BILATERALLY. RESPIRATIONS SYMMETRICAL. HR REGULAR. BOWEL SOUNDS ACTIVE IN ALL 4 QUAD. FIERRO PRESENT, INTACT AND HAS YELLOW URINE. PATIENT BED IN LOWEST POSITION. SIDE RAILS UP. RESTRAINTS IN PLACE SOFT WRIST RESTRAINTS AND SKIN INTACT. NO OPEN WOUNDS NOTED. WILL CONTINUE TO MONITOR.
--- NOTE | 2019-01-02 19:45 | NUR ---
RT AT PATIENT BEDSIDE FOR BREATHING TREATMENT. VSS. TOLERATING WELL. WILL CONTINUE TO MONITOR.
--- NOTE | 2019-01-02 19:50 | NUR ---
CHANGED POSITIONED OF PATIENT. TOLERATED WELL. VSS.
--- NOTE | 2019-01-02 20:46 | NUR ---
RT AT PATIENT BEDSIDE.
[2019-01-02] MEDS: TAMSULOSIN 0.4 MG CAP PO SCH (20:53)
--- NOTE | 2019-01-02 21:08 | NUR ---
FAMILY (SON AND ) AT PATIENT BEDSIDE. SPEAKING WITH RT IN [place]. WILL CONTINUE TO MONITOR.
[2019-01-02] MEDS: IPRATROPIUM 0.02% 0.5 MG/2.5 ML NEBU INH PRN (21:15)
[2019-01-02] MEDS: ALBUTEROL 0.083% 2.5 MG/3 ML NEBU INH PRN (21:15)
--- NOTE | 2019-01-02 21:17 | NUR ---
BREATHING TX GIVEN BY RT AT PATIENT BEDSIDE. PATIENT GRIMACE ON FACE. GIVEN MORPHINE PER MD ORDER FOR COMFORT. FAMILY AT PATIENT BEDSIDE.
[2019-01-02] MEDS: MORPHINE SULFATE 2 MG/ML SYR IVP PRN (21:18)
--- NOTE | 2019-01-02 21:25 | NUR ---
CHANGED POSITIONED OF PATIENT. TOLERATED WELL. VSS.
--- NOTE | 2019-01-02 21:35 | NUR ---
RT CHANGED TUBINGS. ALARMS STOPPED BEEPING.
--- NOTE | 2019-01-02 22:12 | NUR ---
PATIENT DROWSY BUT EYES OPENED. EYE CONTACT WITH NURSE. NURSE INTRODUCED SELF. NOTIFIED PATIENT FAMILY WAS HERE. ASKED PATIENT IF HE WAS OK. PATIENT NODDED HEAD UP AND DOWN. TOLD PATIENT GIVEN MORPHINE FOR COMFORT. ASKED PATIENT IF ANY PAIN IN NEPALI BY RT PAO, PATIENT DENIES PAIN. VSS. NO SOB OR DISTRESS NOTED. WILL CONTINUE TO MONITOR.
--- NOTE | 2019-01-02 22:49 | NUR ---
RT AT PATIENT BEDSIDE. PATIENT SLEEPING IN BED. NO SOB OR DISTRESS NOTED. WILL CONTINUE TO MONITOR. VSS. SKIN INTACT UNDER RESTRAINTS. REPOSITIONED PATIENT.
--- NOTE | 2019-01-02 23:53 | NUR ---
VAP ORAL CARE PERFORMED. REPOSITIONED PATIENT. 96.8 TEMPERATURE. VSS. NO DISTRESS NOTED. FLACC 0. NO SKIN BREAKDOWN ON OR AROUND MOUTH. WILL CONTINUE TO MONITOR.
[2019-01-03] VITALS (105 sets, daily range): BP systolic 89–127; BP diastolic 34–63
--- NOTE | 2019-01-03 00:13 | NUR ---
SON AT PATIENTS BEDSIDE. NOTIFIED FAMILY IF THEY HAVE ANY QUESTIONS TO LET US KNOW. SON VERBAL UNDERSTANDING.
[2019-01-03] MEDS: ALBUTEROL SULFATE/IPRATROPIU 3 ML SOL IH SCH ×4 (01:00→19:39)
[2019-01-03] MEDS: PIPERACILLIN/TAZOBACTAM 2.25 GM in DEXTROSE 5% 50 ML IV SCH ×3 (02:20→20:57)
--- NOTE | 2019-01-03 02:50 | NUR ---
RT CHECKING PATIENT AT BEDSIDE.
--- NOTE | 2019-01-03 04:38 | NUR ---
RT AT PATIENT BEDSIDE. NO SOB NOTED OR DISTRESS. WILL CONTINUE TO MONITOR. MORNING CARE PERFORMED. VAP ORAL CARE PERFORMED. CATHETER CARE PREFORMED. PATIENT REPOSITIONED AND BED CHANGED. HAIR WASHED. SMALL AMOUNT OF BM NOTED. SOFT BROWN. LAB DRAW AT BEDSIDE. PATIENT TOLERATED WELL. NO SOB NOTED. SUCTIONED. TOLERATED WELL. PATIENT HAD MILD BLOOD NOTED ON FIERRO CATHETER PRIOR TO CATHETER CARE. DAY SHIFT STATED MDs AWARE OF SCANT AMOUNT OF BLOOD NOTED SINCE FIERRO INSERTION. WILL CONTINUE TO MONITOR. SKIN INTACT. NO REDNESS OR PRESSURE SPOTS NOTED. SKIN COLOR WNL.
[2019-01-03] MEDS: hePARIN / DEXT 5% PREMIX 250 ML IV SCH (04:47)
--- NOTE | 2019-01-03 06:23 | NUR ---
PATIENT LYING IN BED. NO S/S OF DISTRESS NOTED. NO SOB NOTED. PATIENT OUTPUT TOTAL 514 OF CLEAR YELLOW URINE. VSS. WILL CONTINUE TO MONITOR. COLOR WNL. SAFTY MEASURES IN PLACE. CLEAR AREA AROUND PATIENT. FLACC 0
[2019-01-03 06:43] LABS: ANION GAP 15.3 (8-16); CARBON DIOXIDE 28.7 mmol/L (21-32); CHLORIDE 104 mmol/L (98-107); CREATININE 3.2 mg/dL (0.7-1.3); GLUCOSE 139 mg/dL (74-106); SODIUM SERUM 145 mmol/L (136-145)
--- NOTE | 2019-01-03 06:43 | NUR ---
PER BINA IN LAB, BUN 82. YAMEL CALLED [phone]. YAMEL CALLED BACK [phone]. ENDORSED TO DAY SHIFT WHO STATES HE WILL NOTIFY NEPHRO MD CRUMP ABOUT CRITICAL VALUE.
[2019-01-03 06:49] LABS: UREA NITROGEN, BLOOD 82 mg/dL (7-18)
[2019-01-03 06:51] LABS: MAGNESIUM 2.9 mg/dL (1.8-2.4); PHOSPHORUS 4.5 mg/dL (2.5-4.9)
--- NOTE | 2019-01-03 07:10 | NUR ---
RECEIVED REPORT FROM NIGHT ANNA RAMOS. PT IN BED, OPENS EYES TO VOICE, PERRL 3MM, BRISK, SEDATED AT RASS -1. NO RESPIRATORY DISTRESS, ETT TO VENT, SIZE 7.5, TEETH 24CM. LUNG SOUNDS CLEAR, BREATHING EVEN AND UNLABORED. AC/VC FIO2 35%, TV 500, RR 16, PEEP 5. HEART RATE SR. S1S2 PRESENT. CAP REFILL <3S, PULSES 2+ BILATERAL UPPER AND LOWER EXTREMITIES. ABDOMEN, SOFT, ROUND, NONDISTENDED, OGT RUNNING NEPRO 35 ML/HR, WATER FLUSH AT 60 ML/HR, Q4H. FIERRO CATH IN PLACE, DRAINING CLEAR YELLOW URINE. RIGHT UPPER ARM PICC LINE RUNNING PROPOFOL AT 10 MCG/KG/MIN AND HEPARIN DRIP AT 1200UNITS/HR. DRY WEIGHT 81.2KG. HOB 30 DEGREES, SIDE RAILS UP X2, BED AT LOWEST POSITION.
--- NOTE | 2019-01-03 07:10 | NUR ---
PATIENT SHOWING NO S/S OF DISTRESS OR SOB NOTED. VSS. RT AT BEDSIDE. REPORT GIVEN TO DAY SHIFT JAVIER. SAFETY MEASURES IN PLACE
--- NOTE | 2019-01-03 07:25 | NUR ---
RECEIVED ON A [employer]APE R860 VENTILATOR PLUGGED INTO RED OUTLET TOLERATING WELL WITHOUT INCIDENT TO AN ENDOTRACHEAL TUBE #7.5 SECURED AT 24cm TEETH/GUM LINE WITH AN ANCHOR FAST CUFF PRESSURE CHECKED NOTED AMBU BAG AT BEDSIDE LOC SEDATED PROPOFOL 1mcq RESPONSIVE TO PHYSICAL STIMULATION EQUAL BILATERAL CHEST RISE BREATH SOUNDS CLEAR APEX TO MID RALES BILATERAL BASES ENDOTRACHEAL SUCTION FOR SMALL THIN YELLOW SECRETIONS AIRWAY PATENT SATURATION 98% ON FIO2 OF 35% TITRATED FIO2 TO 30% JAVIER/RN NOTIFIED
[2019-01-03 07:28] LABS: PROTHROMBIN TIME 11.5 secs (10.8-13.4)
[2019-01-03 07:45] LABS: BASOPHILS # (AUTO) 0.1 K/uL (0.00-0.22); BASOPHILS % (AUTO) 0.6 % (0.0-2.0); EOSINOPHILS # (AUTO) 0.2 K/uL (0-0.4); EOSINOPHILS % (AUTO) 1.7 % (0.0-4.0); HEMATOCRIT 31.8 % (36-52); HEMOGLOBIN 10.4 g/dL (12.0-18.0); LYMPHOCYTES # (AUTO) 1.3 K/uL (2.0-11.5); LYMPHOCYTES % (AUTO) 13.8 % (20.5-51.1); MEAN CORPUSCULAR HEMOGLOBIN 29 pg (27-31); MEAN CORPUSCULAR HGB CONC 33 g/dL (33-37); MEAN CORPUSCULAR VOLUME 87.4 fL (80-94); MONOCYTES # (AUTO) 0.8 K/uL (0.8-1.0); MONOCYTES % (AUTO) 7.8 % (1.7-9.3); NEUTROPHILS # (AUTO) 7.4 K/uL (1.8-7.7); NEUTROPHILS % (AUTO) 76.1 % (42.2-75.2); PLATELET COUNT (AUTO) 315 K/uL (140-450); RED BLOOD CELL COUNT(AUTO) 3.64 MIL/uL (4.20-6.10); RED CELL DISTRIBUTION WIDTH 14.8 % (11.6-13.7); WHITE BLOOD COUNT (AUTO) 9.7 K/uL (4.8-10.8)
[2019-01-03] MEDS: AMIODARONE 200 MG TAB GT SCH ×2 (08:54→20:54)
[2019-01-03] MEDS: ISOSORBIDE DINITRATE 10 MG TAB PO SCH ×2 (08:54→20:56)
[2019-01-03] MEDS: PANTOPRAZOLE 40 MG INJ VIAL IVP SCH (08:55)
[2019-01-03] MEDS: CARVEDILOL 6.25 MG TAB PO SCH ×2 (08:55→20:55)
--- NOTE | 2019-01-03 09:00 | NUR ---
SCHEDULED MEDS HAS BEEN GIVEN. PT TOLERATING FEEDING WELL. ORAL CARE DONE, FIERRO CARE DONE. PT HAS TINY AMOUNT OF DRY BLOOD NOTED ON THE TOP OF THE PENIS.
[2019-01-03] MEDS: POTASSIUM CHLORIDE 20% 40 MEQ/15 ML UDC GT PRN (09:01)
--- NOTE | 2019-01-03 09:20 | NUR ---
RESTING COMFORTABLY WITHOUT RESPIRATORY DISTRESS NOTED EQUAL CHEST RISE DEEP TRACHEAL SUCTION FOR SMALL THIN YELLOW SECRETIONS AIRWAY PATENT
[2019-01-03] MEDS: PROPOFOL 1000 MG/100 ML PREMIX 100 ML IV PRN (10:12)
--- NOTE | 2019-01-03 11:03 | NUR ---
SEDATED NO EVIDENCE OF PULMONARY DISTRESS NOTED GOOD BILATERAL CHEST RISE ENDOTRACHEAL SUCTION FOR MODERATE THIN YELLOW SECRETIONS AIRWAY PATENT
[2019-01-03] MEDS: DOCUSATE SODIUM 250 MG GELCAP PO PRN (11:18)
--- NOTE | 2019-01-03 12:00 | NUR ---
PT'S SONS ARE HERE, QUESTIONS AND CONCERNS WERE ADDRESSED. PT SONS WERE TALKING PT AND COMMUNICATING WITH WRITING.
--- NOTE | 2019-01-03 12:40 | NUR ---
DR MONTESINOS CAME AND DISCUSSED POC WITH PT AND HIS FAMILY. SEDATION VACATION PROVIDED FOR 5MIN.
--- NOTE | 2019-01-03 12:45 | NUR ---
MADE DR MONTESINOS AWARE THAT K IS 3.0 TODAY, 40MEQ OF POTASSIUM WAS GIVEN VIA OGT. ASKED IF ANY ADDITIONAL POTASSIUM IS NEEDED, DR MONTESINOS SAID NO, NOT AT THIS TIME.
--- NOTE | 2019-01-03 12:45 | NUR ---
ASKED IF NEED TO START CPAP TRIAL TO WEAN PT OFF THE VENT AT THIS TIME. DR MONTESINOS SAID NO, NOT RIGHT NOW.
[2019-01-03] MEDS ORDERED: HYDROcodone/APAP 5/325 MG 1 TAB TAB PO PRN (12:50)
--- NOTE | 2019-01-03 13:41 | NUR ---
SEDATED NO SOB NOTED GOOD CHEST RISE DEEP TRACHEAL SUCTION FOR MODERATE THIN PALE YELLOW SECRETIONS AIRWAY PATENT Addendum: 01/03/19 at 1358 by Owen Kwok RT SATURATION 96% ON FIO2 OF 30% POST HHN THERAPY TITRATED FIO2 TO 28% JAVIER/RN NOTIFIED
--- NOTE | 2019-01-03 14:38 | NUR ---
Police Surgeon Note: Per Faustino from [facility] , prior to hospital admission patient was receiving services from their company. [facility]'s fax number .
--- NOTE | 2019-01-03 14:50 | NUR ---
DR FARIAS CAME AND EVALUATED PT, ALSO DISCUSSED POC OVER THE PHONE WITH PT'S SON SIMIN.
--- NOTE | 2019-01-03 14:51 | NUR ---
01/03/19 RD FOLLOW UP COMPLETED PLEASE REFER TO NUTRITION ASSESSMENT UNDER CARE ACTIVITY FOR ESTIMATED NUTRITIONAL NEEDS. 1. CONTINUE NEPRO 35ML/HR X24HR -THIS WILL PROVIDE 1512 KCAL AND 68 GM OF PROTEIN 2. CONTINUE FREE WATER FLUSH OF [address] TO FOLLOW-UP 2-3 DAYS, HIGH RISK ASHWIN ALBERTO, RD
--- NOTE | 2019-01-03 15:28 | NUR ---
RESTING COMFORTABLY NO DISTRESS NOTED GOD CHEST RISE Addendum: 01/03/19 at 1538 by Owen Kwok RT SATURATION 97% ON FIO2 OF 28% TITRATED FIO2 TO 24% JAVIER/RN NOTIFIED
--- NOTE | 2019-01-03 17:30 | NUR ---
PRESSURE INJURY NOTED ON BOTH EARS DUE TO VELCRO THAT SECURES THE ETT. MADE RT CUCA AWARE, CUCA ADJUSTED VELCRO POSITION, PIC TAKEN.
--- NOTE | 2019-01-03 17:43 | NUR ---
NO APPARENT SOB NOTED EQUAL CHEST RISE DEEP TRACHEAL SUCTION FOR LAREG THIN PALE YELLOW SECRETIONS AIRWAY PATENT FAMILY AT BEDSIDE
--- NOTE | 2019-01-03 19:15 | NUR ---
RECEIVED REPORT FROM DAYSHIFT NURSE AT PATIENTS BEDSIDE, NO SIGNS OF DISTRESS, PATIENT STABLE, WILL FOLLOWUP CARE
--- NOTE | 2019-01-03 19:45 | NUR ---
PATIENT RESTING COMFORTABLY IN BED, EYES CLOSED. OPENED EYES TO VOICE AND STERNAL RUB AND WHEN PUPILS WERE ASSESSED, ABLE TO MAKE EYE CONTACT AND GESTURED WITH HEAD NOD WHEN ASKED IF HE WAS PAIN. ON PROPOFOL DRIP @ 10MCG/KG/MIN, RASS -1, DRY WEIGHT 81.2KG. PATIENT IS ETT TO VENT-ACVC 16 FI02 24% TV 500 PEEP 5, EQUAL CHEST RISE, UNLABORED BREATHING. RIGHT UPPER ARM PICC LINE, PATENT, DRESSING DRY AND INTACT, FLUSHED AND NO SYMPTOMS, INFUSING PROPOFOL-10MCG. LEFT FOREARM PERIPHERAL IV- 22G, INFUSING NS @ 5ML/HR. IV SITE FLUSHED, NO SIGNS OF LEAKAGE/INFILTRATION. OGT IN PLACE CONNECTED TO FEEDING-NEPRO 35ML/HR, FREE WATER FLUSH 60ML Q4H. FIERRO CATHETER IN PLACE, CLEAR YELLOW URINE NOTED. SKIN INTACT, BILATERAL EARS ARE FORMING MINOR PRESSURE INJURIES DUE TO ETT MASK-CLOSED WOUNDS ONLY REDNESS, STRAPS ARE PLACED BELOW EARS. AFEBRILE, VITAL SIGNS WITHIN NORMAL LIMITS, SOFT WRIST RESTRAINTS ARE IN PLACE, NO SIGNS OF INJURIES. BED LOCKED AND IN LOW POSITION, SIDERAILS UP, AND HOB 30 DEGREES. WILL CONTINUE CLOSE MONITORING
[2019-01-03] MEDS: TAMSULOSIN 0.4 MG CAP PO SCH (20:54)
[2019-01-03] MEDS: HYDRAGUARD CREAM TP SCH (20:56)
--- NOTE | 2019-01-03 21:05 | NUR ---
SCHEDULED MEDICATIONS ADMINISTERED, VITAL SIGNS STABLE AT THIS TIME. APPLIED HYDRAGAURD TO RIGHT AND LEFT EARS FOR REDNESS, TURNED AND REPOSITIONED PATIENT
--- NOTE | 2019-01-03 22:10 | NUR ---
PATIENT REFUSED ORAL CARE, ABLE TO NOD HEAD YES OR NO. ASSESSED PAIN, PATIENT DENIES, ON PROPOFOL DRIP, RASS -1. WILL CONTINUE TO MONITOR.
[2019-01-04] VITALS (77 sets, daily range): BP systolic 91–146; BP diastolic 41–79
--- NOTE | 2019-01-04 00:10 | NUR ---
PATIENT RESTING WELL, ACVC SETTINGS THE SAME START OF SHIFT. PATIENT RESPONDS TO LIGHT PAIN/SHAKING, RASS -1. NO SIGNS OF DISTRESS
[2019-01-04] MEDS: ALBUTEROL SULFATE/IPRATROPIU 3 ML SOL IH SCH ×4 (01:06→18:56)
--- NOTE | 2019-01-04 02:00 | NUR ---
SOFT WRIST RESTRAINTS REMOVED TO ASSESS SKIN AND CIRCULATION, PATIENT OPENS EYES AND MAKES EYE CONTACT, ASKED ABOUT PAIN, AND PATIENT NODS HEAD NO, ORIENTED PATIENT TO NOT REMOVE LINES/EQUIPMENT, DID NOT RESPOND, ASKED PATIENT IF HE UNDERSTANDS ME AND HE SAYS NO. WILL CONTINUE WITH RESTRAINTS TO PREVENT DISRUPTION OF CARE.
--- NOTE | 2019-01-04 03:37 | NUR ---
PATIENT TURNED AND REPOSITIONED TO OFFLOAD PRESSURE AREAS. ETT TO VENT, ON PROPOFOL DRIP, FIERRO CATHETER IN PLACE, INTACT, RIGHT UPPER ARM PICC IN PLACE, NO SYMPTOMS, LEFT FOREARM PERIPHERAL IV INTACT. CONTINUE CLOSE MONITORING
[2019-01-04] MEDS: PROPOFOL 1000 MG/100 ML PREMIX 100 ML IV PRN (04:34)
[2019-01-04 06:37] LABS: MAGNESIUM 3.1 mg/dL (1.8-2.4); PHOSPHORUS 5.6 mg/dL (2.5-4.9)
[2019-01-04 07:11] LABS: HEMATOCRIT 30.9 % (36-52); MEAN CORPUSCULAR HEMOGLOBIN 28 pg (27-31); MEAN CORPUSCULAR HGB CONC 32 g/dL (33-37); MEAN CORPUSCULAR VOLUME 87.7 fL (80-94); PLATELET COUNT (AUTO) 322 K/uL (140-450); RED BLOOD CELL COUNT(AUTO) 3.53 MIL/uL (4.20-6.10); RED CELL DISTRIBUTION WIDTH 15.3 % (11.6-13.7)
--- NOTE | 2019-01-04 07:30 | NUR ---
RECEIVED ON GoPlanitSCAPE R860 VENTILATOR PLUGGED INTO RED OUTLET TOLERATING WELL WITHOUT ADVERSE REACTIONS NOTED TO AN ENDOTRACHEAL TUBE #7.5 SECURED AT 24cm TEETH/GUM LINE SECURED WITH AN ANCHOR FAST CUFF PRESSURE CHECKED NOTED AMBU BAG NOTED BEDSIDE SEDATED BUT AWAKE AND ALERT EQUAL CHEST RISE DEEP TRACHEAL SUCTION FOR LARGE THICK LACY SECRETIONS AIRWAY PATENT OROPHARYNGEAL SUCTION FOR COPIOUS THICK CLEAR SECRETIONS
--- NOTE | 2019-01-04 07:30 | NUR ---
RECEIVED REPORT FROM COREEN CASTILLO. PT. IS ORALLY INTUBATED. ETT 7.5 LIP LINE 24 SCM. TV 500, FI02 28%, AC 16/MIN, PEEP 5. 02 SAT 92 TO 100%. PROPOFOL AT 10 MCG/KG/MIN, DRY WEIGHT 81.2 KG. RASS -1. OGT IN PLACE. PLACEMENT VERIFIED BY AIRCHECK. RESIDUAL 0. NEPHRO INFUSING AT 35 ML/HR. H20 FLUSHES 60 ML Q 4HRS. FIERRO CATH. INTACT AND PATENT. MCKENZIE PICC LINE INTACT AND PATENT. SITE CLEAR.
[2019-01-04 07:34] LABS: LYMPHOCYTES % (MANUAL) 11 % (20-46); MONOCYTES % (MANUAL) 9 % (5-12)
--- NOTE | 2019-01-04 07:45 | NUR ---
BED BATH GIVEN. REPOSITIONED. TRIES TO REACH FOR THE ETT WHEN RESTRAINTS ARE RELEASED. PURPOSE OF ETT EXPLAINED TO PT.
[2019-01-04] MEDS: PANTOPRAZOLE 40 MG INJ VIAL IVP SCH (08:16)
[2019-01-04] MEDS: CARVEDILOL 6.25 MG TAB PO SCH ×2 (08:17→20:42)
[2019-01-04] MEDS: AMIODARONE 200 MG TAB GT SCH ×2 (08:17→20:43)
[2019-01-04] MEDS: ISOSORBIDE DINITRATE 10 MG TAB PO SCH ×2 (08:18→20:42)
[2019-01-04] MEDS: PIPERACILLIN/TAZOBACTAM 2.25 GM in DEXTROSE 5% 50 ML IV SCH ×2 (08:19→20:41)
--- NOTE | 2019-01-04 08:30 | NUR ---
SON SIMIN AT BEDSIDE. UPDATED ON PT'S CONDITION.
[2019-01-04] MEDS: CLINICAL MONITORING MC SCH (08:44)
[2019-01-04] MEDS: HYDRAGUARD CREAM TP SCH ×2 (08:44→20:44)
[2019-01-04 09:11] LABS: ANION GAP 15.5 (8-16); CARBON DIOXIDE 27.8 mmol/L (21-32); CHLORIDE 104 mmol/L (98-107); GLUCOSE 129 mg/dL (74-106); POTASSIUM 3.3 mmol/L (3.5-5.1); SODIUM SERUM 144 mmol/L (136-145)
[2019-01-04 09:12] LABS: CREATININE 2.7 mg/dL (0.7-1.3); UREA NITROGEN, BLOOD 87 mg/dL (7-18)
[2019-01-04] MEDS: ACETAMINOPHEN 325 MG TAB PO PRN ×2 (09:15→20:46)
[2019-01-04] MEDS: POTASSIUM CHLORIDE 20% 40 MEQ/15 ML UDC GT PRN (09:15)
--- NOTE | 2019-01-04 09:15 | NUR ---
ASKED IF HE HAS ANY PAINS, PER SON PT HAS HEADACHE. TYLENOL 650 MG/OGT GIVEN. KCL 20 MEQ GIVEN/OGT FOR K+ 3.3. Addendum: 01/04/19 at 1117 by Savanah Weston RN KCL 40 MEQ /0GT NOT 20 MEQ GIVEN
--- NOTE | 2019-01-04 09:30 | NUR ---
DR. BARRAZA AT BEDSIDE. SPOKE TO PT'S SON RE: PT'S CONDITION.
--- NOTE | 2019-01-04 10:45 | NUR ---
FI02 DECREASED TO 24% BY RT.
--- NOTE | 2019-01-04 10:45 | NUR ---
RESTING COMFORTABLY WITH EQUAL CHEST RISE NO SUCTIONING AT THIS TIME GENERATOR MECHANIC TO MONITOR SATURATION 94% TITRATED FIO2 TO 24% [employer]/RN NOTIFIED
--- NOTE | 2019-01-04 11:20 | NUR ---
DR. TEGAN CHOW HERE TO SEE AND EXAMINE PT.
--- NOTE | 2019-01-04 11:58 | NUR ---
NO PULMONARY DISTRESS NOTED GOOD CHEST RISE DEEP TRACHEAL SUCTION FOR MODERATE THIN LACY SECRETIONS AIRWAY PATENT OLDEST SON AT BEDSIDE
--- NOTE | 2019-01-04 12:00 | NUR ---
OGT RESIDUAL MINIMAL. NO N/V. NEPHRO AT 35 ML/HR.
--- NOTE | 2019-01-04 12:50 | NUR ---
DR. KRAFT (COVERING FOR DR. BARRON) HERE TO SEE AND EXAMINE PT. UPDATED ON PT'S CONDITION.
--- NOTE | 2019-01-04 13:50 | NUR ---
ASLEEP EASILY AWAKENS TOLERATING VENTILAORY WELL WITHOUT INCIDENT NO EVIDENCE OF SOB NOTED EQUAL CHEST RISE DEEP TRACHEAL SUCTION FOR SMALL THIN LACY SECRETIONS AIRWAY PATENT
--- NOTE | 2019-01-04 15:20 | NUR ---
PROPOFOL TURNED OFF FOR WEANING TRIAL.
--- NOTE | 2019-01-04 15:28 | NUR ---
OFF PROPOFOL SEDATION PLACED PATIENT ON CPAP/SBT WEANING TRIALS NOTED UNABLE TO PARTICIPANT IN WEANING PARAMETERS DUE TO LANGUAGE BARRIER [employer]/RN CONTACTED SON VIA TO INTERPRET VIA PHONE WITH NO SUCCESS SON TO COME TO HOSPITAL AT 1700 PATIENT EXUDING GOOD CHEST RISE NO DISTRESS NOTED AIRWAY PATENT
--- NOTE | 2019-01-04 16:45 | NUR ---
SON AT BEDSIDE FOR INTERPRETATION FOR WEANING PARAMETERS
--- NOTE | 2019-01-04 17:00 | NUR ---
DR. CHOW CALLED. NOTIFIED OF PT'S NIF - 15, VC 700 LITERS. UPDATED ON PT'S CONDITION. PT. IS AWAKE AND ALERT. FAMILY AT BEDSIDE. GAVE ORDERS. RT GONZALES NOTIFIED OF ORDERS.
--- NOTE | 2019-01-04 17:00 | NUR ---
PT.IS AWAKE,ALERT AND COOPERATIVE. FAMILY AT BEDSIDE. SOFT WRIST RESTRAINTS OFF WHILE FAMILY AT BEDSIDE.
[2019-01-04] MEDS ORDERED: FUROSEMIDE 20 MG/2 ML VIAL IVP ONE (17:05)
[2019-01-04] MEDS ORDERED: FUROSEMIDE 40 MG/4 ML VIAL IVP ONE (17:13)
--- NOTE | 2019-01-04 17:13 | NUR ---
PT.'S SON SIMIN MADE AWARE OF DR. CHOW'S ORDERS. LASIX 40 MG IVP GIVEN ORDERED. OGT FEEDING STOPPED. OGT CONNECTED TO SUCTION.
--- NOTE | 2019-01-04 17:33 | NUR ---
TOLERATING CPAP/SBT TRIAL WELL WITHOUT PULMONARY DISTRESS NOTED SpVt 7 TO 8 ML GOOD EQUAL CHEST RISE GOOD AERATION THROUGHOUT BILATERAL LUNG MEDINA AIRWAY PATENT TITRATED PS TO 8cmH2o
--- NOTE | 2019-01-04 17:48 | NUR ---
CALLED [facility] [phone] LLIIAN CHOW TO CALL BACK
--- NOTE | 2019-01-04 17:50 | NUR ---
CALL BACK FROM DR. TEGAN CHOW REVIEWED CPAP/SBT WEANING TRIAL (SpVt, PRESSURE SUPPORT, RESPIRATORY RATE, SATURATION, LOC) CURRENTLY ON 4 HOURS OF 6 HOUR TRIAL WRITER PRODUCER RECOMMENDATION TO FOREMENTIONED MD IS TO COMPLETE FIRST DAY OF TRIAL PLACE BACK ON AC TO REST PATIENT RESUME CPAP/SBT TRIAL IN AM WITH ABG DR TEGAN CHOW AGREED
--- NOTE | 2019-01-04 18:00 | NUR ---
PT REMAINS AWAKE AND ALERT. COOPERATIVE. FAMILY AY BEDSIDE.
--- NOTE | 2019-01-04 18:10 | NUR ---
FAMILY ( SON AND DAUGHTER) MADE AWARE OF THE CURRENT PLAN OF CARE. WILL KEEP PT ON THE VENT UNTIL TOMORROW MORNING, KEEP PT NPO EXCEPT MEDS AND WILL HOLD OFF ON DIPRIVAN UNLESS NEEDED PER DR. Kathy CHOW. FAMILY AGREEABLE TO THE PLAN. OGT CLAMPED AT THIS TIME.
--- NOTE | 2019-01-04 18:30 | NUR ---
STILL ON CPAP. DENIES ANY RESPIRATORY DIFF. HOB ELEVATED 30 DEGREES.
--- NOTE | 2019-01-04 19:10 | NUR ---
RECEIVED REPORT FROM DAYSMTFT NURSE FOR CONTINUITY OF CARE, PATIENT CURRENTLY IN CPAP TRIAL 07/24, NO SIGNS OF DISTRESS, HEAD OF BED 30 DEGREES, ANOx4, WILL FOLLOWUP CARE
--- NOTE | 2019-01-04 20:00 | NUR ---
PATIENT AWAKE IN BED, RESTING WELL, EYES OPEN, ABLE TO MAKE EYE CONTACT, ALERT TO NAME/VOICE, FOLLOWS COMMAND. PATIENT INTUBATED ETT 7.5, ON CPAP TRIAL FOR 2.5 MORE HOURS IF TOLERATED. RIGHT UPPER ARM PICC LINE, SALINE LOCKED. FLUSHED BOTH LUMENS, PATENT, NO SIGNS OF INJURIES. OGT IN PLACE, CURRENTLY NOT CONNECTED TO FEEDING. POSITIVE PLACEMENT COMPLETE VIA ASPIRATION AND AUSCULTATION. 0 RESIDUALS. SKIN WARM AND DRY, AFEBRILE, PATIENT IN STABLE CONDITION, SLIGHT REDNESS NOTED ON BOTH EARS-NONBLANCHABLE RED. LUNG SOUNDS CLEAR, UNLABORED BREATHING. S1S2, SR ON MONITOR. ABDOMEN LARGE ROUND AND NONTENDER, ACTIVE BOWEL SOUNDS. FIERRO CATHETER IN PLACE, CLEAR YELLOW URINE NOTED. PATIENT TURNED AND REPOSITIONED TO ASSESS SKIN AND PRESSURE AREAS, SKIN INTACT. LOWER EXTREMITIES SLIGHTLY EDEMATOUS-1+ PITTING. BED LOCKED AND IN LOW POSITION, SIDERAILS UP, HOB 30 DEGREES. WILL CONTINUE CLOSE MONITORING
[2019-01-04] MEDS: TAMSULOSIN 0.4 MG CAP PO SCH (20:43)
--- NOTE | 2019-01-04 21:00 | NUR ---
VAP ORAL CARE PROVIDED, PATIENT COMMUNICATING THROUGH GESTURES AND HEAD NODS AND POINTING TO HEAD THAT HE HAS PAIN/HEADACHE. WILL CARRY OUT PRN MEDICATIONS.
--- NOTE | 2019-01-04 21:36 | NUR ---
DAUGHTER N' LAW AT BEDSIDE WITH RT. RT ANSWERING QUESTIONS, CPAP TRIAL COMPLETE WITH NO INCIDENTS, RETURN TO [facility] SETTINGS. PATIENT TOLERATED WELL
--- NOTE | 2019-01-04 22:00 | NUR ---
REASSESSED PAIN, PATIENT SHAKES HEAD "NO". ASKED DAUGHTER N IF SHE COULD CLARIFY AND STATES HE DENIES PAIN. PATIENT ON ACVC SETTINGS, HOB 30 DEGREES, CALL LIGHT WITHIN REACH
[2019-01-05] VITALS (16 sets, daily range): BP systolic 98–139; BP diastolic 51–92
--- NOTE | 2019-01-05 00:40 | NUR ---
PATIENT AWAKE IN BED, CALM AND COMFORTABLE. PROVIDED SKIN CARE/MOISTURIZOR TO BILATERAL UPPER EXTREMITIES AND THERAPEUTIC TOUCH FOR COMFORT, PATIENT GESTURING TO RUB/SCRATCH HIS FACE/HEAD. REPOSITIONED FOR COMFORT
[2019-01-05] MEDS: ALBUTEROL SULFATE/IPRATROPIU 3 ML SOL IH SCH ×4 (01:57→19:07)
--- NOTE | 2019-01-05 02:20 | NUR ---
EYES CLOSED, RESTING COMFORTABLY, PATIENT WAVING ARMS IN AIR, BACK AND FORTH, PRAYING/MEDITATING. NO SIGNS OF DISTRESS, NO COMPLAINTS AT THIS TIME, PATIENT IN STABLE CONDITION
--- NOTE | 2019-01-05 04:00 | NUR ---
SPONGE BATH, VAP PROTOCOL, FIERRO CATHETER CARE PROVIDED, PATIENT TOLERATED AND COOPERATES WELL. SKIN INTACT, NO SIGNS OF WOUNDS OR PRESSURE INJURIES. BILATERAL EARS HAVE CLOSED WOUNDS, NONBLANCHABLE RED, SMALL IN SIZE, NO PAIN ASSOCIATED, APPLY HYDRAGUARD KEEP OPEN TO AIR. PATIENT TURNED AND REPOSITIONED, OFFLOAD PRESSURE SITES/ AND FOR COMFORT
--- NOTE | 2019-01-05 04:30 | NUR ---
PATIENT REQUESTING MEDICATIONS FOR HEADACHE, NODS HEAD 'YES' WHEN ASKED IF THERE IS PAIN AND PATIENT WILL POINT TO SITE-FOREHEAD. ALL VITALS WITHIN NORMAL LIMITS. PRN MEDICATIONS ADMINISTERED, WILL REASSESS PAIN.
[2019-01-05] MEDS: ACETAMINOPHEN 325 MG TAB PO PRN ×2 (04:35→22:51)
[2019-01-05 04:38] LABS: BASOPHILS # (AUTO) 0.1 K/uL (0.00-0.22); BASOPHILS % (AUTO) 0.7 % (0.0-2.0); EOSINOPHILS # (AUTO) 0.4 K/uL (0-0.4); EOSINOPHILS % (AUTO) 3.6 % (0.0-4.0); HEMATOCRIT 30.9 % (36-52); LYMPHOCYTES # (AUTO) 1.3 K/uL (2.0-11.5); LYMPHOCYTES % (AUTO) 12.5 % (20.5-51.1); MEAN CORPUSCULAR HEMOGLOBIN 28 pg (27-31); MEAN CORPUSCULAR HGB CONC 32 g/dL (33-37); MEAN CORPUSCULAR VOLUME 87.2 fL (80-94); MONOCYTES # (AUTO) 0.9 K/uL (0.8-1.0); MONOCYTES % (AUTO) 8.7 % (1.7-9.3); NEUTROPHILS % (AUTO) 74.5 % (42.2-75.2); PLATELET COUNT (AUTO) 338 K/uL (140-450); RED BLOOD CELL COUNT(AUTO) 3.55 MIL/uL (4.20-6.10); RED CELL DISTRIBUTION WIDTH 14.9 % (11.6-13.7); WHITE BLOOD COUNT (AUTO) 10.7 K/uL (4.8-10.8)
[2019-01-05 05:19] LABS: ANION GAP 12.5 (8-16); CHLORIDE 106 mmol/L (98-107); CREATININE 2.4 mg/dL (0.7-1.3); GLUCOSE 107 mg/dL (74-106); POTASSIUM 3.5 mmol/L (3.5-5.1); SODIUM SERUM 145 mmol/L (136-145)
[2019-01-05 05:21] LABS: MAGNESIUM 3.2 mg/dL (1.8-2.4); PHOSPHORUS 4.5 mg/dL (2.5-4.9)
[2019-01-05 05:25] LABS: UREA NITROGEN, BLOOD 85 mg/dL (7-18)
--- NOTE | 2019-01-05 05:45 | NUR ---
PATIENT RESTING CALMLY, EYES CLOSED, NO SIGNS OF DISTRESS, EQUAL CHEST RISE, VSS. FLACC 0
--- NOTE | 2019-01-05 07:09 | NUR ---
RECEIVED ON A [employer] DxSCAPE R860 VENTILATOR PLUGGED INTO RED OUTLET TOLERATING WELL WITHOUT INCIDENT TO AN ENDOTRACHEAL TUBE #7.5 SECURED AT 24cm TEETH/GUM LINE WITH AN ANCHOR FAST CUFF PRESSURE CHECKED NOTE AMBU BAG AT BEDSIDE LOC ASLEEP ANATOMY POSITION FLAT ON LEFT SIDE RESTING COMFORTABLY WITH NO EVIDENCE OF PULMONARY DISTRESS NOTED GOOD CHEST RISE BREATH SOUNDS DIFFUSED RALES BILATERAL DEEP TRACHEAL SUCTION FOR SMALL THIN SECRETIONS AIRWAY PATENT
--- NOTE | 2019-01-05 07:30 | NUR ---
REPORT RECEIVED FROM MECHELLE CASTILLO . PATIENT IS SLEEPPINF , AWAKE WHEN CALL HIS NAME EYES OPEN , FOLLOW COMMAND,.SKIN WARM AND DRY TO TOUCH COLOR NORMAL ETT TO VENT ,SETTING SAME BEFOR. BREAST SOUND CLEAR, ABDOMEN SOFT, BOWEL SOUND ACTIVE., FIERRO CATH DRAIN CLEAR CAT URINE.
--- NOTE | 2019-01-05 07:30 | NUR ---
RECEIVED REPORT FROM NIGHT RN COREEN. PT IN BED, OPENS EYES TO NAME, PERRL 3MM, BRISK. SEDATION IS OFF, OGT FEEDING IS OFF, RESTRAINTS ARE OFF. NO RESPIRATORY DISTRESS, ETT TO VENT, SIZE 7.5, TEETH 24CM. LUNG SOUNDS CLEAR, BREATHING EVEN AND UNLABORED. AC/VC FIO2 24%, TV 500, RR 16, PEEP 5. HEART RATE SR. S1S2 PRESENT. CAP REFILL <3S, PULSES 2+ BILATERAL UPPER AND LOWER EXTREMITIES. BOWEL SOUND ACTIVE, ABDOMEN SOFT, ROUND, NONDISTENDED. FIERRO CATH IN PLACE, DRAINING CLEAR YELLOW URINE. RIGHT UPPER ARM PICC LINE TKO. DRY WEIGHT 81.2KG. HOB 30 DEGREES, SIDE RAILS UP X2, BED AT LOWEST POSITION.
[2019-01-05] MEDS: PIPERACILLIN/TAZOBACTAM 2.25 GM in DEXTROSE 5% 50 ML IV SCH ×2 (08:04→20:35)
--- NOTE | 2019-01-05 08:30 | NUR ---
ORAL CARE WITH VAP KIT , REPOSITION , INCONTINENT LARGE LOOSE BM.
[2019-01-05] MEDS: HYDRAGUARD CREAM TP SCH ×2 (09:16→20:34)
[2019-01-05] MEDS: PANTOPRAZOLE 40 MG INJ VIAL IVP SCH (09:16)
[2019-01-05] MEDS: AMIODARONE 200 MG TAB GT SCH ×2 (09:19→20:33)
[2019-01-05] MEDS: ISOSORBIDE DINITRATE 10 MG TAB PO SCH ×2 (09:20→20:34)
[2019-01-05] MEDS: CARVEDILOL 6.25 MG TAB PO SCH ×2 (09:20→20:34)
[2019-01-05] MEDS: CLINICAL MONITORING MC SCH (09:23)
--- NOTE | 2019-01-05 09:37 | NUR ---
AWAKE AND ALERT PLACED ON CPAP/SBT WEANING TRIALS NOTED EQUAL CHEST RISE BREATH SOUNDS CLEAR BILATERAL WITH GOOD AERATION THROUGHOUT LUNG MEDINA WEANING PARAMETERS GOOD ON MAXIMUM NEGATIVE FORCE PATIENT UNABLE TO COMPREHEND AND FULLY PARTICIPATE IN VITAL CAPACITY EDWIGE/RN AWARE IN MODE CHANGE
--- NOTE | 2019-01-05 09:38 | NUR ---
OROPHARYNX SUCTION FOR LARGE THICK CLEAR ORAL SECRETIONS
--- NOTE | 2019-01-05 09:45 | NUR ---
SEEN BY MADI BECK AT BEDSIDE , ORDER RECEIVED,
[2019-01-05] MEDS ORDERED: CLINICAL MONITORING MC PRN (10:24)
[2019-01-05] MEDS ORDERED: POTASSIUM CHLORIDE 30 MEQ in DEXTROSE 5% 1,000 ML IV SCH (11:00)
--- NOTE | 2019-01-05 11:18 | NUR ---
RESTING COMFORTABLY NO EVIDENCE OF RESPIRATORY DISTRESS NOTED EQUAL CHEST RISE BREATH SOUNDS CLEAR BILATERAL WITH GOOD AERATION THROUGHOUT LUNG MEDINA AIRWAY PATENT
--- NOTE | 2019-01-05 11:24 | NUR ---
ABG COMPLETED APPLIED PRESSURE TO PUNCTURE NO EVIDENCE OF BLEEDING AND/OR HEMATOMA
--- NOTE | 2019-01-05 11:45 | NUR ---
CALLED [facility] [phone] [address]ANGE [place] [address] DR TEGAN CHOW
--- NOTE | 2019-01-05 11:48 | NUR ---
CALL BACK FROM DR TEGAN CHOW REVIEWED ABG SAMPLE REPORT, HX (COPD/CHF), AGE 83 Y/O, CPAP/SBT WEANING TRIALS (IE: SpVt, RR, SATURATION, LOC) NEW ORDERS: EXTUBATE PATIENT; KEEP SATURATION GREATER THAN 88%, BIPAP NOC AND PRN FOR SOB 02/21 RATE 12
--- NOTE | 2019-01-05 12:40 | NUR ---
PT AWAKE AND ALERTED , EXTUBATED , HAS BREATHING TREATMENT AND ON COOL AIR MASK AT 8L/MIN.O2 SAT AT 06%.
--- NOTE | 2019-01-05 12:40 | NUR ---
EXTUBATED PLACED ON SUPPLEMENTAL OXYGEN A 3 LPM VIA OXYMIZER PATIENT PRESENTING WITH INCREASED COUGHING AND HOARSENESS AT THIS TIME POST [facility] THERAPY AND RESPIRATORY DRUG FOOD SERVICE ATTENDANT TO ADMINISTER COOL AEROSOL TO MASK TO PREVENT LARYNGEAL SWELLING
--- NOTE | 2019-01-05 12:42 | NUR ---
OROPHARYNX SUCTIONING FOR SMALL THIN PALE YELLOW SECRETIONS
--- NOTE | 2019-01-05 12:55 | NUR ---
POST [facility] THERAPY PLACED ON A COOL AEROSOL TO MASK AT 28%/6 LPM REFERENCE RT NOTES AT 1249
--- NOTE | 2019-01-05 14:00 | NUR ---
AWAKE ,DENIED PAIN ABLE TO ORAL SUCTION BY HIMSELF.
--- NOTE | 2019-01-05 16:00 | NUR ---
PER DR. CHOW ORDERED, FOR BED SIDE SWALLOW EVAL HE ABLE TO SWALLOW ICE CHIP AND A COUPLE SPOON OF APPLE SAUCE.
--- NOTE | 2019-01-05 16:15 | NUR ---
ORAL CARE, ABLE TO EAT SOME JELLO WITH OUT ANY PROBLEMS.
--- NOTE | 2019-01-05 17:45 | NUR ---
AWAKE AND ALERT RESPONSIVE SATURATION 97% ON COOL AEROSOL VIA MASK AT 28%/6 LPM RR - Addendum: 01/05/19 at 1749 by Owen Kwok RT SPOUSE AND DAUGHTER AT BEDSIDE
--- NOTE | 2019-01-05 17:50 | NUR ---
INCONTINENT LARGE LOOSE BROWN BM.
--- NOTE | 2019-01-05 17:50 | NUR ---
WHEN CLEAN AFTER HIS BM FOUND THAT THE SCROTUM AREA IS RED AND SKIN IS EXCORIATED . HYDRAGUARD CREAM APPLIED TO THE AREA.
--- NOTE | 2019-01-05 18:30 | NUR ---
SCROTUM PIC TAKEN, FILED IN CHART.
--- NOTE | 2019-01-05 19:09 | NUR ---
REPORT GIVE TO COREEN CASTILLO.
--- NOTE | 2019-01-05 19:10 | NUR ---
RECEIVED REPORT FROM DAYSHIFT NURSE AT PATIENTS BEDSIDE, BREATHING TREATMENT IN PROCESS, NO DISTRESS AT THIS TIME, WILL FOLLOWUP CARE
--- NOTE | 2019-01-05 19:40 | NUR ---
PATIENT HAD LARGE LOOSE LIQUID STOOL, CLEANED SKIN AND DRIED, APPLIED HYDRAGAURD TO PREVENT SKIN BREAKDOWN, SMALL PATCH OF INCONTINENT DERMATITIS ON SCROTUM NOTED, APPLIED BARRIER CREAM. SACRUM INTACT, NO PRESSURE INJURIES. TURNED AND REPOSITIONED PATIENT, PROVIDED ORAL CARE. PATIENT TOLERATED WELL
--- NOTE | 2019-01-05 20:10 | NUR ---
PATIENT SITTING UP IN BED, EYES OPEN, CURRENTLY RECEIVING BREATHING TREATMENT, PATIENT ALERT AND ORIENTED, WELSH SPEAKING. SPEAKS SOME LUXEMBOURGISH. ABLE TO FOLLOW COMMANDS AND MAKE NEEDS KNOWN. PATIENT IS POST EXTUBATION AND DISCONTINUED OGT AND TUBE FEEDINGS. RIGHT UPPER ARM PICC LINE IN PLACE INFUSING 30 MEQ KCL D5, @ 50 ML/HR. BOTH LUMENS FLUSHED, PATENT AND ASYMPTOMATIC. LUNG SOUNDS CLEAR, EQUAL CHEST RISE, UNLABORED BREATHING, SMALL PRODUCTIVE COUGH NOTED WITH SMALL AMOUNT OF WHITE/CREAMISH SECRETIONS. PATIENT INDEPENDENTLY SUCTIONS SELF. S1S2, SR ON MONITOR. PULSES PALPATED, CAP REFILL <3 SECONDS. ABDOMEN LARGE SOFT AND NONTENDER, ACTIVE BOWEL SOUNDS. FIERRO CATHETER IN PLACE, WITH CLEAR YELLOW URINE NOTED. SIDERAILS UP, BED LOCKED AND IN LOW POSITION, HOB > 30 DEGREES. PATIENT UPDATED ON PLAN OF CARE AND ORIENTED TO CALL LIGHT AND WITHIN REACH. WILL CONTINUE CLOSE MONITORING
[2019-01-05] MEDS: TAMSULOSIN 0.4 MG CAP PO SCH (20:33)
--- NOTE | 2019-01-05 21:21 | NUR ---
Pt placed on bipap per noc order, pt did not tolerated bipap and refused to wear it at this time, pt placed back on 6lpm cool aerosol mist, no resp distress or SOB noted at this time, spo2 99% HR 65, will cont to monitor.
[2019-01-05] MEDS: Z-GUARD PASTE TP SCH (21:26)
--- NOTE | 2019-01-05 22:50 | NUR ---
PATIENT COMPLAINING OF A HEADACHE, WILL ADMINISTER PRN TYLENOL 650MG ORDERED. TURNED AND REPOSITIONED PATIENT FOR COMFORT/OFFLOAD PRESSURE SITES. WILL REASSESS
--- NOTE | 2019-01-05 23:10 | NUR ---
PATIENT SWITCHED TO OXYMIZER WITH 4LPM, SATURATION 99%, PATIENT STABLE, NO SIGNS OF DISTRESS. WILL CONTINUE CLOSE MONITORING
[2019-01-06] VITALS (12 sets, daily range): BP systolic 116–143; BP diastolic 47–99
--- NOTE | 2019-01-06 00:30 | NUR ---
ORAL CARE PROVIDED, ATTEMPTED TO FIT PATIENTS BOTTOM DENTURES IN. PATIENT SAYS ITS UNCOMFORTABLE. REMOVED BOTTOM DENTURES AND PLACED WITH OTHER BELONGINGS. NO COMPLAINTS AT THIS TIME, VITALS WITHIN NORMAL LIMITS
[2019-01-06] MEDS: ALBUTEROL SULFATE/IPRATROPIU 3 ML SOL IH SCH ×4 (01:11→19:19)
--- NOTE | 2019-01-06 01:55 | NUR ---
PATIENT RESTING COMFORTABLY IN BED, EYES CLOSED, CALL LIGHT WITHIN REACH, UNLABORED BREATHING, NASAL CANNULA IN PLACE WITH 3LPM. SINUS NA TRENDING ON MONITOR, HEART RATE 55-60'S, CLOSE MONITORING IN PLACE WILL ENDORSE TO MD POSSIBLE HOLD OF NEXT SCHEDULED COREG MEDICATION. WILL FOLLOWUP
--- NOTE | 2019-01-06 03:45 | NUR ---
PATIENT REMAINS SINUS NA ON MONITOR, HEART RATE IN HIGH 50'S, PATIENT AWAKE, FOLLOWS SIMPLE COMMANDS, MAKES NEEDS KNOWN, NO SIGNS OF DISTRESS, PRODUCTIVE INTERMITTENT COUGH NOTED, PATIENT ABLE TO SUCTION HIMSELF. HOB 30 DEGREES, RN AT CLOSE TO BEDSIDE
--- NOTE | 2019-01-06 04:30 | NUR ---
PATIENT IN STABLE CONDITION, HEART RATE IS SR ON MONITOR BUT WILL TREND IN HIGH 50'S. PROVIDED SPONGE BATH, SKIN CARE, AND ORAL CARE. TURNED AND POSITIONED PATIENT, TOLERATED WELL. DENIES PAIN. NASAL CANNULA IN PLACE 3LPM, IVF INFUSING AT 5O ML/HR.
--- NOTE | 2019-01-06 04:50 | NUR ---
CONNECTED WITH OVERCASTER, PATIENT TRYING TO EXPLAIN SOMETHING TO NURSES. PATIENT SAMI SPEAKING ONLY. OVERCASTER SAYS SHE CANNOT UNDERSTAND PATIENT. WILL CALL PATIENTS SON TO CLARIFY. NO URGENT NEEDS AT THIS TIME Addendum: 01/06/19 at 0705 by Marva Allen RN OVERCASTER ID [id number]
--- NOTE | 2019-01-06 06:00 | NUR ---
PATIENT OUT OF BED AND IN CHAIR BY BEDSIDE, NASAL CANNULA IN PLACE, IVF INFUSING, FIERRO IN PLACE. PATIENT TOLERATED WELL, TWO PERSON ASSIST, PATIENTS SON CAME TO VISIT AND TO TRANSLATE. PATIENT STATING HE WANTS TO SIT UP TO HAVE A BOWEL MOVEMENT. SMALL AMOUNT BROWN SOFT IN BEDSIDE COMMODE. PATIENT STABLE, HEART RATE IN SR. NO COMPLAINTS
[2019-01-06 06:38] LABS: BASOPHILS # (AUTO) 0.1 K/uL (0.00-0.22); BASOPHILS % (AUTO) 0.9 % (0.0-2.0); EOSINOPHILS # (AUTO) 0.5 K/uL (0-0.4); EOSINOPHILS % (AUTO) 5.3 % (0.0-4.0); HEMATOCRIT 31.2 % (36-52); HEMOGLOBIN 10.1 g/dL (12.0-18.0); LYMPHOCYTES # (AUTO) 1.5 K/uL (2.0-11.5); LYMPHOCYTES % (AUTO) 15.4 % (20.5-51.1); MEAN CORPUSCULAR HEMOGLOBIN 28 pg (27-31); MEAN CORPUSCULAR HGB CONC 33 g/dL (33-37); MEAN CORPUSCULAR VOLUME 87.5 fL (80-94); MONOCYTES # (AUTO) 0.8 K/uL (0.8-1.0); MONOCYTES % (AUTO) 8.4 % (1.7-9.3); NEUTROPHILS # (AUTO) 6.9 K/uL (1.8-7.7); PLATELET COUNT (AUTO) 379 K/uL (140-450); RED BLOOD CELL COUNT(AUTO) 3.56 MIL/uL (4.20-6.10); RED CELL DISTRIBUTION WIDTH 14.7 % (11.6-13.7); WHITE BLOOD COUNT (AUTO) 9.9 K/uL (4.8-10.8)
[2019-01-06 06:58] LABS: ALBUMIN 2.6 g/dL (3.4-5.0); ANION GAP 11.7 (8-16); ASPARTATE AMINOTRANSFERASE 53 U/L (15-37); CARBON DIOXIDE 29.9 mmol/L (21-32); CHLORIDE 108 mmol/L (98-107); CREATININE 2.1 mg/dL (0.7-1.3); GLUCOSE 100 mg/dL (74-106); POTASSIUM 3.6 mmol/L (3.5-5.1); SODIUM SERUM 146 mmol/L (136-145); TOTAL BILIRUBIN 0.5 mg/dL (0.0-1.0)
[2019-01-06 07:02] LABS: UREA NITROGEN, BLOOD 76 mg/dL (7-18)
--- NOTE | 2019-01-06 07:30 | NUR ---
RECEIVED BEDSIDE REPORT FROM LAWN MOWER REPAIRER RN. PT IS AWAKE, AAOX3, ENGLISH SPEAKING. SON AT BEDSIDE. AFEBRILE. DENIES PAIN. NORMAL SINUS RHYTHM ON MONITOR. S1 +S2 HEARD. PT IS ON O2 AT 3 LPM/NC. BREATHING EVEN AND UNLABORED. LUNGS SOUND CLEAR BILATERALLY. PICC LINE TO MCKENZIE ASYMPTOMATIC, PATENT AND INTACT, RUNNING 30 MEQ KCL IN D5 1000ML AT 50 ML/HR. ABDOMEN SOFT, ROUND, NONTENDER WITH ACTIVE BOWEL SOUNDS X [address] QUADRANTS[address] FIERRO CATH IN PLACE DRAINING YELLOW URINE TO GRAVITY. SKIN IS INTACT, DRY AND WARM TO TOUCH. PULSES PALPABLE TO ALL EXTREMITIES. CAP REFILL < 2 SEC. PT IS SITTING UP AT BEDSIDE CHAIR AT THIS TIME. NO S/SX OF DISTRESS NOTED. CALL LIGHT WITHIN REACH. SAFETY PRECAUTIONS IN PLACE. WILL CONTINUE TO MONITOR.
[2019-01-06] MEDS ORDERED: DEXTROSE 5% IV SCH (08:00)
[2019-01-06] MEDS ORDERED: POTASSIUM CHLORIDE IV SCH (08:00)
[2019-01-06] MEDS: AMIODARONE 200 MG TAB GT SCH ×2 (08:45→20:44)
[2019-01-06] MEDS: PANTOPRAZOLE 40 MG INJ VIAL IVP SCH (08:45)
[2019-01-06] MEDS: ISOSORBIDE DINITRATE 10 MG TAB PO SCH ×2 (08:46→20:44)
[2019-01-06] MEDS: PIPERACILLIN/TAZOBACTAM 2.25 GM in DEXTROSE 5% 50 ML IV SCH ×2 (08:46→20:52)
[2019-01-06] MEDS: Z-GUARD PASTE TP SCH ×2 (08:48→20:45)
[2019-01-06] MEDS: HYDRAGUARD CREAM TP SCH ×2 (08:48→20:45)
--- NOTE | 2019-01-06 09:00 | NUR ---
MEDICATIONS ADMINISTERED ORDERED. PT TOLERATED WELL.
--- NOTE | 2019-01-06 10:18 | NUR ---
DR. CHOW IN TO SEE AND EXAMINE PT. WILL FOLLOW UP ON ORDERS.
[2019-01-06] MEDS: CARVEDILOL 6.25 MG TAB PO SCH ×2 (10:22→20:44)
--- NOTE | 2019-01-06 10:24 | NUR ---
DR. CHOW MADE AWARE THAT HR WAS IN LOW 60'S AT 9 AM. OK TO GIVE SCHEDULED COREG PER DR. CHOW.
[2019-01-06] MEDS ORDERED: DEXAMETHASONE 4 MG/ML VIAL IVP SCH (12:00)
--- NOTE | 2019-01-06 12:00 | NUR ---
PT HAVING PHYSICAL THERAPY AT BEDSIDE. VSS. NO S/SX OF DISTRESS NOTED.
--- NOTE | 2019-01-06 12:39 | NUR ---
SPEECH THERAPIST AT BEDSIDE FOR SWALLOW EVALUATION.
--- NOTE | 2019-01-06 13:28 | NUR ---
LAN ADMINISTRATOR note [phone]. Bedside swallow evaluation completed following clearance by RN (Courtney) and charge coordinator (Lashanda). Please see report for details. Pt was positioned fully upright in bed using HOB elevation for swallow evaluation participation and then pt's bed returned to low/locked bed position with HOB about 40 degrees at end of evaluation, per pt's stated comfort. Pt's son present at bedside during entire evaluation. All questions answered to pt's and pt's son's stated satisfaction at this time. Pt awake/alert/pleasant and cooperative with mild encouragement by LAN ADMINISTRATOR and pt's son. LAN ADMINISTRATOR provided pt and pt's son (at bedside) with education regarding purpose of LAN ADMINISTRATOR's visit and rationale for recommendations, including risk for PNA if pt doesn't follow safe swallow strategies strictly. Pt and pt's son indicated understanding and agreement (once pt's son provided pt with translation.) Recommend: 1) pureed textures 2) nectar-thick liquids 3) STRICT aspiration precautions (including pt must be fully awake/alert/upright for any PO intakes, alternate small/slow bites and sips, stop giving PO if pt becomes less alert/SOB/coughing) 4) 100% feeding supervision/assistance to ensure pt complies strictly with aspiration precautions 5) LAN ADMINISTRATOR to f/u for dysphagia/diet tolerance per LAN ADMINISTRATOR plan of care, as pt able to participate safely LAN ADMINISTRATOR reviewed recommendations with charge coordinator (Lashanda) following bedside swallow evaluation completion. RN to f/u for physician's order, as physician in agreement with recommendations.
--- NOTE | 2019-01-06 14:02 | NUR ---
PT IS WATCHING TV, VSS, NO C/O PAIN OR DISCOMFORT. TURNED AND REPOSITIONED. PT ABLE TO ASSIST WITH REPOSITIONING. TOLERATED WELL. NO S/SX OF SOB OR ACUTE DISTRESS AT THIS TIME. SAFETY PRECAUTIONS IN PLACE. WILL CONTINUE TO MONITOR.
--- NOTE | 2019-01-06 14:33 | NUR ---
01/06/19 RD FOLLOW UP COMPLETED PLEASE REFER TO NUTRITION ASSESSMENT UNDER CARE ACTIVITY FOR ESTIMATED NUTRITIONAL NEEDS. 1. RECOMMEND RENAL PUREE; NECTAR THICK LIQUID DIET 2. RD TO FOLLOW-UP 2-3 DAYS, HIGH RISK ASHWIN ALBERTO, RD
--- NOTE | 2019-01-06 16:35 | NUR ---
PT SEEN AND EXAMINED BY DR. FARIAS. UPDATES GIVEN ON PT'S CONDITION. NO NEW ORDER AT THIS TIME.
--- NOTE | 2019-01-06 17:55 | NUR ---
PT'S DAUGHTER AT BEDSIDE FEEDING DINNER TO PT. INSTRUCTED TO ALTERNATE SMALL BITES OF PUREE FOOD AND SIPS OF NECTAR THICK LIQUID. HOB UPRIGHT POSITION. NO COUGH OR SOB NOTED. VSS. SAFETY MEASURED ENSURED. WILL CONTINUE TO MONITOR.
--- NOTE | 2019-01-06 19:15 | NUR ---
CHANGE OF SHIFT REPORT GIVEN BY DAY SHIFT NURSE ESTRELLA AT BEDSIDE. PATIENT HAD SON AND DAUGHTER AT BEDSIDE. PATIENT PERRLA BILATERAL AND SYMMETRICAL. AFEBRILE. NASAL CANNULA AT 2L. NO SOB NOTED OR DISTRESS NOTED. PATIENT LAUGHING AND SMILING. SPEAKING LITHUAN[place] TO FAMILY. PATIENT ON THICKENED LIQUID DIET. FIERRO CATHETER PRESENT WITH CLEAR YELLOW URINE IN TUBING. PATIENT SR ON MONITOR. HR REGULAR. RESPIRATIONS SYMMETRICAL. LUNG SOUNDS RHONCHI NOTED. RT AT BEDSIDE. BOWEL SOUNDS ACTIVE IN ALL 4 QUADS. PULSES FELT ON ALL 4 EXTREMITIES. NO EDEMA NOTED. PATIENT HAS RIGHT UPPER ARM PICC LINE RUNNING IVF. PATENT ,ASYMPT, AND NO S/S OF INFECTION. PATIENT ID BAND IN PLACE. BED IN LOWEST POSITION. PATIENT HAS HAND HELD SUCTION PRESENT AND USING BY SELF. ALERT AND ORIENTED. ABLE TO MAKE NEEDS KNOWN. ABLE TO OBEY COMMANDS. SPOT FOUND ON TOP OF BOTH EARS. CLOSED WOUNDS. WILL FOLLOW MD ORDERS AND CONTINUE TO ASSESS. VSS. SAFETY MEASURES IN PLACE. NON SKID SOCKS AT BEDSIDE. WILL CONTINUE TO MONITOR.
--- NOTE | 2019-01-06 19:25 | NUR ---
REPORT GIVEN TO [facility] ATTENDANT RN FOR CONTINUITY OF CARE. PT IS IN STABLE CONDITION.
--- NOTE | 2019-01-06 19:30 | NUR ---
RECEIVED CALL FROM DR. ANDERSON Hanley. UPDATES GIVEN ON PT'S CONDITION. NO NEW ORDER AT THIS TIME.
--- NOTE | 2019-01-06 19:56 | NUR ---
PATIENT REQUESTED TO WATCH TV. PATIENT TRENA TO WORK TV BY SELF. PATIENT ALSO USING HAND SUCTION TO SUCTION SELF WHEN NEEDED
--- NOTE | 2019-01-06 19:57 | NUR ---
PATIENT WANTED TO BE REPOSITIONED. DAUGHTER AND SON PRESENT TO ASSIST WITH REPOSITIONING. PATIENT REPOSITIONED WITHOUT ANY INJURY AND PATIENT ASSISTED IN REPOSITIONING. NO DISTRESS NOTED. DENIES PAIN.
--- NOTE | 2019-01-06 20:40 | NUR ---
MEDICATION ADMINISTERED PER MD ORDERS. VSS. PATIENT TOLERATED SWALLOWING WELL. USED THICKENED LIQUIDS WITHOUT ANY PROBLEMS. NO COUGHING NOTED. WILL CONTINUE TO MONITOR.
[2019-01-06] MEDS: TAMSULOSIN 0.4 MG CAP PO SCH (20:44)
[2019-01-07] VITALS (9 sets, daily range): BP systolic 119–156; BP diastolic 55–76
[2019-01-07] MEDS: DEXAMETHASONE 4 MG/ML VIAL IVP SCH ×4 (00:22→18:22)
--- NOTE | 2019-01-07 00:25 | NUR ---
PATIENT POINTED THAT HE WANTED BEDSIDE COMMODE. ASSISTED TO BEDSIDE COMMODE WITH CHARGE NURSE. PATIENT UNABLE TO HAVE BM AT THIS TIME. PATIENT THEN STATED WANTED TO MOVE TO RECLINING CHAIR. MOVED PATIENT TO CHAIR WITHOUT INJURY. BED AND CHAIR ON LOCK. VSS. NO SOB OR DISTRESS NOTED DURING MOVE. WILL CONTINUE TO MONITOR. PATIENT GIVES THUMBS UP TO NURSE WHEN SITUATED. DENIES PAIN. SMILING AND KISSING NURSES HAND. WILL CONTINUE TO MONITOR.
--- NOTE | 2019-01-07 00:40 | NUR ---
PATIENT CONTINUED TO POINT TO PAPER WITH FAMILY MEMBERS NUMBER ON IT. PATIENT MADE A PHONE TO HIS EAR WITH HIS HAND IF TO CALL THE PERSON. GAVE PATIENT THE PHONE AND DIALED THE NUMBER. SPOKE WITH SIMIN ON THE PAPER AND STATED THAT PATIENT WANTED TO SPEAK WITH HIM. APOLOGIZED FOR TIMING. GAVE PHONE TO PATIENT. PATIENT ALERT AND ORIENTED. PATIENT SPEAKING WITH FAMILY MEMBER. PATIENT THEN GAVE PHONE BACK AFTER ONE MINUTE AND SPOKE WITH SIMIN FAMILY MEMBER AGAIN. STATES "HES JUST FINE" ASKED IF HE NEEDED ANYTHING OR COMPLAINED OF PAIN. FAMILY MEMBER STATES "NOPE HES OK". PATIENT SMILING IN CHAIR AT STAFF. WILL CONTINUE TO MONITOR. PATIENT GIVEN THUMBS UP AGAIN TO STAFF.
[2019-01-07] MEDS: ALBUTEROL SULFATE/IPRATROPIU 3 ML SOL IH SCH ×4 (01:19→19:11)
--- NOTE | 2019-01-07 01:25 | NUR ---
RT AT BEDSIDE. BREATHING TX GIVEN.
--- NOTE | 2019-01-07 02:56 | NUR ---
PATIENT SITTING IN CHAIR AND POINTED THAT HE WANTED TO USE BEDSIDE COMMODE. PATIENT HAD SMALL AMOUNT OF CLEAR FLUID ON BEDPAN. FIERRO CATHETER PRESENT.CLEANED PATIENT AFTER AND PATIENT WANTED TO GET BACK IN BED AFTER BEDSIDE COMMODE. MOVED PATIENT WITH ASSISTANCE OF SKID STRAPPER. MOVED PATIENT IN BED WITHOUT ANY INJURY. PATIENT VSS. TOLERATED MOVE WELL. WILL CONTINUE TO MONITOR. PATIENT SHOWING NO S/S OF DISTRESS OR SOB. WILL CONTINUE TO MONITOR.
--- NOTE | 2019-01-07 03:23 | NUR ---
PATIENT IN BED. SLEEPING. NO SOB OR DISTRESS NOTED. REFUSES BIPAP. WILL CONTINUE TO MONITOR.
--- NOTE | 2019-01-07 04:25 | NUR ---
CHARGE NURSE GAVE PATIENT VANILLA PUDDING AND THICKENED APPLE JUICE. PATIENT TRIED AND DENIES ANY MORE. CONTINUES TO STATE HE WANTS FOOD. NOTIFIED PATIENT THAT HE WILL BE GETTING BREAKFAST AROUND 7AM IN THE MORNING. PATIENT DENIED PUDDING AND THICKENED APPLE JUICE AGAIN
--- NOTE | 2019-01-07 05:00 | NUR ---
MEDICAL HISTORIAN FROM [facility] ASSISTED IN MORNING CARE. AYANNA CARE AND CATHETER CARE PERFORMED. BED CHANGED. PATIENT ASSISTED WELL. VSS. NO SOB OR DISTRESS NOTED. DENIES PAIN. WILL CONTINUE TO MONITOR. SAFETY MEASURES IN PLACE AND BED IN LOWEST POSITION.
--- NOTE | 2019-01-07 06:28 | NUR ---
PATIENT WANTS UP IN CHAIR. ASSISTED WITH NO INJURY. RT AT PATIENT BEDSIDE FOR BREATHING TX. WILL CONTINUE TO MONITOR
[2019-01-07 06:34] LABS: HEMATOCRIT 32.1 % (36-52); HEMOGLOBIN 10.3 g/dL (12.0-18.0); MEAN CORPUSCULAR HEMOGLOBIN 28 pg (27-31); MEAN CORPUSCULAR HGB CONC 32 g/dL (33-37); MEAN CORPUSCULAR VOLUME 87.9 fL (80-94); PLATELET COUNT (AUTO) 461 K/uL (140-450); RED BLOOD CELL COUNT(AUTO) 3.65 MIL/uL (4.20-6.10); RED CELL DISTRIBUTION WIDTH 14.5 % (11.6-13.7); WHITE BLOOD COUNT (AUTO) 12.5 K/uL (4.8-10.8)
[2019-01-07 06:57] LABS: ALBUMIN 2.7 g/dL (3.4-5.0); ANION GAP 13.7 (8-16); ASPARTATE AMINOTRANSFERASE 50 U/L (15-37); CARBON DIOXIDE 27.4 mmol/L (21-32); CHLORIDE 111 mmol/L (98-107); CREATININE 1.8 mg/dL (0.7-1.3); GLUCOSE 134 mg/dL (74-106); POTASSIUM 4.1 mmol/L (3.5-5.1); SODIUM SERUM 148 mmol/L (136-145); TOTAL BILIRUBIN 0.4 mg/dL (0.0-1.0)
--- NOTE | 2019-01-07 06:58 | NUR ---
BUN 64 ENDORSED TO DAY SHIFT TO NOTIFY MD. TRENDING DOWN
[2019-01-07 06:59] LABS: UREA NITROGEN, BLOOD 64 mg/dL (7-18)
--- NOTE | 2019-01-07 07:02 | NUR ---
RECEIVED BEDSIDE REPORT FROM RICHARD SHARED SERVICES MANAGER RN, FOR CONTINUITY OF CARE. PATIENT IS AAOX4, ABLE TO FOLLOW COMMANDS AND MAKE NEEDS KNOWN. PATIENT SKIN IS INTACT, WARM, DRY, AFEBRILE, HE HAS A MCKENZIE PICC LINE. PATIENT HAS NASAL CANNULA AT 2LPM, BREATHING EVEN AND UNLABORED. HE IS SR ON MONITOR, VITALS STABLE. FIERRO CATHETER IN PLACE. NO SIGNS OF DISTRESS NOTED, CALL LIGHT WITHIN REACH. WILL CONTINUE TO MONITOR.
--- NOTE | 2019-01-07 08:06 | NUR ---
PATIENT'S SON IS AT BEDSIDE.
[2019-01-07] MEDS: AMIODARONE 200 MG TAB GT SCH ×2 (08:49→20:34)
[2019-01-07] MEDS: ISOSORBIDE DINITRATE 10 MG TAB PO SCH ×2 (08:49→20:34)
[2019-01-07] MEDS: PANTOPRAZOLE 40 MG INJ VIAL IVP SCH (08:49)
[2019-01-07] MEDS: CARVEDILOL 6.25 MG TAB PO SCH ×2 (08:49→20:34)
[2019-01-07] MEDS: HYDRAGUARD CREAM TP SCH ×2 (08:50→20:34)
[2019-01-07] MEDS: Z-GUARD PASTE TP SCH ×2 (08:50→20:35)
[2019-01-07] MEDS: PIPERACILLIN/TAZOBACTAM 2.25 GM in DEXTROSE 5% 50 ML IV SCH ×2 (08:51→20:33)
[2019-01-07 09:03] LABS: LYMPHOCYTES % (MANUAL) 7 % (20-46); MONOCYTES % (MANUAL) 5 % (5-12)
--- NOTE | 2019-01-07 09:16 | NUR ---
ASSISTED PATIENT WITH THE HELP OF PATIENT'S SON TO SIT UP IN BEDSIDE CHAIR. PATIENT IS SITTING COMFORTABLY, NO SIGNS OF DISTRESS NOTED. VITALS STABLE
--- NOTE | 2019-01-07 10:57 | NUR ---
DR. CHOW IS HERE TO SEE PATIENT, UPDATED ON PATIENT'S CONDITION. WILL FOLLOW UP ON ANY ORDERS.
--- NOTE | 2019-01-07 11:03 | NUR ---
PER JUAN SETH TO TRANSFER PATIENT TO TELEMETRY AND STOP BIPAP.
--- NOTE | 2019-01-07 11:20 | NUR ---
DISCHARGE PLANNING: RECEIVED AN ORDER FOR SNF FOR PT, POSSIBLE DC TOMORROW 01/08/19. ORDERS FAXED TO [facility]. PER ANEL [facility], [facility] REFERRAL SENT TO [facility]. PER CARTER OF [facility], THEY ARE ABLE TO ACCEPT THE PATIENT. PATIENT WILL GO TO ROOM 1D UNDER DR. HAWK. Addendum: 01/07/19 at 1539 by Monica Aragon CM CONTACTED ANEL OF [facility] AT [phone], NO ANSWER. LEFT MESSAGE.
--- NOTE | 2019-01-07 13:08 | NUR ---
PATIENT COMPLAINING OF PAIN FROM FIERRO, 09/25 PAIN, MORPHINE IVP 2MG GIVEN.
[2019-01-07] MEDS: MORPHINE SULFATE 2 MG/ML SYR IVP PRN (13:16)
--- NOTE | 2019-01-07 13:28 | NUR ---
DR. FARIAS IS HERE TO SEE AND EXAMINE PATIENT, STATES OK TO D/C FIERRO BUT TO CONTINUE MONITORING URINE OUTPUT WITH URINAL.
--- NOTE | 2019-01-07 14:12 | NUR ---
D/C FIERRO CATHETER, PATIENT TOLERATED WELL.
--- NOTE | 2019-01-07 14:33 | NUR ---
ENDORSED CONTINUITY OF CARE TO REBEKAH ASHER RN. PATIENT TRANSFERRED TO [facility] VIA BED ACCOMPANIED BY SUPERVISOR RIPRAP PLACING AND SHEET IRONWORKER
--- NOTE | 2019-01-07 14:34 | NUR ---
PATIENT ARRIVED TO TELE. RECEIVED TELEPHONE REPORT FROM BRIONNA. PATIENT IS AWAKE, ALERT AND ORIENTEDX4. NO SIGNS OF DISTRESS ON 3L NC. SKIN IS INTACT. MCKENZIE PICC LINE, SL. CLEAN, DRY AND INTACT. TELE MONITOR IN PLACE. PATIENT IS FALL RISK. BEDSIDE COMMODE WILL BE AVAILABLE, PER PT PATIENT TOOK 8 STEPS W WALKER THIS AM. PATIENT IS CONTINENT, W ASSISTANCE. BED IN LOW POSITION. CALL LIGHT WITHIN REACH. FAMILY AT BEDSIDE. VITALS ARE STABLE. 97.5 TEMP, 99% ON 3L NC, 67 HR, 20 RR, 148/64 B/P.
--- NOTE | 2019-01-07 15:02 | NUR ---
PLACED SUCTION CANISTER IN THE ROOM AND GAVE PATIENT THE YANKAUER FOR NEEDED ORAL SUCTIONING
--- NOTE | 2019-01-07 17:00 | NUR ---
PATIENT IN ROOM W FAMILY. NO SIGNS OF DISTRESS
[2019-01-07] MEDS: LORazepam 2 MG/ML VIAL IVP PRN (18:23)
--- NOTE | 2019-01-07 18:28 | NUR ---
ADMINISTERED MEDS. PATIENT AGITATED, SON SAID HE NEEDS SOMETHING FOR ANXIETY. EDUCATED ON SIDE EFFECTS. PATIENT TOLERATED WELL
--- NOTE | 2019-01-07 19:20 | NUR ---
GAVE BEDSIDE REPORT TO DIGITAL MEDIA STRATEGIST NURSE. PATIENT ENDORSED IN STABLE CONDITION
--- NOTE | 2019-01-07 19:30 | NUR ---
RECEIVED BEDSIDE REPORT FROM DAY RN. PATIENT IS SLEEPING COMFORTABLY IN BEEN, IS AMHARIC SPEAKING. ABLE TO FOLLOW COMMANDS AND MAKE NEEDS KNOWN. PATIENT SKIN IS INTACT, WARM, DRY, AFEBRILE, HE HAS A MCKENZIE PICC LINE. PATIENT HAS NASAL CANNULA AT 3LPM, BREATHING EVEN AND UNLABORED. HE IS SR ON MONITOR, VITALS STABLE. POC DISCUSSED. NO SIGNS OF DISTRESS NOTED, CALL LIGHT WITHIN REACH. WILL CONTINUE TO MONITOR.
--- NOTE | 2019-01-07 20:33 | NUR ---
VITAL SIGNS ARE WITHIN NORMAL LIMITS. CRUSHED MED WITH APPLE SAUCE. PT TOLERATED WELL. ALL NEEDS MET. HOB ELEVATED. BED ALARM ON. WILL CONTINUE TO MONITOR.
[2019-01-07] MEDS: TAMSULOSIN 0.4 MG CAP PO SCH (20:34)
--- NOTE | 2019-01-07 21:25 | NUR ---
WENT INTO PATIENT ROOM D/T BED ALARM. PT IS AAOXO TRYING TO GET OUT OF BED. SPEAKS ONLY AZERI. PULLED PICC LINE OUT DOUBLE LUMEN. MINIMAL BLOOD NOTED. NOT BLEEDING WENT CAME IN. ASSISTED PT TO BATHROOM WITH WALKER. PT REFUSING TO USE BATHROOM. CALLED SON LUCY TALK TO PT. WILL CONTINUE TO MONITOR.
--- NOTE | 2019-01-07 21:45 | NUR ---
PT VISHAL LEESA IS AT BEDSIDE. GAVE PT CHAIR. AND CALL LIGHT WILL CONTINUE TO MONITOR,
--- NOTE | 2019-01-07 22:00 | NUR ---
PATIENT IS BACK IN BED WITH NC ON 2L O2. NO RESPIRATORY DISTRESS NOTED. SON IS AT BEDSIDE. BED ALARM ON. WILL CONTINUE TO MONITOR.
[2019-01-08] VITALS (9 sets, daily range): BP systolic 124–172; BP diastolic 53–80
[2019-01-08] MEDS: ALBUTEROL SULFATE/IPRATROPIU 3 ML SOL IH SCH ×4 (00:10→19:16)
[2019-01-08] MEDS: DEXAMETHASONE 4 MG/ML VIAL IVP SCH ×5 (00:20→23:26)
--- NOTE | 2019-01-08 00:20 | NUR ---
HEENA MEDICATIONS GIVEN IVP. VITAL SIGNS ARE WITHIN NORMAL LIMITS. RT IS AT BEDSIDE. ALL NEEDS MET AT THIS TIME. WILL CONTINUE TO MONITOR.
--- NOTE | 2019-01-08 00:49 | NUR ---
HHN TX GIVEN. SON AT BEDSIDE. NOTICED PT HAS A LOT OF SECRETIONS THAT HE CANT CLEAR. TRIED TO NT SUCTION PT WITH HELP OF RT LAURA. RN AWARE. PT IS AWAKE. EXPLAINED TO PT AND HIS SON PROCEDURE BEFORE STARTING AND SON AGREES TO NT SUCTION PT. NT SUCTIONED PT WITH A 10 FR CATHETER USING STERIL TECHNIQUE AND USED KY LUBRICANT. GOT SMALL AMT OF THICK WHITE SECRETIONS. PT FEELS MILD RELIEF. MD SILVESTRE AWARE. WILL CONTINUE TO MONITOR.
--- NOTE | 2019-01-08 02:15 | NUR ---
PATIENT IS AWAKE LAYING IN BED. NO DISTRESS NOTED. ALL SAFETY MEASURES ARE IN PLACE. WILL CONTINUE TO MONITOR.
--- NOTE | 2019-01-08 04:15 | NUR ---
VITAL SIGNS ARE WITHIN NORMAL LIMITS. SON IS AT BEDSIDE. PT REMAINS AAOX0. SAFETY MEASURES ARE IN PLACE. WILL CONTINUE TO MONITOR.
--- NOTE | 2019-01-08 06:00 | NUR ---
PT URINE ONE TIME DURING SHIFT. SCAN BLADDER HAD 55 CC. PT IS NOT ON IV FLUIDS AND DRANK VERY LITTLE FLUID D/T NOT LIKING THICKENER. WILL CONTINUE TO MONITOR.
[2019-01-08 06:17] LABS: HEMATOCRIT 34.3 % (36-52); HEMOGLOBIN 10.9 g/dL (12.0-18.0); MEAN CORPUSCULAR HEMOGLOBIN 28 pg (27-31); MEAN CORPUSCULAR HGB CONC 32 g/dL (33-37); MEAN CORPUSCULAR VOLUME 87.7 fL (80-94); PLATELET COUNT (AUTO) 524 K/uL (140-450); RED BLOOD CELL COUNT(AUTO) 3.91 MIL/uL (4.20-6.10); RED CELL DISTRIBUTION WIDTH 14.8 % (11.6-13.7); WHITE BLOOD COUNT (AUTO) 10.7 K/uL (4.8-10.8)
[2019-01-08 06:41] LABS: ALBUMIN 2.9 g/dL (3.4-5.0); ANION GAP 14.4 (8-16); ASPARTATE AMINOTRANSFERASE 41 U/L (15-37); CARBON DIOXIDE 26.1 mmol/L (21-32); CHLORIDE 111 mmol/L (98-107); CREATININE 1.8 mg/dL (0.7-1.3); GLUCOSE 165 mg/dL (74-106); POTASSIUM 4.5 mmol/L (3.5-5.1); SODIUM SERUM 147 mmol/L (136-145); TOTAL BILIRUBIN 0.3 mg/dL (0.0-1.0)
[2019-01-08 06:52] LABS: UREA NITROGEN, BLOOD 67 mg/dL (7-18)
--- NOTE | 2019-01-08 07:29 | NUR ---
GAVE BEDSIDE REPORT TO DAY RN. PT ENDORSED IN STABLE CONDITION.
--- NOTE | 2019-01-08 07:37 | NUR ---
RECEIVED BEDSIDE REPORT FROM NIGHT RN FOR CONTINUITY OF CARE. PATIENT IS SLEEPING COMFORTABLY IN BED, SLOVENIAN SPEAKING. ABLE TO FOLLOW COMMANDS AND MAKE NEEDS KNOWN. PATIENT SKIN IS INTACT, WARM, DRY, AFEBRILE, HAS R FA 22G, SL. PATIENT HAS NASAL CANNULA AT 3LPM, BREATHING EVEN AND UNLABORED. HE IS SR ON MONITOR, VITALS STABLE. POC DISCUSSED WITH SON WHO IS AT BEDSIDE. NO SIGNS OF DISTRESS NOTED. CALL LIGHT WITHIN REACH. WILL MONITOR PT CLOSELY.
[2019-01-08 08:46] LABS: LYMPHOCYTES % (MANUAL) 10 % (20-46); MONOCYTES % (MANUAL) 2 % (5-12)
--- NOTE | 2019-01-08 09:05 | NUR ---
CONTACTED ANEL OF [facility] THAT [facility] ACCEPTED THE PATIENT. SHE STATED TO CONTACT DASH AT [phone] FOR TRANSPORT AUTH AND ANEL WILL GIVE ME SNF AUTH ONCE SHE IS BACK IN THE OFFICE. CONTACTED DASH ON THE PROVIDED NUMBER, NO ANSWER. LEFT MESSAGE. RECEIVED A CALL BACK FROM DASH, PROVIDED HER WITH THE PATIENT'S INFO. SHE STATED SHE WILL CALL ME BACK. Addendum: 01/08/19 at 0918 by Monica Aragon CM RECEIVED A CALL FROM DASH OF [facility], SHE PROVIDED ME WITH TRANSPORT AUTH [id number] WITH . Addendum: 01/08/19 at 1311 by Monica Aragon CM MET WITH THE PATIENT'S DAUGHTER AT THE BEDSIDE REGARDING DC PLAN, SHE STATED TO CALL HER BROTHER LEESA. CONTACTED LEESA BARRY AT [phone], NO ANSWER. LEFT MESSAGE.
--- NOTE | 2019-01-08 09:37 | NUR ---
ADMINISTERED MORNING MEDS TO PT. PT TOLERATED WELL. WILL CONTINUE TO ROUND FREQUENTLY ON PT. BED IN LOW POSITION, CALL LIGHT WITHIN REACH.
[2019-01-08] MEDS: PANTOPRAZOLE 40 MG INJ VIAL IVP SCH (09:45)
[2019-01-08] MEDS: CARVEDILOL 6.25 MG TAB PO SCH ×2 (09:45→21:00)
[2019-01-08] MEDS: AMIODARONE 200 MG TAB GT SCH ×2 (09:46→21:00)
[2019-01-08] MEDS: ISOSORBIDE DINITRATE 10 MG TAB PO SCH ×2 (09:46→21:00)
[2019-01-08] MEDS: HYDRAGUARD CREAM TP SCH ×2 (10:04→21:04)
[2019-01-08] MEDS: Z-GUARD PASTE TP SCH ×2 (10:05→21:04)
--- NOTE | 2019-01-08 11:27 | NUR ---
PT BLADDER SCANNED PER 'S ORDERS. 78ML IN BLADDER. PER DR'S ORDERS, 4OML/HR NS TO BE GIVEN. ONLY 1 LITER WILL BE ADMINISTERED.
--- NOTE | 2019-01-08 11:37 | NUR ---
* ST D/C NOTE * [facility] w[facility]2 family members present. Pt consenting to tx w/family present. Pt tolerating 3/3 alternating PO trials of puree apple sauce as well as 3/3 alternating PO trials of nectar-thickened apple juice, all 1-3 CCs at a time via a spoon w/o s/s of aspiration or choking. Pt reporting no difficulty masticating or swallowing textures, but reporting dislike of flavors of meals/snacks provided at [facility]. Family inquiring as to whether they can bring pt outside food. Pt and family education completed re: outside food must comply w/recommended PO diet consistency of puree textures w/nectar-thickened liquids, w/pt and family agreeable. Pt and family education completed once more re: utilizing commercial engineer and liquifying or pureeing foods to assure it is of a pureed consistency, as well as utilizing thickener powder or gel for soups or liquids, w/family verbalizing understanding and agreement. Lastly, family instructed to present outside food to nsg prior to and after administering to pt, for nsg to ensure food and liquids are appropriate and safe consistency, w/family agreeable. Lastly, pt and caregiver/Nsg Otilia education completed re: aspiration precautions and recommendations upon pt's D/C from skilled PATTERN DESIGNER services, w/pt, family and caregiver/Nsg Otilia all verbalizing understanding and agreement w/clinician's recommendations. Recommend: - Continue PO diet consistency of puree textures w/NTL for all meals - Maintain STRICT aspiration precautions during pt's PO intake - D/C skilled PATTERN DESIGNER services at this time NOMS Level 3 Time In/Out 10:55 - 11:25 Addendum: 01/08/19 at 1145 by Isaias BLOUNT Pt and caregiver/Nsg Otilia education also completed re: family able to add seasoning or pepper to pt's meals for preferred flavor, but to assure a low or no sodium diet, as well as no cholesterol or fats, w/pt's family verbalizing understanding and agreement.
--- NOTE | 2019-01-08 11:47 | NUR ---
PT SLEEPING. DAUGHTER AT BEDSIDE. WILL CONTINUE TO ROUND FREQUENTLY AT PT.
[2019-01-08] MEDS ORDERED: AMIO200T10 GT (11:57)
[2019-01-08] MEDS ORDERED: ATRN INH (11:57)
[2019-01-08] MEDS ORDERED: CARV6.252 PO (11:57)
--- NOTE | 2019-01-08 13:38 | NUR ---
PT RESTING IN BEDSIDE CHAIR. WILL CONTINUE TO MONITOR PT.
--- NOTE | 2019-01-08 13:40 | NUR ---
PT VOIDED 2 TIMES. TOTAL OF 210MLS/HR. PAGED TO NOTIFY. AWAITING HIS CALLBACK.
--- NOTE | 2019-01-08 14:25 | NUR ---
CALLED [facility] SPOKE WITH [facility] PT CAN GO TO ROOM 1B ARRANGED TRANSPORT WITH [employer] [facility] TIME 1929 NOTIFIED PT'S SON JAYCE AND RAJ CASTILLO
--- NOTE | 2019-01-08 15:43 | NUR ---
PT RESTING IN BED WITH FAMILY AT BEDSIDE. WILL CONTINUE TO ROUND FREQUENTLY ON PT.
--- NOTE | 2019-01-08 17:28 | NUR ---
PT SITTING IN BEDSIDE CHAIR WITH SON AT BEDSIDE. WILL CONTINUE TO ROUND FREQUENTLY ON PT. BED IN LOW POSITION, CALL LIGHT WITHIN REACH.
--- NOTE | 2019-01-08 18:20 | NUR ---
TRANSFERRED PT FROM TELE TO ICU ON 100% NRB MASK. PT IS AGITATED AND SAYING HE WANTS TO GO HOME. PT'S SON DEWAYNE AT BEDSIDE. KRISTIAN DRAWN AND PAGED MD MCFARLANE FOR RESULTS. WAITING FOR CALL BACK. Addendum: 01/08/19 at 2135 by Reg Ortez RT AT 1919
[2019-01-08] MEDS: ACETAMINOPHEN 325 MG TAB PO PRN (18:30)
--- NOTE | 2019-01-08 18:40 | NUR ---
WALKED IN ROOM FOR PATIENT ASSESSMENT. PT IS LABORED BREATHING. ON 2 L NC SOI2 90-94% PT MORE CONFUSED. FAMILY AT BEDSIDE. RAPID RESPONSE CALLED. MD MANZO AND ER MD AT BEDSIDE. PLACED PT ON NRB MASK SPO2 99%. PT HAS COARSE BREATH SOUNDS. HHN TX GIVEN WITH NO IMPROVEMENT. PER MD MCFARLANE TO TRANSFER PT TO ICU. WILL CONTINUE TO MONITOR.
--- NOTE | 2019-01-08 18:40 | NUR ---
PT VOIDING BRIGHT RED URINE. MD PAGED. PER MD'S ORDERS, DISCHARGE TO BE CANCELED AND URINE TO BE SENT TO LAB FOR UA.
--- NOTE | 2019-01-08 18:47 | NUR ---
RAPID RESPONSE CALLED FOR CHANGE IN CONDITION. I WALKED INTO ROOM WHEN PT FAMILY NOTIFIED ME OF URINE BEING BRIGHT RED. NOTICED THAT PT BREATHING SEEMED LABORED NAD PT WAS USING INTERCOASTAL MUSCLES FOR BREATHING. PT ALSO COMPLAINING OF GRIFFITH. DR. MCFARLANE PAGED AGAIN TO NOTIFY OF RAPID RESPONSE. PER , PT TO BE SENT TO ICU FOR CLOSER OBSERVATION. ORDERS FOLLOWS: UA TO BE COLLECTED, BIPAP PRN, ABG NOW AND REPEAT IN 2 HOURS. PT VITALS ARE FOLLOWS: TEMP-97.4, HR-85, BP-152/85, RR-22, 02 SAT ON 3L-94%. BREATHING TX BEING GIVEN TO PATIENT NOW. WILL CONTINUE TO MONITOR PT CLOSELY UNTIL TRANSFERRED TO ICU.
--- NOTE | 2019-01-08 19:20 | NUR ---
TRANSFERRED PT FROM TELE TO ICU ON 100% NRB MASK. PT IS AGITATED AND SAYING HE WANTS TO GO HOME. PT'S SON DEWAYNE AT BEDSIDE. ABG DRAWN AND PAGED MD MCFARLANE FOR RESULTS. WAITING FOR CALL BACK.
--- NOTE | 2019-01-08 19:40 | NUR ---
MD MCFARLANE CALLED BACK AND GAVE NEW ORDERS. WILL FOLLOW WITH ORDERS.
--- NOTE | 2019-01-08 19:48 | NUR ---
REPORT GIVEN TO RAYMOND, ICU NURSE, FOR CONTINUITY OF CARE. PT IN STABLE CONDITION AT THIS TIME AND WILL BE UNDER CLOSER OBSERVATION ORDERED BY .
--- NOTE | 2019-01-08 19:48 | NUR ---
RECEIVED REPORT FROM RAJ CASTILLO, PT ON NON REBREATHER MASK @ 15 L, PT HAS COARSE BREATH SOUNDS. RT @ BEDSIDE. PT CONFUSED @ THIS TIME, SON @ BEDSIDE. SR 70-80S BP 180/92, PALPABLE PULSES TO EXTREMITIES. SKIN NON INTACT, PT INCONTINENT PERIPHERAL IV TO R ARM NOTED. BED LOCKED IN LOWEST POSITION. ASPIRATION/FALL PRECAUTIONS IN PLACE. WILL CONTINUE TO OBSERVE.
--- NOTE | 2019-01-08 20:15 | NUR ---
RECEIVED REPORT FROM RAYMOND CASTILLO. PT ON NASAL CANNULA 2LPM. EPISODES OF CONFUSION NOTED. FAMILY AT BEDSIDE. WHEEZING NOTED ON INSPIRATION. HOB 45. SR ON MONITOR WITH PEAK T WAVE. ON PUREED DIET. IV SITE R FA 22G. IV PATENT INTACT. BED IN LOWEST POSITION. CALL LIGHT WITHIN REACH. WILL CONTINUE TO MONITOR.
[2019-01-08] MEDS: LORazepam 2 MG/ML VIAL IVP PRN (20:24)
--- NOTE | 2019-01-08 20:30 | NUR ---
PT CONTINUES TO BE TACHYPNEIC. ATIVAN 0.5 MG ADMINISTERED. WILL CONTINUE TO OBSERVE.
--- NOTE | 2019-01-08 20:50 | NUR ---
PLACED PT ON BIPAP PER MD MCFARLANE ORDERS. PER MD MCFARLANE BIPAP SETTINGS 14/6,16,28% TO KEEP FIO2 ABOVE 88%. PER RN PT HAD ATIVAN. PT IS RELAXED AND QUIET. STILL LABORED BREATHING BUT FIO2 IS 99%. DAUGHTER AJAY AT BEDSIDE. BIPAP CONNECTED TO RED OUTLET. ALARMS AUDIBLE. MASK LARGE WITH PROTECTIVE GEL UNDERNEATH. WILL CONTINUE TO MONITOR PT.
[2019-01-08] MEDS: TAMSULOSIN 0.4 MG CAP PO SCH (21:00)
--- NOTE | 2019-01-08 21:00 | NUR ---
PT CONTINUES TO DESAT WITH SPO2 AT 70% PLACE ON BIPAP WITH FIO2 30%. PT SPO2 RANGE 90-100%
--- NOTE | 2019-01-08 21:30 | NUR ---
PT UNABLE TO TAKE PO MEDS AT THIS TIME. ASLEEP AND ON BIPAP AT THIS TIME. MD MADE AWARE. CONTINUE TO OBSERVE.
[2019-01-08] MEDS ORDERED: hydrALAZINE 20 MG/ML VIAL IVP PRN (21:45)
--- NOTE | 2019-01-08 22:00 | NUR ---
PT CLEANED, TURNED AND REPOSITIONED AT THIS TIME. OFF LOAD PRESSURE AREAS IMPLEMENTED. BED IN LOWEST POSITION. CONTINUE TO OBSERVE.
--- NOTE | 2019-01-08 23:00 | NUR ---
FAMILY AT BEDSIDE AT THIS TIME. PT AFEBRILE. NO SIGNS OF ACUTE DISTRESS AT THIS TIME.
[2019-01-09] VITALS (17 sets, daily range): BP systolic 116–166; BP diastolic 59–79
[2019-01-09] MEDS: ALBUTEROL SULFATE/IPRATROPIU 3 ML SOL IH SCH ×4 (00:43→19:39)
--- NOTE | 2019-01-09 00:52 | NUR ---
PT REMAINS ON BIPAP. INCREASED FIO2 DUE TO PT SPO2 DROPPING IN LOW 80'S. DAUGHTER AT BEDSIDE. NO SOB OR DISTRESS NOTED. PT IS ASLEEP COMFORTABLY. HHN TX GIVEN INLINE WITH NO ADVERSE REACTION. HR 59 BS COARSE BILATERALLY. WILL CONTINUE TO MONITOR.
--- NOTE | 2019-01-09 01:30 | NUR ---
FAMILY AT BEDSIDE AT THIS TIME.
--- NOTE | 2019-01-09 02:00 | NUR ---
PT REPOSITIONED. OFFLOADED PRESSURE AREAS. NO SIGNS OF ACUTE DISTRESS AT THIS TIME. WILL CONTINUE TO OBSERVE.
[2019-01-09] MEDS: DEXAMETHASONE 4 MG/ML VIAL IVP SCH (05:04)
[2019-01-09 06:20] LABS: APPEARANCE,URINE CLEAR (CLEAR); BILIRUBIN,URINE NEGATIVE (NEGATIVE); BLOOD, URINE 1+ (NEGATIVE); COLOR,URINE YELLOW (YELLOW); LEUKOCYTE ESTERASE ,URINE NEGATIVE (NEGATIVE); NITRITE, URINE NEGATIVE (NEGATIVE); PH,URINE 5.5 (5.0-9.0); UGLUCOSE NEGATIVE (NEGATIVE)
--- NOTE | 2019-01-09 07:16 | NUR ---
ENDORSED CARE TO INCOMING SHIFT RN DORIS FOR CONTINUITY OF CARE.
--- NOTE | 2019-01-09 07:17 | NUR ---
RECEIVED BEDSIDE REPORT FROM DONOR SERVICES TECHNICIAN NURSE, PT IS AAOX4, AREBIC SPEAKING ONLY, ABLE TO FOLLOW COMMANDS AND MAKE NEEDS KNOWN. VSS, DENIES PAIN, NO S/S OF DISTRESS, CLEAR LUNG SOUNDS MARLYN. O2 SAT 95%, DENIES CHEST PAIN, SB ON MEDICAL OFFICE REP, CAP REFILL <2 SEC, SOFT ABDOMEN WITH ACTIVE BOWEL SOUNDS, CONTINENT WITH B&B'S, ABLE TO MOVE ALL EXTREMITIES, GENERALIZED WEAKNESS NOTED, IV SITE TO RIGHT FOREARM 22GA, PATENT AND KVO, AFEBRILE, SKIN IS WARM AND DRY TO TOUCH, NO OPEN WOUND, HOB ELEVATED TO 30 DEGREES, SAFETY MEASURES IN PLACE, CALL LIGHT WITHIN REACH, WILL CONTINUE TO MONITOR.
[2019-01-09 07:45] LABS: RBC,URINE 0-5 /HPF (0-5); WBC,URINE 0 /HPF (0-5)
[2019-01-09] MEDS: AMIODARONE 200 MG TAB GT SCH ×2 (08:41→20:31)
[2019-01-09] MEDS: PANTOPRAZOLE 40 MG INJ VIAL IVP SCH (08:41)
[2019-01-09] MEDS: ISOSORBIDE DINITRATE 10 MG TAB PO SCH ×2 (08:42→20:32)
[2019-01-09] MEDS: CARVEDILOL 6.25 MG TAB PO SCH ×2 (08:42→20:31)
--- NOTE | 2019-01-09 08:45 | NUR ---
PT IS AWAKE, FAMILY MEMBERS AT BEDSIDE, HOB ELEVATED TO 90 DEGREE FOR BREAKFAST, OFF BIPAP AT THIS TIME, ON O2 AT 4L VIA NC, PT TOLERATED WELL ON O2, O2 SAT 98%, ABLE TO SWALLOW FOOD, SCHEDULED MEDICATION CRASHED TO APPLE SAUCE, ATE 100% OF MEAL AT THIS TIME.
[2019-01-09] MEDS: HYDRAGUARD CREAM TP SCH ×2 (09:00→20:43)
[2019-01-09] MEDS: Z-GUARD PASTE TP SCH ×2 (09:01→20:43)
[2019-01-09 09:17] LABS: HEMOGLOBIN 11.4 g/dL (12.0-18.0); MEAN CORPUSCULAR HEMOGLOBIN 28 pg (27-31); MEAN CORPUSCULAR HGB CONC 32 g/dL (33-37); MEAN CORPUSCULAR VOLUME 88.2 fL (80-94); PLATELET COUNT (AUTO) 576 K/uL (140-450); RED BLOOD CELL COUNT(AUTO) 4.07 MIL/uL (4.20-6.10); RED CELL DISTRIBUTION WIDTH 14.8 % (11.6-13.7); WHITE BLOOD COUNT (AUTO) 11.5 K/uL (4.8-10.8)
--- NOTE | 2019-01-09 09:30 | NUR ---
PT URINATED BLOODY URINE, DR. MCFARLANE MADE AWARE, UA COLLECTED AND SENT TO LAB.
[2019-01-09 09:50] LABS: ALBUMIN 2.9 g/dL (3.4-5.0); ANION GAP 12.9 (8-16); ASPARTATE AMINOTRANSFERASE 33 U/L (15-37); CHLORIDE 112 mmol/L (98-107); CREATININE 1.7 mg/dL (0.7-1.3); GLUCOSE 123 mg/dL (74-106); POTASSIUM 4.9 mmol/L (3.5-5.1); SODIUM SERUM 149 mmol/L (136-145); TOTAL BILIRUBIN 0.3 mg/dL (0.0-1.0)
[2019-01-09 09:52] LABS: UREA NITROGEN, BLOOD 70 mg/dL (7-18)
[2019-01-09 09:55] LABS: LYMPHOCYTES % (MANUAL) 10 % (20-46); MONOCYTES % (MANUAL) 7 % (5-12)
[2019-01-09 10:04] LABS: APPEARANCE,URINE CLOUDY (CLEAR); BILIRUBIN,URINE NEGATIVE (NEGATIVE); BLOOD, URINE 3+ (NEGATIVE); COLOR,URINE RED (YELLOW); LEUKOCYTE ESTERASE ,URINE TRACE (NEGATIVE); NITRITE, URINE NEGATIVE (NEGATIVE); UGLUCOSE NEGATIVE (NEGATIVE)
--- NOTE | 2019-01-09 10:20 | NUR ---
REVIEWED ABG SAMPLE REPORT TITRATED FIO2 TO 2 LPM VIA [place] HYDROMETER FINISHER TO NOTIFY DORIS/ANNA
[2019-01-09 10:23] LABS: RBC,URINE >100 /HPF (0-5)
--- NOTE | 2019-01-09 11:18 | NUR ---
DR. CHOW CAME IN TO SEE PATIENT, UPDATED PATIENT'S CONDITION, WILL FOLLOW UP WITH NEW ORDERS.
--- NOTE | 2019-01-09 11:20 | NUR ---
REVIEWED [facility] SAMPLE REPORT AT 10:07 PER Lynda BAILEY TO JIMMY SEWELL ORDER AT 1149 Addendum: 01/09/19 at 1311 by Owen Kwok RT ACTUAL TIME 1212
--- NOTE | 2019-01-09 12:00 | NUR ---
PT IS RESTING IN BED, NO S/S OF DISTRESS, VSS, DENIES PAIN, POSITION CHANGED FOR OFF LOAD PRESSURE. ATE 50% OF LUNCH AT THIS TIME.
--- NOTE | 2019-01-09 12:05 | NUR ---
REVIEWED PATIENT ASSESSMENT AND BIPAP ORDERS WITH DR. TEGAN CHOW NEW ORDERS: BIPAP 12/6 R16 SATURATION GREATER THAN 88%
--- NOTE | 2019-01-09 12:16 | NUR ---
DC PLANNING: CM CONTACTED ANEL (CM @ [facility]) @ [address] . PER ANEL, THEY CAN ARRANGE FOR BIPAP MACHINE AT HOME WHEN PATIENT IS READY FOR DC (POSSIBLY WHEN HE IS DOWNGRADED TO TELE). WILL NEED TO FAX ANEL: ORDER WITH BIPAP SETTINGS. WILL NOT NEED TO HAVE SLEEP STUDY OUTPATIENT SINCE DR. CHOW IS A RESIDENTIAL COLLECTIONS. CM TO FOLLOW UP WITH [facility] WHEN PATIENT IS CLOSER TO DC DATE. Addendum: 01/13/19 at 1224 by June Tesfaye CM Patient remains intubated, fully alert and has been tolerating CPAP trials. Plan is to extubate the patient today. D/c plan pending on further needs identified. June Tesfaye, [facility] Ext [phone] Addendum: 01/15/19 at 0922 by June Tesfaye CM Pt arrested on 01/10/19, was intubated, sedated and transferred to ICU. Pt was extubated on 01/14/19 however a code blue was called on this patient shortly after extubation. Pt was re-intubated. Dc plan pending on patient's response to treatment. June Tesfaye, [facility] Ext [phone]
--- NOTE | 2019-01-09 14:12 | NUR ---
01/09/19 RD FOLLOW UP COMPLETED PLEASE REFER TO NUTRITION ASSESSMENT UNDER CARE ACTIVITY FOR ESTIMATED NUTRITIONAL NEEDS. 1. CONTINUE RENAL PUREE; NECTAR THICK LIQUID DIET TOLERATED 2. RD TO FOLLOW-UP 3-5 DAYS, MODERATE RISK ASHWIN ALBERTO, RD
[2019-01-09] MEDS ORDERED: DEXTROSE 5% 1,000 ML IV ONE (14:50)
--- NOTE | 2019-01-09 16:00 | NUR ---
PM CARE AND ORAL CARE PROVIDED, PT IS RESTING IN BED, NO S/S OF DISTRESS, VSS, DENIES PAIN, SUCTION PROVIDED, POSITION CHANGED FOR OFF LOAD PRESSURE.
--- NOTE | 2019-01-09 18:00 | NUR ---
ATE 25% DINNER AT THIS TIME, PT'S SON AT BEDSIDE, [place], DENIES PAIN, POSITION CHANGED FOR OFF LOAD PRESSURE.
--- NOTE | 2019-01-09 19:11 | NUR ---
REPORT GIVEN TO LEAD SOFTWARE ARCHITECT NURSE AT BEDSIDE FOR CONTINUE OF CARE, PT IS IN STABLE CONDITION AT THIS TIME.
--- NOTE | 2019-01-09 19:15 | NUR ---
RECEIVED REPORT FROM DAYSHIFT NURSE AT PATIENTS BEDSIDE, NO COMPLAINTS AT THIS TIME. WILL FOLLOWUP CARE
--- NOTE | 2019-01-09 19:55 | NUR ---
RECEIVED PATIENT SITTING UP IN BED, ANOx4, DIVEHI SPEAKING ONLY, FOLLOWS SIMPLE COMMANDS, MAKES NEEDS KNOWN. PATIENT ON NASAL CANNULA 2L, SATURATIONS 95%, ALL VITALS WITHIN NORMAL LIMITS. AFEBRILE, SKIN INTACT, BILATERAL PRESSURE WOUNDS TO EARS ARE HEALING, CLOSED WOUNDS. LUNG SOUNDS RHONCHI THROUGHOUT, HOB > 30 DEGREES. S1S2 ON MONITOR. ABDOMEN SOFT AND NONTENDER, ACTIVE BOWEL SOUNDS. PATIENT IS CONTINENT WITH URINAL AT BEDSIDE. RIGHT FOREARM PERIPHERAL IV, 22G, FLUSHED WITH NO SYMPTOMS, INFUSING D5 @ 65 ML/HR. ALL EXTREMITIES ARE MOBILE BUT MILD WEAKNESS NOTED. YELLOW GOWN AND SOCKS IN PLACE, SAFETY ALARMS CHECKED, BED LOCKED AND IN LOWEST POSITION, CALL LIGHT WITHIN REACH. WILL CONTINUE CLOSE MONITORING
--- NOTE | 2019-01-09 20:05 | NUR ---
PATIENT REQUESTING BEDPAN. NO BOWEL MOVEMENT, BUT VOIDED 200ML, CLEAR YELLOW URINE, NO SIGNS OF BLEEDING. TURNED AND REPOSITIONED
--- NOTE | 2019-01-09 20:22 | NUR ---
PLACED PT ON BIPAP SETTINGS 14/6,16,50% TO KEEP FIO2 ABOVE 88%. . BIPAP CONNECTED TO RED OUTLET. ALARMS ON &AUDIBLE. MASK LARGE WITH PROTECTIVE GEL UNDERNEATH. WILL CONTINUE TO MONITOR PT. BIPAP CONNECTED TO RED PLUG OUTLET. PT TOLERATING SETTINGS WELL. AMBU BAG AT BEDSIDE. WILL CONTINUE TO MONITOR PT.
[2019-01-09] MEDS: TAMSULOSIN 0.4 MG CAP PO SCH (20:31)
--- NOTE | 2019-01-09 22:30 | NUR ---
PATIENT REQUESTING SOMETHING TO DRINK, REMOVED BIPAP MASK TO ALLOW THICKENED LIQUIDS. MASK OFF FOR 2 MINUTES SATURATION 97%, TOLERATED WELL, BIPAP MASK REAPPLIED. FAMILY MEMBER AT BEDSIDE
[2019-01-10] VITALS (63 sets, daily range): BP systolic 56–156; BP diastolic 32–95
--- NOTE | 2019-01-10 00:13 | NUR ---
RESTING WELL IN BED, HOB 30 DEGREES, DENIES PAIN. BIPAP IN PLACE, VSS, OFFLOADED PRESSURES AREAS
--- NOTE | 2019-01-10 01:10 | NUR ---
PATIENT REQUESTING FOR TOILETING NEEDS, NO BOWEL MOVEMENT, ONLY VOIDED 120 ML. URINE YELLOW AND CLEAR. TURNED AND REPOSITIONED PATIENT, BIPAP IN PLACE. NO COMPLAINTS AT THIS TIME
[2019-01-10] MEDS: ALBUTEROL SULFATE/IPRATROPIU 3 ML SOL IH SCH ×4 (01:20→19:23)
--- NOTE | 2019-01-10 01:26 | NUR ---
SPOKE WITH PATIENTS DAUGHTER AND OFFERED TO PROVIDE PATIENT MEDICATIONS FOR RESTLESSNESS AND TO HELP WITH SLEEP. DAUGHTER REFUSED DESPITE ASSURING THAT THE PATIENT WILL HAVE BIPAP MACHINE TO HELP WITH 02 SATURATIONS. REORIENTED THE PATIENT AND DAUGHTER TO NOT ALLOW OR DO NOT REMOVE MASK WHATSOEVER. PATIENT REMOVED MASK AND RN REAPPLIED AND REORIENTED PATIENT. NO INCIDENTS, VITALS WNL. WILL CONTINUE CLOSE MONITORING
--- NOTE | 2019-01-10 01:58 | NUR ---
PATIENT ON BIPAP BREAK, NASAL CANNULA IN PLACE TO 3LPM. SATURATIONS 97%, NO SIGNS OF DISTRESS, DAUGHTER AT BEDSIDE, PROVIDED ORAL CARE AND PATIENT DRANK A FEW SIPS OF THICKENED WATER
[2019-01-10] MEDS: guaiFENesin DM 200/20 MG-10 ML 10 ML UDC PO PRN (03:07)
--- NOTE | 2019-01-10 03:14 | NUR ---
PATIENT GIVEN ROBITUSSIN PO FOR COUGH, ONLY ABLE TO TAKE HALF, PATIENT SPIT UP HALF OF THE MEDICINE. ABLE TO SELF SUCTION, NASAL CANNULA IN PLACE, 3LPM, SATURATIONS 88% Addendum: 01/10/19 at 0316 by Marva Allen RN CORRECTION 98%
--- NOTE | 2019-01-10 03:40 | NUR ---
RESPIRATIONS STARTING TO INCREASE, STARTED BACK ON BIPAP, /. RESPIRATIONS 22.
--- NOTE | 2019-01-10 04:06 | NUR ---
PATIENTS DAUGHTER AT NURSES STATION, VOICING CONCERNS ABOUT MEDICATIONS. FAMILY WOULD LIKE TO REFUSE PRN ATIVAN/MORPHINE PER LAST TIME ATIVAN WAS GIVEN, PATIENT WAS ASLEEP/IN A TRANCE FOR OVER 12 HOURS. DAUGHTER CONCERNED THAT ATIVAN MAKES THE OXYGEN LEVELS DECREASE, WILL ENDORSE TO NEXT NURSE
--- NOTE | 2019-01-10 05:15 | NUR ---
PATIENT REQUESTING BEDPAN, VOIDED 40 ML CLEAR YELLOW URINE. VERY SMALL BOWEL MOVEMENT/SMEAR. PROVIDED ORAL CARE, SPONGE BATH AND PERINEAL CARE. PATIENT TOLERATED WELL, MODERATE ASSISTANCE NEEDED FOR ADL'S. BIPAP IN PLACE / SETTINGS. VITAL SIGNS STABLE, NO COMPLAINTS AT THIS TIME
--- NOTE | 2019-01-10 06:40 | NUR ---
PATIENT VOIDED 40ML. FLUIDS COMPLETE, IV SITE FLUSHED AND SALINE LOCKED
--- NOTE | 2019-01-10 07:30 | NUR ---
RECEIVED REPORT FROM TIME LOCK EXPERT RN. PT RESTING IN BED. A/O X3. ABLE TO MAKE NEEDS KNOWN. SR ON MONITOR. NO RESPIRATORY DISTRESS NOTED. SPO2 96%. PUPILS REACTIVE TO LIGHT. ON BIPAP 30/08. LUNGS WHEEZING ON UPPER CHEST, DIMINISHED ON LOWER CHEST. RIGHT FOREARM IV SITE SWOLLEN NOTED. REMOVED IV LINE. WILL REPLACED WITH NEW ONE. ABDOMEN SOFT, ROUND AND NON-TENDER. ACTIVE BOWEL SOUND. MINIMAL PENILE BLEEDING NOTED. WILL CONTINUE TO MONITOR. DENIES PAIN AT THIS TIME. KEPT HOB ELEVATED. BED IN LOW POSITION LOCKED. WILL CONTINUE TO MONITOR.
--- NOTE | 2019-01-10 08:26 | NUR ---
PT PLACED ON BIPAP 14/6, R16, FIO2 35% DUE TO PT WOB INCREASING AND BECOMING TACHYPNEIC. SATURATION WITH ADEQUATE WAVEFORM DECREASED TO 80%. SPO2 NOW 94%. BIPAP ALARMS ON AND FUNCTIONING. WILL CONTINUE TO MONITOR.
--- NOTE | 2019-01-10 09:25 | NUR ---
DR. FARIAS IN TO SEE PT. UPDATED PT CONDITION. MADE AWARE OF PENILE BLEEDING AND HOLDING HEPARINE FOR NOW. SAID OKAY. MADE AWARE OF LABS AND URINE OUTPUT. WILL CARRYOUT ORDER.
[2019-01-10] MEDS: AMIODARONE 200 MG TAB GT SCH ×2 (09:26→21:21)
[2019-01-10] MEDS: CARVEDILOL 6.25 MG TAB PO SCH ×2 (09:26→21:00)
[2019-01-10] MEDS: PANTOPRAZOLE 40 MG INJ VIAL IVP SCH (09:26)
[2019-01-10] MEDS: ISOSORBIDE DINITRATE 10 MG TAB PO SCH ×2 (09:27→21:22)
[2019-01-10] MEDS: HYDRAGUARD CREAM TP SCH ×2 (09:36→21:28)
[2019-01-10] MEDS: Z-GUARD PASTE TP SCH ×2 (09:37→21:28)
[2019-01-10] MEDS: DEXTROSE 5% 1,000 ML IV SCH ×2 (09:38→23:41)
--- NOTE | 2019-01-10 09:42 | NUR ---
PT REMOVED FROM BIPAP FOR PO MEDS, PLACED ON 4L NC.SPO2 92%. NURSE AWARE. WILL CONTINUE TO MONITOR.
--- NOTE | 2019-01-10 09:55 | NUR ---
UPDATED PT STATUS TO SON. SON AT THE BEDSIDE.
[2019-01-10 10:04] LABS: BASOPHILS % (AUTO) 0.1 % (0.0-2.0); EOSINOPHILS % (AUTO) 0.1 % (0.0-4.0); HEMATOCRIT 37.6 % (36-52); HEMOGLOBIN 11.9 g/dL (12.0-18.0); LYMPHOCYTES # (AUTO) 1.2 K/uL (2.0-11.5); LYMPHOCYTES % (AUTO) 11.8 % (20.5-51.1); MEAN CORPUSCULAR HEMOGLOBIN 28 pg (27-31); MEAN CORPUSCULAR HGB CONC 32 g/dL (33-37); MEAN CORPUSCULAR VOLUME 88.3 fL (80-94); MONOCYTES # (AUTO) 0.6 K/uL (0.8-1.0); MONOCYTES % (AUTO) 5.7 % (1.7-9.3); NEUTROPHILS # (AUTO) 8.4 K/uL (1.8-7.7); NEUTROPHILS % (AUTO) 82.3 % (42.2-75.2); PLATELET COUNT (AUTO) 598 K/uL (140-450); RED BLOOD CELL COUNT(AUTO) 4.26 MIL/uL (4.20-6.10); RED CELL DISTRIBUTION WIDTH 14.5 % (11.6-13.7); WHITE BLOOD COUNT (AUTO) 10.2 K/uL (4.8-10.8)
--- NOTE | 2019-01-10 10:05 | NUR ---
RT CALLED AND MADE AWARE OF FLUCTUATING SATURATION.
[2019-01-10 10:16] LABS: ALBUMIN 3.2 g/dL (3.4-5.0); ASPARTATE AMINOTRANSFERASE 42 U/L (15-37); CHLORIDE 109 mmol/L (98-107); CREATININE 1.6 mg/dL (0.7-1.3); GLUCOSE 133 mg/dL (74-106); SODIUM SERUM 147 mmol/L (136-145); TOTAL BILIRUBIN 0.4 mg/dL (0.0-1.0); UREA NITROGEN, BLOOD 59 mg/dL (7-18)
[2019-01-10] MEDS ORDERED: PROPOFOL 1000 MG/100 ML PREMIX 100 ML IV ONE (10:57)
[2019-01-10] MEDS ORDERED: DOBUTamine 500 MG/D5W PREMIX 250 ML IV SCH (11:00)
--- NOTE | 2019-01-10 11:01 | NUR ---
PT INTUBATED WITH 7.5 ETT SECURED @25 TEETH/GUMS. ETT PLACEMENT CONFIRMED WITH COLOR CHANGE ON CO2 DETECTOR AND BILATERAL BREATH SOUNDS, AWAITING CXR.. PT PLACED ON VENT WITH SETTINGS AC/VC 16, VT 475, PEEP 5 AND FIO2 100%. VENT IS PLUGGED INTO A RED OUTLET WITH ALARMS ON AND FUNCTIONING.WILL CONTINUE TO MONITOR.
--- NOTE | 2019-01-10 11:30 | NUR ---
AT 1017 PT WANTED TO HAVE BOWEL MOVEMENT. PLACED PT ON BEDPAN. PT WAS TALKING. FAMILY WAS AT THE BEDSIDE TALKING TO THE PT. AT 1021 PT NOTED UNRESPONSIVE, NO BREATHING AND PEA. CALLED BRAYAN HAIRSTON. STARTED CHEST COMPRESSION. BRAYAN HAIRSTON TEAM ARRIVED. FOLLOWED ACLS PROTOCOL. AT 1030 PT REGAIN HR OF 86, BP 66/55. PT GOT INTUBATED BY DR. ALARCON AT 1028. AT 1036 LEFT FEMORAL CENTRAL LINE WAS INSERTED BY DR. ALARCON. 1115 INSERTED OG TUBE PER ORDER. PLEASE SEE IV SPREAD SHEET AND BRAYAN HAIRSTON RECORD FOR MEDICATION DETAILS.
--- NOTE | 2019-01-10 12:10 | NUR ---
FIO2 TITRATED TO 90%. WILL CONTINUE TO MONITOR.
--- NOTE | 2019-01-10 12:10 | NUR ---
ABG RESULTS GIVEN TO PHYSICIAN STATES TO INCREASE SET RR TO 20.
--- NOTE | 2019-01-10 12:46 | NUR ---
DR. LYONS INTO SEE PT. UPDATED PT STATUS. ORDERED TO HOLD VERSED AND FENTANYL FOR NOW, STAT ABG. RT MADE AWARE. PLANNED FOR EXTUBATION IF ABG COMES NORMAL. RT AT THE BEDSIDE FOR ABG. WILL FOLLOW UP WITH RT.
--- NOTE | 2019-01-10 14:05 | NUR ---
FIO2 TITRATED TO 80%. SPO2 95% WILL CONTINUE TO MONITOR.
--- NOTE | 2019-01-10 15:09 | NUR ---
CLEANSED AND KEPT PT DRY. REPOSITIONED. VAP ORAL CARE PROVIDED. CONTINUE ON PROPOFOL AND DOPAMIN DRIP. RASS -2. IV SITES INTACT. CENTRAL LINE DRESSING CHANGED. SITE DRY AND INTACT. SR ON MONITOR. SPO2 97%. OG TUBE IN PLACE. BED IN LOW POSITION AND LOCKED.
[2019-01-10] MEDS: MORPHINE SULFATE 2 MG/ML SYR IVP PRN (16:04)
--- NOTE | 2019-01-10 16:50 | NUR ---
FIO2 TITRATED TO 60% PER ABG RESULTS. WILL CONTINUE TO MONITOR.
--- NOTE | 2019-01-10 17:17 | NUR ---
PT REMAINS ON DOCUMENTED VENT SETTINGS. PT SEDATED AT THIS TIME NOT IN ANY DISTRESS. VENT ALARMS REMAIN ON AND FUNCTIONING. ETT IS SECURE WITH A PATENT AIRWAY.
[2019-01-10] MEDS: PROPOFOL 1000 MG/100 ML PREMIX 100 ML IV PRN (17:28)
--- NOTE | 2019-01-10 18:15 | NUR ---
VS REMAINS STABLE. NO DISTRESS NOTED. CONTINUE ON PROPOFOL DRIP AND DOPAMIN DRIP. RASS -2. FAMILY AT THE BEDSIDE. IV SITES INTACT.
--- NOTE | 2019-01-10 18:53 | NUR ---
PAGED AND RECEIVED CALL FROM DR. HANDLEY. UPDATED PT STATUS. MADE AWARE OF LOW URINE OUTPUT 10 ML ONLY SINCE THIS MORNING. ALSO MADE AWARE OF PENILE BLEEDING THIS MORNING. ORDERED TO INSERT FIERRO CATHETER. WILL CARRYOUT ORDER.
[2019-01-10] MEDS: DOPamine 400 MG/D5W PREMIX 250 ML IV PRN (19:12)
--- NOTE | 2019-01-10 19:18 | NUR ---
REPORT GIVEN TO FILLETER RN FOR CONTINUITY OF CARE. PT STABLE.
--- NOTE | 2019-01-10 19:30 | NUR ---
RECEIVED BEDSIDE REPORT FROM MORNING NURSE, PATIENT SEDATED RASS -2 WITH PROPOFOL DRIP, ETT TO VENT WITH SETTING A/C MODE FIO2 60%, VT 475, RATE 20, PEEP 5, TOLERATE WELL WITH SETTING AT THIS TIME. OGT IN PLACE, PLACEMENT CHECKED, NO RESIDUAL NOTED. BILATERAL LUNGS SOUND RHONCHI, SR ON THE LUNG GUN OPERATOR. INSERTED FIERRO CATH 193 BY RN, 16FR NO S/S BLEEDING. CLEAR YELLOW URINE NOTED. CENTRAL LINE TO LEFT FEMORAL, RUNNING WITH D5 75ML/HR, DOPAMINE 10MCG/KG/MIN=31.12ML/HR WITH DRY WEIGHT 83KG, PROPOFOL 25MCG/KG/MIN=12.45ML/HR WITH DRY WEIGHT 83KG. PERIPHERAL IV LINE WITH SALINE LOCK TO RIGHT WRIST 22G. BILATERAL SOFT WRIST RESTRAINTS IN PLACE FOR SAFETY. BED IN LOW POSITION, HOB ELEVATED. CALL LIGHT WITHIN REACH. FAMILY MEMBERS AT BED SIDE. WILL CONTINUE TO MONITOR.
--- NOTE | 2019-01-10 20:00 | NUR ---
STARTED TUBE FEEDING ORDERED. JEVITY 1.2 50ML/HR WITH FWF 50ML Q6. WILL CONTINUE TO MONITOR.
--- NOTE | 2019-01-10 21:00 | NUR ---
AT BED SIDE TO CHECK THE PATIENT. WILL FOLLOW ORDERS.
--- NOTE | 2019-01-10 21:15 | NUR ---
NOTIFIED TO DR. BARRON.Y ABOUT CRITICAL TROPONIN RESULT AND BLOOD PRESSURE. HOLD COREG 6.25MG AT THIS TIME. WILL CARRY OUT.
[2019-01-10] MEDS: TAMSULOSIN 0.4 MG CAP PO SCH (21:21)
[2019-01-11] VITALS (104 sets, daily range): BP systolic 83–153; BP diastolic 49–83
--- NOTE | 2019-01-11 | NUR ---
PATIENT TOLERATED WELL WITH VENT AND FEEDING SETTING. NO RESIDUAL NOTED. CHECKED SOFT WRIST RESTRAINTS FOR CIRCULATIONS. CHANGED POSITION. WILL CONTINUE TO MONITOR.
[2019-01-11] MEDS: ALBUTEROL SULFATE/IPRATROPIU 3 ML SOL IH SCH ×4 (00:55→18:52)
[2019-01-11] MEDS: PROPOFOL 1000 MG/100 ML PREMIX 100 ML IV PRN ×3 (01:36→16:34)
--- NOTE | 2019-01-11 02:00 | NUR ---
PATIENT RASS -2 WITH PROPOFOL DRIP, HR AND BP STABLE WITH DOPAMINE 8MCG/KG/MIN. WILL CONTINUE TO MONITOR.
--- NOTE | 2019-01-11 04:00 | NUR ---
PATIENT SEDATED WITH PROPOFOL, RASS -2, NO ACUTE DISTRESS NOTED. FLACC 0. BP STABLE, SR ON ASSEMBLER UNIT. WILL CONTINUE TO MONITOR.
[2019-01-11] MEDS: DOPamine 400 MG/D5W PREMIX 250 ML IV PRN ×2 (05:45→16:33)
--- NOTE | 2019-01-11 05:56 | NUR ---
PROVIDED MORNING CARE, PATIENT TOLERATED WELL WITH TUBE FEEDING, NO RESIDUAL NOTED. FLACC 0. WILL CONTINUE TO MONITOR.
--- NOTE | 2019-01-11 06:25 | NUR ---
rec'd pt on carescape vent settings ac 20 vt 475 peep 5 fio2 100% alarms on and audible and ambu bag at hob and vent is plugged into red outlet, i\l tx given with duoneb 3ml with no adverse reaction post tx, b\s are clear bilaterally, sxn pt small amt of clear secretions, pt is orally intubated with 7.5 et tube secured with anchor fast at 25 cm pt is sedated and resting
--- NOTE | 2019-01-11 07:30 | NUR ---
RECEIVED BEDSIDE REPORT FROM RN MED SURG RN. PT IS SEDATED, RASS -2. AFEBRILE. FLACC 0. NORMAL SINUS RHYTHM ON MONITOR. S1 S2 HEARD. PT IS ETT TO VENT W/ SETTINGS: A/C VC 20, FIO2 60%, VT 475, PEEP 5. RHONCHI HEARD BILATERALLY, DIMINISHED AT BASES. BREATHING EVEN AND UNLABORED. OGT IN PLACE, PLACEMENT CONFIRMED. PT IS RECEIVING TUBE FEEDING JEVITY 1.2 AT 50 ML/HR W/ FWF 50 ML Q6H. 10 ML RESIDUALS NOTED. ABDOMEN SOFT, ROUND, NONTENDER W/ ACTIVE BOWEL SOUNDS X 4 QUADRANTS. CENTRAL LINE TLC TO LEFT FEMORAL AND PERIPHERAL IV G22 TO RIGHT WRIST PATENT, INTACT AND ASYMPTOMATIC. PT IS ON PROPOFOL DRIP AT 25 MCG/KG/MIN (DRY WEIGHT 83 KG), DOPAMINE DRIP AT 8 MCG/KG/MIN AND IVF D5 AT 75 ML/HR. FIERRO CATH IN PLACE DRAINING YELLOW URINE TO GRAVITY. SKIN IS DRY AND WARM TO TOUCH. HOB 30 DEGREES. BED IN LOWEST POSITION LOCKED. CALL LIGHT WITHIN REACH. NO SIGNS OF DISTRESS NOTED. WILL CONTINUE TO MONITOR.
[2019-01-11 07:41] LABS: MEAN CORPUSCULAR HEMOGLOBIN 28 pg (27-31); MEAN CORPUSCULAR HGB CONC 32 g/dL (33-37); MEAN CORPUSCULAR VOLUME 85.6 fL (80-94); PLATELET COUNT (AUTO) 489 K/uL (140-450); RED BLOOD CELL COUNT(AUTO) 3.62 MIL/uL (4.20-6.10); RED CELL DISTRIBUTION WIDTH 14.5 % (11.6-13.7); WHITE BLOOD COUNT (AUTO) 10.9 K/uL (4.8-10.8)
[2019-01-11 08:17] LABS: BASOPHILS % (MANUAL) 0 % (0-2); EOSINOPHILS % (MANUAL) 0 % (0-4); LYMPHOCYTES % (MANUAL) 16 % (20-46); MONOCYTES % (MANUAL) 6 % (5-12)
--- NOTE | 2019-01-11 08:50 | NUR ---
PT'S SONS AT BEDSIDE. UPDATES GIVEN ON PT'S CONDITION.
[2019-01-11] MEDS: PANTOPRAZOLE 40 MG INJ VIAL IVP SCH (08:53)
[2019-01-11] MEDS: ISOSORBIDE DINITRATE 10 MG TAB PO SCH ×2 (08:53→20:24)
[2019-01-11] MEDS: AMIODARONE 200 MG TAB GT SCH ×2 (08:54→20:24)
[2019-01-11] MEDS: HYDRAGUARD CREAM TP SCH ×2 (08:56→21:41)
[2019-01-11] MEDS: Z-GUARD PASTE TP SCH ×2 (08:56→21:41)
[2019-01-11] MEDS: CARVEDILOL 6.25 MG TAB PO SCH ×2 (09:00→21:00)
--- NOTE | 2019-01-11 09:01 | NUR ---
DECREASED FIO2 TO 50% ANNA DE LA ROSA NOTIFIED
--- NOTE | 2019-01-11 09:10 | NUR ---
MEDICATIONS ADMINISTERED ORDERED. PT TOLERATED WELL.
--- NOTE | 2019-01-11 10:00 | NUR ---
TURNED AND REPOSITIONED FOR COMFORT AND OFF LOAD PRESSURE. PT TOLERATED WELL.
--- NOTE | 2019-01-11 12:01 | NUR ---
VAP ORAL CARE GIVEN. TURNED AND REPOSITIONED. PRESSURE AREAS OFF LOADED. PT STILL ON PROPOFOL AND DOPAMINE DRIPS. RASS -2. VSS. FLACC 0. SON AT BEDSIDE. SAFETY PRECAUTIONS IN PLACE.
[2019-01-11 12:27] LABS: ANION GAP 14.4 (8-16); ASPARTATE AMINOTRANSFERASE 57 U/L (15-37); CARBON DIOXIDE 25.4 mmol/L (21-32); CHLORIDE 104 mmol/L (98-107); CREATININE 1.6 mg/dL (0.7-1.3); GLUCOSE 188 mg/dL (74-106); POTASSIUM 3.8 mmol/L (3.5-5.1); SODIUM SERUM 140 mmol/L (136-145); TOTAL BILIRUBIN 0.4 mg/dL (0.0-1.0); UREA NITROGEN, BLOOD 55 mg/dL (7-18)
[2019-01-11 12:28] LABS: ALBUMIN 2.6 g/dL (3.4-5.0)
[2019-01-11] MEDS: DEXTROSE 5% 1,000 ML IV SCH (13:10)
--- NOTE | 2019-01-11 14:50 | NUR ---
PT'S SON AND DAUGHTER AT BEDSIDE SPEAKING TO PT. PT IS STILL ON DOPAMINE AND PROPOFOL DRIPS, RASS -2. FLACC 7. WILL ADMINISTER PAIN MEDICATION ORDERED.
[2019-01-11] MEDS: MORPHINE SULFATE 2 MG/ML SYR IVP PRN ×2 (14:51→21:31)
[2019-01-11] MEDS: ACETAMINOPHEN 325 MG TAB PO PRN (16:50)
--- NOTE | 2019-01-11 17:00 | NUR ---
DR. CLAY IN TO SEE AND EXAMINE PT. DR. CLAY MADE AWARE OF PT'S TEMP 101.0 AND WBC 10.9. WILL FOLLOW UP ON ORDERS.
--- NOTE | 2019-01-11 17:50 | NUR ---
DR. BARRON Y. IN TO SEE AND EXAMINED PT. UPDATES GIVEN ON PT'S CONDITION. PER DR. BARRON, HOLD COREG UNTIL PT IS OFF DOPAMINE. NO OTHER NEW ORDER RECEIVED AT THIS TIME.
--- NOTE | 2019-01-11 19:00 | NUR ---
DR. LACY IN TO SEE PT. UPDATES GIVEN ON PT'S CONDITION. NO NEW ORDER AT THIS TIME.
--- NOTE | 2019-01-11 19:36 | NUR ---
REPORT GIVEN TO REAL ESTATE CLOSING COORDINATOR RN FOR CONTINUITY OF CARE. NO SIGNS OF DISTRESS NOTED AT THIS TIME.
--- NOTE | 2019-01-11 19:40 | NUR ---
RECEIVED PATIENT ON BED WITH HOB ELEVATED TO 30 DEGREE.SEDATED WITH CONTINOUS PROPOFOL DRIP AT 25 MCG/KG/MIN; RASS -2; DRY WEIGHT 83 KG. AND ON DOPAMINE DRIP AT 5 MCG/KG/MIN; D5W AT 40 ML/HR VIA CENTRAL LINE ON LEFT GROIN ALL PATENT AND INTACT. CARDIAC SCOPE SHOWS ON SINUS RHYTHM HR 66/MIN NO ARHYTHMIAS SEEN. ABDOMEN SOFT. ACTIVE BOWEL SOUNDS HEARD ON AUSCULTATION. WITH BILATERAL SOFT WRIST RESTRAINT IN PLACE.
--- NOTE | 2019-01-11 19:45 | NUR ---
SEEN AND EXAMINED BY DR. Donnell LACY, NO NEW ORDER MADE.
[2019-01-11] MEDS: TAMSULOSIN 0.4 MG CAP PO SCH (20:24)
[2019-01-11] MEDS ORDERED: cefTRIAXone 1,000 MG VIAL ONE (20:31)
[2019-01-12] VITALS (107 sets, daily range): BP systolic 97–151; BP diastolic 46–83
--- NOTE | 2019-01-12 | NUR ---
TURNED AND REPOSITIONED PATIENT; ORAL CARE DONE WITH VAP KIT.
[2019-01-12] MEDS: PROPOFOL 1000 MG/100 ML PREMIX 100 ML IV PRN ×4 (00:19→18:22)
[2019-01-12] MEDS: ALBUTEROL SULFATE/IPRATROPIU 3 ML SOL IH SCH ×4 (01:50→18:53)
--- NOTE | 2019-01-12 03:30 | NUR ---
MORNING BED BATH DONE; KEPT CLEAN AND DRY.
--- NOTE | 2019-01-12 04:30 | NUR ---
DOPAMINE TITRATED DOWN TO 3 MCG/KG/MIN; V/S MONITORED CLOSELY.
[2019-01-12 05:29] LABS: HEMOGLOBIN 9.7 g/dL (12.0-18.0)
[2019-01-12 05:39] LABS: HEMATOCRIT 29.8 % (36-52); MEAN CORPUSCULAR HEMOGLOBIN 28 pg (27-31); MEAN CORPUSCULAR HGB CONC 32 g/dL (33-37); MEAN CORPUSCULAR VOLUME 85.4 fL (80-94); PLATELET COUNT (AUTO) 451 K/uL (140-450); RED BLOOD CELL COUNT(AUTO) 3.49 MIL/uL (4.20-6.10); RED CELL DISTRIBUTION WIDTH 14.9 % (11.6-13.7); WHITE BLOOD COUNT (AUTO) 13.3 K/uL (4.8-10.8)
[2019-01-12 05:57] LABS: BASOPHILS % (MANUAL) 0 % (0-2); EOSINOPHILS % (MANUAL) 3 % (0-4); LYMPHOCYTES % (MANUAL) 7 % (20-46); MONOCYTES % (MANUAL) 6 % (5-12)
[2019-01-12 06:02] LABS: MAGNESIUM 2.3 mg/dL (1.8-2.4); PHOSPHORUS 2.6 mg/dL (2.5-4.9)
[2019-01-12 06:04] LABS: ALBUMIN 2.3 g/dL (3.4-5.0); ANION GAP 10.9 (8-16); ASPARTATE AMINOTRANSFERASE 35 U/L (15-37); CARBON DIOXIDE 28.1 mmol/L (21-32); CHLORIDE 101 mmol/L (98-107); CREATININE 1.4 mg/dL (0.7-1.3); GLUCOSE 172 mg/dL (74-106); SODIUM SERUM 136 mmol/L (136-145); TOTAL BILIRUBIN 0.3 mg/dL (0.0-1.0); UREA NITROGEN, BLOOD 40 mg/dL (7-18)
--- NOTE | 2019-01-12 06:24 | NUR ---
RECEIVED PT ON CARESCAPE ON DOCUMENTED SETTINGS, ALARMS ARE ON AND AUDIBLE, PTS ETT SIZE 7.5 AT 25 CM IS SECURE, ANCHOR FAST IN PLACE, PT IN HF ASLEEP BS CLEAR HHN GIVEN I\L WITH 3 MG DUONEB, BMV HOB, VENT PLUGGED INTO RED OUTLET, WILL CONTINUE TO MONITOR Addendum: 01/12/19 at 1512 by Myra Matta RT PT IS RESTRAINED
--- NOTE | 2019-01-12 07:25 | NUR ---
RECEIVED BEDSIDE REPORT FROM CONTOUR PATH TAPE MILL OPERATOR RN. PT IS SEDATED, RASS -2. TEMP 98.6. FLACC 0. NORMAL SINUS RHYTHM ON MONITOR. S1 S2 HEARD. PT IS ETT TO VENT W/ SETTINGS: A/C VC 20, FIO2 28%, VT 475, PEEP 5. LUNGS SOUND CLEAR BILATERALLY. NO SOB NOTED. ABDOMEN SOFT, ROUND, NONTENDER W/ ACTIVE BOWEL SOUNDS X [address], PLACEMENT CONFIRMED. PT IS RECEIVING TUBE FEEDING JEVITY 1.2 AT 50 ML/HR W/ FWF 50 ML Q6H. NO RESIDUALS AT THIS TIME. CENTRAL LINE TLC TO LEFT FEMORAL PATENT, INTACT AND ASYMPTOMATIC W/ GOOD BLOOD RETURN. PT IS ON PROPOFOL DRIP AT 25 MCG/KG/MIN (DRY WEIGHT 83 KG), DOPAMINE DRIP AT 3 MCG/KG/MIN AND IVF D5 AT 40 ML/HR. SKIN IS DRY AND WARM TO TOUCH. REDNESS TO SCROTUM, HEALED WOUNDS BEHIND BOTH LEFT AND RIGHT EARS NOTED. FIERRO CATH IN PLACE DRAINING CLEAR YELLOW URINE TO GRAVITY. HOB AT 30 DEGREES. BED IN LOWEST POSITION LOCKED. CALL LIGHT WITHIN REACH. NO SIGNS OF DISTRESS NOTED. WILL CONTINUE TO MONITOR.
--- NOTE | 2019-01-12 07:25 | NUR ---
ENDORSED TO AM SHIFT ANNA DE LA ROSA FOR CONTINUITY OF CARE.
[2019-01-12] MEDS: PANTOPRAZOLE 40 MG INJ VIAL IVP SCH (08:24)
[2019-01-12] MEDS: AMIODARONE 200 MG TAB GT SCH ×2 (08:24→20:31)
[2019-01-12] MEDS: ISOSORBIDE DINITRATE 10 MG TAB PO SCH ×2 (08:25→20:30)
[2019-01-12] MEDS: DEXTROSE 5% 1,000 ML IV SCH (08:28)
[2019-01-12] MEDS: MORPHINE SULFATE 2 MG/ML SYR IVP PRN (08:29)
[2019-01-12] MEDS: HYDRAGUARD CREAM TP SCH ×2 (08:30→20:52)
[2019-01-12] MEDS: Z-GUARD PASTE TP SCH ×2 (08:30→20:52)
[2019-01-12] MEDS: CARVEDILOL 6.25 MG TAB PO SCH ×2 (08:30→20:52)
--- NOTE | 2019-01-12 08:45 | NUR ---
MEDICATIONS ADMINISTERED ORDERED. PT TOLERATED WELL.
--- NOTE | 2019-01-12 08:55 | NUR ---
PT'S SON AT BEDSIDE. UPDATES GIVEN ON PT'S CONDITION.
--- NOTE | 2019-01-12 10:02 | NUR ---
REPOSITIONED PT AND PRESSURE AREAS OFF LOADED. PT TOLERATED WELL. NO S/SX OF ACUTE DISTRESS NOTED.
--- NOTE | 2019-01-12 12:00 | NUR ---
VAP ORAL CARE GIVEN. TURNED AND REPOSITIONED FOR COMFORT AND PRESSURE OFF LOAD. PT NOT IN ANY DISTRESS AT THIS TIME.
--- NOTE | 2019-01-12 14:07 | NUR ---
DR. CLAY IN TO SEE PT. WILL FOLLOW UP ON ORDERS.
--- NOTE | 2019-01-12 14:15 | NUR ---
DR. SR IN THE UNIT TO SEE AND EXAMINED PT. WILL FOLLOW UP WITH ANY NEW ORDERS. Addendum: 01/12/19 at 1419 by Rudi Pereira RN WRONG PATIENT
--- NOTE | 2019-01-12 15:30 | NUR ---
FAMILY AT BEDSIDE. UPDATES GIVEN ON PT'S CONDITION.
--- NOTE | 2019-01-12 16:05 | NUR ---
VAP ORAL CARE GIVEN. TURNED AND REPOSITIONED. PT TOLERATED WELL.
--- NOTE | 2019-01-12 18:00 | NUR ---
NO CHANGE IN CONDITION AT THIS TIME. REPOSITIONED FOR OFF LOADING PRESSURE AREAS AND COMFORT. SAFETY PRECAUTIONS IN PLACE. WILL CONTINUE TO MONITOR.
--- NOTE | 2019-01-12 19:08 | NUR ---
Received pt stable on vent support at documented settings, suctioned small amounts of white yellow secretions orally and through the ETT, hhn tx given, tolerated well, no resp distress or SOB noted at this time, 7.5 ETT secured at 25 cm at the lip line, alarms set and audible, ambu bag at bedside, vent plugged into red outlet, cont pulse ox on, vent wiped down, will cont to monitor.
--- NOTE | 2019-01-12 19:20 | NUR ---
RECEIVED REPORT FROM AM NURSE. PT AT BED EYES CLOSED, PERRL 3MM, BRISK, SEDATED RASS -2, HEART RATE REGULAR, SINUS RHYTHM, S1S2 PRESENT, CAP REFILL <3S, PULSES 2+ BILATERAL UPPER AND LOWER EXTREMITIES, PT BREATHING REGULARLY, TRACH TO VENT, CORTEX 6, FIO2%, TV 500, RESPIRATORY RATE 12, FLOW 50, PEEP 5, ABDOMEN, SOFT, ROUND, NONDISTENDED, NONTENDER, OGTUBE IN PLACE, RESIDUAL 5 ML, GT TO FEED IN PLACE RUNNING JEVITY 1.2 AT 50 ML/HR WATER FLUSH AT 50 ML Q6H. BLADDER NONTENDER, SOFT, NONDISTENDED, FIERRO CATHETER IN PLACE, DRAINING YELLOW, CLEAR URINE, PT HAS LEFT FEMORAL CENTRAL LINE, RUNNING D5 AT 40 ML/HR, PROPOFOL AT 25 MCG/KG/HR. DRY WEIGHT 83 KG, PT HAS GENERALIZED WEAKNESS, BILATERAL SOFT WRIST RESTRAINTS IN PLACE, SKIN INTACT, WARM, DRY, HEALED WOUNDS BEHIND RIGHT AND LEFT EARS, REDNESS ON SCROTAL AREA, HOB 30 DEGREES, SIDE RAILS UP X2, BED AT LOWEST POSITION. Addendum: 01/13/19 at 0124 by Sherman Lozada RN CORRECTION: PT ETT TO VENT, SIZE 7.5 TAPED AT 25 AT LIP, AC/VC, RR 20 FLOW 475, PEEP 5, FIO2 28%
--- NOTE | 2019-01-12 19:30 | NUR ---
REPORT GIVEN TO PSYCHOLOGIST MILITARY PERSONNEL RN FOR CONTINUITY OF CARE. NO SIGNS OF DISTRESS NOTED AT THIS TIME.
[2019-01-12] MEDS: TAMSULOSIN 0.4 MG CAP PO SCH (20:30)
--- NOTE | 2019-01-12 21:15 | NUR ---
MEDICATIONS GIVEN, VAP ORAL CARE PERFORMED. PT TOLERATED PROCEDURE WELL.
[2019-01-12] MEDS: ACETAMINOPHEN 325 MG TAB PO PRN (22:29)
--- NOTE | 2019-01-12 22:30 | NUR ---
PT HAVE A TEMPERATURE OF 101.2. TYLENOL GIVEN.
[2019-01-12] MEDS: guaiFENesin DM 200/20 MG-10 ML 10 ML UDC PO PRN (22:41)
--- NOTE | 2019-01-12 23:34 | NUR ---
SUCTIONED PT, SUCTIONED MODERATE AMOUNT OF WHITE MUCOUS, PT TOLERATED PROCEDURE WELL.
--- NOTE | 2019-01-12 23:40 | NUR ---
RECHECKED TEMPERATURE. 99.4 F
[2019-01-13] VITALS (105 sets, daily range): BP systolic 87–165; BP diastolic 45–121
--- NOTE | 2019-01-13 01:00 | NUR ---
PT AT BED EYES CLOSED BREATHING REGULARLY ETT TO VENT. WILL CONTINUE TO MONITOR.
[2019-01-13] MEDS: ALBUTEROL SULFATE/IPRATROPIU 3 ML SOL IH SCH ×4 (01:11→19:30)
[2019-01-13] MEDS: PROPOFOL 1000 MG/100 ML PREMIX 100 ML IV PRN ×4 (03:24→22:29)
--- NOTE | 2019-01-13 03:30 | NUR ---
SUCTIONED PT, SUCTIONED WHITE MODERATE AMOUNT OF SPUTUM. PT TOLERATED PROCEDURE WELL.
--- NOTE | 2019-01-13 05:25 | NUR ---
SUCTIONED PT, SUCTIONED WHITE MODERATE AMOUNT OF SPUTUM. PT TOLERATED PROCEDURE WELL.
--- NOTE | 2019-01-13 06:21 | NUR ---
REC'D PT ON CARESCAPE VENT SETTINGS AC 20 VT 475 PEEP 5 FIO2 28% ALARMS ON AND AUDIBLE AND AMBU BAG AT SIDE OF VENT AND VENT IS PLUGGED INTO RED OUTLET I\L TX GIVEN WITH DUONEB 3ML WITH NO ADVERSE REACTION POST TX B\S ARE CLEAR BILATERALLY SXN PT MODERATE AMT OF YELLOW SECRETIONS, PT IS ORALLY INTUBATED WITH 7.5 ET TUBE SECURED WITH ANCHOR FAST AT 26 CM PT IS SLEEPING
--- NOTE | 2019-01-13 07:10 | NUR ---
RECEIVED BEDSIDE REPORT FROM DIRECT CHILL CASTING OPERATOR NURSE, PT IS SEDATED, RASS +1, ABLE TO FOLLOW COMMANDS AND MAKE NEEDS KNOWN, APHASIC DUE TO ETT, VSS, FLACC 7, ON MARLYN. SOFT WRIST RESTRAIN, TRYING TO PULL OUT THE TUBE, ETT TO VENT WITH AC FIO2 28, VT 500, R 12, PEEP 5, NO S/S OF DISTRESS, RHONCHI AND CRACKLES LUNG SOUNDS MARLYN. SR ON COMPLIANCE COUNSEL, ROUND SOFT ABDOMEN WITH ACTIVE BOWEL SOUNDS, OGT IN PLACE, FEEDING WITH JEVITY 1.5 AT 50 ML/HR, TOLERATED WELL, 5 ML OF RESIDUALS NOTED, INCONTINENT WITH B&B'S, FIERRO CATHETER IN PLACE WITH CLEAR YELLOW URINE VIA GRAVITY, ABLE TO MOVE ALL EXTREMITIES, SKIN IS WARM AND DRY TO TOUCH, (SEE WOUND ASSESSMENT), CENTRAL LINE TO LEFT FEMORAL, TLC, PATENT, RUNNING PROPOFOL AT 25 MCG/KG/MIN, DRY WEIGHT USING ON PUMP IS 83 KG, ALSO D5 AT 40 ML/HR, HOB ELEVATED TO 30 DEGREES, SAFETY MEASURES IN PLACE, CALL LIGHT WITHIN REACH, WILL CONTINUE TO MONITOR.
--- NOTE | 2019-01-13 08:00 | NUR ---
ORAL CARE PROVIDED, POSITION CHANGED FOR OFF LOAD PRESSURE, PT'S SON AT BEDSIDE.
--- NOTE | 2019-01-13 08:30 | NUR ---
PT OFF SEDATION AND AT 08 PT PLACED ON CPAP MODE P5 PS 10 FAMILY AT BEDSIDE Addendum: 01/13/19 at 910 by Sherita Anderson RT PT PLACED ON SBT MODE P5 PS 10
--- NOTE | 2019-01-13 08:30 | NUR ---
HELD PROPOFOL AT THIS TIME FOR WEANING TRAIL, RT AWARE.
[2019-01-13 08:53] LABS: BASOPHILS % (AUTO) 0.2 % (0.0-2.0); EOSINOPHILS # (AUTO) 0.5 K/uL (0-0.4); LYMPHOCYTES # (AUTO) 1.3 K/uL (2.0-11.5); LYMPHOCYTES % (AUTO) 8.2 % (20.5-51.1); MEAN CORPUSCULAR HEMOGLOBIN 28 pg (27-31); MEAN CORPUSCULAR HGB CONC 32 g/dL (33-37); MEAN CORPUSCULAR VOLUME 85.8 fL (80-94); MONOCYTES # (AUTO) 0.8 K/uL (0.8-1.0); MONOCYTES % (AUTO) 4.9 % (1.7-9.3); NEUTROPHILS # (AUTO) 13.7 K/uL (1.8-7.7); NEUTROPHILS % (AUTO) 83.7 % (42.2-75.2); PLATELET COUNT (AUTO) 394 K/uL (140-450); RED BLOOD CELL COUNT(AUTO) 3.29 MIL/uL (4.20-6.10); RED CELL DISTRIBUTION WIDTH 15.2 % (11.6-13.7)
[2019-01-13 08:57] LABS: HEMATOCRIT 28.5 % (36-52); HEMOGLOBIN 9.2 g/dL (12.0-18.0)
[2019-01-13 08:58] LABS: ALBUMIN 2.2 g/dL (3.4-5.0); ANION GAP 12.1 (8-16); ASPARTATE AMINOTRANSFERASE 27 U/L (15-37); CARBON DIOXIDE 28.6 mmol/L (21-32); CHLORIDE 102 mmol/L (98-107); CREATININE 1.3 mg/dL (0.7-1.3); GLUCOSE 118 mg/dL (74-106); POTASSIUM 3.7 mmol/L (3.5-5.1); SODIUM SERUM 139 mmol/L (136-145); TOTAL BILIRUBIN 0.3 mg/dL (0.0-1.0); UREA NITROGEN, BLOOD 34 mg/dL (7-18)
--- NOTE | 2019-01-13 09:00 | NUR ---
PATIENT IS AWAKE AND ALERT, FAMILY AT BEDSIDE, STATED PT IS IN PAIN TO MIDDLE TO LOWER CHEST AREA 10/10, COULD NOT TOLERATED, WILL MEDICATED WITH MORPHINE.
[2019-01-13] MEDS: MORPHINE SULFATE 2 MG/ML SYR IVP PRN (09:08)
[2019-01-13] MEDS: PANTOPRAZOLE 40 MG INJ VIAL IVP SCH (09:16)
[2019-01-13] MEDS: ISOSORBIDE DINITRATE 10 MG TAB PO SCH ×2 (09:16→21:18)
[2019-01-13] MEDS: AMIODARONE 200 MG TAB GT SCH ×2 (09:16→21:17)
[2019-01-13] MEDS: CARVEDILOL 6.25 MG TAB PO SCH ×2 (09:16→21:30)
[2019-01-13] MEDS: DEXTROSE 5% 1,000 ML IV SCH (09:17)
[2019-01-13] MEDS: HYDRAGUARD CREAM TP SCH ×2 (09:18→21:17)
[2019-01-13] MEDS: Z-GUARD PASTE TP SCH ×2 (09:19→21:17)
--- NOTE | 2019-01-13 09:45 | NUR ---
DR. ALEXANDER CAME IN TO SEE PATIENT AT BEDSIDE, WILL FOLLOW UP WITH NEW ORDERS
--- NOTE | 2019-01-13 09:48 | NUR ---
ABG DRAWN AND RESULTS GIVEN TO DR. ALEXANDER AT 1005 PT EXTUBATED AND PLACED ON 3LNC WITH FAMILY AT BEDSIDE, STRIDOR OCCURRED AND PT WAS GIVEN BREATHING TX OF RACEPINEPHRINE 2.25% WITH 3 CC NORMAL SALINE AND WHILE PT WAS ON TX HE STARED TO DESAT TO 71% AT THAT TIME PRICK STITCHER WAS CALLED DR. ALEXANDER AT BEDSIDE AND PT WAS REINTUBATED AT 1040 WITH 7.5 ET TUBE SECURED WITH AT 23 CM SXN PT BLOODY SECRETIONS,PT WAS BACK ON AC MODE WITH SAME SETTINGS BEFORE PT IS SEDATED WITH RESTRAINTS ON BOTH WRISTS
--- NOTE | 2019-01-13 10:05 | NUR ---
EXTUBATED BY RT PER DR. ALEXANDER'S ORDER, ON O2 AT 2L VIA NC, PT COULD NOT TOLERATED, LABORED BREATHING NOTED, RR 47, O2 SAT 43%, RT AT BEDSIDE, DR. ALEXANDER AT BEDSIDE.
[2019-01-13] MEDS ORDERED: RACEPINEPHRINE 2.25% 13.5 MG/0.5 ML NEBU INH ONE (10:19)
[2019-01-13] MEDS ORDERED: methylPREDNISolone SS 40 MG/ML VIAL ONE (10:23)
[2019-01-13] MEDS: methylPREDNISolone SS 125 MG/2 ML VIAL IVP SCH ×2 (10:29→21:19)
[2019-01-13] MEDS ORDERED: RACEPINEPHRINE 2.25% 13.5 MG/0.5 ML NEBU INH SCH (10:30)
--- NOTE | 2019-01-13 10:40 | NUR ---
REINTUBATED PATIENT AT THIS TIME BY DR. ALEXANDER. RT AND RN AT BEDSIDE FOR ASSIST.
[2019-01-13] MEDS ORDERED: ETOMIDATE 20 MG/10 ML VIAL IVP ONE (10:45)
--- NOTE | 2019-01-13 10:48 | NUR ---
DR. ALEXANDER EXPLAINED THE CONDITION TO PT'S FAMILY AT OUTSIDE OF ICU.
--- NOTE | 2019-01-13 12:00 | NUR ---
PT IS RESTING IN BED, SEDATED, RASS -2, NO S/S OF DISTRESS, VSS, FLACC 0, ORAL CARE PROVIDED, POSITION CHANGED FOR OFF LOAD PRESSURE.
--- NOTE | 2019-01-13 14:00 | NUR ---
NO CHANGE OF CONDITION, VSS, FLACC 0, POSITION CHANGED FOR OFF LOAD PRESSURE.
--- NOTE | 2019-01-13 15:30 | NUR ---
PT SEDATED RASS -2, NO S/S OF DISTRESS, VSS, FLACC 0, TRIED TO INSERTED NGT, PT WAKE UP AND REFUSED TO PUT NGT IN, TRIED TO PUT TUBE IN MOUTH, PT CLOSED MOUTH AND BITES THE TUBE WHEN TRYING TO INSERT THE TUBE. COULD NOT INSERTED AT THIS TIME, SMALL AMOUNT OF NOSE BLEED NOTED, CONTROLLED, CHARGE NURSE NOTIFIED, WILL TRY AGAIN LATER.
--- NOTE | 2019-01-13 16:00 | NUR ---
PM CARE AND FIERRO CATHETER CARE PROVIDED, ORAL CARE PROVIDED, NO S/S OF DISTRESS, OGT INSERTED AT THIS TIME WITH TWO RN CONFIRMED THE PLACEMENT, VSS, FLACC 0, POSITION CHANGED FOR OFF LOAD PRESSURE.
--- NOTE | 2019-01-13 16:44 | NUR ---
DR. VANEGAS CAME IN TO SEE PATIENT AT BEDSIDE, UPDATED PATIENT'S CONDITION, LASIX JARAD ORDERED
[2019-01-13] MEDS: FUROSEMIDE 100 MG in DEXTROSE 5% 100 ML IV SCH (17:53)
--- NOTE | 2019-01-13 18:00 | NUR ---
NO CHANGE OF CONDITION, VSS, FLACC 0, RASS -3, POSITION CHANGED FOR OFF LOAD PRESSURE.
--- NOTE | 2019-01-13 18:30 | NUR ---
DR. BARRON CAME IN TO SEE PATIENT AT BEDSIDE, NO NEW ORDER AT THIS TIME.
--- NOTE | 2019-01-13 19:00 | NUR ---
CALLED CT AGAIN, PER [employer] MANAGER THEY WERE BUSY FOR ER PATIENTS, AVAILABLE ANYTIME FROM NOW, WILL ENDORSE TO CASHIER AND WAITER/WAITRESS.
--- NOTE | 2019-01-13 19:28 | NUR ---
REPORT GIVEN TO DESIGN MANAGER NURSE AT BEDSIDE FOR CONTINUE OF CARE, PATIENT IS IN STABLE CONDITION AT THIS TIME.
--- NOTE | 2019-01-13 19:30 | NUR ---
RECEIVED REPORT FROM DAYSHIFT NURSE FOR CONTINUITY OF CARE, NO SIGNS OF DISTRESS AT THIS TIME, WILL FOLLOWUP CARE
--- NOTE | 2019-01-13 19:40 | NUR ---
VAP ORAL CARE PROVIDED, PATIENT TURNED AND REPOSITIONED, REMOVED RESTRAINTS, NO SIGNS OF INJURIES, REPLACED LINENS. WILL CONTINUE TO MONITOR
--- NOTE | 2019-01-13 19:54 | NUR ---
1935 RECIEVED PT ON VENT AC 12 VT 500 PEEP 40%. PT GIVEN INLINE HHNTX. SXNED SMALL AMT PALE YELLOW SECRETIONS. NO SOB NOTED
--- NOTE | 2019-01-13 19:56 | NUR ---
AC 12 VT 500 PEEP 5 FIO2 40%
--- NOTE | 2019-01-13 20:00 | NUR ---
PATIENT RESTING COMFORTABLY IN BED, ANOx0, ON PROPOFOL DRIP, RASS -3. 7.5 ETT TO VENT, 23 AT THE LIP LINE. ACVC 12 TV 500 FI02 40% PEEP 5. S1S2 ON MONITOR, SINUS BRADYCARDIC, HEART RATE 53BPM, BLOOD PRESSURE 120/52, O2SAT- 97% RR-21, AFEBRILE. SKIN LOOSE AND INTACT. RIGHT EAR PRESSURE WOUND HEALING, SCAB NOTED. LEFT EAR PRESSURE INJURY HEALED. PERRL, 3MM SLUGGISH. ABDOMEN SOFT AND NONTENDER, ACTIVE BOWEL SOUNDS. OGT IN PLACE, AIR CHECK COMPLETE BY TWO RN'S, NO RESIDUALS, NO FEEDING AT THIS TIME. LEFT FEMORAL CENTRAL LINE IN PLACE, TRIPLE LUMEN, FLUSHED WITHOUT SYMPTOMS, INFUSING LASIX AT 5ML/HR, PROPOFOL @ 35 MCG/KG/MIN- 17.43 ML/HR, AND D5 @ 40ML/HR. DRY WEIGHT 83 KG. LOWER EXTREMITIES PITTING 1+ EDEMA NOTED. FIERRO CATHETER IN PLACE, CLEAR YELLOW URINE NOTED. BED LOCKED AND IN LOW POSITION, SAFETY ALARMS IN PLACE, HOB 30 DEGREES, WILL CONTINUE CLOSE MONITORING.
--- NOTE | 2019-01-13 21:09 | NUR ---
CALLED DR. BARRON PER PATIENTS HEART RATE DECREASING TO 50'S. PATIENT HAS SCHEDULED CARVEDILOL AND PARAMETERS SAY TO HOLD IF SBP<100. DOCTOR SAYS OK TO HOLD IF HEART RATE< 60. WILL HOLD COREG(CARVEDILOL)
[2019-01-13] MEDS: TAMSULOSIN 0.4 MG CAP PO SCH (21:18)
--- NOTE | 2019-01-13 22:10 | NUR ---
SPOKE WITH FOR ORDERS FOR CHEST XRAY, OK TO ORDER CHEST XRAY FOR OGT PLACEMENT. WILL CARRY OUT
--- NOTE | 2019-01-13 23:46 | NUR ---
PATIENT RESTING, RASS -3, VENT SETTINGS THE SAME START OF SHIFT. BREATHING UNLABORED, FLACC 0
[2019-01-14] VITALS (104 sets, daily range): BP systolic 103–163; BP diastolic 45–109
--- NOTE | 2019-01-14 00:40 | NUR ---
PATIENT REPOSITIONED TO OFFLOAD PRESSURE SITES, SKIN INTACT, GOOD PERFUSION, NO SIGNS OF SKIN BREAKDOWN AT SOFT WRIST RESTRAINTS. RESTRAINTS SECURED WITH QUICK RELEASE KNOTS. HOB 30 DEGREES, PATIENT ABLE TO SQUEEZE BOTH HANDS (FOLLOW SIMPLE COMMAND), PATIENT OPENS EYES TO LIGHT PAIN. RASS -3, WILL CONTINUE TO MONITOR
[2019-01-14] MEDS: ALBUTEROL SULFATE/IPRATROPIU 3 ML SOL IH SCH ×4 (01:01→19:04)
--- NOTE | 2019-01-14 02:15 | NUR ---
PATIENT RESTING WELL, BREATHING IS UNLABORED, HEART RATE IS SINUS NA, ALL OTHER VITALS WNL. HOB 30 DEGREES, WILL CONTINUE TO MONITOR
[2019-01-14] MEDS: PROPOFOL 1000 MG/100 ML PREMIX 100 ML IV PRN ×4 (04:22→23:12)
--- NOTE | 2019-01-14 04:40 | NUR ---
SPONGE BATH, VAP ORAL CARE, AND FIERRO CARE PROVIDED, PATIENT TOLERATED WELL. LEFT FEMORAL TRIPLE LUMEN IN PLACE, INFUSING LASIX 5MG/HR, D5 @ 40ML, AND PROPOFOL @ 34.5 MCG/KG/MIN. RASS -3. ETT TO VENT, ACVC 12 FI02 40 % TV 500 PEEP 5. FLACC 0
[2019-01-14] MEDS: methylPREDNISolone SS 125 MG/2 ML VIAL IVP SCH ×3 (05:18→20:37)
--- NOTE | 2019-01-14 06:05 | NUR ---
0605 TP 0710 PT TAKEN TO [facility] AND RETURNED TO [facility] WITHOUT INCIDENT
[2019-01-14 06:18] LABS: PROTHROMBIN TIME 10.6 secs (10.8-13.4)
[2019-01-14 06:19] LABS: BASOPHILS % (AUTO) 0.1 % (0.0-2.0); HEMATOCRIT 28.2 % (36-52); HEMOGLOBIN 9.2 g/dL (12.0-18.0); LYMPHOCYTES # (AUTO) 0.9 K/uL (2.0-11.5); LYMPHOCYTES % (AUTO) 5.5 % (20.5-51.1); MEAN CORPUSCULAR HEMOGLOBIN 28 pg (27-31); MEAN CORPUSCULAR HGB CONC 33 g/dL (33-37); MEAN CORPUSCULAR VOLUME 85.2 fL (80-94); MONOCYTES # (AUTO) 0.1 K/uL (0.8-1.0); MONOCYTES % (AUTO) 0.9 % (1.7-9.3); NEUTROPHILS # (AUTO) 15.1 K/uL (1.8-7.7); NEUTROPHILS % (AUTO) 93.5 % (42.2-75.2); PLATELET COUNT (AUTO) 366 K/uL (140-450); RED BLOOD CELL COUNT(AUTO) 3.31 MIL/uL (4.20-6.10); RED CELL DISTRIBUTION WIDTH 14.8 % (11.6-13.7); WHITE BLOOD COUNT (AUTO) 16.1 K/uL (4.8-10.8)
--- NOTE | 2019-01-14 06:29 | NUR ---
PATIENT TRANSFERRED TO CT VIA RT VIRGILIO AND 2 RN'S WITH PATIENT.
[2019-01-14 06:31] LABS: ALBUMIN 2.2 g/dL (3.4-5.0); ASPARTATE AMINOTRANSFERASE 28 U/L (15-37); CARBON DIOXIDE 24.2 mmol/L (21-32); CHLORIDE 100 mmol/L (98-107); CREATININE 1.5 mg/dL (0.7-1.3); GLUCOSE 181 mg/dL (74-106); MAGNESIUM 2.3 mg/dL (1.8-2.4); POTASSIUM 4.2 mmol/L (3.5-5.1); SODIUM SERUM 137 mmol/L (136-145); THYROID STIMULATING HORMONE 0.36 uIU/mL (0.34-3.74); TOTAL BILIRUBIN 0.3 mg/dL (0.0-1.0); UREA NITROGEN, BLOOD 39 mg/dL (7-18)
--- NOTE | 2019-01-14 07:30 | NUR ---
RECEIVED PT FROM PM SHIFT RN. PT ON PROPOFOL DRIP@ 35 MCG/KG/MIN= 17.43 ML/HR BASED ON DRY WEIGHT 83 KG.A RASS -3. 7.5 ETT TO VENT WITH SETTING ACVC 12 TV 500 FI02 35% PEEP 5. LUNG SOUND CLEAR. BEDSIDE MONITOR SHOWS SINUS BRADYCARDIC 55S, AFEBRILE. SKIN LOOSE AND INTACT( SEE WOUND ASSESSMENT). PERRL, PUPILS 3MM SLUGGISH. ABDOMEN SOFT AND NONTENDER, PT HAS OGT IN PLACE, JEVITY 1.2 RUNNING AT 20 CC/HR.RESIDUAL CHECKED ZERO. ACTIVE BOWEL SOUNDS. LEFT FEMORAL CENTRAL LINE IN PLACE, TRIPLE LUMEN, INFUSING LASIX AT 5ML/HR AND D5 @ 40 CC/HR. FIERRO CATHETER IN PLACE WITH CLEAR YELLOW URINE NOTED. BED IN LOW POSITION, SAFETY ALARMS IN PLACE, HOB 30 DEGREES, WILL CONTINUE CLOSE MONITORING.
--- NOTE | 2019-01-14 07:45 | NUR ---
RECEIVED PT ON [place] ON DOCUMENTED SETTINGS, PTS ETT IS SIZE 7.5 IS SECURE, ANCHOR FAST IN PLACE PT IN HF AWAKE BS DIMINISHED, HHN GIVEN I\L, BNV HOB, VENT PLUGGED INTO RED OUTLET, WILL CONTINUE TO MONITOR PT IS RESTRAINED
[2019-01-14] MEDS: ISOSORBIDE DINITRATE 10 MG TAB PO SCH ×2 (08:23→21:32)
[2019-01-14] MEDS: AMIODARONE 200 MG TAB GT SCH (08:24)
[2019-01-14] MEDS: PANTOPRAZOLE 40 MG INJ VIAL IVP SCH (08:24)
[2019-01-14] MEDS: HYDRAGUARD CREAM TP SCH ×2 (08:32→21:08)
[2019-01-14] MEDS: Z-GUARD PASTE TP SCH ×2 (08:33→21:08)
[2019-01-14] MEDS: CARVEDILOL 6.25 MG TAB PO SCH (08:33)
[2019-01-14] MEDS: DEXTROSE 5% 1,000 ML IV SCH (08:33)
[2019-01-14] MEDS: DOCUSATE SODIUM 250 MG GELCAP PO PRN (10:38)
[2019-01-14] MEDS: MORPHINE SULFATE 2 MG/ML SYR IVP PRN ×3 (10:39→20:36)
--- NOTE | 2019-01-14 10:59 | NUR ---
DECREASED FIO2 TO 28
[2019-01-14] MEDS: FUROSEMIDE 100 MG in DEXTROSE 5% 100 ML IV SCH (12:55)
--- NOTE | 2019-01-14 14:36 | NUR ---
PT C/O ABD PAIN, FAMILY TRANSLATE. PAGED DR. ALEXANDER, NOTIFIED PT DOES NOT HAVE BM FOR THREE DAYS AND I GAVE COLACE THIS MORNING. ORDERED KUB.
--- NOTE | 2019-01-14 15:04 | NUR ---
01/14/19 RD FOLLOW UP COMPLETED PLEASE REFER TO NUTRITION ASSESSMENT UNDER CARE ACTIVITY FOR ESTIMATED NUTRITIONAL NEEDS. RECOMMEND NEPRO W/CARBSTEADY AT 40 ML/HR -THIS WILL PROVIDE 960 ML, 1728 KCAL, AND 77 GM OF PROTEIN, WHICH MEETS 100% OF ESTIMATED NEEDS 2. CONTINUE FREE WATER FLUSH OF 50 ML Q6H 3. IF PT IS EXTUBATED, RECOMMEND SWALLOW EVALUATION FOR RECOMMENDED FOOD TEXTURES AND THICKENED LIQUIDS 4. RD TO FOLLOW-UP 2-3 DAYS, HIGH RISK ASHWIN ALBERTO RD
--- NOTE | 2019-01-14 16:30 | NUR ---
TURNED AND REPOSITIONED PT. BED BATH GIVEN. HYDRAGUARD APPLIED TO PT. PT TOLERATED WELL. ORAL CARE GIVEN.
--- NOTE | 2019-01-14 16:45 | NUR ---
IN TO CHECK PT.
--- NOTE | 2019-01-14 16:55 | NUR ---
AT BEDSIDE TO EXPLAIN TO PT'S FAMILY REGARDING CT REPORT AND KUB REPORT. ALSO UPDATED PT'S PROGRESS, FAMILY VERBALIZED UNDERSTANDING. Addendum: 01/14/19 at 1721 by Laney Urena RN DR. WALTERS MADE AWARE OF RD RECOMMENDATION AND AGREES WITH THE RECOMMENDATION.
--- NOTE | 2019-01-14 19:20 | NUR ---
RECEIVED REPORT FROM DAYSHIFT NURSE FOR CONTINUITY OF CARE, AT PATIENTS BEDSIDE, RT WITH PATIENT FOR BREATHING TREATMENT, NO SIGNS OF DISTRESS, WILL FOLLOWUP CARE
--- NOTE | 2019-01-14 19:28 | NUR ---
RECEIVED PT WITH ETT SIZE 7.5, 23CM @ THE LIP ON VENT SETTINGS ORDERED. SUCTION: SMALL WHITE THIN. VENT PLUGGED IN RED OUTLET. BVM ON BEDSIDE. NO RESPIRATORY DISTRESS NOTED AT THIS TIME. TX GIVEN ORDERED. NO ADVERSE REACTION. WILL CONTINUE TO MONITOR PT
--- NOTE | 2019-01-14 19:48 | NUR ---
PATIENT RESTING WELL IN BED, EYES OPEN, ABLE TO MAKE EYE CONTACT AND NOD HEAD YES OR NO. RASS -2, PROPOFOL INFUSING 30 MCG/KG/MIN-14.94 ML/HR. ETT TO VENT, ACVC 12, FI02 28%, TV 500, PEEP 5. LUNG SOUNDS CLEAR IN UPPER LOBES, LOWER LOBES DIMINISHED. S1S2, SINUS BRADYCARDIC ON MONITOR. ABDOMEN LARGE TENDER AND ROUND. BOWEL SOUNDS ARE HYPOACTIVE, PT CONSTIPATED. LEFT FEMORAL CENTRAL LINE IN PLACE, TRIPLE LUMEN, ALL LUMENS FLUSHED WITH NO SYMPTOMS, INFUSING D5 @ 40ML/HR, LASIX 5MG/HR. SKIN WARM AND DRY, INTACT. AFEBRILE. OGT IN PLACE TO FEEDING, JEVITY 1.2 @ 30ML/HR. PENDING ON NEW FEEDING ORDER, WILL SWITCH TO NEPRO. FIERRO CATHETER IN PLACE, CLEAR YELLOW URINE NOTED. EDEMA TO LOWER EXTREMITIES ARE IMPROVING, GENERALIZED EDEMA. BED LOCKED AND IN LOW POSITION, SAFETY ALARMS IN PLACE, HEAD OF BED 30 DEGREES. WILL CONTINUE TO MONITOR Addendum: 01/14/19 at 2326 by Marva Allen RN PATIENTS DRY WEIGHT 83 KG. Addendum: 01/14/19 at 2341 by Marva Tiffany RN BILATERAL SOFT WRIST RESTRAINTS IN PLACE, PATIENT NOT SAFE TO HAVE RESTRAINTS D/C AT THIS TIME
--- NOTE | 2019-01-14 20:10 | NUR ---
PATIENT TURNED AND REPOSITIONED, BOTH LEGS OFFLOADED PRESSURES SITES WITH ONE PILLOW EACH. HOB 30 DEGREES, SIDERAILS UP
--- NOTE | 2019-01-14 20:30 | NUR ---
PATIENT IS MORE AWAKE, IS OPENING EYES, AND MAKING EYE CONTACT. RASS -2. WAVING HANDS BACK AND FORTH, REMOVED RESTRAINTS, PATIENT IS POINTING AT STOMACH AND RUBBING STOMACH, ASKED IF THERE IS PAIN THERE AND PATIENT NODS YES. WILL CARRY OUT PRN PAIN MEDS. WILL INCREASE PROPOFOL DRIP TO 35 MCG/KG/MIN FOR RASS -3 ORDERED.
--- NOTE | 2019-01-14 20:36 | NUR ---
LATE ENTRY; PER REPORT, TO ASK PTS FAMILY IF OK TO GIVE MORPHINE; PT IS AWAKE FLACC 6.NODS HEAD WHEN ASKED IF HE IS IN PAIN. SPOKE WITH EVA; PTS SON, HE SAID OK TO GIVE THE MORPHINE CAUSE HE DOES NOT WANT HIS DAD TO FEEL ANY PAIN.
[2019-01-14] MEDS: TAMSULOSIN 0.4 MG CAP PO SCH (20:37)
[2019-01-14] MEDS ORDERED: CARVEDILOL 6.25 MG TAB PO SCH (21:00)
--- NOTE | 2019-01-14 21:10 | NUR ---
PAIN REASSESSED, PATIENT FLACC 0, PROPOFOL 35MCG/KG/MIN, BLOOD PRESSURE STABLE, HEART RATE SINUS NA BEFORE. VAP ORAL CARE PROVIDED, SCHEDULED MEDICATIONS ADMINISTERED.
--- NOTE | 2019-01-14 22:10 | NUR ---
NEW FEEDING ORDER IS STARTED- NEPRO, AT 15 ML/HR, AIR CHECK/AUSCULATION PLACEMENT CONFIRMED, NO RESIDUALS AT THIS TIME. RESTRAINTS REMOVED, NO SIGNS OF INJURY
[2019-01-15] VITALS (103 sets, daily range): BP systolic 105–154; BP diastolic 47–100
--- NOTE | 2019-01-15 00:10 | NUR ---
REMOVED RESTRAINTS TO ASSESS SKIN, PERFUSION IS GOOD, NO SIGNS OF INJURIES. CAP REFILL < 3 SECONDS. TURNED AND REPOSITIONED. TOLERATED FAIRLY.
[2019-01-15] MEDS: ALBUTEROL SULFATE/IPRATROPIU 3 ML SOL IH SCH ×4 (01:14→19:51)
--- NOTE | 2019-01-15 02:37 | NUR ---
CALLED RT, VENTILATOR KEEPS ALARMING. PATIENT SUCTIONED AND SUCTIONED ORALLY. SMALL AMOUNT OF SECRETIONS NOTED, THIN AND CLEAR. PATIENT STABLE, NO CHANGES TO VENTILATOR
[2019-01-15] MEDS: PROPOFOL 1000 MG/100 ML PREMIX 100 ML IV PRN ×5 (03:30→23:33)
[2019-01-15] MEDS ORDERED: FUROSEMIDE 100 MG/10 ML VIAL ONE (04:01)
[2019-01-15] MEDS: FUROSEMIDE 100 MG in DEXTROSE 5% 100 ML IV SCH (04:09)
[2019-01-15] MEDS: methylPREDNISolone SS 125 MG/2 ML VIAL IVP SCH ×3 (04:21→20:48)
[2019-01-15 07:14] LABS: ALBUMIN 2.3 g/dL (3.4-5.0); ANION GAP 19.5 (8-16); ASPARTATE AMINOTRANSFERASE 36 U/L (15-37); CARBON DIOXIDE 23.1 mmol/L (21-32); CHLORIDE 97 mmol/L (98-107); CREATININE 1.9 mg/dL (0.7-1.3); GLUCOSE 172 mg/dL (74-106); POTASSIUM 3.6 mmol/L (3.5-5.1); SODIUM SERUM 136 mmol/L (136-145); TOTAL BILIRUBIN 0.3 mg/dL (0.0-1.0); UREA NITROGEN, BLOOD 57 mg/dL (7-18)
--- NOTE | 2019-01-15 07:15 | NUR ---
RECEIVED PT REPORT FROM CUSTOMER DATA TECHNICIAN RNCOREEN. PT IN BED, EYES CLOSED, UNDER SEDATION, RASS -3. NO DISTRESS AT THIS TIME.
[2019-01-15] MEDS: DEXTROSE 5% 1,000 ML IV SCH (07:24)
[2019-01-15 07:35] LABS: BASOPHILS # (AUTO) 0.1 K/uL (0.00-0.22); BASOPHILS % (AUTO) 0.6 % (0.0-2.0); EOSINOPHILS # (AUTO) 0.2 K/uL (0-0.4); EOSINOPHILS % (AUTO) 1.1 % (0.0-4.0); HEMATOCRIT 27.1 % (36-52); HEMOGLOBIN 9.1 g/dL (12.0-18.0); LYMPHOCYTES # (AUTO) 0.8 K/uL (2.0-11.5); LYMPHOCYTES % (AUTO) 5.3 % (20.5-51.1); MEAN CORPUSCULAR HEMOGLOBIN 29 pg (27-31); MEAN CORPUSCULAR HGB CONC 34 g/dL (33-37); MEAN CORPUSCULAR VOLUME 85.7 fL (80-94); MONOCYTES # (AUTO) 0.3 K/uL (0.8-1.0); MONOCYTES % (AUTO) 1.8 % (1.7-9.3); NEUTROPHILS # (AUTO) 14.5 K/uL (1.8-7.7); NEUTROPHILS % (AUTO) 91.2 % (42.2-75.2); PLATELET COUNT (AUTO) 395 K/uL (140-450); RED BLOOD CELL COUNT(AUTO) 3.16 MIL/uL (4.20-6.10); RED CELL DISTRIBUTION WIDTH 14.9 % (11.6-13.7); WHITE BLOOD COUNT (AUTO) 15.9 K/uL (4.8-10.8)
--- NOTE | 2019-01-15 07:50 | NUR ---
ETT TO VENT, AT LIP LINE 25CM, FIO2 28%, TIDAL VOLUME 500, PEEP 5. LUNG SOUNDS CLEAR IN UPPER LOBES, LOWER LOBES DIMINISHED. S1S2, SINUS BRADYCARDIA ON MONITOR. ABDOMEN LARGE SOFT AND ROUND. BOWEL SOUNDS ARE HYPOACTIVE, LEFT FEMORAL CENTRAL LINE IN PLACE, TRIPLE LUMEN, ALL LUMENS FLUSHED WITH NO SYMPTOMS, INFUSING D5 @ 40ML/HR, LASIX 5MG/HR. PROPOFOL 35 MCG/KG/MIN. PATIENTS DRY WEIGHT 83 KG. SKIN WARM AND DRY, SKIN TEAR ON MID CHEST. AFEBRILE. OGT IN PLACE TO FEEDING, NEPRO @ 30ML/HR. WATER FLUSH 50 ML Q6H, FIERRO CATHETER IN PLACE, CLEAR YELLOW URINE NOTED. NON PITTING EDEMA TO LOWER EXTREMITIES ARE IMPROVING, GENERALIZED EDEMA. BED LOCKED AND IN LOWEST POSITION, SAFETY ALARMS IN PLACE, PATIENT ON SOFT BILATERAL SOFT WRIST RESTRAINTS, NO INJURY NOTED. HEAD OF BED 30 DEGREES. WILL CONTINUE TO MONITOR
--- NOTE | 2019-01-15 08:05 | NUR ---
VENTILATOR KEEPS ALARMING PEAK PRESSURE LOW. DID NOT FIND ANY LEAK OR DISCONNECTION. CALLED RT JOSE ALFREDO, JOSE ALFREDO SAID PT HAS BEEN LIKE THAT, WILL COME TO CHECK WHEN HAVE TIME. PT'S VITALS STABLE AT THIS TIME.
[2019-01-15 08:26] LABS: MAGNESIUM 2.3 mg/dL (1.8-2.4); PHOSPHORUS 5.2 mg/dL (2.5-4.9)
[2019-01-15] MEDS: CARVEDILOL 3.125 MG TAB PO SCH ×2 (09:00→21:00)
[2019-01-15] MEDS: AMIODARONE 200 MG TAB GT SCH (09:19)
[2019-01-15] MEDS: PANTOPRAZOLE 40 MG INJ VIAL IVP SCH (09:20)
[2019-01-15] MEDS: ISOSORBIDE DINITRATE 10 MG TAB PO SCH ×2 (09:20→21:00)
[2019-01-15] MEDS: Z-GUARD PASTE TP SCH ×2 (09:26→21:41)
[2019-01-15] MEDS: HYDRAGUARD CREAM TP SCH ×2 (09:26→21:41)
--- NOTE | 2019-01-15 11:30 | NUR ---
G TUBE RESIDUAL 0ML, INCREASED OGT FEEDING NEPRO TO 40ML/HR. WATER FLUSH 50ML Q6H.
[2019-01-15] MEDS: MORPHINE SULFATE 2 MG/ML SYR IVP PRN ×2 (13:49→18:42)
--- NOTE | 2019-01-15 18:30 | NUR ---
DR BARRON SEEN PT, ASKED IF CAN HOLD AMIODARONE IF HR < 60, DR BARRON SAID YES.
--- NOTE | 2019-01-15 19:15 | NUR ---
RECEIVED REPORT FROM AM NURSE. PT AT BED EYES CLOSED, PERRL 3MM, BRISK, SEDATED RASS -3, HEART RATE REGULAR, SINUS RHYTHM, S1S2 PRESENT, CAP REFILL <3S, PULSES 2+ BILATERAL UPPER AND LOWER EXTREMITIES, PT BREATHING REGULARLY, PT ETT TO VENT, SIZE 7.5 TAPED AT 25 AT LIP, AC/VC, RR 12 TV 475, FLOW 40 PEEP 5, FIO2 28% ABDOMEN, SOFT, ROUND, NONDISTENDED, NONTENDER, OGTUBE IN PLACE, RESIDUAL 5 ML, GT TO FEED IN PLACE RUNNING NEPRO AT 50 ML/HR WATER FLUSH AT 50 ML Q6H. BLADDER NONTENDER, SOFT, NONDISTENDED, FIERRO CATHETER IN PLACE, DRAINING YELLOW, CLEAR URINE, PT HAS LEFT FEMORAL CENTRAL LINE, RUNNING D5 AT 40 ML/HR, PROPOFOL AT 25 MCG/KG/HR. DRY WEIGHT 83 KG, PT HAS GENERALIZED WEAKNESS, BILATERAL SOFT WRIST RESTRAINTS IN PLACE, SKIN INTACT, WARM, DRY, HEALED WOUNDS BEHIND RIGHT AND LEFT EARS, REDNESS ON SCROTAL AREA, HOB 30 DEGREES, SIDE RAILS UP X2, BED AT LOWEST POSITION. Addendum: 01/15/19 at 5804 by Sherman Lozada RN CORRECTION: PROPOFOL RUNNING AT 35 MCG/KG/HR
[2019-01-15] MEDS: BISACODYL 10 MG SUPP RC PRN (20:49)
[2019-01-15] MEDS: TAMSULOSIN 0.4 MG CAP PO SCH (20:49)
--- NOTE | 2019-01-15 21:30 | NUR ---
MEDICATIONS GIVEN. PT SUCTIONED 1X WITH SCANT WHITE MUCOUS. PT TOLERATED PROCEDURE WELL. REPOSITIONED PT.
--- NOTE | 2019-01-15 23:24 | NUR ---
PATIENT MORE AWAKE. SUCTIONED MODERATE AMOUNT OF CREAMY BEIGE SECRETIONS VIA ETT WITH LAVAGE. FIO2 INCREASED TO 35%. SPO2 HAS BEEN IN UPPER 80'S SINCE PT IS AWAKE AND NOT ON SEDATION. RN NOTIFIED. WILL CONTINUE TO MONITOR.
[2019-01-16] VITALS (69 sets, daily range): BP systolic 94–157; BP diastolic 48–86
--- NOTE | 2019-01-16 00:37 | NUR ---
SUCTIONED PT. SCANT WHITE MUCOUS SUCTIONED. PT AT BED RASS -3. PT TOLERATED PROCEDURE WELL.
[2019-01-16] MEDS: ALBUTEROL SULFATE/IPRATROPIU 3 ML SOL IH SCH ×4 (00:55→19:11)
--- NOTE | 2019-01-16 02:15 | NUR ---
PT AT BED EYES CLOSED, BREATHING REGULARLY, ETT TO VENT. SINUS BRADYCARDIA ON MONITOR. WILL CONTINUE TO MONITOR.
--- NOTE | 2019-01-16 04:41 | NUR ---
SUCTIONED PT. SCANT WHITE MUCOUS SUCTIONED. PT AT BED RASS -3. PT TOLERATED PROCEDURE WELL.
[2019-01-16] MEDS: methylPREDNISolone SS 125 MG/2 ML VIAL IVP SCH ×3 (05:39→20:19)
[2019-01-16] MEDS: DEXTROSE 5% 1,000 ML IV SCH (05:42)
[2019-01-16 06:23] LABS: BASOPHILS % (AUTO) 0.1 % (0.0-2.0); HEMATOCRIT 28.2 % (36-52); HEMOGLOBIN 9.1 g/dL (12.0-18.0); LYMPHOCYTES # (AUTO) 0.7 K/uL (2.0-11.5); LYMPHOCYTES % (AUTO) 4.1 % (20.5-51.1); MEAN CORPUSCULAR HEMOGLOBIN 28 pg (27-31); MEAN CORPUSCULAR HGB CONC 32 g/dL (33-37); MEAN CORPUSCULAR VOLUME 85.6 fL (80-94); MONOCYTES # (AUTO) 0.5 K/uL (0.8-1.0); MONOCYTES % (AUTO) 2.8 % (1.7-9.3); NEUTROPHILS # (AUTO) 15.7 K/uL (1.8-7.7); PLATELET COUNT (AUTO) 348 K/uL (140-450); RED BLOOD CELL COUNT(AUTO) 3.29 MIL/uL (4.20-6.10); RED CELL DISTRIBUTION WIDTH 14.7 % (11.6-13.7); WHITE BLOOD COUNT (AUTO) 16.8 K/uL (4.8-10.8)
--- NOTE | 2019-01-16 07:09 | NUR ---
BEDSIDE REPORT RECEIVED FROM HVAC JOURNEYMAN RN, ETT TO VENT, VENT SETTINGS ARE ACVC MODE, RATE 12, FIO2 28%, TIDAL VOLUME 500, PEEP 5, SINUS BRADYCARDIA ON MONITOR, VITALS STABLE, FLACC 0, TUBE FEEDING OFF SINCE 6AM ORDERED, SOFT RESTRAINTS BILATERALLY IN PLACE, NO INJURY NOTED, PT SEDATED ON PROPOFOL DRIP @40ML/HR, RASS -3, DRY WEIGHT 83 KG, BED LOCKED IN LOW POSITION, HOB 30 DEGREES, ORAL CARE PROVIDED, FAMILY AT BEDSIDE. WILL CONTINUE TO MONITOR
--- NOTE | 2019-01-16 07:20 | NUR ---
CHANGE OF SHIFT REPORT GIVEN TO AM NURSE. PT AT STABLE CONDITION AT THIS TIME.
[2019-01-16 07:22] LABS: ANION GAP 15.7 (8-16); CARBON DIOXIDE 26.9 mmol/L (21-32); CHLORIDE 97 mmol/L (98-107); GLUCOSE 196 mg/dL (74-106); POTASSIUM 3.6 mmol/L (3.5-5.1); SODIUM SERUM 136 mmol/L (136-145)
[2019-01-16 07:30] LABS: MAGNESIUM 2.4 mg/dL (1.8-2.4); PHOSPHORUS 4.4 mg/dL (2.5-4.9)
[2019-01-16 07:54] LABS: ALBUMIN 2.3 g/dL (3.4-5.0); ASPARTATE AMINOTRANSFERASE 25 U/L (15-37); CREATININE 1.7 mg/dL (0.7-1.3); TOTAL BILIRUBIN 0.3 mg/dL (0.0-1.0)
[2019-01-16 07:57] LABS: UREA NITROGEN, BLOOD 63 mg/dL (7-18)
[2019-01-16] MEDS: PROPOFOL 1000 MG/100 ML PREMIX 100 ML IV PRN (08:04)
[2019-01-16] MEDS: PANTOPRAZOLE 40 MG INJ VIAL IVP SCH (08:12)
[2019-01-16] MEDS: HYDRAGUARD CREAM TP SCH ×2 (08:14→21:09)
[2019-01-16] MEDS: Z-GUARD PASTE TP SCH ×2 (08:14→21:09)
[2019-01-16] MEDS: ISOSORBIDE DINITRATE 10 MG TAB PO SCH ×2 (08:14→21:00)
[2019-01-16] MEDS: CARVEDILOL 3.125 MG TAB PO SCH ×2 (08:14→21:00)
[2019-01-16] MEDS: AMIODARONE 200 MG TAB GT SCH (08:14)
--- NOTE | 2019-01-16 08:45 | NUR ---
SCHEDULED MEDS ADMINISTERED, PATIENT'S FAMILY AT BEDSIDE
--- NOTE | 2019-01-16 09:35 | NUR ---
RT AT BEDSIDE, NO SIGNS OF DISTRESS NOTED.
--- NOTE | 2019-01-16 11:35 | NUR ---
DR. ALEXANDER IS HERE TO SEE AND EXAMINE PATIENT, SPOKE WITH FAMILY REGARDING PLAN FOR PATIENT.
[2019-01-16] MEDS: RACEPINEPHRINE 2.25% 13.5 MG/0.5 ML NEBU INH PRN ×2 (11:50→19:16)
--- NOTE | 2019-01-16 12:00 | NUR ---
PT EXTUBATED @1155. RT AT BEDSIDE. DR ALEXANDER AT BEDSIDE. TOLERATED WELL. NO SIGNS OF DISTRESS NOTED.
[2019-01-16] MEDS: DEXTROSE 5% 250 ML IV SCH (13:55)
--- NOTE | 2019-01-16 13:57 | NUR ---
01/16/19 RD FOLLOW UP COMPLETED PLEASE REFER TO NUTRITION ASSESSMENT UNDER CARE ACTIVITY FOR ESTIMATED NUTRITIONAL NEEDS. 1. CONTINUE NEPRO W/CARBSTEADY AT 40 ML/HR -THIS WILL PROVIDE 960 ML, 1728 KCAL, AND 77 GM OF PROTEIN, WHICH MEETS 100% OF ESTIMATED NEEDS 2. CONTINUE FREE WATER FLUSH OF 50 ML Q6H 3. PENDING MD ORDERS, RECOMMEND SWALLOW EVAL FOR RECOMMENDED FOOD TEXTURES AND THICKENED LIQUIDS 4. RD TO FOLLOW-UP 2-3 DAYS, HIGH RISK ASHWIN ALBERTO RD
[2019-01-16] MEDS ORDERED: BISACODYL 10 MG SUPP RC SCH (14:00)
--- NOTE | 2019-01-16 16:53 | NUR ---
PT HAD MODERATE SOFT BROWN BOWEL MOVEMENT. AYANNA CARE PROVIDED.
--- NOTE | 2019-01-16 17:09 | NUR ---
EXTUBATED PT WITH NO INCIDENT. GAVE PT HHN TX OF RACEMIC EPI AND DUONEB. CHANGE, FAMILY, CHARGE NURSE, ICU DIRECTOR AT BEDSIDE. PLACED PT ON 6 L NC WITH HUMIDIFICATION. WILL CONTINUE TO MONITOR.
--- NOTE | 2019-01-16 19:10 | NUR ---
RECEIVED REPORT FROM AM NURSE, PT AT BED AWAKE, CALM, COOPERATIVE, PERRLA 3MM, BRISK, PT RESPONDS TO NAME, PT BREATHING REGULARLY ON 3L/MIN, 02 NC, LUNG SOUNDS CLEAR THROUGHOUT, DIMINISHED AT BASES, HEART RATE REGULAR, SINUS BRADYCARDIA ON MONITOR, S1S2 PRESENT, CAP REFILL <3S, PULSES 2+ BILATERAL UPPER AND LOWER EXTREMITIES, ABDOMEN, SOFT, ROUND, NONDISTENDED, BOWEL SOUNDS ACTIVE IN ALL QUADRANTS, BLADDER, SOFT, ROUND, NONDISTENDED, NONTENDER, FC IN PLACE, DRAINING YELLOW, CLEAR URINE, PT HAS GENERALIZED WEAKNESS, SKIN NON INTACT, PT HAS SKIN TEAR ON CHEST AREA, DRESSING IN PLACE, DRY, INTACT, PT HAS BLANCHABLE REDNESS ON BILATERAL POSTERIOR EARLOBES, SKIN, WARM, DRY, PT HAS LEFT FEMORAL ARTERY CENTRAL LINE, RUNNING D5 AT 10 ML/HR. HOB 30 DEGREES, SIDE RAILS UP X2, BED AT LOWEST POSITION.
--- NOTE | 2019-01-16 19:20 | NUR ---
CHANGE OF SHIFT REPORT GIVEN TO PM NURSE, VITAL SIGNS STABLE AT THIS TIME, NO DISTRESS NOTED.
[2019-01-16] MEDS: TAMSULOSIN 0.4 MG CAP PO SCH (20:19)
--- NOTE | 2019-01-16 20:30 | NUR ---
ADMINISTERED MEDICATIONS. PT SINUS BRADYCARDIA ON MONITOR.
--- NOTE | 2019-01-16 22:17 | NUR ---
PT SON AT BEDSIDE, UPDATED SON REGARDING PT CONDITION. PT AT BED EYES CLOSED BREATHING REGULARLY ON NC 3L/MIN.
[2019-01-17] VITALS (12 sets, daily range): BP systolic 119–153; BP diastolic 42–77
[2019-01-17] MEDS: ALBUTEROL SULFATE/IPRATROPIU 3 ML SOL IH SCH ×4 (00:18→19:32)
[2019-01-17] MEDS: RACEPINEPHRINE 2.25% 13.5 MG/0.5 ML NEBU INH PRN (00:19)
--- NOTE | 2019-01-17 00:27 | NUR ---
PT PULLING FIERRO CATHETER, REDIRECTED PT AND ADVISED NOT TO PULL CATHETER. PT CALM, COOPERATIVE.
--- NOTE | 2019-01-17 02:11 | NUR ---
PT AT BED EYES CLOSED, BREATHING REGULARLY AT 3L/MIN 02 AT NC. HOB 30 DEGREES, SIDE RAILS UP X2, BED AT LOWEST POSITION.
--- NOTE | 2019-01-17 03:45 | NUR ---
PT PULLED LEFT FEMORAL CENTRAL LINE. SMALL BLEEDING NOTED. PRESSURE APPLIED. INSERTED 22 GAUGE PERIPHERAL IV ON LEFT HAND. AM CARE PROVIDED. PT TOLERATED PROCEDURE WELL.
[2019-01-17] MEDS: methylPREDNISolone SS 125 MG/2 ML VIAL IVP SCH ×3 (05:11→20:33)
[2019-01-17 05:44] LABS: BASOPHILS % (AUTO) 0.1 % (0.0-2.0); HEMOGLOBIN 9.9 g/dL (12.0-18.0); LYMPHOCYTES # (AUTO) 0.7 K/uL (2.0-11.5); LYMPHOCYTES % (AUTO) 4.5 % (20.5-51.1); MEAN CORPUSCULAR HEMOGLOBIN 28 pg (27-31); MEAN CORPUSCULAR HGB CONC 32 g/dL (33-37); MEAN CORPUSCULAR VOLUME 85.8 fL (80-94); MONOCYTES # (AUTO) 0.7 K/uL (0.8-1.0); MONOCYTES % (AUTO) 4.2 % (1.7-9.3); NEUTROPHILS # (AUTO) 14.3 K/uL (1.8-7.7); NEUTROPHILS % (AUTO) 91.2 % (42.2-75.2); PLATELET COUNT (AUTO) 409 K/uL (140-450); RED BLOOD CELL COUNT(AUTO) 3.61 MIL/uL (4.20-6.10); WHITE BLOOD COUNT (AUTO) 15.7 K/uL (4.8-10.8)
[2019-01-17 06:45] LABS: MAGNESIUM 2.7 mg/dL (1.8-2.4); PHOSPHORUS 3.8 mg/dL (2.5-4.9)
[2019-01-17 07:01] LABS: ALBUMIN 2.5 g/dL (3.4-5.0); ANION GAP 14.7 (8-16); ASPARTATE AMINOTRANSFERASE 24 U/L (15-37); CARBON DIOXIDE 28.9 mmol/L (21-32); CHLORIDE 102 mmol/L (98-107); CREATININE 1.4 mg/dL (0.7-1.3); GLUCOSE 136 mg/dL (74-106); POTASSIUM 3.6 mmol/L (3.5-5.1); SODIUM SERUM 142 mmol/L (136-145); TOTAL BILIRUBIN 0.4 mg/dL (0.0-1.0)
[2019-01-17 07:04] LABS: UREA NITROGEN, BLOOD 64 mg/dL (7-18)
--- NOTE | 2019-01-17 08:00 | NUR ---
BEDSIDE REPORT RECEIVED FROM PM NURSE. PT AWAKE AND ALERT X2. LUNG SOUNDS DIMINISHED AT BASES. BOWEL SOUNDS ACTIVE. SKIN IS WARM AND DRY. NASAL CANNULA WITH AEROSOL MIST 3L/MIN, 02 SAT 100%, DRY WEIGHT 83 KG. ORAL CARE PROVIDED. HOB 30 DEGREES. SIDE RAILS UP. BED IN LOWEST POSITION. Addendum: 01/17/19 at 1233 by Blayne Handy RN CORRECTION NASAL CANNULA 6L/MIN Addendum: 01/17/19 at 1515 by Blayne Handy RN CORRECTION: NASAL CANNULA WITH HUMIDIFIER ON 6L/MIN
--- NOTE | 2019-01-17 08:00 | NUR ---
PT TRYING TO REMOVE FIERRO CATH, TOLD PT NOT TO DO IT AND WAIT FOR DR'S INSTRUCTIONS LATER. PT NODDED.
[2019-01-17] MEDS: CARVEDILOL 3.125 MG TAB PO SCH ×2 (09:00→20:38)
[2019-01-17] MEDS: ISOSORBIDE DINITRATE 10 MG TAB PO SCH ×2 (09:00→20:38)
[2019-01-17] MEDS: AMIODARONE 200 MG TAB GT SCH (09:00)
[2019-01-17] MEDS: PANTOPRAZOLE 40 MG INJ VIAL IVP SCH (09:20)
[2019-01-17] MEDS: Z-GUARD PASTE TP SCH ×2 (09:35→20:38)
[2019-01-17] MEDS: HYDRAGUARD CREAM TP SCH ×2 (09:35→20:38)
--- NOTE | 2019-01-17 10:10 | NUR ---
DR ALEXANDER HAS SEEN PT. ASKED IF IT'S OK TO REMOVED FIERRO, DR ALEXANDER SAID YES.
--- NOTE | 2019-01-17 12:00 | NUR ---
FIERRO CATH DC'D PER MD ORDER. BALLOON COMPLETELY DEFLATED, PT TOLERATED WELL, NO BLEEDING NOTED.
--- NOTE | 2019-01-17 14:20 | NUR ---
*S.T. Bedside swallow eval completed* See report. Pt presents w/ mild oropharyngeal dysphagia c/b difficulty chewing soft solids, largely due to son's refusal to have lower denture put in place, despite the denture being present at bedside. Delayed pharyngeal swallow response observed (1-2 second delay). However, no overt s/s aspiration observed across all textures and SpO2 remained at and above 95% throughout swallow eval during P.O. trials. Pt is mod aspiration risk. Recommend: 1) Advance to pureed diet, thin liquids okay. Straws okay. 2) P.O. meds as tolerated, one at a time. 3) 1:1 feeder w/ aspiration precautions. 4) S.T. to follow up x1/1 week to ensure diet texture tolerance and possibly advance diet textures if appropriate. Time 0041-6251
[2019-01-17] MEDS: DEXTROSE 5% 250 ML IV SCH (14:48)
--- NOTE | 2019-01-17 18:15 | NUR ---
DR BARRON SEEN PT. MADE HIM AWARE K 3.6 AND HAS BEEN HOLDING BETA YONATHAN, ISORDIL AND AMIO IF OTHER BP MED CAN BE GIVEN TO CONTROL PT'S BP. ORDERS RECEIVED FROM DR ANDERSON Hnaley.
[2019-01-17] MEDS ORDERED: POTASSIUM CHLORIDE 10 MEQ TABER PO SCH (18:30)
[2019-01-17] MEDS ORDERED: amLODIPine 5 MG TAB PO SCH (18:40)
--- NOTE | 2019-01-17 19:25 | NUR ---
RECEIVED REPORT FROM JAVIER CASTILLO FOR CONTINUITY OF CARE. PT IN BED WITH EYES CLOSED. PT ABLE TO OPEN EYES SPONTANEOUSLY. PT RESPONDS TO NAME. AFEBRILE. DENIES PAIN. PERRL. PT SPEAKS ICELANDIC. LUNG SOUNDS CLEAR. PT ON OXYGEN AT 2L/MIN VIA NC. NO SOB NOTED. KEPT HOB AT 30 DEGREES. S1+S2 HEARD. SB TO SR ON MONITOR. PULSES ARE PALPABLE IN ALL EXTREMITIES. ABDOMEN ROUND, SOFT AND NONDISTENDED. BS ACTIVE IN ALL QUADRANTS. PT ON PUREE DIET AND THIN LIQUIDS. PER REPORT, PT HAS NO DIFFICULTY SWALLOWING PILLS. NO URINE OUTPUT NOTED AT THIS TIME. PT HAS A PERIPHERAL IV ACCESS ON LEFT FOREARM 22G THAT IS PATENT, INTACT AND ASYMPTOMATIC. PT HAS D5W RUNNING AT 10ML/HR. ALL SAFETY PRECAUTIONS ARE KEPT IN PLACE. HOB AT 30 DEGREES. WILL KEEP MONITORING PT FOR URINARY OUTPUT.
--- NOTE | 2019-01-17 20:25 | NUR ---
PER PT'S SON, PT WAS C/O STOMACH PAIN/GAS PAIN. MEDICATION ADMINISTERED.
[2019-01-17] MEDS: ALUMINUM HYD/MAG/SIMETHICONE 30 ML UDC PO PRN (20:28)
[2019-01-17] MEDS: TAMSULOSIN 0.4 MG CAP PO SCH (20:29)
--- NOTE | 2019-01-17 20:35 | NUR ---
PT'S SON, MAXWELL, AT BEDSIDE. PT PUT IN BEDPAN AND URINAL PROVIDED. PT WAS ABLE TO VOID URINE THAT IS CLEAR AND LIGHT CAT. 300ML IN AMOUNT. NO BM AT THIS TIME.
--- NOTE | 2019-01-17 20:40 | NUR ---
PT ABLE TO SWALLOW PILLS. NO SIGNS OF ASPIRATION NOTED. TOLERATING THIN LIQUIDS WELL. FAMILY CURRENTLY AT BEDSIDE.
--- NOTE | 2019-01-17 23:39 | NUR ---
OLD IV SITE REMOVED. NO FURTHER BLEEDING NOTED. CATHETER INTACT. NEW IV SITE SECURED IN PLACE. D5W RUNNING AT 10ML/HR.
[2019-01-18] VITALS (12 sets, daily range): BP systolic 130–152; BP diastolic 54–68
[2019-01-18] MEDS: ALBUTEROL SULFATE/IPRATROPIU 3 ML SOL IH SCH ×4 (00:26→19:05)
--- NOTE | 2019-01-18 01:15 | NUR ---
PT AWAKE AT THIS TIME. PT CURRENTLY SUCTIONING HIS ORAL SECRETIONS. PT DOES NOT APPEAR TO BE EXPERIENCING ANY DISCOMFORT AT THIS TIME. OXYGEN SATURATION 97% AT THIS TIME. NO SOB NOTED. HOB STILL AT 30 DEGREES. ALL SAFETY PRECAUTIONS ARE KEPT IN PLACE. IV SITE PATENT, INTACT AND ASYMPTOMATIC. WILL CONTINUE TO MONITOR PT.
--- NOTE | 2019-01-18 03:28 | NUR ---
PT WAS CALLING OUT TO NURSE. PUT HIS RIGHT HAND UP AND WITH HIS INDEX FINGER UP. SHOWED HIM THE URINAL AND ASKED IF HE NEEDS IT, PT NODDED YES. PT HAD 400ML URINE OUTPUT AT THIS TIME THAT IS CLEAR AND LIGHT CAT IN COLOR.
--- NOTE | 2019-01-18 04:45 | NUR ---
MORNING CARE PROVIDED TO PT. TOLERATED WELL. PT ABLE TO HOLD ON TO THE RAILS. NO SOB NOTED. VS REMAINS STABLE. ALL SAFETY PRECAUTIONS REMAINS IN PLACE. WILL CONTINUE TO MONITOR PT.
[2019-01-18] MEDS: methylPREDNISolone SS 125 MG/2 ML VIAL IVP SCH ×3 (04:46→20:12)
--- NOTE | 2019-01-18 07:12 | NUR ---
RECEIVED REPORT FROM BREAKDOWN MILL OPERATOR RN. PT RESTING IN BED. A/O X4. MAKES NEEDS KNOWN. SB ON MONITOR. ON O2 AT 2 LTR/MIN VIA NC. RR 17. LUNGS COARSE. DENIES CHEST PAIN OR DISCOMFORT. PERIPHERAL LINE NOTED ON RIGHT WRIST 22G. D5% INFUSING AT 10 ML/HR. INTACT IV LINE. ABDOMEN SOFT, ROUND AND NON-TENDER. ACTIVE BOWEL SOUND. DENIES ABDOMINAL PAIN OR DISCOMFORT. BRUISES NOTED ON RIGHT ARM. HEALED WOUND NOTED ON BOTH UPPER EARS. REDNESS NOTED ON SCROTUM. KEPT HOB ELEVATED. BED IN LOW POSITION LOCKED. DENIES PAIN AT THIS TIME. WILL CONTINUE TO MONITOR.
[2019-01-18] MEDS: CARVEDILOL 3.125 MG TAB PO SCH ×2 (08:02→20:13)
[2019-01-18] MEDS: AMIODARONE 200 MG TAB GT SCH (08:02)
[2019-01-18] MEDS: ISOSORBIDE DINITRATE 10 MG TAB PO SCH ×2 (08:07→20:13)
[2019-01-18] MEDS: PANTOPRAZOLE 40 MG INJ VIAL IVP SCH (08:08)
[2019-01-18] MEDS: amLODIPine 5 MG TAB PO SCH (08:08)
[2019-01-18] MEDS: HYDRAGUARD CREAM TP SCH ×2 (08:09→20:13)
[2019-01-18] MEDS: Z-GUARD PASTE TP SCH ×2 (08:09→20:13)
--- NOTE | 2019-01-18 10:15 | NUR ---
DR. LACY INTO SEE PT. UPDATED PT STATUS AND URINE OUTPUT.
--- NOTE | 2019-01-18 10:22 | NUR ---
DR. MCFARLANE IN TO SEE THE PT. UPDATED PT STATUS. NO NEW ORDER RECEIVED. SAID WILL DO LABS, BPM TOMORROW MORNING.
[2019-01-18] MEDS: MORPHINE SULFATE 2 MG/ML SYR IVP PRN (11:05)
--- NOTE | 2019-01-18 11:10 | NUR ---
DR. KRAFT MADE AWARE OF HOLDING MORNING PO ISODRIL, COREG AND AMIODARONE. HR BELOW 60. SAID OKAY.
--- NOTE | 2019-01-18 11:30 | NUR ---
SON AT THE BEDSIDE. WENT NORMAL BM X1, VOIDED X1. ASSISTED NEEDED. PT CLEANED AND DRY. APPLIED HYDRA-GUARD AND Z-GUARD PER ORDER. REPOSITIONED. NO CHANGE IN CONDITION.
[2019-01-18] MEDS: DEXTROSE 5% 250 ML IV SCH (13:31)
--- NOTE | 2019-01-18 15:10 | NUR ---
RESTING IN BED. ALERT, AWAKE. SB ON MONITOR. NO SOB OR RESPIRATORY DISTRESS NOTED. SPO2 95%. HOB ELEVATED. IV SITE INTACT. D5% INFUSING AT 10 ML/HR. WILL CONTINUE TO MONITOR.
--- NOTE | 2019-01-18 17:22 | NUR ---
KEPT PT CLEAN AND DRY. REPOSITIONED. SR ON MONITOR. NO RESPIRATORY DISTRESS NOTED. RR 21. SPO2 96%. HOB ELEVATED. NO C/O PAIN AT THIS TIME. SON AT THE BEDSIDE.
--- NOTE | 2019-01-18 19:19 | NUR ---
REPORT GIVEN TO PRODUCTION WELDER RN FOR CONTINUITY OF CARE. PT ON STABLE CONDITION.
--- NOTE | 2019-01-18 19:30 | NUR ---
RECEIVED REPORT FROM MORNING RN, VIRGEN, FOR CONTINUITY OF CARE. VS STABLE AT THIS TIME. PT AWAKE AT THIS TIME. ABLE TO MAKE SIMPLE NEEDS KNOWN WITH THE HELP OF GESTURES AND IMAGES. SPEAKS THAI ONLY. PERRL. DENIES PAIN AT THIS TIME. AFEBRILE. LUNG SOUNDS COARSE. NO SOB NOTED. OXYGEN SATURATION WNL. CHEST RISE SYMMETRIC. S1+S2 HEARD. PULSES PALPABLE IN ALL EXTREMITIES. SR ON MONITOR AT LOW 60S. ABDOMEN ROUND, SOFT AND NONDISTENDED. BS ACTIVE IN ALL QUADRANTS. PT CONTINENT AND ABLE TO USE URINAL WITH ASSISTANCE. NO BM NOTED AT THIS TIME. PT HAS PERIPHERAL IV ACCESS ON RIGHT WRIST 22G THAT IS SALINE LOCKED. FLUSHED THE IV ACCESS. LINE IS PATENT, INTACT AND ASYMPTOMATIC. PT TURNED AND REPOSITIONED. KEPT HOB AT 30 DEGREES. ALL SAFETY PRECAUTIONS ARE KEPT IN PLACE. WILL CONTINUE TO MONITOR PT.
[2019-01-18] MEDS: TAMSULOSIN 0.4 MG CAP PO SCH (20:12)
--- NOTE | 2019-01-18 20:20 | NUR ---
PT C/O STOMACH PAIN. MEDICATION ADMINISTERED. WILL RE-EVALUATE.
[2019-01-18] MEDS: ALUMINUM HYD/MAG/SIMETHICONE 30 ML UDC PO PRN (20:22)
--- NOTE | 2019-01-18 20:40 | NUR ---
PT WAS POINTING AT THE BEDSIDE TABLE. SHOWED HIM THE CUP OF WATER AND HE SHOOK HIS HEAD. SHOWED HIM THE TISSUE AND HE NODDED. HANDED THE PT SOME TISSUE PAPER BUT STILL KEPT POINTING AT THE BEDSIDE TABLE. SHOWED PT PICTURES AND NODDED WHEN SHOWED THE PICTURE OF TOILET. WHEN URINAL WAS SHOWED TO PT, HE SHOOK HIS HEAD. CALLED PT'S SON, MAXWELL , AND HAVE HIM TALK TO THE PT. PER MAXWELL, HIS BROTHER WILL ARRIVE IN THE UNIT WITHIN 5 MINUTES AND TO CALL HIM ANYTIME OF THE NIGHT IF IN NEED OF HELP IN UNDERSTANDING WHAT THE PT WANTS.
--- NOTE | 2019-01-18 20:42 | NUR ---
OFFERED THE URINAL TO PT AND VOIDED 200ML.
--- NOTE | 2019-01-18 22:32 | NUR ---
PT WANTED TO USE THE URINAL AGAIN. PT VOIDED 240ML. URINE WAS CLEAR AND LIGHT CAT IN COLOR. KEPT HOB AT 30 DEGREES. ALL SAFETY PRECAUTIONS ARE STILL IN PLACE. CALL LIGHT AND ORAL SUCTION WITHIN REACH. WILL CONTINUE TO MONITOR PT.
[2019-01-19] VITALS (12 sets, daily range): BP systolic 116–155; BP diastolic 55–98
--- NOTE | 2019-01-19 00:27 | NUR ---
NO CHANGE IN PT'S CONDITION AT THIS TIME. PT LAYING IN BED WITH EYES CLOSED. VS REMAINS STABLE. OXYGEN SATURATION WNL. CHEST RISE SYMMETRIC. NO SOB NOTED. WILL CONTINUE TO MONITOR PT.
[2019-01-19] MEDS: ALBUTEROL SULFATE/IPRATROPIU 3 ML SOL IH SCH ×4 (00:54→18:58)
--- NOTE | 2019-01-19 01:54 | NUR ---
PT TURNED AND REPOSITIONED. OFFERED SOME YOGURT AND PT ATE IT. KEPT HOB AT 30 DEGREES. ALL SAFETY PRECAUTIONS ARE STILL IN PLACE. KEPT BED AT THE LOWEST POSSIBLE POSITION.
--- NOTE | 2019-01-19 02:45 | NUR ---
PT INFORMED RN THAT HE IS TO HAVE A BM BY GESTURING NUMBER 2 WITH HIS FINGERS. BEDPAN PROVIDED. BM HAD ONE MODERATE BM THAT IS FORMED. BROWN TO GREEN IN COLOR. PT CLEANED AND GOWN CHANGED. PADS CHANGED WELL. PT REPOSITIONED. TOLERATED WELL. NO CHANGE IN VS.
--- NOTE | 2019-01-19 03:32 | NUR ---
CALLED PT'S SON, MAXWELL, AT PER PT'S REQUEST. PT SPOKE WITH MAXWELL. PER SON, PT IS HUNGRY AND WANTS SOMETHING TO EAT. WILL GIVE THE PT YOGURT THAT THE FAMILY HAS BROUGHT.
[2019-01-19] MEDS: methylPREDNISolone SS 125 MG/2 ML VIAL IVP SCH ×3 (05:13→20:19)
--- NOTE | 2019-01-19 05:48 | NUR ---
PT WAS SPEAKING IN HEBREW. CALLED PT'S SON, MAXWELL , SO THAT PT CAN SPEAK WITH HIM. PER MAXWELL, HIS BROTHER WILL COME IN A FEW MINUTES
[2019-01-19 05:55] LABS: ANION GAP 14.2 (8-16); CARBON DIOXIDE 30.9 mmol/L (21-32); CHLORIDE 105 mmol/L (98-107); CREATININE 1.3 mg/dL (0.7-1.3); GLUCOSE 146 mg/dL (74-106); MAGNESIUM 2.9 mg/dL (1.8-2.4); PHOSPHORUS 3.3 mg/dL (2.5-4.9); SODIUM SERUM 145 mmol/L (136-145)
[2019-01-19 05:58] LABS: UREA NITROGEN, BLOOD 62 mg/dL (7-18)
[2019-01-19 05:59] LABS: POTASSIUM 5.1 mmol/L (3.5-5.1)
--- NOTE | 2019-01-19 07:15 | NUR ---
RECEIVED REPORT FROM STEM FRAZER RN. PT RESTING IN BED. A/O X4. MAKES NEEDS KNOWN. SB ON MONITOR. ON O2 AT 2 LTR/MIN VIA NC. RR 19. LUNGS CLEAR. DENIES CHEST PAIN OR DISCOMFORT. PERIPHERAL LINE NOTED ON RIGHT AC 22G. D5% INFUSING AT 10 ML/HR. INTACT IV LINE. ABDOMEN SOFT, ROUND AND NON-TENDER. ACTIVE BOWEL SOUND. DENIES ABDOMINAL PAIN OR DISCOMFORT. BRUISES NOTED ON RIGHT AND LEFT ARM. HEALED WOUND NOTED ON BOTH UPPER EARS. REDNESS NOTED ON SCROTUM. KEPT HOB ELEVATED. BED IN LOW POSITION LOCKED. DENIES PAIN AT THIS TIME. WILL CONTINUE TO MONITOR.
[2019-01-19 07:17] LABS: HEMATOCRIT 32.8 % (36-52); HEMOGLOBIN 10.4 g/dL (12.0-18.0); MEAN CORPUSCULAR HEMOGLOBIN 27 pg (27-31); MEAN CORPUSCULAR HGB CONC 32 g/dL (33-37); MEAN CORPUSCULAR VOLUME 86.8 fL (80-94); PLATELET COUNT (AUTO) 367 K/uL (140-450); RED BLOOD CELL COUNT(AUTO) 3.78 MIL/uL (4.20-6.10); RED CELL DISTRIBUTION WIDTH 15.4 % (11.6-13.7)
[2019-01-19 07:52] LABS: LYMPHOCYTES % (MANUAL) 4 % (20-46); MONOCYTES % (MANUAL) 2 % (5-12)
[2019-01-19] MEDS: PANTOPRAZOLE 40 MG INJ VIAL IVP SCH (08:41)
[2019-01-19] MEDS: ISOSORBIDE DINITRATE 10 MG TAB PO SCH ×2 (08:59→20:20)
[2019-01-19] MEDS: CARVEDILOL 3.125 MG TAB PO SCH ×2 (08:59→20:20)
[2019-01-19] MEDS: AMIODARONE 200 MG TAB GT SCH (08:59)
[2019-01-19] MEDS: amLODIPine 5 MG TAB PO SCH (09:00)
--- NOTE | 2019-01-19 09:00 | NUR ---
SON AT THE BEDSIDE. PT ABLE TO SIT UP IN BED WITH ASSISTANCE FOR FEW MINUTES, GETS TIRED EASILY. PLACED ON BACK TO BED. WENT NORMAL BM X1. ASSISTED NEEDED. KEPT PT CLEAN AND DRY. TOLERATED WELL. MEDICATED PER SCHEDULE. HELD BP MEDS AND COREG FOR LOW BP AND FLUCTUATING HR, HR GOES BELOW 60.
[2019-01-19] MEDS: HYDRAGUARD CREAM TP SCH ×2 (09:02→20:20)
[2019-01-19] MEDS: Z-GUARD PASTE TP SCH ×2 (09:02→20:20)
--- NOTE | 2019-01-19 10:40 | NUR ---
DR. LACY INTO SEE PT. UPDATED PT STATUS. MADE AWARE OF TODAY'S LAB RESULTS AND URINE OUTPUT. NO CHANGE IN ORDERS.
--- NOTE | 2019-01-19 12:18 | NUR ---
NO SOB OR RESPIRATORY DISTRESS NOTED. AFEBRILE. SR ON MONITOR. BP 116/98. SPO2 98%. PT ALERT AWAKE. WATCHING TV AT THIS TIME. DENIES ANY PAIN OR DISCOMFORT. IV SITE INTACT. ASSISTED NEEDED.
[2019-01-19] MEDS: ACETAMINOPHEN 325 MG TAB PO PRN (12:43)
[2019-01-19] MEDS: DEXTROSE 5% 250 ML IV SCH (13:15)
--- NOTE | 2019-01-19 13:38 | NUR ---
01/19/19 RD FOLLOW UP COMPLETED PLEASE REFER TO NUTRITION PROGRESS NOTE UNDER CARE ACTIVITY FOR ESTIMATED NUTRITION NEEDS. RD RECOMMENDATIONS: 1. RECOMMEND PUREED LOW NA DIET DUE TO PT WITH HISTORY OF CHF. 2. RD TO ADD HEALTHSHAKES DUE TO POOR PO INTAKE. RD WILL F/U 2-3 DAYS; HIGHRISK. LISANDRO DAWSON, RD
--- NOTE | 2019-01-19 14:30 | NUR ---
DR. MCFARLANE INTO SEE THE PT. UPDATED PT STATUS. MADE AWARE OF URINE OUTPUT AND LABS. SAID DC IVF. PER DR. MCFARLANE, PT DOES NOT NEED FLUID RESTRICTION, REGULAR FLUID INTAKE IS FINE.
--- NOTE | 2019-01-19 14:30 | NUR ---
DR. MCFARLANE MADE AWARE OF NOT GIVING MORNING PO AMIODARONE AND BP MEDICINE DUE TO DECREASE BP, AND HR BELOW 60. SAID OKAY.
--- NOTE | 2019-01-19 16:11 | NUR ---
NO SOB OR RESPIRATORY DISTRESS NOTED. SB ON MONITOR. SPO2 97%. DENIES ANY PAIN OR DISCOMFORT.
--- NOTE | 2019-01-19 17:42 | NUR ---
PT ALERT AND AWAKE. TALKING TO THE SON. NO SOB OR RESPIRATORY DISTRESS NOTED. CONTINUE ON O2 AT 2 LTR/MIN. IV SITE INTACT. SR ON MONITOR.
[2019-01-19] MEDS: ACETYLCYSTEINE 10% (100 MG/ML) 100 MG/ML VIAL INH SCH (18:58)
--- NOTE | 2019-01-19 19:14 | NUR ---
REPORT GIVEN TO RETRIEVAL SPECIALIST RN FOR CONTINUITY OF CARE. PT ON STABLE CONDITION. FAMILY AT THE BEDSIDE.
--- NOTE | 2019-01-19 19:20 | NUR ---
RECEIVED REPORT FROM MORNING RN, VIRGEN, FOR CONTINUITY OF CARE. VS STABLE AT THIS TIME. PT AWAKE AT THIS TIME AND ABLE TO TALK WITH HIS FAMILY, WHO ARE AT BEDSIDE. ABLE TO MAKE SIMPLE NEEDS KNOWN. SPEAKS GREENLAND[place] ONLY. PERRL. DENIES PAIN AT THIS TIME. AFEBRILE. LUNG SOUNDS RHONCHI. NO SOB NOTED. PT HAS OXYGEN AT 2L/MIN VIA NC. OXYGEN SATURATION WNL. CHEST RISE SYMMETRIC. S1+S2 HEARD. PULSES PALPABLE IN ALL EXTREMITIES. SB TO SR ON MONITOR. ABDOMEN ROUND, SOFT AND NONDISTENDED. BS ACTIVE IN ALL QUADRANTS. PT CONTINENT AND ABLE TO USE URINAL WITH ASSISTANCE. NO BM NOTED AT THIS TIME. PT HAS PERIPHERAL IV ACCESS ON RIGHT AC 22G THAT IS SALINE LOCKED. FLUSHED THE IV ACCESS. LINE IS PATENT, INTACT AND ASYMPTOMATIC. PT TURNED AND REPOSITIONED. KEPT HOB AT 30 DEGREES. ALL SAFETY PRECAUTIONS ARE KEPT IN PLACE. WILL CONTINUE TO MONITOR PT.
[2019-01-19] MEDS: TAMSULOSIN 0.4 MG CAP PO SCH (20:19)
--- NOTE | 2019-01-19 20:30 | NUR ---
PT GESTURING TO RN THAT HE NEEDS TO DO NUMBER 2 (BM). PT WAS PUT ON BEDPAN, AND THEN HE WAS GESTURING THAT HE NEEDS TO DO NUMBER 1 (URINATE) SO URINAL PROVIDED. PT PASSED GAS AND VOIDED. NO BM AT THIS TIME. PADS WERE CHANGED. REPOSITIONED PT AND TOLERATED BEING TURNED WELL. CALL LIGHT WITHIN REACH.
--- NOTE | 2019-01-19 21:07 | NUR ---
DR. LEAL IN THE UNIT TO SEE PT. UPDATED HIM REGARDING PT'S CONDITION. RECEIVED NO NEW ORDERS AT THIS TIME. Addendum: 01/19/19 at 2110 by Keyla Jama RN WRONG PATIENT.
--- NOTE | 2019-01-19 21:30 | NUR ---
PT WAS TRYING TO GET OUT OF BED. CALLED PT'S SON, MAXWELL , TO TALK TO PT TO HELP IN CALMING HIM DOWN. PER MAXWELL, HIS SISTER WILL COME TO THE UNIT.
--- NOTE | 2019-01-19 23:28 | NUR ---
PT BECOMING AGITATED. PT'S DAUGHTER AT BEDSIDE CALMING HIM DOWN. PT'S DAUGHTER CALLED HER BROTHER, MAXWELL, AND SPOKE WITH RN. PER MAXWELL, HE WANTS HIS DAD TO BE GIVEN SOMETHING TO HELP HIM CALM DOWN. WILL CALL THE ATTENDING.
--- NOTE | 2019-01-19 23:31 | NUR ---
RECEIVED A CALL FROM DR. TOMPKINS. INFORMED HIM THAT PT WAS BECOMING MORE AGITATED AND CONFUSED. RECEIVED NEW ORDER FROM THE DOCTOR.
[2019-01-19] MEDS ORDERED: LORazepam 2 MG/ML VIAL IVP PRN (23:35)
--- NOTE | 2019-01-19 23:45 | NUR ---
PT'S FAMILY AT BEDSIDE. PT STARTED TO CALM DOWN S/P ATIVAN ADMINISTRATION. OXYGEN SATURATION 97% AT THIS TIME. HR AND BP WNL. WILL CONTINUE TO MONITOR PT.
[2019-01-20] VITALS (14 sets, daily range): BP systolic 116–153; BP diastolic 51–77
--- NOTE | 2019-01-20 00:11 | NUR ---
CALLED RT, RYDER, TO INFORM HIM THAT CURRENTLY PT IS ON OXYGEN AT 6L/MIN VIA MASK D/T POST ATIVAN ADMINISTRATION AND PT'S FAMILY IS CONCERNED THAT PT MIGHT DESATURATE. CURRENT OXYGEN SATURATION 100%. PER RT, SHE WILL COME TO SEE PT AROUND 0100.
[2019-01-20] MEDS: ALBUTEROL SULFATE/IPRATROPIU 3 ML SOL IH SCH ×3 (01:43→19:53)
[2019-01-20] MEDS: ACETYLCYSTEINE 10% (100 MG/ML) 100 MG/ML VIAL INH SCH ×3 (01:43→19:54)
--- NOTE | 2019-01-20 02:25 | NUR ---
VS STABLE. NO CHANGE IN PT'S CONDITION. PT EYES ARE CLOSED. FLACC 0. DOES NOT APPEAR TO BE EXPERIENCING ANY DISCOMFORT AT THIS TIME. RESPIRATIONS ARE EVEN AND UNLABORED. CHEST RISE SYMMETRIC. KEPT HO BAT 30 DEGREES. ALL SAFETY PRECAUTIONS REMAINS IN PLACE. WILL CONTINUE TO MONITOR PT
--- NOTE | 2019-01-20 05:30 | NUR ---
MORNING CARE PROVIDED TO PT. PT AROUSABLE TO PAIN. ABLE TO NOD HIS HEAD WHEN ASKED IF HE WANTS TO BE COVERED. NO BM NOTED AT THIS TIME. PT TURNED AND REPOSITIONED. KEPT HOB AT 30 DEGREES. ALL SAFETY PRECAUTIONS ARE KEPT IN PLACE. WILL CONTINUE TO MONITOR PT.
[2019-01-20 06:16] LABS: BASOPHILS % (AUTO) 0.1 % (0.0-2.0); HEMATOCRIT 32.3 % (36-52); HEMOGLOBIN 10.2 g/dL (12.0-18.0); LYMPHOCYTES # (AUTO) 0.7 K/uL (2.0-11.5); LYMPHOCYTES % (AUTO) 3.5 % (20.5-51.1); MEAN CORPUSCULAR HEMOGLOBIN 28 pg (27-31); MEAN CORPUSCULAR HGB CONC 32 g/dL (33-37); MEAN CORPUSCULAR VOLUME 87.8 fL (80-94); MONOCYTES # (AUTO) 0.5 K/uL (0.8-1.0); MONOCYTES % (AUTO) 2.3 % (1.7-9.3); NEUTROPHILS # (AUTO) 19.9 K/uL (1.8-7.7); NEUTROPHILS % (AUTO) 94.1 % (42.2-75.2); PLATELET COUNT (AUTO) 370 K/uL (140-450); RED BLOOD CELL COUNT(AUTO) 3.68 MIL/uL (4.20-6.10); RED CELL DISTRIBUTION WIDTH 14.8 % (11.6-13.7); WHITE BLOOD COUNT (AUTO) 21.1 K/uL (4.8-10.8)
[2019-01-20 06:44] LABS: ANION GAP 12.5 (8-16); CARBON DIOXIDE 29.2 mmol/L (21-32); CHLORIDE 104 mmol/L (98-107); CREATININE 1.1 mg/dL (0.7-1.3); GLUCOSE 134 mg/dL (74-106); POTASSIUM 4.7 mmol/L (3.5-5.1); SODIUM SERUM 141 mmol/L (136-145); UREA NITROGEN, BLOOD 50 mg/dL (7-18)
--- NOTE | 2019-01-20 07:30 | NUR ---
RECEIVED BEDSIDE REPORT FROM SYSTEM AUDITOR RN. PT IS ASLEEP, AROUSABLE TO LIGHT PAIN. DAUGHTER AT BEDSIDE. PERRL. FACC 0. AFEBRILE. NORMAL SINUS RHYTHM ON MONITOR. S1 +S2 HEARD. PULSES PALPABLE TO ALL EXTREMITIES. CAP REFILL < 2 SEC. PT IS ON O2 MASK AT 4 L/MIN. RHONCHI HEARD BILATERALLY, DIMINISHED AT BASES. BREATHING EVEN AND UNLABORED. NO SIGNS OF RESPIRATORY DISTRESS NOTED. ABDOMEN SOFT, ROUND, NONTENDER W/ ACTIVE BOWEL SOUNDS X 4 QUADRANTS. PERIPHERAL IV G 22 TO RIGHT AC ASYMPTOMATIC, PATENT AND INTACT, SALINE LOCKED. SKIN IS INTACT, DRY AND WARM TO TOUCH. NO BM NOTED. HOB AT 30 DEGREES, BED IN LOWEST POSITION LOCKED. CALL LIGHT WITHIN REACH. NO SIGNS OF DISTRESS NOTED AT THIS TIME. WILL CONTINUE TO MONITOR.
--- NOTE | 2019-01-20 08:10 | NUR ---
DR. LIU IN TO SEE AND EXAMINE PT. SPOKE WITH FAMILY AT BEDSIDE. WILL FOLLOW UP ON ORDERS.
[2019-01-20] MEDS: PANTOPRAZOLE 40 MG INJ VIAL IVP SCH (08:21)
[2019-01-20] MEDS: ISOSORBIDE DINITRATE 10 MG TAB PO SCH ×2 (08:22→20:53)
[2019-01-20] MEDS: AMIODARONE 200 MG TAB GT SCH (08:23)
[2019-01-20] MEDS: CARVEDILOL 3.125 MG TAB PO SCH ×2 (08:23→20:53)
[2019-01-20] MEDS: methylPREDNISolone SS 125 MG/2 ML VIAL IVP SCH ×2 (08:24→20:54)
[2019-01-20] MEDS: amLODIPine 5 MG TAB PO SCH (08:24)
[2019-01-20] MEDS: HYDRAGUARD CREAM TP SCH ×2 (08:26→20:55)
[2019-01-20] MEDS: Z-GUARD PASTE TP SCH ×2 (08:26→20:55)
--- NOTE | 2019-01-20 08:48 | NUR ---
PT SEEN AND EXAMINED BY DR. REID. NO NEW ORDER RECEIVED AT THIS TIME.
--- NOTE | 2019-01-20 09:05 | NUR ---
CALLED [facility] [phone] TO REVIEW CRITICAL ABG SAMPLE REPORT DR SUSAN LIU COVERING [facility] TO PAGE FOREMENTIONED
--- NOTE | 2019-01-20 09:25 | NUR ---
DR. LIU CALLED BACK. REPORTED ABG RESULTS. ORDERS RECEIVED. RT JANET MADE AWARE OF ORDERS.
--- NOTE | 2019-01-20 10:16 | NUR ---
DR. ANDERSON King IN THE UNIT TO SEE PT. WILL FOLLOW UP ON ORDERS.
--- NOTE | 2019-01-20 10:30 | NUR ---
PT VOIDED 500 ML CLEAR DARK YELLOW URINE USING URINAL. NO SIGNS OF DISTRESS AT THIS TIME.
--- NOTE | 2019-01-20 11:50 | NUR ---
PHYSICAL THERAPY AT BEDSIDE. PT IS ON O2 OXYMIZER AT 2 LPM. VSS. SON AT BEDSIDE. NO S/SX OF DISTRESS NOTED.
--- NOTE | 2019-01-20 11:50 | NUR ---
CALLED [facility] [phone] (OFFICE: [facility]) TO REVIEW AB SAMPLE REPORT
--- NOTE | 2019-01-20 12:20 | NUR ---
PT HAVING LUNCH, BEING FED BY SON AT BEDSIDE. PT ABLE TO COUGH OUT SECRETIONS AND ORALLY SUCTION INDEPENDENTLY. VSS. PT NOT IN ANY DISTRESS AT THIS TIME. SAFETY PRECAUTIONS IN PLACE.
--- NOTE | 2019-01-20 12:50 | NUR ---
DR. LIU CALLED BACK. REPORTED ABG RESULTS AND UPDATED ON PT'S CONDITION. PT IS AAOX4, FOLLOWS COMMANDS AND ABLE TO MAKE NEEDS KNOWN AT THIS TIME. DR. LIU ALSO MADE AWARE THAT PT IS NOT ON ANY ABX AT THIS TIME. ORDER RECEIVED AND WILL CARRY OUT.
--- NOTE | 2019-01-20 13:31 | NUR ---
*S.T. Treatment Note* S: Pt seen at bedside w/ eldest son present. Per nsg and son, pt tolerating meal trays well w/o s/s aspiration. Pt on nasal rebreather O2. O: Pt given P.O. trials gelatin (2 cc boluses via spoon x 2) and straw sips thin liquid and nectar thick water via straw. Spoon sips honey thick water. Delayed but consistent wet coughing after swallows of thin and nectar thick liquids. No overt s/s aspiration after swallows of gelatin. Mild throat clear x 1 after swallow of honey thick water. A: Pt presents w/ mod-severe oropharyngeal dysphagia. Swallow safety is poorer than eval on 01/17/19. P: Recommend continue pureed diet, downgrade liquid texture to HONEY THICK LIQUID ONLY VIA SPOON ONLY. NO STRAWS. D/w son at bedside as well as ANNA howell. Both communicated understanding. Also recommended follow up 2x/1 week. Time [id number]
--- NOTE | 2019-01-20 13:43 | NUR ---
SKIN ASSESSMENT AND CHART REVIEWED , SON AT BED SIDE. MEDICAL DEVICES (NC TUBING) INDUCE PRESSURE ULCER TO RIGHT AND LEFT BEHIND EARS REDNESS WITH SKIN INTACT. AREAS HAS IMPROVES FROM PREVIOUS DTI. SCROTAL IAD IMPROVED WILL CONTINUE CURRENT TREATMENT. CHARGE NURSE NOTIFIED AND PRIMARY RN NOTIFIED TO TAKE WEEKLY PHOTOS.
--- NOTE | 2019-01-20 14:05 | NUR ---
WOUND UPDATE PHOTOS TAKEN.
--- NOTE | 2019-01-20 14:15 | NUR ---
OFF BIPAP TO MASK AT THIS TIME SEE RN NOTES 1220 SPEECH THERAPY FOLLOWED THEREAFTER
--- NOTE | 2019-01-20 16:30 | NUR ---
CLARIFIED BIPAP ORDER WITH DR. LIU. PER DR. LIU KEEP BIPAP NOC AND PRN FOR SOB.
--- NOTE | 2019-01-20 17:15 | NUR ---
FAMILY FEEDING PATIENT DINNER, VITAL SIGNS STABLE, NO COMPLICATIONS NOTED. SAFETY PRECAUTIONS IN PLACE.
--- NOTE | 2019-01-20 19:15 | NUR ---
CHANGE OF SHIFT REPORT GIVEN BY DAY SHIFT NURSE ESTRELLA AT BEDSIDE. PATIENT LYING IN BED. HAS SUCTION IN HAND. SELF SUCTIONING NEEDED. OXIMIZER IN NOSE AT 2L. PATIENT UPPER LUNGS SOUND MILD RHONCHI. RT TO COME FOR BREATHING TREATMENT. HR REGULAR. SR ON MONITOR. RESPIRATIONS SYMMETRICAL AND UNLABORED. PATIENT HAS COUGH PRESENT INTERMITTENTLY. BOWEL SOUNDS ACTIVE IN ALL 4 QUADRANTS. PATIENT TEMPERATURE 99.0 DEGREES. SKIN WARM AND DRY TO TOUCH. PATIENT DENIES PAIN. ABLE TO MAKE NEEDS KNOWN. SPEECH CLEAR IN MONGOLIAN. PATIENT OBEYS COMMANDS GIVEN. SCAB HAS DRESSING ON MIDDLE CHEST FROM SKIN TEAR. SCABBED OVER AND DRESSING INTACT. NO OPEN SKIN NOTED. PATIENT HAS HEEL PROTECTORS PRESENT. REPOSITIONED PATIENT. DAY SHIFT STATES PATIENT USES URINAL AND BEDPAN WITH ASSISTANCE. PATIENT ABLE TO STATE COMMANDS NEEDED PER DAY SHIFT. BED IN LOWEST POSITION. SIDE RAILS UP. SAFETY MEASURES IN PLACE. BIPAP MACHINE PRESENT AT BEDSIDE. AMBU BAG AT BEDSIDE. WILL CONTINUE TO MONITOR. PERRLA NOTED BILATERALLY.
--- NOTE | 2019-01-20 19:33 | NUR ---
REPORT GIVEN TO PM NURSE FOR CONTINUITY OF CARE. PT IS IN STABLE CONDITION.
--- NOTE | 2019-01-20 19:55 | NUR ---
RT AT PATIENT BEDSIDE. BREATHING TREATMENT GIVEN. CPT GIVEN. VSS. TOLERATED WELL. PATIENT CONTINUES TO SUCTION SELF AFTER BREATHING TREATMENT. NO SOB OR S/S OF DISTRESS NOTED.
--- NOTE | 2019-01-20 20:09 | NUR ---
RECEIVED PATIENT ON 2L OXYMIZER, PULSE OX SAT 95%. SCHEDULED BREATHING TREATMENT ADMINISTERED. CPT GIVEN WITH TREATMENT. TOLERATED TX AND CPT WELL WITHOUT ADVERSE SIDE EFFECTS. NO ACUTE RESPIRATORY DISTRESS NOTED AT THIS TIME. WILL CONTINUE TO MONITOR.
--- NOTE | 2019-01-20 20:14 | NUR ---
FAMILY AT PATIENT BEDSIDE. PATIENT SPEAKING TO FAMILY MEMBER IN DANISH. NO CONFUSION NOTED. WILL CONTINUE TO MONITOR. STATES HE BROUGHT HIM THE BEANIE BECAUSE PATIENT STATES HEAD WAS COLD. EXTRA BLANKET GIVEN WILL CONTINUE TO MONITOR.
[2019-01-20] MEDS: DOCUSATE SODIUM 250 MG GELCAP PO PRN (20:52)
[2019-01-20] MEDS: BISACODYL 10 MG SUPP RC PRN (20:53)
[2019-01-20] MEDS: TAMSULOSIN 0.4 MG CAP PO SCH (20:53)
--- NOTE | 2019-01-20 21:20 | NUR ---
PATIENT STATES HE IS CONSTIPATED AND SON PRESENT AT BEDSIDE STATES HIS FATHER WOULD LIKE SOMETHING TO HELP WITH CONSTIPATION. MEDICATION ADMINISTERED ORDERED. TOLERATED SUPPOSITORY WELL. PATIENT LAUGHING DURING SITUATION "DON'T PUT IT IN SIDEWAYS PLEASE" "HAHA" NO BLEEDING NOTED. DENIES PAIN. PATIENT PO MEDICATION ADMINISTERED PER MD ORDERS. NO COUGHING. THICKENED LIQUIDS. BY THE END OF MEDICATION ADMINISTRATION, PATIENT STATES HE HAS TO "POOP" BED VELASQUEZ PLACED WELL URINAL. PATIENT HAD 300 CC OUTPUT OF URINE LIGHT CAT WITH NORMAL SMELL AND CLEAR. PATIENT HAD LARGE BM OF SOFT BROWN STOOL IN BEDPAN. FAMILY INSTSTED ON HELPING. PATIENT ABLE TO MOVE SELF SIDE TO SIDE. ASSISTED FAMILY IN CHANGING OF BED, GOWN, REPOSITIONING, CLEANING AND PLACING OF PROTECTANT BARRIER CREAMS ON. PATIENT CONTINUES TO SUCTION SELF. WILL CONTINUE TO MONITOR. DENIES PAIN. PATIENT CONTINUES TO LAUGH AND SMILE DURING SITUATION. WILL CONTINUE TO MONITOR. PATIENT VSS. NO SOB OR DISTRESS NOTED.
--- NOTE | 2019-01-20 22:50 | NUR ---
PATIENT GIVEN MAALOX FOR PAIN IN EPIGASTRIC AREA. SON AT BEDSIDE STATES HIS FATHER DOES NOT SIT WELL WITH ORANGE JUICE IT IS TOO ACIDIC FOR HIM. PATIENT HAD ORANGE JUICE THICKENED EARLIER WITH MEDICATION. PATIENT TOLERATED WELL AND NO COUGHING PRESENT. TOOK MEDICATION ORDERED. WILL CONTINUE TO MONITOR.
[2019-01-20] MEDS ORDERED: MORPHINE SULFATE 5 MG/ML VIAL IVP PRN (22:55)
[2019-01-20] MEDS: ALUMINUM HYD/MAG/SIMETHICONE 30 ML UDC PO PRN (22:55)
--- NOTE | 2019-01-20 23:00 | NUR ---
PLACED ON BIPAP PER NOC ORDERS. SKIN PROTECTIVE BARRIER GEL IN PLACE. DOFFING OF EQUIPMENT EXPLAINED TO PATIENT AND FAMILY AT BEDSIDE. TOLERATING WELL AT THIS TIME. WILL CONTINUE TO MONITOR.
--- NOTE | 2019-01-20 23:00 | NUR ---
ASKED PATIENT AND FAMILY MEMBER IF PATIENT HAS ANYMORE PAIN. PATIENT STATES "NO, PAIN IS GOING AWAY" PER PATIENT SON. NOTIFIED SON THAT WE HAVE OTHER MEDICATION ORDERED IF FATHER COMPLAINS OF PAIN. SON VERBALLY STATES HE UNDERSTANDS, HE WILL LET US KNOW IF FATHER COMPLAINS OF PAIN. RT AT BEDSIDE TO PLACE BIPAP ON. EXPLAINED TO FAMILY AND PATIENT HOW IT WORKS. FAMILY AND PATIENT VERBALLY STATES THEY UNDERSTAND. PATIENT APPEARS CALMER WITH ASSISTANCE OF BIPAP. PATIENT EYES CLOSED. WILL CONTINUE TO MONITOR.
--- NOTE | 2019-01-20 23:36 | NUR ---
PATIENTS OTHER SON AT BEDSIDE. 2 SONS AT BEDSIDE. PATIENT CONTINUES TO BE ON BIPAP AT THIS TIME. TOLERATING WELL. WILL CONTINUE TO MONITOR.
--- NOTE | 2019-01-20 23:45 | NUR ---
PATIENT STATES HE WANTS BIPAP OFF NOW. SONS PRESENT AND STATE FATHER WANTS BIPAP OFF NOW. PATIENTS VSS. NO SOB OR DISTRESS NOTED. WILL CONTINUE TO MONITOR. RT CALLED AND TAKING BIPAP OFF. PLACED OXIMIZER BACK ON. ENCOURAGED PATIENT TO BREATHE THROUGH NOSE. PATIENT STATES VERBALLY THAT HE UNDERSTANDS
[2019-01-21] VITALS (12 sets, daily range): BP systolic 123–150; BP diastolic 52–80
--- NOTE | 2019-01-21 00:25 | NUR ---
PATIENT HAD 2ND BM. LARGE BROWN AND SOFT FORMED STOOL. PATIENT LAUGHING THROUGHOUT CLEANING PROCESS WITH SON, NURSE AND CHARGE NURSE. STATES "FEELS BETTER" WHEN CLEANED. WHOLE BED WAS CHANGED, GOWN , BLANKETS AND PILLOWS. REPOSITIONED. PATIENT SMILING. STATES MILD PAIN STILL IN LEFT SIDE BELOW RIBS. GIVEN MORPHINE 4MG BY CHARGE NURSE ORDERED BY DR. CHOW. PATIENT ALERT AND ORIENTED. CLAPPED IN APPLAUSE WHEN WE FINISHED CLEANING PATIENT. PATIENT STATES PAIN AT 5/10. WILL CONTIUE TO MONITOR.
[2019-01-21] MEDS: MORPHINE SULFATE 4 MG/ML SYR IVP PRN ×3 (00:42→16:29)
[2019-01-21] MEDS: ALBUTEROL SULFATE/IPRATROPIU 3 ML SOL IH SCH ×4 (01:17→19:39)
[2019-01-21] MEDS: ACETYLCYSTEINE 10% (100 MG/ML) 100 MG/ML VIAL INH SCH ×4 (01:17→19:39)
--- NOTE | 2019-01-21 01:32 | NUR ---
SCHEDULED BREATHING TREATMENT ADMINISTERED. CPT DONE WITH TX. FAMILY AT BEDSIDE. TOLERATED THERAPIES WELL WITHOUT ADVERSE SIDE EFFECTS. NO ACUTE RESPIRATORY DISTRESS NOTED AT THIS TIME. WILL CONTINUE TO MONITOR.
--- NOTE | 2019-01-21 01:37 | NUR ---
PATIENT FINISHED BREATHING TX. FLACC O. SLEEPING AT THIS TIME. SON AT BEDSIDE. VSS. WILL CONTINUE TO MONITOR. NO SOB OR DISTRESS NOTED. PATIENT INTERMITTENTLY COUGHS AND SUCTIONS SELF.
--- NOTE | 2019-01-21 03:03 | NUR ---
PATIENT REQUESTING MILK AT THIS TIME. SON AT BEDSIDE. THICKENED MILK FOR PATIENT. SON REQUEST TO FEED FATHER. VSS. NO COUGHING NOTED. WILL CONTINUE TO MONITOR. DENIED ANY PAIN. PATIENT ABLE TO MAKE NEEDS KNOWN.
--- NOTE | 2019-01-21 04:52 | NUR ---
PATIENT ALERT AND ORIENTED. SMILING, LAUGHING AND JOKING WITH STAFF AT THIS TIME. DENIES PAIN. SON AT BEDSIDE. WILL CONTINUE TO MONITOR.
--- NOTE | 2019-01-21 06:00 | NUR ---
PATIENT ASKED FOR MORE MILK. SON AT BEDSIDE. PATIENT SUCTION CHANGED. VSS. CONTINUING TO SUCTION SELF. WILL CONTINUE TO MONITOR.
--- NOTE | 2019-01-21 07:05 | NUR ---
RECEIVED BEDSIDE REPORT FROM RICHARD INSURANCE BUSINESS ANALYST RN, FOR CONTINUITY OF CARE. PATIENT IS AAOX2, ABLE TO MAKE NEEDS KNOWN AND FOLLOW COMMANDS. SKIN IS WARM, DRY, AFEBRILE, PERIPHERAL IV SITE TO RAC 22 G. HE IS ON NASAL OXIMIZER AT 3LPM, BREATHING EVEN AND UNLABORED. PATIENT IS SR ON MONITOR, DENIES PAIN. HOB SEMI-PAYNE, SIDE RAILS UP 3X, BED LOCKED IN LOW POSITION. WILL CONTINUE TO MONITOR
--- NOTE | 2019-01-21 07:34 | NUR ---
PATIENT LAUGHING DURING CHANGE OF SHIFT REPORT. VSS, NO SOB OR DISTRESS NOTED.
--- NOTE | 2019-01-21 08:09 | NUR ---
PATIENT'S DAUGHTER IS AT BEDSIDE, FEEDING PATIENT PUREED DIET. PATIENT TOLERATING WELL.
[2019-01-21] MEDS: CARVEDILOL 3.125 MG TAB PO SCH ×2 (08:42→20:44)
[2019-01-21] MEDS: amLODIPine 5 MG TAB PO SCH (08:42)
[2019-01-21] MEDS: AMIODARONE 200 MG TAB GT SCH (08:42)
[2019-01-21] MEDS: PANTOPRAZOLE 40 MG INJ VIAL IVP SCH (08:43)
[2019-01-21] MEDS: methylPREDNISolone SS 125 MG/2 ML VIAL IVP SCH (08:43)
[2019-01-21] MEDS: ISOSORBIDE DINITRATE 10 MG TAB PO SCH ×2 (08:43→20:34)
[2019-01-21] MEDS: Z-GUARD PASTE TP SCH ×2 (09:00→20:45)
[2019-01-21] MEDS: HYDRAGUARD CREAM TP SCH ×2 (09:00→20:45)
--- NOTE | 2019-01-21 09:00 | NUR ---
SCHEDULED MEDS ADMINISTERED, PATIENT TOLERATED WELL
--- NOTE | 2019-01-21 09:34 | NUR ---
DR. LIU IS HERE TO SEE PATIENT, UPDATED ON PATIENT'S CONDITION. STATES THAT PATIENT IS OK TO BE TELE STATUS
[2019-01-21 10:22] LABS: HEMATOCRIT 32.4 % (36-52); HEMOGLOBIN 10.1 g/dL (12.0-18.0); MEAN CORPUSCULAR HEMOGLOBIN 28 pg (27-31); MEAN CORPUSCULAR HGB CONC 31 g/dL (33-37); MEAN CORPUSCULAR VOLUME 88.3 fL (80-94); PLATELET COUNT (AUTO) 304 K/uL (140-450); RED BLOOD CELL COUNT(AUTO) 3.67 MIL/uL (4.20-6.10); RED CELL DISTRIBUTION WIDTH 15.1 % (11.6-13.7); WHITE BLOOD COUNT (AUTO) 18.4 K/uL (4.8-10.8)
--- NOTE | 2019-01-21 10:29 | NUR ---
PT AT BEDSIDE WITH PATIENT'S FAMILY.
[2019-01-21 11:05] LABS: CHLORIDE 109 mmol/L (98-107); CREATININE 1.2 mg/dL (0.7-1.3); GLUCOSE 181 mg/dL (74-106); POTASSIUM 4.4 mmol/L (3.5-5.1); SODIUM SERUM 147 mmol/L (136-145); UREA NITROGEN, BLOOD 59 mg/dL (7-18)
[2019-01-21 11:38] LABS: ANION GAP 16.3 (8-16); CARBON DIOXIDE 26.1 mmol/L (21-32)
[2019-01-21 12:08] LABS: LYMPHOCYTES % (MANUAL) 3 % (20-46); MONOCYTES % (MANUAL) 2 % (5-12)
--- NOTE | 2019-01-21 12:50 | NUR ---
RT AT BEDSIDE FOR BREATHING TREATMENT
--- NOTE | 2019-01-21 14:39 | NUR ---
PATIENT PLACED BACK IN BED, ABLE TO AMBULATE WITH ASSISTANCE. PATIENT'S IV TO RAC WAS D/C.
--- NOTE | 2019-01-21 15:08 | NUR ---
ZEESHAN INDUSTRIAL METHODS CONSULTANT FROM ER, INSERTED PERIPHERAL IV SITE TO LEFT WRIST, 22G, PATIENT TOLERATED WELL.
--- NOTE | 2019-01-21 16:00 | NUR ---
Executive Creative Director Note: I called and spoke with patient's son Nasim Rhodes . He stated he would like patient to be referred to [facility] . He told me patient has home O2 (concentrator and portable tank) at home. He stated he is not sure if patient needs c-pap/bipap, case monitor Ilene will follow up regarding c-pap/bipap.
--- NOTE | 2019-01-21 17:26 | NUR ---
PATIENT'S DAUGHTER AT BEDSIDE, PROVIDED DINNER TRAY. NO SIGNS OF DISTRESS NOTED
--- NOTE | 2019-01-21 19:00 | NUR ---
PT AT BED EYES CLOSED, BREATHING REGULARLY, PERRLA 3MM, BRISK, COOPERATIVE, CALM, HEART RATE REGULAR, SINUS RHYTHM ON MONITOR, S1S2 PRESENT, CAP REFILL <3S, PULSES 2+ BILATERAL UPPER AND LOWER EXTREMITIES, PT ON O2 OXYMYZER, 3L/MIN, LUNG SOUNDS CLEAR ON BILATERAL UPPER LOBES, RONCHI ON UPPER LEFT MIDDLE LOBE, DIMINISHED AT BASES, ABDOMEN, SOFT, ROUND, NONDISTENDED, NONTENDER, BOWEL SOUNDS ACTIVE IN ALL QUADRANTS, SKIN INTACT, HEALED WOUND ON CHEST, DRESSING IN PLACE, DRY AND INTACT, POSTERIOR BILATERAL EARLOBES HAS MILD BLANCHABLE REDNESS, ZGUARD PLACED, SKIN, WARM, DRY, APPROPRIATE TO ETHNICITY, PT HAS GENERALIZED WEAKNESS, PERIPHERAL IV ON LEFT WRIST 22 GAUGE, SALINE LOCK.
--- NOTE | 2019-01-21 19:10 | NUR ---
ENDORSED CONTINUITY OF CARE TO JEANETH, CARAMEL CUTTER MACHINE RN. NO SIGNS OF DISTRESS AT THIS TIME.
--- NOTE | 2019-01-21 19:20 | NUR ---
SPOKE WITH PATIENT'S SON MAXWELL, STATES THAT HE IS CONCERNED THAT PATIENT WILL GET CONFUSED AT NIGHT WHEN GOING HOME. WILL ENDORSE TO REPEATER OPERATOR RN TO ENDORSE PATIENT'S SON'S CONCERN TO DR. LIU.
--- NOTE | 2019-01-21 20:15 | NUR ---
ADMINISTERED MEDICATIONS. PT TOLERATED PROCEDURE WELL.
[2019-01-21] MEDS: TAMSULOSIN 0.4 MG CAP PO SCH (20:33)
--- NOTE | 2019-01-21 22:56 | NUR ---
PT ASSISTED ON CHAIR AT BEDSIDE, SON SIMIN AT BEDSIDE. PT TOLERATED PROCEDURE WELL. VS WNL. WILL CONTINUE TO MONITOR.
[2019-01-22] VITALS (7 sets, daily range): BP systolic 117–151; BP diastolic 47–64
--- NOTE | 2019-01-22 00:15 | NUR ---
ASSISTED PT BACK TO BED.
[2019-01-22] MEDS: ACETYLCYSTEINE 10% (100 MG/ML) 100 MG/ML VIAL INH SCH ×2 (00:54→06:32)
[2019-01-22] MEDS: ALBUTEROL SULFATE/IPRATROPIU 3 ML SOL IH SCH ×2 (00:54→06:31)
--- NOTE | 2019-01-22 02:51 | NUR ---
ASSISTED PT ON URINAL. PT TOLERATED PROCEDURE WELL. OUTPUT 200 ML, YELLOW, CLEAR, URINE.
--- NOTE | 2019-01-22 03:40 | NUR ---
ASSISTED PT ON CHAIR, GAVE PT WITH THICKENED WATER. PT TOLERATED PROCEDURE WELL.
--- NOTE | 2019-01-22 05:31 | NUR ---
AM CARE PROVIDED. PT TOLERATED PROCEDURE WELL.
[2019-01-22 06:55] LABS: ALBUMIN 2.3 g/dL (3.4-5.0); ASPARTATE AMINOTRANSFERASE 20 U/L (15-37); CARBON DIOXIDE 30.4 mmol/L (21-32); CHLORIDE 109 mmol/L (98-107); GLUCOSE 121 mg/dL (74-106); POTASSIUM 4.4 mmol/L (3.5-5.1); SODIUM SERUM 146 mmol/L (136-145); TOTAL BILIRUBIN 0.4 mg/dL (0.0-1.0); UREA NITROGEN, BLOOD 46 mg/dL (7-18)
[2019-01-22 07:08] LABS: HEMATOCRIT 32.1 % (36-52); HEMOGLOBIN 10.2 g/dL (12.0-18.0); MEAN CORPUSCULAR HEMOGLOBIN 28 pg (27-31); MEAN CORPUSCULAR HGB CONC 32 g/dL (33-37); MEAN CORPUSCULAR VOLUME 88.1 fL (80-94); PLATELET COUNT (AUTO) 321 K/uL (140-450); RED BLOOD CELL COUNT(AUTO) 3.65 MIL/uL (4.20-6.10); RED CELL DISTRIBUTION WIDTH 16.1 % (11.6-13.7); WHITE BLOOD COUNT (AUTO) 19.6 K/uL (4.8-10.8)
--- NOTE | 2019-01-22 07:22 | NUR ---
BEDSIDE REPORT RECEIVED FROM PROCEDURE WRITER NURSE, PT IN NO ACUTE DISTRESS.
--- NOTE | 2019-01-22 08:01 | NUR ---
PT AWAKE ALERT OX3, RESP EVEN UNLABORED ON 2L NC, MOUTH BREATHING, LUNGS MID AND LOWER LOBES WITH RHONCI, UPPER LOBES CLEAR, SKIN WARM DRY COLOR WNL, ABD SOFT NON TENDER, PT STATES FEELS CONSTIPATED, WANTS MEDICATION, NO BM LAST NIGHT PER REPORT, BILAT SCD IN PLACE, REPOSITIONED, TO UP RIGHT POSITION, DAUGHTER AT BEDSIDE SPOON FEEDING SMALL AMT OF THICKENED LIQ, PT IQRA WELL.
[2019-01-22] MEDS: BISACODYL 10 MG SUPP RC PRN (08:06)
--- NOTE | 2019-01-22 08:11 | NUR ---
SUPPOSITORY GIVEN PER PRN ORDER
--- NOTE | 2019-01-22 08:25 | NUR ---
DR LIU AT BEDSIDE, PLAN TO DC HOME TODAY, PLAN DISCUSSED WITH VISHAL ARREOLA, QUESTIONS ASKED AND ANSWERED BY DR LIU.
[2019-01-22] MEDS: PANTOPRAZOLE 40 MG INJ VIAL IVP SCH (08:29)
[2019-01-22] MEDS: CARVEDILOL 3.125 MG TAB PO SCH (08:30)
[2019-01-22] MEDS: AMIODARONE 200 MG TAB GT SCH (08:30)
[2019-01-22] MEDS: amLODIPine 5 MG TAB PO SCH (08:30)
[2019-01-22] MEDS: ISOSORBIDE DINITRATE 10 MG TAB PO SCH (08:30)
--- NOTE | 2019-01-22 08:35 | NUR ---
MEDICATIONS ADMINISTERED ORDERED. PT TOLERATED WELL. BP 141/60 HR 80 RR25 SPO2 95% ON O2 AT 2 LPM/NC AT THIS TIME. SWALLOWED CRUSHED PILLS WITH APPLE SAUCE. NO COUGHING, SOB OR SIGNS OF DISTRESS NOTED. SON AND DAUGHTER AT BEDSIDE. SAFETY PRECAUTIONS IN PLACE. WILL CONTINUE TO MONITOR.
[2019-01-22] MEDS: HYDRAGUARD CREAM TP SCH (09:00)
[2019-01-22] MEDS ORDERED: methylPREDNISolone SS 40 MG/ML VIAL IVP SCH (09:00)
[2019-01-22] MEDS: Z-GUARD PASTE TP SCH (09:00)
--- NOTE | 2019-01-22 10:05 | NUR ---
PT SITTING UP IN CHAIR RESTING QUIETLY IN NO ACUTE DISTRESS, OCCASIONAL WET COUGHS, ORAL SUCTIONS HIMSELF WITH SAAD, DAUGHTER AT BEDSIDE, NO IMMEDIATE NEEDS AT THIS TIME. WILL CONTINUE TO MONITOR.
--- NOTE | 2019-01-22 10:33 | NUR ---
Complementary Health Therapists Note: I faxed referral to [facility] per patient's son Nasim's request. Per Debo from [facility] , they are going to contact patient's pcp and ask pcp if he/she would like to continue following up with patient under their services ([facility]). Debo stated she will call me back and let me know pcp's decision, Legislative Director Margaret made aware.
--- NOTE | 2019-01-22 10:37 | NUR ---
[facility] CALLED, STATES THAT THEY WILL BE ACCEPTING PATIENT AND TO LET THE CASE MANAGEMENT KNOW SO THAT THEY CAN GET THE ORDERS.
[2019-01-22 11:14] LABS: LYMPHOCYTES % (MANUAL) 4 % (20-46); MONOCYTES % (MANUAL) 3 % (5-12)
--- NOTE | 2019-01-22 11:19 | NUR ---
DISCHARGE PLANNING: Pt will be discharge today with [facility] PT. Clinicals faxed to [facility] Addendum: 01/22/19 at 1320 by Silvia Link CM Spoke with Debo from [facility] and they are accepting pt for [facility] for PT. They will see the pt either tomorrow or sunday. Addendum: 01/22/19 at 1352 by Ilene Hood CM CALLED DR LIU FOR PT NEEDS F/U APPOINTMENT FOR HIGH-RISK CLINIC PER DR LIU OK TO SEE HIM UPON DISCHARGE. Addendum: 01/22/19 at 1533 by Silvia Link CM Spoke with Grace TAYLOR from [facility] .m AUTH # for high risk clinic follow up [facility] [id number] and AUTH # for [facility] [id number]. Addendum: 01/22/19 at 1539 by Silvia Link CM Appointment arranged with the high risk clinic to see Dr. Liu on 01/24/19 at 0900. Address is [address] [place] [address]. [facility]inc # . Addendum: 01/22/19 at 1548 by Silvia Link CM Appointment arranged with high risk clinic. Pt has an appointment to see Dr. Liu on 01/24/19 at 0900. Clinic address is [address] [place] [address]. Spoke with Nasim garner's son and gave him the appointment schedule, address and number of the clinic. Gave Nasim the number of [facility] .
[2019-01-22] MEDS ORDERED: PRED20TA5 PO ×2 (11:25→11:26)
[2019-01-22] MEDS ORDERED: CEPH-1019 PO (11:28)
[2019-01-22] MEDS ORDERED: AMIO200T5 PO (11:28)
--- NOTE | 2019-01-22 11:41 | NUR ---
BMX1, IN BEDPAN ON CHAIR, PERICARE DONE, PT REMAINS IN CHAIR, POSITIONED FOR COMFORT.
--- NOTE | 2019-01-22 11:54 | NUR ---
FLU AND PNEUMONIA VACCINES GIVEN.
--- NOTE | 2019-01-22 12:30 | NUR ---
PHYSICAL THERAPY DORCAS AT BEDSIDE
--- NOTE | 2019-01-22 13:00 | NUR ---
DISCHARGE INSTRUCTION AND RX GIVEN AND EXPLAINED TO PT'S SON LEESA, ALL QUESTIONS ASKED AND ANSWERED, LEESA VERBALIZED FULL UNDERSTANDING, IV DC'D, CATH TIP INTACT, BLEEDING CONTROLLED, CARDIOPULM MONITOR LEADS AND PT ID BANDS REMOVED, PT ASSISTED BY FAMILY TO CHANGE TO HIS CLOTHES, ASSISTED TO WHEELCHAIR, ALL BELONGINGS TAKEN BY FAMILY, ESCORTED OUT IN WHEELCHAIR, SWITCHED TO PT'S OWN O2 TANK, ASSISTED INTO SON'S CAR TO DC HOME WITH FAMILY AT THIS TIME, BOWLING PIN REFINISHER TO CALL PT'S FAMILY WITH FOLLOW UP APPOINTMENT.
== END 2019-01-22 13:00 | disposition home health service (06) | DRG 130 ==
LOC: MED 08:21 → MTU 10:20 → MIC 12-30 14:30 → MTU 01-07 14:25 → MIC 01-08 19:25
PROVIDERS: ADMIT Internal Medicine Pulmonary Disease; ATTEND Internal Medicine Pulmonary Disease
PROC: 5A09357 Assistance with Respiratory Ventilation, Less than 24 Consecutive Hours, Continuous Positive Airway Pressure (ICD-10-PCS; 2018-12-29)
PROC: 5A09357 Assistance with Respiratory Ventilation, Less than 24 Consecutive Hours, Continuous Positive Airway Pressure (ICD-10-PCS; 2018-12-30)
PROC: 5A1955Z Respiratory Ventilation, Greater than 96 Consecutive Hours (ICD-10-PCS; principal; 2018-12-31)
PROC: 3E02340 Introduction of Influenza Vaccine into Muscle, Percutaneous Approach (ICD-10-PCS; 2018-12-31)
PROC: 3E0234Z Introduction of Serum, Toxoid and Vaccine into Muscle, Percutaneous Approach (ICD-10-PCS; 2018-12-31)
PROC: 02HV33Z Insertion of Infusion Device into Superior Vena Cava, Percutaneous Approach (ICD-10-PCS; 2018-12-31)
PROC: B548ZZA Ultrasonography of Superior Vena Cava, Guidance (ICD-10-PCS; 2018-12-31)
PROC: 0BH17EZ Insertion of Endotracheal Airway into Trachea, Via Natural or Artificial Opening (ICD-10-PCS; 2018-12-31)
PROC: 5A09357 Assistance with Respiratory Ventilation, Less than 24 Consecutive Hours, Continuous Positive Airway Pressure (ICD-10-PCS; 2019-01-09)
PROC: 5A1955Z Respiratory Ventilation, Greater than 96 Consecutive Hours (ICD-10-PCS; 2019-01-10)
PROC: 0BH17EZ Insertion of Endotracheal Airway into Trachea, Via Natural or Artificial Opening (ICD-10-PCS; 2019-01-10)
PROC: 5A12012 Performance of Cardiac Output, Single, Manual (ICD-10-PCS; 2019-01-10)
PROC: 5A09357 Assistance with Respiratory Ventilation, Less than 24 Consecutive Hours, Continuous Positive Airway Pressure (ICD-10-PCS; 2019-01-10)
DX: J96.01 Acute respiratory failure with hypoxia (principal); J69.0 Pneumonitis due to inhalation of food and vomit; I21.A1 Myocardial infarction type 2; N17.0 Acute kidney failure with tubular necrosis; J96.02 Acute respiratory failure with hypercapnia; J44.0 Chronic obstructive pulmonary disease with (acute) lower respiratory infection; I50.33 Acute on chronic diastolic (congestive) heart failure; J38.4 Edema of larynx; I46.9 Cardiac arrest, cause unspecified; J44.1 Chronic obstructive pulmonary disease with (acute) exacerbation; I11.0 Hypertensive heart disease with heart failure; I25.10 Atherosclerotic heart disease of native coronary artery without angina pectoris; Z99.81 Dependence on supplemental oxygen; F41.9 Anxiety disorder, unspecified; I25.5 Ischemic cardiomyopathy; I27.20 Pulmonary hypertension, unspecified; I48.91 Unspecified atrial fibrillation; N39.0 Urinary tract infection, site not specified; E78.5 Hyperlipidemia, unspecified; I71.2 Thoracic aortic aneurysm, without rupture; T50.2X5A Adverse effect of carbonic-anhydrase inhibitors, benzothiadiazides and other diuretics, initial encounter; Z87.891 Personal history of nicotine dependence; Z23 Encounter for immunization; Z79.899 Other long term (current) drug therapy; Y92.89 Other specified places as the place of occurrence of the external cause
CPT/HCPCS: 36415; 36600; 70490; 71045; 71250; 74018; 78582; 80048; 80053; 81001; 82140; 82803; 82948; 83605; 83735; 83880; 84100; 84300; 84436; 84443; 84484; 85025; 85610; 85730; 87040; 87070; 87081; 87086; 87205; 90732; 92526; 92610; 93005; 94002; 94003; 94640; 94660; 94667; 96361; 96374; 97110; 97112; 97116; 97161-GP; 97164; 97530; 99285; C1751; C1758; C9113; J0282; J0330; J0360; J0696; J1100; J1265; J1644; J1650; J1940; J2060; J2250; J2270; J2543; J2704; J2920; J2930; J3475; J3480; J7030; J7060; J7613; J7620; J7644; Q0092